=== PATIENT | female | born 1945 ===

== ENCOUNTER 2020-04-05 10:57 | Outpatient (REF) | payer MEDICARE, SELFPAY | END 2020-04-05 10:58 | disposition home or self-care (01) | LOC: HO.LAB 10:57 | PROVIDERS: Visit Provider Internal Medicine | DX: Z20.828 Contact with and (suspected) exposure to other viral communicable diseases (principal) | CPT/HCPCS: 87635 ==

== ENCOUNTER 2020-06-09 12:06 | Outpatient (REF) | payer MEDICARE, SELFPAY | END 2020-06-09 12:07 | disposition home or self-care (01) | LOC: HO.HAP 12:06 | PROVIDERS: Visit Provider Internal Medicine Geriatric Medicine | DX: Z13.89 Encounter for screening for other disorder (principal) ==

== ENCOUNTER 2020-08-16 12:57 | Outpatient (REF) | payer MEDICARE, SELFPAY ==
--- NOTE | ~2020-08-16 | MM_ITS ---
EXAMINATION: MM SCREENING DIGITAL BREAST TOMOSYNTHESIS, BILATERAL CLINICAL INFORMATION: Screening. Asymptomatic. The lifetime risk of breast cancer based on the Tyrer-Cuzick Model is 2.6%. COMPARISON: Mammography: December 30, 2018 and studies dating back to September 02, 2009 TECHNIQUE: Digital breast tomosynthesis is performed in both the craniocaudal and mediolateral oblique views along with computer-aided detection (CAD). Synthesized 2D images are generated from the tomosynthesis. Left exaggerated craniocaudal view also performed. FINDINGS: There are scattered areas of fibroglandular density (ACR BI-RADS breast composition Category b). There are no significant masses, abnormal calcifications, or other abnormalities. MM/MM tomosynthesis screening BI IMPRESSION: There are no significant changes from prior study. ASSESSMENT: BI-RADS 1: Negative RECOMMENDATION: Routine annual mammography screening. This patient's information was entered into a reminder system with a target due date for their next mammogram.
== END 2020-08-16 12:58 | disposition home or self-care (01) ==
LOC: HO.MAMMO 12:57
PROVIDERS: Visit Provider Internal Medicine Geriatric Medicine
DX: Z12.31 Encounter for screening mammogram for malignant neoplasm of breast (principal)
CPT/HCPCS: 77063; 77067

== ENCOUNTER 2020-08-26 10:50 | Inpatient (IN) | payer MEDICARE, SELFPAY ==
--- NOTE | ~2020-08-26 | CT_ITS ---
EXAMINATION: CT HEAD WITHOUT CONTRAST CLINICAL INFORMATION: Confusion visual hallucination. Evaluate for stroke or bleed. COMPARISON: Previous head CT most recent November 2019 TECHNIQUE: Contiguous axial imaging was performed from the skull base to vertex without intravenous administration of contrast. This CT examination was performed using dose optimization techniques as appropriate, variously including the following: *Automated exposure control *Adjustment of mA and/or kV according to patient size (this includes techniques or standardized protocols for targeted exams where dose is matched to indication/reason for exam; i.e. extremities or head) *Use of iterative reconstruction technique DLP: 616 mGy-cm FINDINGS: There is no evidence of an extra-axial collection. There is no evidence of intra-axial or extra-axial hemorrhage. The ventricles and extra-axial CSF spaces are slightly prominent suggestive of mild generalized atrophy. There is nonspecific periventricular white matter disease. No mass, mass effect or infarct is seen. There is an empty sella. 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 Paranasal sinuses and mastoid air cells and middle ears are clear. Review of bone windows is normal. CT/CT head/brain wo con IMPRESSION: No acute intracranial pathology.
--- NOTE | ~2020-08-26 | XR_ITS ---
EXAMINATION: XR CHEST CLINICAL INFORMATION: Confusion. Rule out pneumonia. COMPARISON: Previous chest x-ray January 2017 TECHNIQUE: 2 views of the chest were obtained. FINDINGS: The cardiac and mediastinal contours are stable. There are post-CABG changes. The lung volumes are low. The lungs are clear. There is no pleural effusion or pneumothorax. There are degenerative changes of the spine. XR/XR chest 2V IMPRESSION: No evidence for acute disease in the chest.
--- NOTE | ~2020-08-26 | CT_ITS ---
EXAMINATION: CT ABDOMEN AND PELVIS WITHOUT CONTRAST CLINICAL INFORMATION: Hematuria COMPARISON: CTA chest 05/14/2015, CT abdomen and pelvis without intravenous contrast 01/18/2011. Chest radiograph 08/26/2020. TECHNIQUE: Multidetector volumetric imaging was performed from the superior aspect of the liver through the pubic symphysis. Sagittal and coronal reformatted images were obtained on the technologist's workstation. This CT examination was performed using dose optimization techniques as appropriate, variously including the following: *Automated exposure control *Adjustment of mA and/or kV according to patient size (this includes techniques or standardized protocols for targeted exams where dose is matched to indication/reason for exam; i.e. extremities or head) *Use of iterative reconstruction technique DLP: 559 mGy-cm FINDINGS: LUNG BASES: The visualized lung bases are unremarkable. LIVER, GALLBLADDER, AND BILIARY TREE: The liver is normal in size, shape, and attenuation. No focal hepatic lesion or biliary ductal dilatation is present. There are some small dependent calculi in the gallbladder. No gallbladder dilatation or wall thickening or pericholecystic inflammatory changes. Common duct unremarkable. PANCREAS: Atrophic, otherwise unremarkable. SPLEEN: Unremarkable. ADRENAL GLANDS: Unremarkable. KIDNEYS AND URETERS: The kidneys are normal in size and symmetric and smooth in contour. There is no hydronephrosis, urinary tract calculi, or perinephric stranding. Extensive calcifications renal vasculature. BLADDER: Unremarkable. GASTROINTESTINAL TRACT: The small and large bowel are unremarkable. The appendix is unremarkable. ABDOMINAL WALL: No significant hernia is appreciated. LYMPH NODES: Normal. VASCULAR: There is extensive diffuse atherosclerotic calcifications of the vasculature including the renal and intrarenal arteries, aorta, and branches. There is been prior median sternotomy. Dense mitral annulus or mitral valve calcification present. No pericardial effusion. PELVIC VISCERA: No adnexal mass. Extensive calcifications uterine vasculature. OSSEOUS STRUCTURES: Unremarkable. CT/CT abdomen pelvis wo con IMPRESSION: 1. No hydronephrosis, hydroureter, or perinephric stranding. No urinary tract calculi. 2. Extensive atherosclerotic calcifications vasculature. 3. No bowel obstruction or focal inflammatory changes. No ascites or fluid collection. 4. Gallstones. No gallbladder wall thickening or ductal dilatation.
[2020-08-26 10:50] VITALS: BP 159/93; PULSE 90; RESP 18; TEMP 36.3; O2SAT 100; BMI 34.9
[2020-08-26 11:10] LABS: Glucose, Whole Blood 309 mg/dL (60-115)
--- NOTE | 2020-08-26 11:20 | ECG_ITS ---
Test Reason : ALTER MENTAL Blood Pressure : / mmHG Vent. Rate : 083 BPM Atrial Rate : 083 BPM P-R Int : 164 ms QRS Dur : 080 ms QT Int : 428 ms P-R-T Axes : 048 024 034 degrees QTc Int : 502 ms Normal sinus rhythm Prolonged QT Abnormal ECG When compared with ECG of 01-APR-2018 12:17, Vent. rate has increased BY 30 BPM Nonspecific T wave abnormality now evident in Anterior leads Referred By: James Pierce Electronically Signed By:JAYANT VIVAS MD
--- NOTE | 2020-08-26 11:48 | ED_ITS ---
HPI - General Adult General Chief complaint: Altered Mental Status Stated complaint: ALTER MENTAL STATUS Time Seen by Provider: 08/26/20 11:15 Source: patient and other ( patient's [place], Sangita [place] ) Mode of arrival: ambulatory Limitations: language barrier ( patient is confused, 1st language is Tajik, [place] speaks Tajik, hospital automotive parts interpreter used) History of Present Illness HPI narrative: the patient is confused and the information was obtained from her [place], Sangita [place]. the patient's [place] sees the patient daily from 12:30 p.m. to 4:30 p.m.. She states that the patient called her this morning at 6:00 a.m. and appeared to be confused and frightened. The patient told her [place] that birds came into her house and were eating her toes all night long. There was also a skunk in the house overnight. The patient was visited by a ghost that wanted to take her away. The goes also voice and all of her food. When the [place] got the patient's house, the patient was hiding in a closet. The [place] states that the patient has no history of confusion or hallucinations. The patient lives alone and is usually able to care for herself. Recently the [place] noted the patient was more tired than usual and did not want to leave the house. According to the [place], the patient has had no fever, cough, chest pain, shortness of breath. Patient has had an occasional headache. The patient has had a good appetite the lost 7 lb over the last 2-3 weeks. 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 Patient lives alone but her [place] sees her daily from 12:30 p.m. to 4:30 p.m., the [place] prepares the patient's meals. the patient does not smoke cigarettes, drink alcohol or use drugs. Medical History (Updated 08/26/20 @ 14:34 by James Pierce MD) Diabetes HTN (hypertension) Surgical History (Updated 08/26/20 @ 10:56 by Phyllis De Souza) History of open heart surgery Social History Social History Alcohol intake: never Smoking Status: Never smoker Use of substances other than those prescribed or required for medical reasons: No Advance Directives: No Advance Directives Information Provided: No Physical Exam Vital Signs: Vital Signs: Last Vital Signs Temp 97.4 F 08/26/20 10:50 Pulse 90 08/26/20 10:50 Resp 18 08/26/20 10:50 BP 159/93 H 08/26/20 10:50 Pulse Ox 100 08/26/20 10:50 Body Mass Index 34.9 Const: General: cooperative Orientation/consciousness: oriented to person Limitations: no limitations HENMT: Head: Yes normal to inspection, Yes normocephalic and Yes atraumatic Ears: external ears normal General nose exam: Normal external nose present Face and sinus: Yes normal facial exam Mouth: Normal oral and palatal mucosa present Throat: Yes posterior oropharynx normal Eyes: Periorbital: periorbital findings normal Eyelids: Yes eyelids normal Conjunctivae: conjunctivae normal Sclerae: sclerae normal Corneas: corneas normal Pupils: Equal, round and reactive pupils present Direct Ophthalmoscopy: normal light reflex Neck: Neck: Yes full ROM, Yes no lymphadenopathy, Yes no meningeal signs, Yes trachea midline and Yes supple Chest: Chest palpation & inspection: normal inspection of the chest and normal palpation of entire chest wall Resp: Effort & Inspection: normal respiratory effort and able to speak in complete sentences Auscultation: clear to auscultation bilaterally Cardio: Rate: regular rate Rhythm: regular rhythm Heart sounds: S1 normal heart sound present, S2 normal heart sound present and no murmurs GI: Inspection: Yes normal to inspection Palpation (GI): Soft to palpation, Tenderness to palpation present (GI) ( Mild diffuse tenderness with increased tenderness in the suprapubic area), no guarding, not rigid and No hepatospl enomegaly present : General: Yes no CVA tenderness Back/Spine/Pelvis: Back: no CVA tenderness Cervical Spine: normal cervical lordosis Thoracic/Lumbar Spine: thoracic and lumbar spine normal to inspection Skin: Lesions: no lesions Rashes: no rashes Wounds: no wounds Neuro: General: oriented to person and no meningeal signs Cranial nerves: Yes CN's II-XII intact bilaterally and Yes Equal, round and reactive pupils present Motor exam (neuro): 5/5 motor strength present throughout Extrem: General: Yes normal to inspection and Yes full ROM Psych: Appearance: well kempt Speech and movement: Normal speech and movement present Affect: normal affect Attitude: cooperative Thought content: Paranoid delusions present ( believes that his birds and worms in her abdomen) Course Course Course Narrative: 75-year-old female who was brought to the emergency department by her [place] for confusion and visual hallucinations which are new for this patient. Physical examination revealed an elevated BP of 159/93 otherwise normal vital signs, diffuse abdominal tenderness with increased suprapubic tende rness otherwise unremarkable except for paranoid ideation and hallucinations. I did order a medical workup on this patient to include a septic workup, TSH, CT scan of the brain. 1431: The patient's laboratory evaluation revealed an elevated glucose of 321, TSH was normal. Urinalysis /microscopic revealed WBCs which were too numerous to count and 4+ bacteria. Lactic acid was normal. CT scan of the head was negative and chest x-ray was negative. My impression is The patient's hallucinations are most likely secondary to delirium/ encephalopathy from the patient's urine infection. The patient was ordered to get ceftriaxone 1 g IV. I did discuss the patient's presentation with the covering hospitalist, Cheyenne Smith and the patient will be admitted for further management. Medical Decision Making Lab Data Result diagrams: 08/26/20 11:41 08/26/20 11:41 Labs: Lab Results 08/26/20 08/26/20 08/26/20 Range/Units 11:06 11:40 11:41 WBC 7.0 (4.8-10.8) X10*3/uL RBC 4.42 (4.20-5.50) X10*6/uL Hgb 12.1 (12.0-16.0) g/dl Hct 36.0 L (37-47) % MCV 81.4 (80-98) fL MCH 27.4 (27.0-33.0) pg MCHC 33.6 (31.0-35.0) g/dl RDW 14.4 (11.0-16.0) % Plt Count 227 (160-400) X10*3/uL MPV 9.8 (9.4-12.3) fL Immature Gran % (Auto) 0.4 (0.0-0.4) % Neut % (Auto) 65.7 (45-73) % Lymph % (Auto) 24.2 (20-40) % [place] % (Auto) 7.4 (2-11) % Eos % (Auto) 1.7 (0-4) % Baso % (Auto) 0.6 (0-2) % Lymph # (Auto) 1.7 (1.2-4.9) X10*3/uL [place] # (Auto) 0.5 (0.1-1.2) X10*3/uL Eos # (Auto) 0.1 (0.0-0.4) X10*3/uL Baso # (Auto) 0.0 (0.0-0.2) X10*3/uL Abs Immat Gran (auto) 0.03 (0.00-0.03) X10*3/uL Absolute Neuts (auto) 4.6 (2.0-8.3) X10*3/uL Absolute Nucleated RBC 0.000 (0.0-0.012) X10*3/uL Nucleated RBC % (auto) 0.0 (0.0-0.2) /100WBC PT (10.8-13.0) SEC INR (0.9-1.1) APTT (24.1-38.0) SEC Sodium (135-145) mmol/L Potassium (3.3-5.1) mmol/L Chloride (96-108) mmol/L Carbon Dioxide (22-29) mmol/L Anion Gap (12-20) BUN (9-16) mg/dL Creatinine (0.5-1.4) mg/dL Estim Creat Clear Calc Estimated GFR POC Glucose 309 H (60-115) mg/dL Random Glucose (60-115) mg/dL Lactic Acid 1.8 (0.5-2.0) mmol/L Calcium (8.4-10.2) mg/dL Total Bilirubin (0.0-1.0) mg/dL AST (5-31) U/L ALT (0-31) U/L Alkaline Phosphatase (39-117) U/L Troponin I High Sens (<3.5-17.0) ng/L Total Protein (6.5-8.0) g/dL Albumin (3.5-5.0) g/dL Lipase (8-78) U/L TSH (0.32-4.0) uIU/mL Urine Color Urine Appearance Urine pH (5.0-8.0) Ur Specific [place] (1.005-1.025) Urine Protein (NEG-TRACE) MG/DL Urine Glucose (UA) (NEG) MG/DL Urine Ketones (NEG) MG/DL Urine Blood (NEG) Urine Nitrite (NEG) Ur Leukocyte Esterase (NEG) Urine RBC (0) /HPF Urine WBC (0-4) /HPF Urine WBC Clumps Ur Squamous Epith Cells /LPF Urine Bacteria /LPF Salicylates (15-30) mg/dL Urine Opiates Screen (Not Detect) Acetaminophen (<30) mcg/mL Ur Barbiturates Screen (Not Detect) Ur Phencyclidine Scrn (Not Detect) Ur Amphetamines Screen (Not Detect) U Benzodiazepines Scrn (Not Detect) Urine Cocaine Screen (Not Detect) U Marijuana (THC) Screen (Not Detect) Ethyl Alcohol mg/dL COVID-19 ([facility]) COVID-19 Clin Com 08/26/20 08/26/20 08/26/20 Range/Units 11:41 11:41 11:41 WBC (4.8-10.8) X10*3/uL RBC (4.20-5.50) X10*6/uL Hgb (12.0-16.0) g/dl Hct (37-47) % MCV (80-98) fL MCH (27.0-33.0) pg MCHC (31.0-35.0) g/dl RDW (11.0-16.0) % Plt Count (160-400) X10*3/uL MPV (9.4-12.3) fL Immature Gran % (Auto) (0.0-0.4) % Neut % (Auto) (45-73) % Lymph % (Auto) (20-40) % [place] % (Auto) (2-11) % Eos % (Auto) (0-4) % Baso % (Auto) (0-2) % Lymph # (Auto) (1.2-4.9) X10*3/uL [place] # (Auto) (0.1-1.2) X10*3/uL Eos # (Auto) (0.0-0.4) X10*3/uL Baso # (Auto) (0.0-0.2) X10*3/uL Abs Immat Gran (auto) (0.00-0.03) X10*3/uL Absolute Neuts (auto) (2.0-8.3) X10*3/uL Absolute Nucleated RBC (0.0-0.012) X10*3/uL Nucleated RBC % (auto) (0.0-0.2) /100WBC PT 12.9 (10.8-13.0) SEC INR 1.1 (0.9-1.1) APTT 28.0 (24.1-38.0) SEC Sodium 132 L (135-145) mmol/L Potassium 3.6 (3.3-5.1) mmol/L Chloride 94 L (96-108) mmol/L Carbon Dioxide 27 (22-29) mmol/L Anion Gap 15 (12-20) BUN 15 (9-16) mg/dL Creatinine 1.27 (0.5-1.4) mg/dL Estim Creat Clear Calc 37.2 Estimated GFR 41 POC Glucose (60-115) mg/dL Random Glucose 321 H (60-115) mg/dL Lactic Acid (0.5-2.0) mmol/L Calcium 9.1 (8.4-10.2) mg/dL Total Bilirubin 0.8 (0.0-1.0) mg/dL AST 16 (5-31) U/L ALT 15 (0-31) U/L Alkaline Phosphatase 71 (39-117) U/L Troponin I High Sens (<3.5-17.0) ng/L Total Protein 7.3 (6.5-8.0) g/dL Albumin 3.9 (3.5-5.0) g/dL Lipase (8-78) U/L TSH (0.32-4.0) uIU/mL Urine Color Urine Appearance Urine pH (5.0-8.0) Ur Specific [place] (1.005-1.025) Urine Protein (NEG-TRACE) MG/DL Urine Glucose (UA) (NEG) MG/DL Urine Ketones (NEG) MG/DL Urine Blood (NEG) Urine Nitrite (NEG) Ur Leukocyte Esterase (NEG) Urine RBC (0) /HPF Urine WBC (0-4) /HPF Urine WBC Clumps Ur Squamous Epith Cells /LPF Urine Bacteria /LPF Salicylates (15-30) mg/dL Urine Opiates Screen (Not Detect) Acetaminophen < 1 (<30) mcg/mL Ur Barbiturates Screen (Not Detect) Ur Phencyclidine Scrn (Not Detect) Ur Amphetamines Screen (Not Detect) U Benzodiazepines Scrn (Not Detect) Urine Cocaine Screen (Not Detect) U Marijuana (THC) Screen (Not Detect) Ethyl Alcohol mg/dL COVID-19 ([facility]) TNP COVID-19 Clin Com TNP 08/26/20 08/26/20 08/26/20 Range/Units 11:41 11:41 11:41 WBC (4.8-10.8) X10*3/uL RBC (4.20-5.50) X10*6/uL Hgb (12.0-16.0) g/dl Hct (37-47) % MCV (80-98) fL MCH (27.0-33.0) pg MCHC (31.0-35.0) g/dl RDW (11.0-16.0) % Plt Count (160-400) X10*3/uL MPV (9.4-12.3) fL Immature Gran % (Auto) (0.0-0.4) % Neut % (Auto) (45-73) % Lymph % (Auto) (20-40) % [place] % (Auto) (2-11) % Eos % (Auto) (0-4) % Baso % (Auto) (0-2) % Lymph # (Auto) (1.2-4.9) X10*3/uL [place] # (Auto) (0.1-1.2) X10*3/uL Eos # (Auto) (0.0-0.4) X10*3/uL Baso # (Auto) (0.0-0.2) X10*3/uL Abs Immat Gran (auto) (0.00-0.03) X10*3/uL Absolute Neuts (auto) (2.0-8.3) X10*3/uL Absolute Nucleated RBC (0.0-0.012) X10*3/uL Nucleated RBC % (auto) (0.0-0.2) /100WBC PT (10.8-13.0) SEC INR (0.9-1.1) APTT (24.1-38.0) SEC Sodium (135-145) mmol/L Potassium (3.3-5.1) mmol/L Chloride (96-108) mmol/L Carbon Dioxide (22-29) mmol/L Anion Gap (12-20) BUN (9-16) mg/dL Creatinine (0.5-1.4) mg/dL Estim Creat Clear Calc Estimated GFR POC Glucose (60-115) mg/dL Random Glucose (60-115) mg/dL Lactic Acid (0.5-2.0) mmol/L Calcium (8.4-10.2) mg/dL Total Bilirubin (0.0-1.0) mg/dL AST (5-31) U/L ALT (0-31) U/L Alkaline Phosphatase (39-117) U/L Troponin I High Sens < 3.5 (<3.5-17.0) ng/L Total Protein (6.5-8.0) g/dL Albumin (3.5-5.0) g/dL Lipase 29 (8-78) U/L TSH 1.04 (0.32-4.0) uIU/mL Urine Color Urine Appearance Urine pH (5.0-8.0) Ur Specific [place] (1.005-1.025) Urine Protein (NEG-TRACE) MG/DL Urine Glucose (UA) (NEG) MG/DL Urine Ketones (NEG) MG/DL Urine Blood (NEG) Urine Nitrite (NEG) Ur Leukocyte Esterase (NEG) Urine RBC (0) /HPF Urine WBC (0-4) /HPF Urine WBC Clumps Ur Squamous Epith Cells /LPF Urine Bacteria /LPF Salicylates < 5.0 L (15-30) mg/dL Urine Opiates Screen (Not Detect) Acetaminophen (<30) mcg/mL Ur Barbiturates Screen (Not Detect) Ur Phencyclidine Scrn (Not Detect) Ur Amphetamines Screen (Not Detect) U Benzodiazepines Scrn (Not Detect) Urine Cocaine Screen (Not Detect) U Marijuana (THC) Screen (Not Detect) Ethyl Alcohol < 10 mg/dL COVID-19 ([facility]) COVID-19 Clin Com 08/26/20 08/26/20 Range/Units 11:41 11:41 WBC (4.8-10.8) X10*3/uL RBC (4.20-5.50) X10*6/uL Hgb (12.0-16.0) g/dl Hct (37-47) % MCV (80-98) fL MCH (27.0-33.0) pg MCHC (31.0-35.0) g/dl RDW (11.0-16.0) % Plt Count (160-400) X10*3/uL MPV (9.4-12.3) fL Immature Gran % (Auto) (0.0-0.4) % Neut % (Auto) (45-73) % Lymph % (Auto) (20-40) % [place] % (Auto) (2-11) % Eos % (Auto) (0-4) % Baso % (Auto) (0-2) % Lymph # (Auto) (1.2-4.9) X10*3/uL [place] # (Auto) (0.1-1.2) X10*3/uL Eos # (Auto) (0.0-0.4) X10*3/uL Baso # (Auto) (0.0-0.2) X10*3/uL Abs Immat Gran (auto) (0.00-0.03) X10*3/uL Absolute Neuts (auto) (2.0-8.3) X10*3/uL Absolute Nucleated RBC (0.0-0.012) X10*3/uL Nucleated RBC % (auto) (0.0-0.2) /100WBC PT (10.8-13.0) SEC INR (0.9-1.1) APTT (24.1-38.0) SEC Sodium (135-145) mmol/L Potassium (3.3-5.1) mmol/L Chloride (96-108) mmol/L Carbon Dioxide (22-29) mmol/L Anion Gap (12-20) BUN (9-16) mg/dL Creatinine (0.5-1.4) mg/dL Estim Creat Clear Calc Estimated GFR POC Glucose (60-115) mg/dL Random Glucose (60-115) mg/dL Lactic Acid (0.5-2.0) mmol/L Calcium (8.4-10.2) mg/dL Total Bilirubin (0.0-1.0) mg/dL AST (5-31) U/L ALT (0-31) U/L Alkaline Phosphatase (39-117) U/L Troponin I High Sens (<3.5-17.0) ng/L Total Protein (6.5-8.0) g/dL Albumin (3.5-5.0) g/dL Lipase (8-78) U/L TSH (0.32-4.0) uIU/mL Urine Color YELLOW Urine Appearance CLOUDY Urine pH 7.0 (5.0-8.0) Ur Specific [place] 1.015 (1.005-1.025) Urine Protein NEG (NEG-TRACE) MG/DL Urine Glucose (UA) 250 H (NEG) MG/DL Urine Ketones NEG (NEG) MG/DL Urine Blood TRACE (NEG) Urine Nitrite NEG (NEG) Ur Leukocyte Esterase 3+ H (NEG) Urine RBC 1-4 (0) /HPF Urine WBC TNTC H (0-4) /HPF Urine WBC Clumps NOTED Ur Squamous Epith Cells 1+ /LPF Urine Bacteria 4+ /LPF Salicylates (15-30) mg/dL Urine Opiates Screen Not Detected (Not Detect) Acetaminophen (<30) mcg/mL Ur Barbiturates Screen Not Detected (Not Detect) Ur Phencyclidine Scrn Not Detected (Not Detect) Ur Amphetamines Screen Not Detected (Not Detect) U Benzodiazepines Scrn Not Detected (Not Detect) Urine Cocaine Screen Not Detected (Not Detect) U Marijuana (THC) Screen Not Detected (Not Detect) Ethyl Alcohol mg/dL COVID-19 ([facility]) COVID-19 Clin Com ECG Data Attestation: I personally reviewed and interpreted this ECG as follows: Interpretation: 1133: Normal sinus rhythm with a rate of 83, normal UT and QRS interval, prolonged QTC interval of 502 milliseconds, Q-wave in lead 3, no ST segment elevation or depression, no old EKG for comparison. Discharge Plan Discharge Clinical Impression: Delirium due to general medical condition, Urinary tract infection Patient Disposition: Admitted As Inpatient
[2020-08-26 11:49] LABS: MANUAL DIFF FLAG NO
[2020-08-26 11:51] LABS: Basophils Percent Auto 0.6 % (0-2); Eosinophils Absolute Auto 0.1 X10*3/uL (0.0-0.4); Eosinophils Percent Auto 1.7 % (0-4); Hemoglobin 12.1 g/dl (12.0-16.0); Imm Gran Abs Auto 0.03 X10*3/uL (0.00-0.03); Imm Gran Pct Auto 0.4 % (0.0-0.4); Lymphocytes Absolute Auto 1.7 X10*3/uL (1.2-4.9); Lymphocytes Percent Auto 24.2 % (20-40); Mean Corpuscular HGB Conc 33.6 g/dl (31.0-35.0); Mean Corpuscular Hemoglobin 27.4 pg (27.0-33.0); Mean Corpuscular Volume 81.4 fL (80-98); Mean Platelet Volume 9.8 fL (9.4-12.3); Monocytes Absolute Auto 0.5 X10*3/uL (0.1-1.2); Monocytes Percent Auto 7.4 % (2-11); Neutrophils Absolute Auto 4.6 X10*3/uL (2.0-8.3); Neutrophils Percent Auto 65.7 % (45-73); Platelet Count 227 X10*3/uL (160-400); Red Blood Count 4.42 X10*6/uL (4.20-5.50); Red Cell Distribution Width 14.4 % (11.0-16.0)
--- NOTE | 2020-08-26 11:51 | PC.NURSE ---
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 THIS TOTALLY OUT OF PT BASELINE, PT LIVES BY HERSELF FULLY INDEPENTED, COMMERCIAL DOOR INSTALLER COMES FOR A COUPLE OF HOURS A DAY. ACCORDING TO COMMERCIAL DOOR INSTALLER PT'S DOES NOT WANT TO GO OUT AND DUE THINGS LIKE SHE USED TO, JUST WANTS TO SLEEP. COMMERCIAL DOOR INSTALLER STATES THAT PT HAS REPORTED A HEADACHE ON AND OFF, DENIES COUGH/CHEST PAIN/FEVERS.
[2020-08-26 11:58] LABS: INTERNATIONAL NORM RATIO 1.1 (0.9-1.1); Prothrombin Time 12.9 SEC (10.8-13.0)
[2020-08-26 12:01] LABS: Glucose Urine UA 250 MG/DL (NEG); Leukocyte Esterase Urine 3+ (NEG); Nitrite Urine NEG (NEG); Specific Gravity - Urine 1.015 (1.005-1.025); UACC Culture Trigger YES; Urine Blood TRACE (NEG); Urine Ketones NEG (NEG); Urine Protein NEG (NEG-TRACE)
[2020-08-26 12:03] LABS: Appearance Urine CLOUDY; Color Urine YELLOW
[2020-08-26 12:10] LABS: Ethanol < 10 mg/dL
[2020-08-26 12:10] LABS: Lactic Acid 1.8 mmol/L (0.5-2.0)
[2020-08-26 12:14] LABS: Acetaminophen LAB < 1 mcg/mL (<30); Alanine Aminotransferase 15 U/L (0-31); Albumin Level 3.9 g/dL (3.5-5.0); Alkaline Phosphatase 71 U/L (39-117); Anion Gap 15 (12-20); Aspartate Amino Transferase 16 U/L (5-31); Bacteria Urine 4+ /LPF; Bilirubin Total 0.8 mg/dL (0.0-1.0); Blood Urea Nitrogen 15 mg/dL (9-16); Calcium 9.1 mg/dL (8.4-10.2); Carbon Dioxide 27 mmol/L (22-29); Chloride 94 mmol/L (96-108); Creatinine Clr Calc Pharmacy 37.2; Estimated Glomerular Filt Rate 41; Glucose Random 321 mg/dL (60-115); Lipase 29 U/L (8-78); Potassium 3.6 mmol/L (3.3-5.1); Salicylate < 5.0 mg/dL (15-30); Sodium 132 mmol/L (135-145); Squamous Epithelial Cell Urine 1+ /LPF; Total Protein 7.3 g/dL (6.5-8.0); WBC Urine TNTC /HPF (0-4)
[2020-08-26 12:15] LABS: WBC Clumps Urine NOTED
[2020-08-26 12:18] LABS: Troponin-I High Sensitivity < 3.5 ng/L (<3.5-17.0)
[2020-08-26 12:24] LABS: Amphetamine Screen Urine Not Detected (Not Detect); Barbiturates, Urine Not Detected (Not Detect); Benzodiazepines Screen Urine Not Detected (Not Detect); Cannabinoid Screen Urine Not Detected (Not Detect); Cocaine Screen Urine Not Detected (Not Detect); Opiate Screen Urine Not Detected (Not Detect); Phencyclidine Screen Urine Not Detected (Not Detect)
[2020-08-26 12:34] LABS: TSH reflex Free T4 1.04 uIU/mL (0.32-4.0)
[2020-08-26] MEDS: cefTRIAXone sodium 1 GM in 0.9 % Sodium Chloride 50 ML IV (14:47)
[2020-08-26 14:52] LABS: COVID-19 Test Negative (Negative)
[2020-08-26 15:10] VITALS: BP 164/57; PULSE 77; RESP 18; TEMP 36.7; O2SAT 99
--- NOTE | 2020-08-26 17:09 | PM.IMHP ---
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 given patient is confused 75-year-old female was brought to ER after found to have more confused, as per REMOTE COMPUTER TERMINAL OPERATOR patient was getting more confused for last 2 days, patient called her REMOTE COMPUTER TERMINAL OPERATOR this morning but somebody knocking at the door , patient was found in the cubbord and was confused, patient was brought to ER, in the ER UA was found to be positive, CT head shows no acute abnormality, patient was given 1 dose of Rocephin patient was having frequent urination but was denying any abdominal pain, denies any fever chills, patient also noticed to have poor p.o. intake for last couple of days Review of Systems Constitutional: Constitutional: Denies fever(s) Cardiovascular: Cardiovascular: Denies leg edema Respiratory: Respiratory: Denies wheezing Gastrointestinal: Gastrointestinal: Denies vomiting Musculoskeletal: Musculoskeletal: Reports no additional musculoskeletal complaints Allergic/Immunologic: Allergic/Immunologic: Denies wheezing [facility] Medical History (Updated 08/26/20 @ 17:12 by Clay Sanchez MD) CAD (coronary artery disease) Diabetes HTN (hypertension) Functional capacity: uses cane/walker Family History (Updated 08/26/20 @ 17:12 by Clay Sanchez MD) Other Hypertension Surgical History History of open heart surgery Social History Alcohol intake: never Smoking Status: Never smoker Use of substances other than those prescribed or required for medical reasons: No Advance Directives: No Advance Directives Information Provided: No Meds Allergies Allergy/AdvReac Type Severity Reaction Status Date / Time SEAFOOD Allergy Mild RASH Uncoded 02/25/20 16:20 Active Medications: Current Medications Generic Name Dose Route Start Last Admin Trade Name Freq PRN Reason Stop Dose Admin Pharmacy Consult 1 each 08/26/20 15:14 Consult Rx Perform Med Rec MISCELLANE ONCE PRN Consult order Home Medications Medication Instructions Recorded Confirmed Last Taken Type acetaminophen 650 mg PO Q6H PRN 08/26/20 08/26/20 Unknown History aspirin 81 mg PO BEDTIME 08/26/20 08/26/20 08/25/20 History atorvastatin 80 mg PO BEDTIME 03/08/26/20 08/25/20 History bisoprolol fumarate 5 mg PO DAILY 08/26/20 08/26/20 08/25/20 History cholecalciferol (vitamin D3) 25 mcg PO DAILY 08/26/20 08/26/20 08/25/20 History cyanocobalamin (vitamin B-12) 1,000 mcg PO DAILY 08/26/20 08/26/20 08/25/20 History fluticasone propionate 1 - 2 spray INTRANASAL DAILY PRN 08/26/20 08/26/20 Unknown History gabapentin 300 mg PO TID 08/26/20 08/26/20 08/25/20 History hydrochlorothiazide 12.5 mg PO DAILY 08/26/20 08/26/20 08/25/20 History insulin glargine [Lantus Solostar 36 unit SUBCUT DAILY 08/26/20 08/26/20 08/25/20 History U-100 Insulin] isosorbide mononitrate 30 mg PO DAILY 08/26/20 08/26/20 08/25/20 History metformin 500 mg PO BID 08/26/20 08/26/20 08/25/20 History multivitamin 1 tab PO DAILY 08/26/20 08/26/20 08/25/20 History pantoprazole 40 mg PO DAILY 08/26/20 08/26/20 08/25/20 History paroxetine HCl 10 mg PO DAILY 08/26/20 08/26/20 08/25/20 History Physical Exam Vital Signs and Narrative: Vital Signs: Last Vital Signs Temp 98.0 F 08/26/20 15:10 Pulse 77 08/26/20 15:10 Resp 18 08/26/20 15:10 BP 164/57 H 08/26/20 15:10 Pulse Ox 99 08/26/20 15:10 Body Mass Index 34.9 Results Labs CBC and Chem 7: 08/26/20 11:41 08/26/20 11:41 Labs: Laboratory Results - last 24 hr 08/26/20 08/26/20 08/26/20 11:06 11:40 11:41 MCV 81.4 MCH 27.4 MCHC 33.6 RDW 14.4 Plt Count 227 MPV 9.8 Immature Gran % (Auto) 0.4 Neut % (Auto) 65.7 Lymph % (Auto) 24.2 Delta % (Auto) 7.4 Eos % (Auto) 1.7 Baso % (Auto) 0.6 Lymph # (Auto) 1.7 Delta # (Auto) 0.5 Eos # (Auto) 0.1 Baso # (Auto) 0.0 Abs Immat Gran (auto) 0.03 Absolute Neuts (auto) 4.6 Absolute Nucleated RBC 0.000 Nucleated RBC % (auto) 0.0 PT INR APTT Anion Gap Estim Creat Clear Calc Estimated GFR POC Glucose 309 H Random Glucose Lactic Acid 1.8 Calcium Total Bilirubin AST ALT Alkaline Phosphatase Troponin I High Sens Total Protein Albumin Lipase TSH Urine Color Urine Appearance Urine pH Ur Specific [place] Urine Protein Urine Glucose (UA) Urine Ketones Urine Blood Urine Nitrite Ur Leukocyte Esterase Urine RBC Urine WBC Urine WBC Clumps Ur Squamous Epith Cells Urine Bacteria Salicylates Urine Opiates Screen Acetaminophen Ur Barbiturates Screen Ur Phencyclidine Scrn Ur Amphetamines Screen U Benzodiazepines Scrn Urine Cocaine Screen U Marijuana (THC) Screen Ethyl Alcohol COVID-19 ([facility]) COVID-19 [employer] 08/26/20 08/26/20 08/26/20 11:41 11:41 11:41 MCV MCH MCHC RDW Plt Count MPV Immature Gran % (Auto) Neut % (Auto) Lymph % (Auto) Delta % (Auto) Eos % (Auto) Baso % (Auto) Lymph # (Auto) Delta # (Auto) Eos # (Auto) Baso # (Auto) Abs Immat Gran (auto) Absolute Neuts (auto) Absolute Nucleated RBC Nucleated RBC % (auto) PT 12.9 INR 1.1 APTT 28.0 Anion Gap 15 Estim Creat Clear Calc 37.2 Estimated GFR 41 POC Glucose Random Glucose 321 H Lactic Acid Calcium 9.1 Total Bilirubin 0.8 AST 16 ALT 15 Alkaline Phosphatase 71 Troponin I High Sens Total Protein 7.3 Albumin 3.9 Lipase TSH Urine Color Urine Appearance Urine pH Ur Specific [place] Urine Protein Urine Glucose (UA) Urine Ketones Urine Blood Urine Nitrite Ur Leukocyte Esterase Urine RBC Urine WBC Urine WBC Clumps Ur Squamous Epith Cells Urine Bacteria Salicylates Urine Opiates Screen Acetaminophen < 1 Ur Barbiturates Screen Ur Phencyclidine Scrn Ur Amphetamines Screen U Benzodiazepines Scrn Urine Cocaine Screen U Marijuana (THC) Screen Ethyl Alcohol COVID-19 ([facility]) TNP COVID-19 Clin Com TNP 08/26/20 08/26/20 08/26/20 11:41 11:41 11:41 MCV MCH MCHC RDW Plt Count MPV Immature Gran % (Auto) Neut % (Auto) Lymph % (Auto) Delta % (Auto) Eos % (Auto) Baso % (Auto) Lymph # (Auto) Delta # (Auto) Eos # (Auto) Baso # (Auto) Abs Immat Gran (auto) Absolute Neuts (auto) Absolute Nucleated RBC Nucleated RBC % (auto) PT INR APTT Anion Gap Estim Creat Clear Calc Estimated GFR POC Glucose Random Glucose Lactic Acid Calcium Total Bilirubin AST ALT Alkaline Phosphatase Troponin I High Sens < 3.5 Total Protein Albumin Lipase 29 TSH 1.04 Urine Color Urine Appearance Urine pH Ur Specific [place] Urine Protein Urine Glucose (UA) Urine Ketones Urine Blood Urine Nitrite Ur Leukocyte Esterase Urine RBC Urine WBC Urine WBC Clumps Ur Squamous Epith Cells Urine Bacteria Salicylates < 5.0 L Urine Opiates Screen Acetaminophen Ur Barbiturates Screen Ur Phencyclidine Scrn Ur Amphetamines Screen U Benzodiazepines Scrn Urine Cocaine Screen U Marijuana (THC) Screen Ethyl Alcohol < 10 COVID-19 ([facility]) COVID-19 Clin Com 08/26/20 08/26/20 08/26/20 11:41 11:41 14:15 MCV MCH MCHC RDW Plt Count MPV Immature Gran % (Auto) Neut % (Auto) Lymph % (Auto) Delta % (Auto) Eos % (Auto) Baso % (Auto) Lymph # (Auto) Delta # (Auto) Eos # (Auto) Baso # (Auto) Abs Immat Gran (auto) Absolute Neuts (auto) Absolute Nucleated RBC Nucleated RBC % (auto) PT INR APTT Anion Gap Estim Creat Clear Calc Estimated GFR POC Glucose Random Glucose Lactic Acid Calcium Total Bilirubin AST ALT Alkaline Phosphatase Troponin I High Sens Total Protein Albumin Lipase TSH Urine Color YELLOW Urine Appearance CLOUDY Urine pH 7.0 Ur Specific [place] 1.015 Urine Protein NEG Urine Glucose (UA) 250 H Urine Ketones NEG Urine Blood TRACE Urine Nitrite NEG Ur Leukocyte Esterase 3+ H Urine RBC 1-4 Urine WBC TNTC H Urine WBC Clumps NOTED Ur Squamous Epith Cells 1+ Urine Bacteria 4+ Salicylates Urine Opiates Screen Not Detected Acetaminophen Ur Barbiturates Screen Not Detected Ur Phencyclidine Scrn Not Detected Ur Amphetamines Screen Not Detected U Benzodiazepines Scrn Not Detected Urine Cocaine Screen Not Detected U Marijuana (THC) Screen Not Detected Ethyl Alcohol COVID-19 ([facility]) Negative COVID-19 Clin Com See Note Imaging Radiologist's Impressions: Impressions Chest X-Ray 08/26/20 11:21 IMPRESSION: No evidence for acute disease in the chest. Head CT 08/26/20 11:21 IMPRESSION: No acute intracranial pathology. Assessment and Plan (1) CAD (coronary artery disease): Status: Acute (2) Delirium due to general medical condition: Status: Acute (3) Urinary tract infection: Qualifiers: Hematuria presence: with hematuria Urinary tract infection type: site unspecified Qualified Code(s): N39.0 - Urinary tract infection, site not specified; R31.9 - Hematuria, unspecified Status: Acute 75-year-old female presented with worsening confusion delirium found to have UTI, CT head on admission shows no acute abnormality Toxic metabolic encephalopathy likely secondary to UTI still very confused treat underlying infection monitor mental status UTI continue Rocephin follow-up cultures history of CAD status post CABG continue aspirin bisoprolol Imdur and statin hypertension continue bisoprolol and Imdur diabetes mellitus continue Lantus and sliding scale insulin monitor blood glucose DVT prophylaxis with heparin subQ patient wishes to be full code
--- NOTE | 2020-08-26 17:52 | PC.NURSE ---
pt resting comfortably on the stretcher, in no apparent distress at this time
[2020-08-26 19:26] VITALS: BP 163/59; PULSE 77; RESP 13; O2SAT 100
[2020-08-26] MEDS: Heparin Sodium,Porcine 5,000 UNIT/ML VIAL 5000 UNIT SUBCUT (19:27)
[2020-08-26] MEDS: Bisoprolol Fumarate 5 MG TABLET PO (19:27)
--- NOTE | 2020-08-26 19:50 | PC.NURSE ---
Report given to floor and patient transported by ERT to floor via stretcher
[2020-08-26 20:01] VITALS: BP 147/80; PULSE 68; RESP 18; TEMP 35.9; O2SAT 98
[2020-08-26 20:22] LABS: Glucose, Whole Blood 225 mg/dL (60-115)
[2020-08-26] MEDS: Atorvastatin Calcium 80 MG TABLET PO (21:11)
[2020-08-26] MEDS: metFORMIN HCl 500 MG TABLET PO (21:11)
[2020-08-26] MEDS: Gabapentin 300 MG CAPSULE PO (21:11)
[2020-08-26] MEDS: Aspirin Enteric Coated 81 MG TABLET.DR PO (21:11)
[2020-08-26] MEDS: Insulin Lispro 100 UNIT/ML 3 ML VIAL SUBCUT (21:12)
[2020-08-26] MEDS: 0.9 % Sodium Chloride Flush 3 ML SYRINGE IVFLUSH (21:15)
[2020-08-27] VITALS (7 sets, daily range): BP systolic 111–140; BP diastolic 23–70; PULSE 64–99; RESP 16–20; TEMP 35.9–36.9; O2SAT 97–99
[2020-08-27] MEDS: Omeprazole 20 MG CAPSULE.DR PO (05:33)
[2020-08-27] MEDS: diphenhydrAMINE HCL 25 MG TABLET PO (05:34)
[2020-08-27] MEDS: Heparin Sodium,Porcine 5,000 UNIT/ML VIAL 5000 UNIT SUBCUT ×2 (05:41→18:13)
[2020-08-27 06:22] LABS: MANUAL DIFF FLAG NO
[2020-08-27 06:27] LABS: Basophils Percent Auto 0.6 % (0-2); Eosinophils Absolute Auto 0.3 X10*3/uL (0.0-0.4); Eosinophils Percent Auto 5.4 % (0-4); Hematocrit 35.5 % (37-47); Hemoglobin 11.8 g/dl (12.0-16.0); Imm Gran Abs Auto 0.01 X10*3/uL (0.00-0.03); Imm Gran Pct Auto 0.2 % (0.0-0.4); Lymphocytes Absolute Auto 1.7 X10*3/uL (1.2-4.9); Mean Corpuscular HGB Conc 33.2 g/dl (31.0-35.0); Mean Corpuscular Hemoglobin 26.8 pg (27.0-33.0); Mean Corpuscular Volume 80.5 fL (80-98); Monocytes Absolute Auto 0.5 X10*3/uL (0.1-1.2); Monocytes Percent Auto 9.7 % (2-11); Neutrophils Absolute Auto 2.8 X10*3/uL (2.0-8.3); Neutrophils Percent Auto 52.1 % (45-73); Platelet Count 228 X10*3/uL (160-400); Red Blood Count 4.41 X10*6/uL (4.20-5.50); Red Cell Distribution Width 14.6 % (11.0-16.0); White Blood Count 5.4 X10*3/uL (4.8-10.8)
[2020-08-27 07:03] LABS: Anion Gap 14 (12-20); Blood Urea Nitrogen 15 mg/dL (9-16); Calcium 9.1 mg/dL (8.4-10.2); Carbon Dioxide 27 mmol/L (22-29); Chloride 101 mmol/L (96-108); Creatinine Clr Calc Pharmacy 47.7; Estimated Glomerular Filt Rate 55; Glucose Random 137 mg/dL (60-115); Potassium 3.5 mmol/L (3.3-5.1); Sodium 138 mmol/L (135-145)
[2020-08-27 08:31] LABS: Glucose, Whole Blood 165 mg/dL (60-115)
[2020-08-27 11:45] LABS: Glucose, Whole Blood 200 mg/dL (60-115)
[2020-08-27] MEDS: Bisoprolol Fumarate 5 MG TABLET PO (11:56)
[2020-08-27] MEDS: Isosorbide Mononitrate 30 MG TAB.ER.24H PO (11:56)
[2020-08-27] MEDS: hydroCHLOROthiazide 12.5 MG TABLET PO (11:56)
[2020-08-27] MEDS: Cholecalciferol (Vitamin D3) 25 MCG TABLET PO (11:57)
[2020-08-27] MEDS: PARoxetine HCL 10 MG TABLET PO (11:57)
[2020-08-27] MEDS: Insulin Lispro 100 UNIT/ML 3 ML VIAL SUBCUT ×2 (11:57→16:53)
[2020-08-27] MEDS: Cyanocobalamin (Vitamin B-12) 1,000 MCG TABLET 1000 MCG PO (11:57)
[2020-08-27] MEDS: 0.9 % Sodium Chloride Flush 3 ML SYRINGE IVFLUSH ×3 (12:14→21:32)
[2020-08-27] MEDS: Insulin Glargine,Hum.rec.anlog 100 UNIT/ML 10 ML VIAL 36 UNIT SUBCUT (12:14)
--- NOTE | 2020-08-27 12:14 | MHC.CM.PN ---
PATIENT LIVES ALONE. SHE DOES GAVE HOME HEALTH AID SERVICES THROUGH [facility] FOR ADLS, MED ADMINISTRATION, ERRANDS, AND CHORES. HCP IS ON FILE AND VERIFIED. [employer] SALES IS SHANNEN LOPES ([phone]) WHO IS CURRENTLY IN THE ROOM VISITING. SHANNEN PROVIDES SERVICES ON MONDAYS AND SATURDAYS. SHE MAY BE PROVIDING THE TRANSPORT HOME. IMM 08/27 IN CHART. 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
--- NOTE | 2020-08-27 13:23 | HO.PM.IMPN ---
Subjective Subjective Date of Service: 08/27/20 Constitutional Constitutional: Denies fever(s) Cardiovascular Cardiovascular: Denies leg edema Respiratory Respiratory: Denies wheezing Gastrointestinal Gastrointestinal: Denies vomiting Musculoskeletal Musculoskeletal: Reports no additional musculoskeletal complaints Allergic/Immunologic Allergic/Immunologic: Denies wheezing Physical Exam Vital Signs: Vital Signs: Last Vital Signs Temp 96.7 F L 08/27/20 07:47 Pulse 99 08/27/20 11:56 Resp 16 08/27/20 00:00 BP 140/50 H 08/27/20 11:56 Pulse Ox 99 08/27/20 11:43 Body Mass Index 34.9 Const: General: cooperative Orientation/consciousness: oriented to person Limitations: no limitations HENMT: Head: Yes normal to inspection, Yes normocephalic and Yes atraumatic Ears: external ears normal General nose exam: Normal external nose present Face and sinus: Yes normal facial exam Mouth: Normal oral and palatal mucosa present Throat: Yes posterior oropharynx normal Eyes: Periorbital: periorbital findings normal Eyelids: Yes eyelids normal Conjunctivae: conjunctivae normal Sclerae: sclerae normal Corneas: corneas normal Pupils: Equal, round and reactive pupils present Direct Ophthalmoscopy: normal light reflex Neck: Neck: Yes full ROM, Yes no lymphadenopathy, Yes no meningeal signs, Yes trachea midline and Yes supple Chest: Chest palpation & inspection: normal inspection of the chest and normal palpation of entire chest wall Resp: Effort & Inspection: normal respiratory effort and able to speak in complete sentences Auscultation: clear to auscultation bilaterally Cardio: Rate: regular rate Rhythm: regular rhythm Heart sounds: S1 normal heart sound present, S2 normal heart sound present and no murmurs GI: Inspection: Yes normal to inspection Palpation (GI): Soft to palpation, Tenderness to palpation present (GI) ( Mild diffuse tenderness with increased tenderness in the suprapubic area), no guarding, not rigid and No hepatosplenomegaly present : General: Yes no CVA tenderness Back/Spine/Pelvis: Back: no CVA tenderness Cervical Spine: normal cervical lordosis Thoracic/Lumbar Spine: thoracic and lumbar spine normal to inspection Skin: Lesions: no lesions Rashes: no rashes Wounds: no wounds Neuro: General: oriented to person and no meningeal signs Cranial nerves: Yes CN's II-XII intact bilaterally and Yes Equal, round and reactive pupils present Motor exam (neuro): 5/5 motor strength present throughout Extrem: General: Yes normal to inspection and Yes full ROM Psych: Appearance: well kempt Speech and movement: Normal speech and movement present Affect: normal affect Attitude: cooperative Thought content: Paranoid delusions present ( believes that his birds and worms in her abdomen) Objective Data Current Medications Generic Name Dose Route Start Last Admin Trade Name Bonifacioq PRN Reason Stop Dose Admin Acetaminophen 650 mg 08/26/20 18:42 Acetaminophen 325 Mg Tablet PO Q6H PRN pain Aspirin 81 mg 08/26/20 21:00 08/26/20 21:11 Aspirin Enteric Coated 81 Mg Tablet.Dr PO 81 mg BEDTIME ALICIA Administration Atorvastatin Calcium 80 mg 08/26/20 21:00 08/26/20 21:11 Atorvastatin Calcium 80 Mg Tablet PO 80 mg BEDTIME ALICIA Administration Bisoprolol Fumarate 5 mg 08/26/20 18:42 08/27/20 11:56 Bisoprolol Fumarate 5 Mg Tablet PO 5 mg DAILY ALICIA Administration Cyanocobalamin 1,000 mcg 08/27/20 09:00 08/27/20 11:57 Cyanocobalamin (Vitamin B-12) 1,000 Mcg Tablet PO 1,000 mcg DAILY ALICIA Administration Fluticasone Propionate 1 spray 08/26/20 18:42 Fluticasone Propionate Nasal 16 Gm [place] NOSTRIL-B DAILY PRN Allergy Symptoms Gabapentin 300 mg 08/26/20 21:00 08/27/20 12:04 Gabapentin 300 Mg Capsule PO Not Given TID ALICIA Heparin Sodium (Porcine) 5,000 unit 08/26/20 18:42 08/27/20 05:41 Heparin Sodium,Porcine 5,000 Unit/Ml Vial SUBCUT 5,000 unit Q12H ALICIA Administration Hydrochlorothiazide 12.5 mg 08/27/20 09:00 08/27/20 11:56 Hydrochlorothiazide 12.5 Mg Tablet PO 12.5 mg DAILY ALICIA Administration Protocol Ceftriaxone Sodium 1 gm/ 50 mls @ 100 mls/hr 08/27/20 13:30 Sodium Chloride IV Q24H ALICIA Insulin Glargine 36 unit 08/27/20 09:00 08/27/20 12:14 Insulin Glargine,Hum.Rec.Anlog 100 Unit/Ml 10 Ml Vial SUBCUT 36 unit DAILY ALICIA Administration Insulin Human Lispro 0 unit 08/26/20 21:00 08/27/20 11:57 Insulin Lispro 100 Unit/Ml 3 Ml Vial SUBCUT 2 unit QIDACHS [facility] Administration Protocol Isosorbide Mononitrate 30 mg 08/27/20 09:00 08/27/20 11:56 Isosorbide Mononitrate 30 Mg Tab.Er.24h PO 30 mg DAILY ALICIA Administration Protocol Metformin HCl 500 mg 08/26/20 21:00 08/27/20 12:04 Metformin Hcl 500 Mg Tablet PO Not Given BID [facility] Omeprazole 20 mg 08/27/20 06:30 08/27/20 05:33 Omeprazole 20 Mg Capsule.Dr PO 20 mg DAILY@0630 [facility] Administration Paroxetine HCl 10 mg 08/27/20 09:00 08/27/20 11:57 Paroxetine Hcl 10 Mg Tablet PO 10 mg DAILY [facility] Administration Pharmacy Consult 1 each 08/26/20 15:14 Consult Rx Perform Med Rec MISCELLANE ONCE PRN Consult order Sodium Chloride 3 ml 08/27/20 00:00 08/27/20 12:14 0.9 % Sodium Chloride Flush 3 Ml Syringe IVFLUSH 3 ml QSHIFT [facility] Administration Vitamin D 25 mcg 08/27/20 09:00 08/27/20 11:57 Cholecalciferol (Vitamin D3) 25 Mcg Tablet PO 25 mcg DAILY [facility] Administration Labs CBC & Chem 7: 08/27/20 05:58 08/27/20 05:58 Microbiology Microbiology Results: Microbiology 08/26/20 Unknown Urine clean catch - Clean Catch Midstream Urine Culture - Preliminary Culture in progress. 08/26/20 12:14 Blood - Venous Blood Culture - Preliminary Assessment and Plan (1) CAD (coronary artery disease): Status: Acute (2) Delirium due to general medical condition: Status: Acute (3) Urinary tract infection: Status: Acute Assessment and Plan: 75-year-old female presented with worsening confusion delirium found to have UTI, CT head on admission shows no acute abnormality Toxic metabolic encephalopathy likely secondary to UTI s still confused treat underlying infection monitor mental status UTI continue Rocephin cultures pending history of CAD status post CABG continue aspirin bisoprolol Imdur and statin hypertension continue bisoprolol and Imdur diabetes mellitus continue Lantus and sliding scale insulin monitor blood glucose DVT prophylaxis with heparin subQ patient wishes to be full code
[2020-08-27] MEDS: cefTRIAXone sodium 1 GM in 0.9 % Sodium Chloride 50 ML IV (13:51)
[2020-08-27] MEDS: Gabapentin 300 MG CAPSULE PO ×2 (14:55→21:32)
[2020-08-27] MEDS: vancomycin HCL 1,500 MG in 0.9 % Sodium Chloride 500 ML 333.33 MG IV (14:55)
[2020-08-27 16:42] LABS: Glucose, Whole Blood 281 mg/dL (60-115)
[2020-08-27 20:39] LABS: Glucose, Whole Blood 138 mg/dL (60-115)
[2020-08-27] MEDS: metFORMIN HCl 500 MG TABLET PO (21:32)
[2020-08-27] MEDS: Aspirin Enteric Coated 81 MG TABLET.DR PO (21:32)
[2020-08-27] MEDS: Atorvastatin Calcium 80 MG TABLET PO (21:32)
[2020-08-28] MEDS: Heparin Sodium,Porcine 5,000 UNIT/ML VIAL 5000 UNIT SUBCUT ×2 (06:28→18:50)
[2020-08-28] MEDS: Omeprazole 20 MG CAPSULE.DR PO (06:28)
[2020-08-28 07:42] LABS: Glucose, Whole Blood 126 mg/dL (60-115)
[2020-08-28 08:00] VITALS: BP 142/74; PULSE 82; RESP 19; TEMP 36.3; O2SAT 96
[2020-08-28] MEDS: Isosorbide Mononitrate 30 MG TAB.ER.24H PO (10:04)
[2020-08-28] MEDS: hydroCHLOROthiazide 12.5 MG TABLET PO (10:05)
[2020-08-28] MEDS: Bisoprolol Fumarate 5 MG TABLET PO (10:05)
[2020-08-28] MEDS: metFORMIN HCl 500 MG TABLET PO (10:05)
[2020-08-28] MEDS: Cholecalciferol (Vitamin D3) 25 MCG TABLET PO (10:05)
[2020-08-28] MEDS: Gabapentin 300 MG CAPSULE PO ×3 (10:05→21:42)
[2020-08-28] MEDS: PARoxetine HCL 10 MG TABLET PO (10:05)
[2020-08-28] MEDS: Insulin Glargine,Hum.rec.anlog 100 UNIT/ML 10 ML VIAL 36 UNIT SUBCUT (10:06)
[2020-08-28] MEDS: Cyanocobalamin (Vitamin B-12) 1,000 MCG TABLET 1000 MCG PO (10:06)
[2020-08-28] MEDS: 0.9 % Sodium Chloride Flush 3 ML SYRINGE IVFLUSH ×3 (10:10→21:42)
[2020-08-28 12:03] LABS: Glucose, Whole Blood 162 mg/dL (60-115)
--- NOTE | 2020-08-28 13:08 | HO.PM.IMPN ---
Subjective Subjective Date of Service: 08/28/20 Interval History: seen in f/u for UTI and metabolic encephalopathy--seems less confused today ROS: no fever, + confusion with no agitation Physical Exam Vital Signs: Vital Signs: Last Vital Signs Temp 97.3 F 08/28/20 08:00 Pulse 82 08/28/20 08:00 Resp 19 08/28/20 08:00 BP 142/74 H 08/28/20 08:00 Pulse Ox 96 08/28/20 08:00 Body Mass Index 34.9 General: Oriented to self, no acute distress Resp: CTA bilateral CVS: S1,S2,RRR GI: +BS, NT, no distention Skin: No rash Neuro: motor grossly intact Psych: appropriate affect a Objective Data Current Medications Generic Name Dose Route Start Last Admin Trade Name Freq PRN Reason Stop Dose Admin Acetaminophen 650 mg 08/26/20 18:42 Acetaminophen 325 Mg Tablet PO Q6H PRN pain Aspirin 81 mg 08/26/20 21:00 08/27/20 21:32 Aspirin Enteric Coated 81 Mg Tablet.Dr PO 81 mg BEDTIME ALICIA Administration Atorvastatin Calcium 80 mg 08/26/20 21:00 08/27/20 21:32 Atorvastatin Calcium 80 Mg Tablet PO 80 mg BEDTIME ALICIA Administration Bisoprolol Fumarate 5 mg 08/26/20 18:42 08/28/20 10:05 Bisoprolol Fumarate 5 Mg Tablet PO 5 mg DAILY [facility]ICIA Administration Cyanocobalamin 1,000 mcg 08/27/20 09:00 08/28/20 10:06 Cyanocobalamin (Vitamin B-12) 1,000 Mcg Tablet PO 1,000 mcg DAILY [facility]ICIA Administration Fluticasone Propionate 1 spray 08/26/20 18:42 Fluticasone Propionate Nasal 16 Gm [place] NOSTRIL-B DAILY PRN Allergy Symptoms Gabapentin 300 mg 08/26/20 21:00 08/28/20 10:05 Gabapentin 300 Mg Capsule PO 300 mg TID ALICIA Administration Heparin Sodium (Porcine) 5,000 unit 08/26/20 18:42 08/28/20 06:28 Heparin Sodium,Porcine 5,000 Unit/Ml Vial SUBCUT 5,000 unit Q12H ALICIA Administration Hydrochlorothiazide 12.5 mg 08/27/20 09:00 08/28/20 10:05 Hydrochlorothiazide 12.5 Mg Tablet PO 12.5 mg DAILY [facility] Administration Protocol Ceftriaxone Sodium 1 gm/ 50 mls @ 100 mls/hr 08/27/20 14:00 08/27/20 15:02 Sodium Chloride IV Infused Q24H ALICIA Infusion Vancomycin HCl 1,500 mg/ 500 mls @ 333.333 mls/hr 08/27/20 15:00 08/27/20 16:54 Sodium Chloride IV Infused Q24H [facility]ICIA Infusion Insulin Glargine 36 unit 08/27/20 09:00 08/28/20 10:06 Insulin Glargine,Hum.Rec.Anlog 100 Unit/Ml 10 Ml Vial SUBCUT 36 unit DAILY [facility]IA Administration Insulin Human Lispro 0 unit 08/26/20 21:00 08/28/20 12:37 Insulin Lispro 100 Unit/Ml 3 Ml Vial SUBCUT Not Given QIDACHS [facility] Protocol Isosorbide Mononitrate 30 mg 08/27/20 09:00 08/28/20 10:04 Isosorbide Mononitrate 30 Mg Tab.Er.24h PO 30 mg DAILY [facility]ICIA Administration Protocol Metformin HCl 500 mg 08/26/20 21:00 08/28/20 10:05 Metformin Hcl 500 Mg Tablet PO 500 mg BID ALICIA Administration Omeprazole 20 mg 08/27/20 06:30 08/28/20 06:28 Omeprazole 20 Mg Capsule.Dr PO 20 mg DAILY@0630 [facility] Administration Paroxetine HCl 10 mg 08/27/20 09:00 08/28/20 10:05 Paroxetine Hcl 10 Mg Tablet PO 10 mg DAILY [facility]ICIA Administration Pharmacy Consult 1 each 08/26/20 15:14 Consult Rx Perform Med Rec MISCELLANE ONCE PRN Consult order Pharmacy Consult 1 each 08/27/20 13:39 Consult Rx Vancomycin Dosing MISCELLANE DAILY PRN Consult order Sodium Chloride 3 ml 08/27/20 00:00 08/28/20 10:10 0.9 % Sodium Chloride Flush 3 Ml Syringe IVFLUSH 3 ml QSHIFT [facility] Administration Vitamin D 25 mcg 08/27/20 09:00 08/28/20 10:05 Cholecalciferol (Vitamin D3) 25 Mcg Tablet PO 25 mcg DAILY ALICIA Administration Labs CBC & Chem 7: 08/27/20 05:58 08/27/20 05:58 Microbiology Microbiology Results: Microbiology 08/26/20 Unknown Urine clean catch - Clean Catch Midstream Urine Culture - Final Klebsiella pneumoniae Corynebacterium species 08/26/20 12:14 Blood - Venous Blood Culture - Preliminary Coag negative Staphylococcus 08/26/20 11:40 Blood - Venous Blood Culture - Preliminary Coag negative Staphylococcus Assessment and Plan (1) CAD (coronary artery disease): Status: Acute (2) Delirium due to general medical condition: Status: Acute (3) Urinary tract infection: Status: Acute Assessment and Plan: A 75-year-old female presented with worsening confusion delirium found to have UTI, negative head CT Toxic metabolic encephalopathy likely secondary to UTI seems better, likely has underlying dementia Treat UTI and observe UTI--Culture show Klebsiella and Corenybacteriu -Continue Ceftriaxone Coag Negative Staph bacteremia from 08/26 2 and yet I still think this is contamination Will get ID input and get additional cultures history of CAD status post CABG continue aspirin bisoprolol Imdur and statin hypertension continue bisoprolol and Imdur diabetes mellitus continue Lantus and sliding scale insulin monitor blood glucose DVT prophylaxis with heparin subQ patient wishes to be full code
[2020-08-28] MEDS: cefTRIAXone sodium 1 GM in 0.9 % Sodium Chloride 50 ML IV (14:39)
[2020-08-28] MEDS: vancomycin HCL 1,500 MG in 0.9 % Sodium Chloride 500 ML 333 MG IV (15:51)
[2020-08-28 15:53] VITALS: BP 115/62; PULSE 57; RESP 17; TEMP 35.9; O2SAT 99
[2020-08-28 16:33] LABS: Glucose, Whole Blood 99 mg/dL (60-115)
[2020-08-28 20:46] LABS: Glucose, Whole Blood 82 mg/dL (60-115)
[2020-08-28] MEDS: Atorvastatin Calcium 80 MG TABLET PO (21:42)
[2020-08-28] MEDS: Aspirin Enteric Coated 81 MG TABLET.DR PO (21:42)
[2020-08-28 23:39] VITALS: BP 147/69; PULSE 84; RESP 19; TEMP 36.4; O2SAT 96
[2020-08-29] MEDS: Omeprazole 20 MG CAPSULE.DR PO (06:12)
[2020-08-29] MEDS: Heparin Sodium,Porcine 5,000 UNIT/ML VIAL 5000 UNIT SUBCUT ×2 (06:13→18:00)
[2020-08-29 07:34] VITALS: BP 172/62; PULSE 63; RESP 16; TEMP 36.4; O2SAT 99
[2020-08-29 07:43] LABS: Glucose, Whole Blood 129 mg/dL (60-115)
[2020-08-29] MEDS: 0.9 % Sodium Chloride Flush 3 ML SYRINGE IVFLUSH ×3 (09:20→21:44)
[2020-08-29] MEDS: hydroCHLOROthiazide 12.5 MG TABLET PO (09:20)
[2020-08-29] MEDS: Bisoprolol Fumarate 5 MG TABLET PO (09:21)
[2020-08-29] MEDS: Cyanocobalamin (Vitamin B-12) 1,000 MCG TABLET 1000 MCG PO (09:21)
[2020-08-29] MEDS: Gabapentin 300 MG CAPSULE PO ×3 (09:21→21:43)
[2020-08-29] MEDS: Insulin Glargine,Hum.rec.anlog 100 UNIT/ML 10 ML VIAL 36 UNIT SUBCUT (09:21)
[2020-08-29] MEDS: Isosorbide Mononitrate 30 MG TAB.ER.24H PO (09:21)
[2020-08-29] MEDS: Cholecalciferol (Vitamin D3) 25 MCG TABLET PO (09:21)
[2020-08-29] MEDS: PARoxetine HCL 10 MG TABLET PO (09:21)
[2020-08-29] MEDS: metFORMIN HCl 500 MG TABLET PO ×2 (09:21→21:43)
--- NOTE | 2020-08-29 10:27 | HO.PM.IMPN ---
Subjective Subjective Date of Service: 08/29/20 Interval History: seen in f/u for UTI and metabolic encephalopathy--seems less confused today ROS: no fever, + confusion with no agitation Physical Exam Vital Signs: Vital Signs: Last Vital Signs Temp 97.6 F 08/29/20 07:34 Pulse 63 08/29/20 07:34 Resp 16 08/29/20 07:34 BP 172/62 H 08/29/20 07:34 Pulse Ox 99 08/29/20 07:34 Body Mass Index 34.9 Objective Data Current Medications Generic Name Dose Route Start Last Admin Trade Name Freq PRN Reason Stop Dose Admin Acetaminophen 650 mg 08/26/20 18:42 Acetaminophen 325 Mg Tablet PO Q6H PRN pain Aspirin 81 mg 08/26/20 21:00 08/28/20 21:42 Aspirin Enteric Coated 81 Mg Tablet.Dr PO 81 mg BEDTIME ALICIA Administration Atorvastatin Calcium 80 mg 08/26/20 21:00 08/28/20 21:42 Atorvastatin Calcium 80 Mg Tablet PO 80 mg BEDTIME ALICIA Administration Bisoprolol Fumarate 5 mg 08/26/20 18:42 08/29/20 09:21 Bisoprolol Fumarate 5 Mg Tablet PO 5 mg DAILY [facility]ICIA Administration Cyanocobalamin 1,000 mcg 08/27/20 09:00 08/29/20 09:21 Cyanocobalamin (Vitamin B-12) 1,000 Mcg Tablet PO 1,000 mcg DAILY [facility]ICIA Administration Fluticasone Propionate 1 spray 08/26/20 18:42 Fluticasone Propionate Nasal 16 Gm [place] NOSTRIL-B DAILY PRN Allergy Symptoms Gabapentin 300 mg 08/26/20 21:00 08/29/20 09:21 Gabapentin 300 Mg Capsule PO 300 mg TID ALICIA Administration Heparin Sodium (Porcine) 5,000 unit 08/26/20 18:42 08/29/20 06:13 Heparin Sodium,Porcine 5,000 Unit/Ml Vial SUBCUT 5,000 unit Q12H ALICIA Administration Hydrochlorothiazide 12.5 mg 08/27/20 09:00 08/29/20 09:20 Hydrochlorothiazide 12.5 Mg Tablet PO 12.5 mg DAILY [facility]ICIA Administration Protocol Ceftriaxone Sodium 1 gm/ 50 mls @ 100 mls/hr 08/27/20 14:00 08/28/20 15:40 Sodium Chloride IV Infused Q24H ALICIA Infusion Vancomycin HCl 1,500 mg/ 500 mls @ 333.333 mls/hr 08/27/20 15:00 08/28/20 17:34 Sodium Chloride IV Infused Q24H ALICIA Infusion Insulin Glargine 36 unit 08/27/20 09:00 08/29/20 09:21 Insulin Glargine,Hum.Rec.Anlog 100 Unit/Ml 10 Ml Vial SUBCUT 36 unit DAILY ALICIA Administration Insulin Human Lispro 0 unit 08/26/20 21:00 08/29/20 08:00 Insulin Lispro 100 Unit/Ml 3 Ml Vial SUBCUT Not Given QIDACHS [facility] Protocol Isosorbide Mononitrate 30 mg 08/27/20 09:00 08/29/20 09:21 Isosorbide Mononitrate 30 Mg Tab.Er.24h PO 30 mg DAILY ALICIA Administration Protocol Metformin HCl 500 mg 08/26/20 21:00 08/29/20 09:21 Metformin Hcl 500 Mg Tablet PO 500 mg BID ALICIA Administration Omeprazole 20 mg 08/27/20 06:30 08/29/20 06:12 Omeprazole 20 Mg Capsule.Dr PO 20 mg DAILY@0630 [facility] Administration Paroxetine HCl 10 mg 08/27/20 09:00 08/29/20 09:21 Paroxetine Hcl 10 Mg Tablet PO 10 mg DAILY ALICIA Administration Pharmacy Consult 1 each 08/26/20 15:14 Consult Rx Perform Med Rec MISCELLANE ONCE PRN Consult order Pharmacy Consult 1 each 08/27/20 13:39 Consult Rx Vancomycin Dosing MISCELLANE DAILY PRN Consult order Sodium Chloride 3 ml 08/27/20 00:00 08/29/20 09:20 0.9 % Sodium Chloride Flush 3 Ml Syringe IVFLUSH 3 ml QSHIFT [facility] Administration Vitamin D 25 mcg 08/27/20 09:00 08/29/20 09:21 Cholecalciferol (Vitamin D3) 25 Mcg Tablet PO 25 mcg DAILY [facility] Administration Labs CBC & Chem 7: 08/27/20 05:58 08/27/20 05:58 Microbiology Microbiology Results: Microbiology 08/26/20 12:14 Blood - Venous Blood Culture - Final Staphylococcus epidermidis 08/26/20 11:40 Blood - Venous Blood Culture - Final Staphylococcus epidermidis 08/26/20 Unknown Urine clean catch - Clean Catch Midstream Urine Culture - Final Klebsiella pneumoniae Corynebacterium species Assessment and Plan (1) CAD (coronary artery disease): Status: Acute (2) Delirium due to general medical condition: Status: Acute (3) Urinary tract infection: Status: Acute Assessment and Plan: 75-year-old female presented with worsening confusion delirium found to have UTI, negative head CT Toxic metabolic encephalopathy likely secondary to UTI seems better, likely has underlying dementia Treat UTI and observe UTI--Culture show Klebsiella and Corenybacterium -Continue Ceftriaxone Coag Negative Staph bacteremia from 08/26 07/12 and yet I still think this is contamination Will get ID input and get additional cultures history of CAD status post CABG continue aspirin bisoprolol Imdur and statin hypertension continue bisoprolol and Imdur diabetes mellitus continue Lantus and sliding scale insulin monitor blood glucose DVT prophylaxis with heparin subQ patient wishes to be full code
[2020-08-29 11:27] LABS: Glucose, Whole Blood 171 mg/dL (60-115)
[2020-08-29] MEDS: Insulin Lispro 100 UNIT/ML 3 ML VIAL SUBCUT (11:44)
[2020-08-29] MEDS: cefTRIAXone sodium 1 GM in 0.9 % Sodium Chloride 50 ML IV (13:51)
--- NOTE | 2020-08-29 14:21 | MHC.CM.PN ---
NURSE PRODUCT TEST SPECIALIST NOTE ELECTRONIC MEDICAL RECORD REVIEWED ALONG WITH CASE DISCUSSED ON MULTIPLE DISCIPLINARY ROUNDS PER DPOCUMENTATION PATIENT WAS ADMITTED WITH WORSENING CONFUSION DELERIUM AND FOUND TO HAVE A URINARY TRACT INFECTION , HEAD CT WAS NEGATIVE URINE CULTURE SHOWED KIEBSIELLA AND CORENYBACTERIUM SHE CONTINUES ON IV CEFTRIAXONE DISCHARGE PLAN LIVES ALONE HOME WITH RESUMNPTION OF [facility]
[2020-08-29 14:56] LABS: Vancomycin Random 23.5 mcg/mL (15-20)
[2020-08-29 15:11] VITALS: BMI 34.9
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
[2020-08-29] MEDS: vancomycin HCL 750 MG in 0.9 % Sodium Chloride 250 ML 265 MG IV (15:36)
[2020-08-29 15:45] VITALS: BP 119/57; PULSE 69; RESP 13; TEMP 36.6; O2SAT 99
[2020-08-29 16:03] LABS: Creatinine Clr Calc Pharmacy 32.4; Estimated Glomerular Filt Rate 35
[2020-08-29 16:14] LABS: Glucose, Whole Blood 127 mg/dL (60-115)
[2020-08-29] MEDS: Atorvastatin Calcium 80 MG TABLET PO (21:43)
[2020-08-29] MEDS: Aspirin Enteric Coated 81 MG TABLET.DR PO (21:43)
[2020-08-29] MEDS: traZODone HCL 25 MG HALFTAB PO (22:55)
[2020-08-29 23:01] VITALS: BP 146/69; PULSE 83; RESP 18; TEMP 36.3; O2SAT 97
[2020-08-30] VITALS: RESP 18
[2020-08-30] MEDS: Heparin Sodium,Porcine 5,000 UNIT/ML VIAL 5000 UNIT SUBCUT ×2 (06:11→17:55)
[2020-08-30] MEDS: Omeprazole 20 MG CAPSULE.DR PO (06:11)
[2020-08-30 07:12] VITALS: BP 176/77; PULSE 78; RESP 21; TEMP 36.1; O2SAT 97
[2020-08-30 07:29] LABS: Glucose, Whole Blood 145 mg/dL (60-115)
[2020-08-30] MEDS: Insulin Glargine,Hum.rec.anlog 100 UNIT/ML 10 ML VIAL 36 UNIT SUBCUT (08:07)
[2020-08-30] MEDS: PARoxetine HCL 10 MG TABLET PO (08:07)
[2020-08-30] MEDS: Bisoprolol Fumarate 5 MG TABLET PO (08:07)
[2020-08-30] MEDS: Cholecalciferol (Vitamin D3) 25 MCG TABLET PO (08:07)
[2020-08-30] MEDS: hydroCHLOROthiazide 12.5 MG TABLET PO (08:07)
[2020-08-30] MEDS: Cyanocobalamin (Vitamin B-12) 1,000 MCG TABLET 1000 MCG PO (08:07)
[2020-08-30] MEDS: Isosorbide Mononitrate 30 MG TAB.ER.24H PO (08:07)
[2020-08-30] MEDS: Gabapentin 300 MG CAPSULE PO ×2 (08:07→21:52)
[2020-08-30] MEDS: metFORMIN HCl 500 MG TABLET PO (08:07)
[2020-08-30] MEDS: 0.9 % Sodium Chloride Flush 3 ML SYRINGE IVFLUSH ×3 (08:11→22:00)
[2020-08-30] MEDS: amLODIPine Besylate 5 MG TABLET PO (09:02)
[2020-08-30 09:51] LABS: Anion Gap 14 (12-20); Blood Urea Nitrogen 29 mg/dL (9-16); Calcium 8.5 mg/dL (8.4-10.2); Carbon Dioxide 23 mmol/L (22-29); Chloride 104 mmol/L (96-108); Creatinine Clr Calc Pharmacy 38.1; Estimated Glomerular Filt Rate 42; Glucose Random 205 mg/dL (60-115); Potassium 3.7 mmol/L (3.3-5.1); Sodium 137 mmol/L (135-145)
[2020-08-30] MEDS: QUEtiapine Fumarate 25 MG TABLET PO (10:51)
[2020-08-30 11:24] LABS: Glucose, Whole Blood 205 mg/dL (60-115)
[2020-08-30 11:34] VITALS: BP 106/53; PULSE 69; RESP 17; TEMP 36.1; O2SAT 97
[2020-08-30] MEDS: Insulin Lispro 100 UNIT/ML 3 ML VIAL SUBCUT ×2 (11:47→22:02)
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
--- NOTE | 2020-08-30 12:14 | MHC.CM.PN ---
PER MULTIDISCIPLINARY ROUNDS HOSPITALIST CONCERNED DUE TO PT LIVING ALONE, CM CONTACTED [facility] WHO PROVIDE PT WITH HOME HEALTH AID MON-SAT FOR 4HR DAILY, CM CCONTACTED [facility] AND LEFT MESSAGE AT 11:50AM TO REQUEST SERVICES AND FIND OUT IF THEY HAVE ANY CONTACT INFO, CM CALLED HCP ON FILE FROM PREVIOUS ADMIT [facility] AT 11:55AM ([phone]) W/OUT SUCCESS AND UNABLE TO LEAVE VOICEMAIL DUE TO PHONE RINGING SEVERAL TIME W/NO VOICEMAIL PICKING UP.
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
[2020-08-30] MEDS: cefTRIAXone sodium 1 GM in 0.9 % Sodium Chloride 50 ML IV (13:16)
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
--- NOTE | 2020-08-30 14:07 | MHC.CM.PN ---
CM RECEIVED MESSAGE TO CALL [facility]ASON FROM [facility] WHO HAD RETURNED CALL, CM ATTEMPTED TO CALL [facility] BACK AT 1:46 ([phone]) W/OUT SUCCESS, MESSAGE WAS LEFT, CM WAS ABLE TO CONTACT [facility] AT 2:03PM AND PER LIASON SHE CAN APPROVE [facility] AFTER D/C AND ? OF INCREASE IN [facility] HOURS, CM WILL NEED TO FOLLOW-UP W/[facility] ON DAY OF DISCHARGE.
[2020-08-30 15:25] VITALS: BP 102/50; PULSE 63; RESP 16; TEMP 35.9; O2SAT 95
[2020-08-30 15:41] LABS: Vancomycin Random 15.3 mcg/mL (15-20)
[2020-08-30 16:21] LABS: Glucose, Whole Blood 136 mg/dL (60-115)
[2020-08-30] MEDS: vancomycin HCL 750 MG in 0.9 % Sodium Chloride 250 ML 265 MG IV (16:21)
[2020-08-30 20:18] LABS: Glucose, Whole Blood 170 mg/dL (60-115)
[2020-08-30] MEDS: Atorvastatin Calcium 80 MG TABLET PO (21:52)
[2020-08-30] MEDS: Aspirin Enteric Coated 81 MG TABLET.DR PO (21:52)
[2020-08-30 23:57] VITALS: BP 137/53; PULSE 66; RESP 18; TEMP 36; O2SAT 98
[2020-08-31] MEDS: Omeprazole 20 MG CAPSULE.DR PO (06:51)
[2020-08-31] MEDS: Heparin Sodium,Porcine 5,000 UNIT/ML VIAL 5000 UNIT SUBCUT ×2 (06:55→18:55)
[2020-08-31 07:27] VITALS: BP 152/80; PULSE 67; RESP 18; TEMP 36.1; O2SAT 99
[2020-08-31 08:12] LABS: Glucose, Whole Blood 77 mg/dL (60-115)
[2020-08-31] MEDS: Insulin Glargine,Hum.rec.anlog 100 UNIT/ML 10 ML VIAL 36 UNIT SUBCUT (09:29)
[2020-08-31] MEDS: Gabapentin 300 MG CAPSULE PO ×3 (09:31→21:20)
[2020-08-31] MEDS: Cholecalciferol (Vitamin D3) 25 MCG TABLET PO (09:31)
[2020-08-31] MEDS: Bisoprolol Fumarate 5 MG TABLET PO (09:31)
[2020-08-31] MEDS: Isosorbide Mononitrate 30 MG TAB.ER.24H PO (09:31)
[2020-08-31] MEDS: Cyanocobalamin (Vitamin B-12) 1,000 MCG TABLET 1000 MCG PO (09:31)
[2020-08-31] MEDS: hydroCHLOROthiazide 12.5 MG TABLET PO (09:31)
[2020-08-31] MEDS: PARoxetine HCL 10 MG TABLET PO (09:31)
[2020-08-31] MEDS: 0.9 % Sodium Chloride Flush 3 ML SYRINGE IVFLUSH ×3 (09:32→21:20)
[2020-08-31] MEDS: amLODIPine Besylate 5 MG TABLET PO (09:32)
--- NOTE | 2020-08-31 09:57 | P.CDIC_ITS ---
CDI Concurrent Query Service Date: 08/31/20 Documentation Clarification: Please clarify if you are treating a proba ble/suspected/likely or confirmed: BMI Obesity Please specify if known Provider Response: Obesity PLEASE DO NOT DELETE/MODIFY EXISTING CONTENT Additional information is needed in order to code to the highest accuracy and appropriate Severity of Illness (SOI). Please clarify the information noted below in your progress notes and discharge summary. Risk Factors/Clinical Indicators/Treatments Nutrition notes pt is obese with BMI 34.9 recommends 1300 calorie per day to promote slow wt loss Monitor meals Monitor weight CDS: Merlene Shea CCS, CDIS Contact Number: [phone]. [phone] Please Review the information above and exercise your independent professional judgment in responding to the query. If you concur, pleas document in the PROGRESS NOTES and DISCHARGE SUMMARY. If you do not agree with the query, please document in the query above. THIS QUERY IS PART OF THE PERMANENT MEDICAL RECORD
[2020-08-31 11:12] VITALS: BP 152/80; PULSE 67; O2SAT 99
[2020-08-31 11:51] LABS: Glucose, Whole Blood 147 mg/dL (60-115)
--- NOTE | 2020-08-31 13:40 | P.PNIM_ITS ---
Subjective Subjective Date of Service: 08/31/20 Interval History: the patient was seen and evaluated this morning Laying in bed, feels comfortable overall, hallucinating and encephalopathic with reporting ghosts spiders following and someone trying to kill Denies any fever, chills or shortness of breath No reported other overnight events. Systemic review: No fever, chills or weakness but encephalopathic overall describing warms, his spiders and ghost chasing her and bring her to the hospital No chest pain, palpitation No shortness of breath or coughing No abdominal pain, nausea or vomiting No urinary symptoms No any rash or wounds Physical Exam Vital Signs: Vital Signs: Last Vital Signs Temp 96.9 F 08/31/20 07:27 Pulse 67 08/31/20 11:12 Resp 18 08/31/20 07:27 BP 152/80 H 08/31/20 11:12 Pulse Ox 99 08/31/20 11:12 Body Mass Index 34.9 Const: Other: Constitutional : Alert, oriented to self only, not in distress Neck : Normal inspection, Supple Cardiovascular : RRR, S1 S2, no lower extremity edema Respiratory : Good bilateral air entry, no crackles, wheezes or rhonchi Gastrointestinal: soft, lax, Normal bowel sounds, Non tender Skin : Warm/Dry, No rash Neurological : Alert & a disoriented, has visual hallucinations, No focal deficit Objective Data Current Medications Generic Name Dose Route Start Last Admin Trade Name Freq PRN Reason Stop Dose Admin Acetaminophen 650 mg 08/26/20 18:42 Acetaminophen 325 Mg Tablet PO Q6H PRN pain Amlodipine Besylate 5 mg 08/30/20 09:00 08/31/20 09:32 Amlodipine Besylate 5 Mg Tablet PO 5 mg DAILY [facility] Administration Protocol Aspirin 81 mg 08/26/20 21:00 08/30/20 21:52 Aspirin Enteric Coated 81 Mg Tablet. PO 81 mg BEDTIME [facility] Administration Atorvastatin Calcium 80 mg 08/26/20 21:00 08/30/20 21:52 Atorvastatin Calcium 80 Mg Tablet PO 80 mg BEDTIME [facility] Administration Bisoprolol Fumarate 5 mg 08/26/20 18:42 08/31/20 09:31 Bisoprolol Fumarate 5 Mg Tablet PO 5 mg DAILY [facility] Administration Cyanocobalamin 1,000 mcg 08/27/20 09:00 08/31/20 09:31 Cyanocobalamin (Vitamin B-12) 1,000 Mcg Tablet PO 1,000 mcg DAILY [facility] Administration Fluticasone Propionate 1 spray 08/26/20 18:42 Fluticasone Propionate Nasal 16 Gm [place] NOSTRIL-B DAILY PRN Allergy Symptoms Gabapentin 300 mg 08/26/20 21:00 08/31/20 09:31 Gabapentin 300 Mg Capsule PO 300 mg TID [facility] Administration Heparin Sodium (Porcine) 5,000 unit 08/26/20 18:42 08/31/20 06:55 Heparin Sodium,Porcine 5,000 Unit/Ml Vial SUBCUT 5,000 unit Q12H [facility] Administration Hydrochlorothiazide 12.5 mg 08/27/20 09:00 08/31/20 09:31 Hydrochlorothiazide 12.5 Mg Tablet PO 12.5 mg DAILY [facility] Administration Protocol Ceftriaxone Sodium 1 gm/ 50 mls @ 100 mls/hr 08/27/20 14:00 08/30/20 13:57 Sodium Chloride IV Infused Q24H [facility] Infusion Vancomycin HCl 750 mg/ Sodium 265 mls @ 265 mls/hr 08/30/20 16:00 08/30/20 17:20 Chloride IV Infused Q24H [facility] Infusion Insulin Glargine 36 unit 08/27/20 09:00 08/31/20 09:29 Insulin Glargine,Hum.Rec.Anlog 100 Unit/Ml 10 Ml Vial SUBCUT 36 unit DAILY [facility] Administration Insulin Human Lispro 0 unit 08/26/20 21:00 08/31/20 11:29 Insulin Lispro 100 Unit/Ml 3 Ml Vial SUBCUT Not Given QIDACHS [facility] Protocol Isosorbide Mononitrate 30 mg 08/27/20 09:00 08/31/20 09:31 Isosorbide Mononitrate 30 Mg Tab.Er.24h PO 30 mg DAILY [facility] Administration Protocol Omeprazole 20 mg 08/27/20 06:30 08/31/20 06:51 Omeprazole 20 Mg Capsule.Dr PO 20 mg DAILY@0630 [facility] Administration Paroxetine HCl 10 mg 08/27/20 09:00 08/31/20 09:31 Paroxetine Hcl 10 Mg Tablet PO 10 mg DAILY [facility] Administration Pharmacy Consult 1 each 08/26/20 15:14 Consult Rx Perform Med Rec MISCELLANE ONCE PRN Consult order Pharmacy Consult 1 each 08/27/20 13:39 Consult Rx Vancomycin Dosing MISCELLANE DAILY PRN Consult order Quetiapine Fumarate 25 mg 08/30/20 15:51 Quetiapine Fumarate 25 Mg Tablet PO BEDTIME PRN anxiety/restlessness Sodium Chloride 3 ml 08/27/20 00:00 08/31/20 09:32 0.9 % Sodium Chloride Flush 3 Ml Syringe IVFLUSH 3 ml QSHIFT [facility] Administration Vitamin D 25 mcg 08/27/20 09:00 08/31/20 09:31 Cholecalciferol (Vitamin D3) 25 Mcg Tablet PO 25 mcg DAILY [facility] Administration Labs CBC & Chem 7: 08/27/20 05:58 08/30/20 09:08 Microbiology Microbiology Results: Microbiology 08/28/20 13:51 Blood - Venous Blood Culture - Preliminary No growth after 48 hours. 08/28/20 13:51 Blood - Venous Blood Culture - Preliminary No growth after 48 hours. 08/26/20 12:14 Blood - Venous Blood Culture - Final Staphylococcus epidermidis 08/26/20 11:40 Blood - Venous Blood Culture - Final Staphylococcus epidermidis 08/26/20 Unknown Urine clean catch - Clean Catch Midstream Urine Culture - Final Klebsiella pneumoniae Corynebacterium species Assessment and Plan (1) CAD (coronary artery disease): Status: Acute (2) Delirium due to general medical condition: Status: Acute (3) Urinary tract infection: Status: Acute Assessment and Plan: 75-year-old female presented with worsening confusion delirium found to have UTI, negative head CT Toxic metabolic encephalopathy likely secondary to UTI, inpatient induced delirium seems mildly better, likely has underlying dementia Continue treatment for the infection To use Seroquel as needed, QTC checked To get psych evaluation Recurrent reorientation UTI Culture show Klebsiella and Corenybacterium Continue Ceftriaxone Coag Negative Staph positive blood culture from 08/26 2 seems to be contamination Id consult appreciated history of CAD status post CABG continue aspirin bisoprolol Imdur and statin hypertension continue bisoprolol and Imdur diabetes mellitus continue Lantus and sliding scale insulin monitor blood glucose Obesity A chest calorie intake Advised to lose weight as it is contributing to her overall illness DVT prophylaxis heparin subQ Dispo: Patient is not safe to be discharged with ongoing hallucination and altered mentation as she lives home by herself.
[2020-08-31] MEDS: cefTRIAXone sodium 1 GM in 0.9 % Sodium Chloride 50 ML IV (14:14)
--- NOTE | 2020-08-31 14:46 | PM.PSYCN ---
History of Present Illness Date of Service: 08/31/2020 Chief Complaint: Toxic metabolic encephalopathy and UTI Reason for Consult: delirium Requesting physician: Ron Diaz Discussed with referring provider: Yes Sources of Information: patient interviewed and chart reviewed Additional Sources of Information: patient's LOG CHIPPER present at time of interview HPI Narrative: Patient is a 75 year old Qatari speaking female who is currently medically admitted with UTI and subsequent delirium. Consult requested as patient continues with delusions. patient seen in room 373. Awake, alert, bright affect, engaged in interview. Oriented to self and place. Patient states that she does not know why she is in the hospital, believes that somebody had given her some poison and put a spider in her arm. Patient very pleasant, does not appear to be in any distress when describing which she believes occurred prior to coming to the hospital. Patient also making statements about things that she believes happened while she was in the hospital which are untrue. LOG CHIPPER present in the room reports that at baseline patient is very pleasant and oriented in all spheres. She does not have delusions or confusion at baseline. LOG CHIPPER is also reporting that while patient continues to have some delusions she also sees an improvement from when she was 1st admitted. Past Psychiatric History: None reported Medical Evaluation Reviewed: Yes Personal & Social History: Lives alone Has LOG CHIPPER services in place Review of Systems Review of Systems Yes Unobtainable due to mental status [facility] Medical History CAD (coronary artery disease) Diabetes HTN (hypertension) Surgical History History of open heart surgery Diagnostics Vital Signs (24Hr): Vital Signs - 24 hr 08/30/20 15:25 08/30/20 23:57 08/31/20 07:27 Temperature 96.7 F L 96.8 F 96.9 F Pulse Rate 63 66 67 Respiratory Rate 16 18 18 Blood Pressure 102/50 L 137/53 L 152/80 H Pulse Oximetry 95 98 99 08/31/20 11:12 Temperature Pulse Rate 67 Respiratory Rate Blood Pressure 152/80 H Pulse Oximetry 99 Body Mass Index 34.9 Labs Results: 08/27/20 05:58 08/30/20 09:08 Labs: Laboratory Results - last 48 hr 03/08/29/20 08/29/20 14:09 15:32 16:05 Sodium Potassium Chloride Carbon Dioxide Anion Gap BUN Creatinine 1.46 H Estim Creat Clear Calc 32.4 Estimated GFR 35 POC Glucose 127 H Random Glucose Calcium Random Vancomycin 23.5 H 08/30/20 08/30/20 08/30/20 07:21 09:08 11:14 Sodium 137 Potassium 3.7 Chloride 104 Carbon Dioxide 23 Anion Gap 14 BUN 29 H D Creatinine 1.24 Estim Creat Clear Calc 38.1 Estimated GFR 42 POC Glucose 145 H 205 H Random Glucose 205 H D Calcium 8.5 D Random Vancomycin 08/30/20 08/30/20 08/30/20 14:57 16:16 20:15 Sodium Potassium Chloride Carbon Dioxide Anion Gap BUN Creatinine Estim Creat Clear Calc Estimated GFR POC Glucose 136 H 170 H Random Glucose Calcium Random Vancomycin 15.3 08/31/20 08/31/20 07:24 11:25 Sodium Potassium Chloride Carbon Dioxide Anion Gap BUN Creatinine Estim Creat Clear Calc Estimated GFR POC Glucose 77 147 H Random Glucose Calcium Random Vancomycin Imaging Radiology Impressions: ITS Impressions Chest X-Ray 08/26/20 11:21 IMPRESSION: No evidence for acute disease in the chest. Head CT 08/26/20 11:21 IMPRESSION: No acute intracranial pathology. Abdomen/Pelvis CT 08/29/20 16:23 IMPRESSION: 1. No hydronephrosis, hydroureter, or perinephric stranding. No urinary tract calculi. 2. Extensive atherosclerotic calcifications vasculature. 3. No bowel obstruction or focal inflammatory changes. No ascites or fluid collection. 4. Gallstones. No gallbladder wall thickening or ductal dilatation. Mental Status Exam Mental Status Exam Patient Appearance: Well Grooomed and Appropriate Patient Orientation: Person and Place Level of Consciousness: Awake, Appropriate and Alert Patient Behavior: Appropriate and Talkative Mood Description: Happy Affect Description: Happy Patient Cognition Impaired: Yes Ability to Follow Directions: Good Speech Pattern: Clear and Rambling Delusions: Present Thought Process: Disoriented Thought Content: positive for Disoriented and positive for Circumstantial Judgement: Fair Medications Medications Current Medications Generic Name Dose Route Start Last Admin Trade Name Freq PRN Reason Stop Dose Admin Acetaminophen 650 mg 08/26/20 18:42 Acetaminophen 325 Mg Tablet PO Q6H PRN pain Amlodipine Besylate 5 mg 08/30/20 09:00 08/31/20 09:32 Amlodipine Besylate 5 Mg Tablet PO 5 mg DAILY [facility] Administration Protocol Aspirin 81 mg 08/26/20 21:00 08/30/20 21:52 Aspirin Enteric Coated 81 Mg Tablet.Dr PO 81 mg BEDTIME [facility] Administration Atorvastatin Calcium 80 mg 08/26/20 21:00 08/30/20 21:52 Atorvastatin Calcium 80 Mg Tablet PO 80 mg BEDTIME [facility] Administration Bisoprolol Fumarate 5 mg 08/26/20 18:42 08/31/20 09:31 Bisoprolol Fumarate 5 Mg Tablet PO 5 mg DAILY [facility] Administration Cyanocobalamin 1,000 mcg 08/27/20 09:00 08/31/20 09:31 Cyanocobalamin (Vitamin B-12) 1,000 Mcg Tablet PO 1,000 mcg DAILY [facility] Administration Fluticasone Propionate 1 spray 08/26/20 18:42 Fluticasone Propionate Nasal 16 Gm [place] NOSTRIL-B DAILY PRN Allergy Symptoms Gabapentin 300 mg 08/26/20 21:00 08/31/20 14:15 Gabapentin 300 Mg Capsule PO 300 mg TID [facility] Administration Heparin Sodium (Porcine) 5,000 unit 08/26/20 18:42 08/31/20 06:55 Heparin Sodium,Porcine 5,000 Unit/Ml Vial SUBCUT 5,000 unit Q12H [facility] Administration Hydrochlorothiazide 12.5 mg 08/27/20 09:00 08/31/20 09:31 Hydrochlorothiazide 12.5 Mg Tablet PO 12.5 mg DAILY [facility] Administration Protocol Ceftriaxone Sodium 1 gm/ 50 mls @ 100 mls/hr 08/27/20 14:00 08/31/20 14:14 Sodium Chloride IV 100 mls/hr Q24H [facility] Administration Vancomycin HCl 750 mg/ Sodium 265 mls @ 265 mls/hr 08/30/20 16:00 08/30/20 17:20 Chloride IV Infused Q24H [facility] Infusion Insulin Glargine 36 unit 08/27/20 09:00 08/31/20 09:29 Insulin Glargine,Hum.Rec.Anlog 100 Unit/Ml 10 Ml Vial SUBCUT 36 unit DAILY [facility] Administration Insulin Human Lispro 0 unit 08/26/20 21:00 08/31/20 11:29 Insulin Lispro 100 Unit/Ml 3 Ml Vial SUBCUT Not Given QIDACHS [facility] Protocol Isosorbide Mononitrate 30 mg 08/27/20 09:00 08/31/20 09:31 Isosorbide Mononitrate 30 Mg Tab.Er.24h PO 30 mg DAILY [facility] Administration Protocol Omeprazole 20 mg 08/27/20 06:30 08/31/20 06:51 Omeprazole 20 Mg Capsule.Dr PO 20 mg DAILY@0630 [facility] Administration Paroxetine HCl 10 mg 08/27/20 09:00 08/31/20 09:31 Paroxetine Hcl 10 Mg Tablet PO 10 mg DAILY [facility] Administration Pharmacy Consult 1 each 08/26/20 15:14 Consult Rx Perform Med Rec MISCELLANE ONCE PRN Consult order Pharmacy Consult 1 each 08/27/20 13:39 Consult Rx Vancomycin Dosing MISCELLANE DAILY PRN Consult order Quetiapine Fumarate 25 mg 08/30/20 15:51 Quetiapine Fumarate 25 Mg Tablet PO BEDTIME PRN anxiety/restlessness Sodium Chloride 3 ml 08/27/20 00:00 08/31/20 09:32 0.9 % Sodium Chloride Flush 3 Ml Syringe IVFLUSH 3 ml QSHIFT [facility] Administration Vitamin D 25 mcg 08/27/20 09:00 08/31/20 09:31 Cholecalciferol (Vitamin D3) 25 Mcg Tablet PO 25 mcg DAILY [facility] Administration Allergies Allergies Allergy/AdvReac Type Severity Reaction Status Date / Time SEAFOOD Allergy Mild RASH Uncoded 02/25/20 16:20 Assessment & Plan Assessment & Plan (1) Delirium due to general medical condition: Status: Acute Code(s): F05 - Delirium due to known physiological condition Recommendations: gentle redirection and reassurance as necessary QTc 502, avoid antipsychotics if possible. If patient is experiencing anxiety r/t delusions low dose benzodiazepine should be used Greater than 50% of the session was spent on counseling and/or coordination of care
[2020-08-31 15:09] VITALS: BP 126/63; PULSE 82; RESP 18; TEMP 36.1; O2SAT 96
[2020-08-31] MEDS: vancomycin HCL 750 MG in 0.9 % Sodium Chloride 250 ML 265 MG IV (16:04)
[2020-08-31 16:08] LABS: Glucose, Whole Blood 201 mg/dL (60-115)
[2020-08-31] MEDS: Insulin Lispro 100 UNIT/ML 3 ML VIAL SUBCUT ×2 (16:44→21:20)
[2020-08-31 20:26] LABS: Glucose, Whole Blood 157 mg/dL (60-115)
[2020-08-31] MEDS: Aspirin Enteric Coated 81 MG TABLET.DR PO (21:20)
[2020-08-31] MEDS: Atorvastatin Calcium 80 MG TABLET PO (21:20)
[2020-08-31 23:06] VITALS: BP 157/74; PULSE 69; RESP 20; TEMP 36.7; O2SAT 99
--- NOTE | 2020-09-01 | ECG_ITS ---
Test Reason : CP Blood Pressure : / mmHG Vent. Rate : 066 BPM Atrial Rate : 066 BPM P-R Int : 172 ms QRS Dur : 084 ms QT Int : 476 ms P-R-T Axes : 044 038 080 degrees QTc Int : 499 ms Normal sinus rhythm Nonspecific T wave abnormality Prolonged QT Abnormal ECG When compared with ECG of 26-AUG-2020 11:33, Nonspecific T wave abnormality now evident in Lateral leads Referred By: Ron Diaz Electronically Signed By:KEYLA NANCE
[2020-09-01] MEDS: Omeprazole 20 MG CAPSULE.DR PO (06:34)
[2020-09-01] MEDS: Heparin Sodium,Porcine 5,000 UNIT/ML VIAL 5000 UNIT SUBCUT ×2 (06:34→17:18)
[2020-09-01 07:51] LABS: Anion Gap 18 (12-20); Blood Urea Nitrogen 23 mg/dL (9-16); Calcium 9.2 mg/dL (8.4-10.2); Carbon Dioxide 21 mmol/L (22-29); Chloride 105 mmol/L (96-108); Creatinine Clr Calc Pharmacy 43.8; Estimated Glomerular Filt Rate 50; Glucose Random 85 mg/dL (60-115); Sodium 140 mmol/L (135-145)
[2020-09-01 08:00] VITALS: BP 143/82; PULSE 70; RESP 18; TEMP 36.3; O2SAT 99
[2020-09-01 08:10] LABS: Glucose, Whole Blood 109 mg/dL (60-115)
[2020-09-01] MEDS: 0.9 % Sodium Chloride Flush 3 ML SYRINGE IVFLUSH ×3 (09:02→20:00)
[2020-09-01 09:03] VITALS: BP 143/82; PULSE 70
[2020-09-01] MEDS: Bisoprolol Fumarate 5 MG TABLET PO (09:03)
[2020-09-01] MEDS: PARoxetine HCL 10 MG TABLET PO (09:03)
[2020-09-01] MEDS: Gabapentin 300 MG CAPSULE PO ×3 (09:03→20:00)
[2020-09-01] MEDS: hydroCHLOROthiazide 12.5 MG TABLET PO (09:03)
[2020-09-01] MEDS: Isosorbide Mononitrate 30 MG TAB.ER.24H PO (09:03)
[2020-09-01] MEDS: Cyanocobalamin (Vitamin B-12) 1,000 MCG TABLET 1000 MCG PO (09:03)
[2020-09-01] MEDS: Cholecalciferol (Vitamin D3) 25 MCG TABLET PO (09:03)
[2020-09-01] MEDS: amLODIPine Besylate 5 MG TABLET PO (09:03)
[2020-09-01] MEDS: Insulin Glargine,Hum.rec.anlog 100 UNIT/ML 10 ML VIAL 36 UNIT SUBCUT (09:04)
[2020-09-01 11:16] LABS: Glucose, Whole Blood 111 mg/dL (60-115)
--- NOTE | 2020-09-01 11:23 | MHC.CM.PN ---
Addendum entered by Anita Horner RN 09/01/20 15:27: CM HAS NOT RECEIVED CALL FROM PT'S [facility] RN REFERRAL, CM ATTEMPTED TO CONTACT [facility]ON EVAN AT 3:14PM ([phone]) TO OBTAIN PT'S CARE PARTNERS CONTACT INFO, MESSAGE LEFT W/CONTACT INFO. Addendum entered by Anita Horner RN 09/01/20 11:47: CM CALLED [facility]ON BACK AT 11:45AM REGARDING CONCERNS REGARDING PT AND UNSAFE DISCHARGE AND INFORMED CM THAT A NURSING HOME RESPITE STAY MAY BE AN OPTION, PER [facility] LIASON SHE WILL HAVE PATIENTS CASE PARTNER CONTACT CM TO DISCUSS CASE FURTHER. Original Note: CM ATTEMPTED TO CALL PT'S PRINCIPAL ARCHAEOLOGIST YOLI VIA PUBLIC [employer]AF[employer]Y POLICE LINE AT 11:17AM, PER PUBLIC SAF[employer]Y POLICE THERE WAS NO ANSWER AND NO VOICEMAIL, CM WILL ATTEMPT TO CALL AGAIN.
--- NOTE | 2020-09-01 13:47 | P.PNIM_ITS ---
Subjective Subjective Date of Service: 09/01/20 Interval History: the patient was seen and evaluated this morning Laying in bed, feels comfortable overall with no reported complaints, she wants to go home hallucinating and encephalopathic with reporting ghosts spiders following and someone trying to kill her by shooting her Denies any fever, chills or shortness of breath No reported other overnight events. Systemic review: No fever, chills or weakness but encephalopathic and hallucinating No chest pain, palpitation No shortness of breath or coughing No abdominal pain, nausea or vomiting No urinary symptoms No any rash or wounds Physical Exam Vital Signs: Vital Signs: Last Vital Signs Temp 97.3 F 09/01/20 08:00 Pulse 70 09/01/20 09:03 Resp 18 09/01/20 08:00 BP 143/82 H 09/01/20 09:03 Pulse Ox 99 09/01/20 08:00 Body Mass Index 34.9 Const: Other: Constitutional : Alert, oriented to self only, not in distress Neck : Normal inspection, Supple Cardiovascular : RRR, S1 S2, no lower extremity edema Respiratory : Good bilateral air entry, no crackles, wheezes or rhonchi Gastrointestinal: soft, lax, Normal bowel sounds, Non tender Skin : Warm/Dry, No rash Neurological : Alert & a disoriented, has visual hallucinations, No focal deficit Objective Data Current Medications Generic Name Dose Route Start Last Admin Trade Name Freq PRN Reason Stop Dose Admin Acetaminophen 650 mg 08/26/20 18:42 Acetaminophen 325 Mg Tablet PO Q6H PRN pain Amlodipine Besylate 5 mg 08/30/20 09:00 09/01/20 09:03 Amlodipine Besylate 5 Mg Tablet PO 5 mg DAILY [facility] Administration Protocol Aspirin 81 mg 08/26/20 21:00 08/31/20 21:20 Aspirin Enteric Coated 81 Mg Tablet. PO 81 mg BEDTIME [facility] Administration Atorvastatin Calcium 80 mg 08/26/20 21:00 08/31/20 21:20 Atorvastatin Calcium 80 Mg Tablet PO 80 mg BEDTIME [facility] Administration Bisoprolol Fumarate 5 mg 08/26/20 18:42 09/01/20 09:03 Bisoprolol Fumarate 5 Mg Tablet PO 5 mg DAILY [facility] Administration Cyanocobalamin 1,000 mcg 08/27/20 09:00 09/01/20 09:03 Cyanocobalamin (Vitamin B-12) 1,000 Mcg Tablet PO 1,000 mcg DAILY [facility] Administration Fluticasone Propionate 1 spray 08/26/20 18:42 Fluticasone Propionate Nasal 16 Gm [place] NOSTRIL-B DAILY PRN Allergy Symptoms Gabapentin 300 mg 08/26/20 21:00 09/01/20 09:03 Gabapentin 300 Mg Capsule PO 300 mg TID [facility] Administration Heparin Sodium (Porcine) 5,000 unit 08/26/20 18:42 09/01/20 06:34 Heparin Sodium,Porcine 5,000 Unit/Ml Vial SUBCUT 5,000 unit Q12H [facility] Administration Hydrochlorothiazide 12.5 mg 08/27/20 09:00 09/01/20 09:03 Hydrochlorothiazide 12.5 Mg Tablet PO 12.5 mg DAILY [facility] Administration Protocol Ceftriaxone Sodium 1 gm/ 50 mls @ 100 mls/hr 08/27/20 14:00 08/31/20 15:30 Sodium Chloride IV Infused Q24H [facility] Infusion Insulin Glargine 36 unit 08/27/20 09:00 09/01/20 09:04 Insulin Glargine,Hum.Rec.Anlog 100 Unit/Ml 10 Ml Vial SUBCUT 36 unit DAILY [facility] Administration Insulin Human Lispro 0 unit 08/26/20 21:00 09/01/20 11:17 Insulin Lispro 100 Unit/Ml 3 Ml Vial SUBCUT Not Given QIDACHS [facility] Protocol Isosorbide Mononitrate 30 mg 08/27/20 09:00 09/01/20 09:03 Isosorbide Mononitrate 30 Mg Tab.Er.24h PO 30 mg DAILY [facility] Administration Protocol Omeprazole 20 mg 08/27/20 06:30 09/01/20 06:34 Omeprazole 20 Mg Capsule. PO 20 mg DAILY@0630 [facility] Administration Pharmacy Consult 1 each 08/26/20 15:14 Consult Rx Perform Med Rec MISCELLANE ONCE PRN Consult order Quetiapine Fumarate 25 mg 08/30/20 15:51 Quetiapine Fumarate 25 Mg Tablet PO BEDTIME PRN anxiety/restlessness Risperidone 0.25 mg 09/01/20 13:25 Risperidone 0.25 Mg Tablet PO BID [facility] Sodium Chloride 3 ml 08/27/20 00:00 09/01/20 09:02 0.9 % Sodium Chloride Flush 3 Ml Syringe IVFLUSH 3 ml QSHIFT [facility] Administration Vitamin D 25 mcg 08/27/20 09:00 09/01/20 09:03 Cholecalciferol (Vitamin D3) 25 Mcg Tablet PO 25 mcg DAILY [facility] Administration Labs CBC & Chem 7: 08/27/20 05:58 09/01/20 06:34 Microbiology Microbiology Results: Microbiology 08/28/20 13:51 Blood - Venous Blood Culture - Preliminary No growth after 48 hours. 08/28/20 13:51 Blood - Venous Blood Culture - Preliminary No growth after 48 hours. 08/26/20 12:14 Blood - Venous Blood Culture - Final Staphylococcus epidermidis 08/26/20 11:40 Blood - Venous Blood Culture - Final Staphylococcus epidermidis 08/26/20 Unknown Urine clean catch - Clean Catch Midstream Urine Culture - Final Klebsiella pneumoniae Corynebacterium species Assessment and Plan (1) CAD (coronary artery disease): Status: Acute (2) Delirium due to general medical condition: Status: Acute (3) Urinary tract infection: Status: Acute (4) Hallucination: Status: Acute Assessment and Plan: 75-year-old female presented with worsening confusion delirium found to have UTI, negative head CT Toxic metabolic encephalopathy Visual hallucinations likely secondary to UTI, inpatient induced delirium, possible psychosis Continues to have visual hallucinations Continue treatment for the infection To use Seroquel as needed To start risperidone 0.25 mg b.i.d. DC Paxil Psych evaluation appreciated, to start anti psychotic Recurrent reorientation UTI Culture show Klebsiella and Corenybacterium Continue Ceftriaxone Coag Negative Staph positive blood culture from 08/26 07/12 seems to be contamination Id consult appreciated history of CAD status post CABG continue aspirin bisoprolol Imdur and statin hypertension continue bisoprolol and Imdur diabetes mellitus continue Lantus and sliding scale insulin monitor blood glucose Obesity A chest calorie intake Advised to lose weight as it is contributing to her overall illness DVT prophylaxis heparin subQ Dispo: Patient is not safe to be discharged with ongoing hallucination and altered mentation as she lives home by herself.
[2020-09-01] MEDS: risperiDONE 0.25 MG TABLET PO ×2 (14:11→20:00)
[2020-09-01] MEDS: cefTRIAXone sodium 1 GM in 0.9 % Sodium Chloride 50 ML IV (14:11)
--- NOTE | 2020-09-01 15:19 | MHC.CM.PN ---
PER HOSPITALIST NO DISCHARGE TODAY DUE TO PT BEING UNSAFE TO BE ALONE AT HOME W/ALTERED MENTAL STATUS. DISCHARGE PLAN: UNCERTAIN AT THIS TIME, POSSIBLE NURSING HOME RESPITE BED, BLS FOR TRANSPORT
[2020-09-01 15:22] LABS: Vancomycin Random 14.8 mcg/mL (15-20)
[2020-09-01 15:36] VITALS: BP 100/56; PULSE 59; RESP 19; TEMP 35.8; O2SAT 99
[2020-09-01 16:48] LABS: Glucose, Whole Blood 89 mg/dL (60-115)
[2020-09-01] MEDS: Aspirin Enteric Coated 81 MG TABLET.DR PO (20:00)
[2020-09-01] MEDS: QUEtiapine Fumarate 25 MG TABLET PO (20:00)
[2020-09-01] MEDS: Atorvastatin Calcium 80 MG TABLET PO (20:00)
[2020-09-01 20:47] LABS: Glucose, Whole Blood 71 mg/dL (60-115)
[2020-09-01 23:09] VITALS: BP 143/70; PULSE 89; RESP 19; TEMP 36.7; O2SAT 97
[2020-09-02] MEDS: Heparin Sodium,Porcine 5,000 UNIT/ML VIAL 5000 UNIT SUBCUT (05:47)
[2020-09-02] MEDS: Omeprazole 20 MG CAPSULE.DR PO (05:47)
[2020-09-02 07:24] LABS: Glucose, Whole Blood 63 mg/dL (60-115)
[2020-09-02 07:50] VITALS: BP 115/53; PULSE 53; RESP 18; TEMP 35.9; O2SAT 99
[2020-09-02] MEDS: hydroCHLOROthiazide 12.5 MG TABLET PO (09:54)
[2020-09-02] MEDS: Bisoprolol Fumarate 5 MG TABLET PO (09:55)
[2020-09-02] MEDS: amLODIPine Besylate 5 MG TABLET PO (09:55)
[2020-09-02] MEDS: Cholecalciferol (Vitamin D3) 25 MCG TABLET PO (09:55)
[2020-09-02] MEDS: risperiDONE 0.25 MG TABLET PO (09:55)
[2020-09-02] MEDS: Gabapentin 300 MG CAPSULE PO ×2 (09:55→15:01)
[2020-09-02] MEDS: Isosorbide Mononitrate 30 MG TAB.ER.24H PO (09:55)
[2020-09-02] MEDS: Cyanocobalamin (Vitamin B-12) 1,000 MCG TABLET 1000 MCG PO (09:55)
[2020-09-02] MEDS: Insulin Glargine,Hum.rec.anlog 100 UNIT/ML 10 ML VIAL 36 UNIT SUBCUT (09:56)
--- NOTE | 2020-09-02 10:32 | MHC.CM.PN ---
CM MET WITH HOSPITALIST TO DISCUSS CASE AND REQUEST BY [facility] FOR YANG PSYCH CONSULT, PER HOSPITALIST IT IS TOO SOON TO HAVE PT DEEMED INCOMPETENT AND GO THROUGH [facility], HOSPITALIST AND PSYCH BELIEVE PT HAS A GOOD CHANCE OF CLEARING AND RETURNING TO BASELINE, HOSPITALIST WOULD LIKE CM TO FOLLOW THROUGH WITH RESPITE STAY TO GIVE PT MORE TIME TO CLEAR, HOSPITALIST ALSO REQUESTED CM TO CONTACT [employer].
--- NOTE | 2020-09-02 10:54 | MHC.CM.PN ---
CM CONTACTED PT'S CCA LIASON EVAN AT 8:28AM ([phone]) TO DISCUSS PT'S CASE, PER LIASON CCA WILL APPROVE A RESPITE STAY FOR PT, PER LIASON PT'S PARTNER REYMUNDO GOMES DOES NOT HAVE ANY INFORMATION REGARDING PT. CM MADE REFERRALS TO MULTIPLE SNF'S FOR RESPITE BED. CM DID RECEIVE A CALL FROM REYMUNDO MIREYA PT'S SHRIMP TRAWLER, SHRIMP TRAWLER SHE DOES NOT HAVE ANY CONTACT INFORMATION FOR PT'S FAMILY AND HAS NEVER SPOKEN TO PT DUE TO HER NOT ANSWERING PHONE OR RESPONDING TO A LETTER THAT WAS SENT TO PT. SHRIMP TRAWLER REQUESTED A YANG PSYCH EVAL AND SUGGESTED A LOCKED ASSISTED FACILITY. PER CM TYPE CASTER THERE ARE NO LOCKED ASSISTED LIVING FACILITIES ONLY LOCKED [facility]/DEMENTIA UNITS, PER HOSPITALIST HE DOES NOT WANT TO HAVE PT DEEMED INCOMPETENT AT THIS TIME, HOSPITALIST BELIEVES PT WILL CLEAR AND WOULD LIKE TO GIVE HER MORE TIME TO DO SO HOWEVER THIS WILL BE DONE AT SNF DUE TO PT'S LACK OF FAMILY OR FRIENDS WHO COULD PROVIDE CARE AT HOME, PER CCA LIASON THE HOME MORTGAGE DISCLOSURE ACT SPECIALIST HOURS CAN BE INCREASED HOWEVER ONLY TO 40 DAY HRS AND 14 EVENING HOURS. DISCHARGE PLAN: CORRECTION RESPITE STAY, BLS TRANSPORT
[2020-09-02 11:28] LABS: Glucose, Whole Blood 126 mg/dL (60-115)
--- NOTE | 2020-09-02 11:48 | HO.PM.IMPN ---
Subjective Subjective Date of Service: 09/02/20 Interval History: the patient was seen and evaluated this morning hallucinating and encephalopathic with reporting ghosts and spiders in the room, the gives is hiding under the bed at home Laying in bed, feels comfortable overall with no reported complaints, she wants to go home Denies any fever, chills or shortness of breath No reported other overnight events. Systemic review: No fever, chills or weakness but encephalopathic and hallucinating No chest pain, palpitation No shortness of breath or coughing No abdominal pain, nausea or vomiting No urinary symptoms No any rash or wounds Physical Exam Vital Signs: Vital Signs: Last Vital Signs Temp 96.7 F L 09/02/20 07:50 Pulse 53 09/02/20 07:50 Resp 18 09/02/20 07:50 BP 115/53 L 09/02/20 07:50 Pulse Ox 99 09/02/20 07:50 Body Mass Index 34.9 Const: Other: Constitutional : Alert, oriented to self and place but not time, not in distress Neck : Normal inspection, Supple Cardiovascular : RRR, S1 S2, no lower extremity edema Respiratory : Good bilateral air entry, no crackles, wheezes or rhonchi Gastrointestinal: soft, lax, Normal bowel sounds, Non tender Skin : Warm/Dry, No rash Neurological : Alert & a disoriented, has visual hallucinations, No focal deficit Objective Data Current Medications Generic Name Dose Route Start Last Admin Trade Name Freq PRN Reason Stop Dose Admin Acetaminophen 650 mg 08/26/20 18:42 Acetaminophen 325 Mg Tablet PO Q6H PRN pain Amlodipine Besylate 5 mg 08/30/20 09:00 09/02/20 09:55 Amlodipine Besylate 5 Mg Tablet PO 5 mg DAILY ALICIA Administration Protocol Aspirin 81 mg 08/26/20 21:00 09/01/20 20:00 Aspirin Enteric Coated 81 Mg Tablet. PO 81 mg BEDTIME ALICIA Administration Atorvastatin Calcium 80 mg 08/26/20 21:00 09/01/20 20:00 Atorvastatin Calcium 80 Mg Tablet PO 80 mg BEDTIME ALICIA Administration Bisoprolol Fumarate 5 mg 08/26/20 18:42 09/02/20 09:55 Bisoprolol Fumarate 5 Mg Tablet PO 5 mg DAILY ALICIA Administration Cyanocobalamin 1,000 mcg 08/27/20 09:00 09/02/20 09:55 Cyanocobalamin (Vitamin B-12) 1,000 Mcg Tablet PO 1,000 mcg DAILY ALICIA Administration Fluticasone Propionate 1 spray 08/26/20 18:42 Fluticasone Propionate Nasal 16 Gm [place] NOSTRIL-B DAILY PRN Allergy Symptoms Gabapentin 300 mg 08/26/20 21:00 09/02/20 09:55 Gabapentin 300 Mg Capsule PO 300 mg TID [facility] Administration Heparin Sodium (Porcine) 5,000 unit 08/26/20 18:42 09/02/20 05:47 Heparin Sodium,Porcine 5,000 Unit/Ml Vial SUBCUT 5,000 unit Q12H [facility] Administration Hydrochlorothiazide 12.5 mg 08/27/20 09:00 09/02/20 09:54 Hydrochlorothiazide 12.5 Mg Tablet PO 12.5 mg DAILY [facility] Administration Protocol Ceftriaxone Sodium 1 gm/ 50 mls @ 100 mls/hr 08/27/20 14:00 09/01/20 14:47 Sodium Chloride IV Infused Q24H [facility] Infusion Insulin Glargine 36 unit 08/27/20 09:00 09/02/20 09:56 Insulin Glargine,Hum.Rec.Anlog 100 Unit/Ml 10 Ml Vial SUBCUT 36 unit DAILY [facility] Administration Insulin Human Lispro 0 unit 08/26/20 21:00 09/02/20 11:37 Insulin Lispro 100 Unit/Ml 3 Ml Vial SUBCUT Not Given QIDACHS [facility] Protocol Isosorbide Mononitrate 30 mg 08/27/20 09:00 09/02/20 09:55 Isosorbide Mononitrate 30 Mg Tab.Er.24h PO 30 mg DAILY [facility] Administration Protocol Omeprazole 20 mg 08/27/20 06:30 09/02/20 05:47 Omeprazole 20 Mg Capsule. PO 20 mg DAILY@0630 [facility] Administration Pharmacy Consult 1 each 08/26/20 15:14 Consult Rx Perform Med Rec MISCELLANE ONCE PRN Consult order Quetiapine Fumarate 25 mg 08/30/20 15:51 09/01/20 20:00 Quetiapine Fumarate 25 Mg Tablet PO 25 mg BEDTIME PRN Administration anxiety/restlessness Risperidone 0.25 mg 09/01/20 13:25 09/02/20 09:55 Risperidone 0.25 Mg Tablet PO 0.25 mg BID [facility] Administration Sodium Chloride 3 ml 08/27/20 00:00 09/01/20 20:00 0.9 % Sodium Chloride Flush 3 Ml Syringe IVFLUSH 3 ml QSHIFT [facility]ICIA Administration Vitamin D 25 mcg 08/27/20 09:00 09/02/20 09:55 Cholecalciferol (Vitamin D3) 25 Mcg Tablet PO 25 mcg DAILY ALICIA Administration Labs CBC & Chem 7: 08/27/20 05:58 09/01/20 06:34 Microbiology Microbiology Results: Microbiology 08/28/20 13:51 Blood - Venous Blood Culture - Preliminary No growth after 48 hours. 08/28/20 13:51 Blood - Venous Blood Culture - Preliminary No growth after 48 hours. 08/26/20 12:14 Blood - Venous Blood Culture - Final Staphylococcus epidermidis 08/26/20 11:40 Blood - Venous Blood Culture - Final Staphylococcus epidermidis 08/26/20 Unknown Urine clean catch - Clean Catch Midstream Urine Culture - Final Klebsiella pneumoniae Corynebacterium species Assessment and Plan (1) CAD (coronary artery disease): Status: Acute (2) Delirium due to general medical condition: Status: Acute (3) Urinary tract infection: Status: Acute (4) Hallucination: Status: Acute Assessment and Plan: 75-year-old female presented with worsening confusion delirium found to have UTI, negative head CT Toxic metabolic encephalopathy Visual hallucinations likely secondary to UTI, inpatient induced delirium, possible psychosis Continues to have visual hallucinations Continue treatment for the infection To use Seroquel as needed Continue risperidone 0.25 mg b.i.d. DC Paxil Psych evaluation appreciated, to start anti psychotic Recurrent reorientation UTI Culture show Klebsiella and Corenybacterium Continue Ceftriaxone day 7 of 7 Coag Negative Staph positive blood culture from 08/26 07/12 seems to be contamination Id consult appreciated history of CAD status post CABG continue aspirin bisoprolol Imdur and statin hypertension continue bisoprolol and Imdur diabetes mellitus continue Lantus and sliding scale insulin monitor blood glucose Obesity A chest calorie intake Advised to lose weight as it is contributing to her overall illness DVT prophylaxis heparin subQ Dispo: Patient is not safe to be discharged with ongoing hallucination and altered mentation as she lives home by herself.
[2020-09-02] MEDS: 0.9 % Sodium Chloride Flush 3 ML SYRINGE IVFLUSH ×2 (13:55→15:01)
[2020-09-02] MEDS: cefTRIAXone sodium 1 GM in 0.9 % Sodium Chloride 50 ML IV (14:08)
--- NOTE | 2020-09-02 15:18 | MHC.CM.PN ---
CM FILED [facility]LD[facility] AT RISK REPORT AT 2:45PM AT , CM WILL FAX PAPER REPORT TO [phone].
[2020-09-02 15:26] VITALS: BP 105/60; PULSE 64; RESP 14; TEMP 36.1; O2SAT 96
--- NOTE | 2020-09-02 15:34 | PM.IDPN ---
Subjective Subjective Date of Service: 09/02/20 Interval History: patient is eating and taking po Objective Data Labs CBC & Chem 7: 08/27/20 05:58 09/01/20 06:34 Labs: Laboratory Results - last 24 hr 09/01/20 09/01/20 09/02/20 16:29 20:41 07:20 POC Glucose 89 71 63 09/02/20 11:19 POC Glucose 126 H Microbiology Microbiology Results: Microbiology 08/28/20 13:51 Blood - Venous Blood Culture - Preliminary No growth after 48 hours. 08/28/20 13:51 Blood - Venous Blood Culture - Preliminary No growth after 48 hours. 08/26/20 12:14 Blood - Venous Blood Culture - Final Staphylococcus epidermidis 08/26/20 11:40 Blood - Venous Blood Culture - Final Staphylococcus epidermidis 08/26/20 Unknown Urine clean catch - Clean Catch Midstream Urine Culture - Final Klebsiella pneumoniae Corynebacterium species Physical Exam Vital Signs: Vital Signs: Last Vital Signs Temp 96.9 F 09/02/20 15:26 Pulse 64 09/02/20 15:26 Resp 14 09/02/20 15:26 BP 105/60 09/02/20 15:26 Pulse Ox 96 09/02/20 15:26 Body Mass Index 34.9 Const: General: cooperative HENMT: Head: Yes normal to inspection Mouth: Normal oral and palatal mucosa present Resp: Effort & Inspection: normal respiratory effort Cardio: Rate: regular rate Rhythm: regular rhythm GI: Palpation (GI): Soft to palpation and nontender Skin: General skin exam: no rashes or lesions noted Assessment and Plan Assessment and plan (1) Bacteremia due to Klebsiella pneumoniae: Problem details: This is likely cause of sepsis There is Klebsiella sensitive to Ceftriaxone She is now better and taking po This is day 8 IV antibiotics Status: Acute Assessment and Plan: Po antibiotics for 4 days,Ceftin 500 mg bid Time Spent With Patient Time: Total time spent is greater than 50% in coordination of care (as documented) at patient's floor/unit and/or counseling patient: Time with patient: 15 - 24 minutes
--- NOTE | 2020-09-02 15:36 | P.DS_ITS ---
DS: Providers Provider Date of Service: 09/02/20 Date of admission: 08/26/20 17:16 Primary care physician: Adama Anderson MD Consults: 08/28/20 13:24 Consult to Infectious Diseases Routine Consulting Provider: Samina Smith Reason for consultation: UTI, bacteremia 08/31/20 10:01 Consult to Psychiatry Routine Consulting Provider: Kyung Gavin Reason for consultation: encephalopathy, Hallucinations (seems more hospital delerium) DS: Diagnosis Discharge Diagnosis (1) Hallucination: Status: Acute (2) Urinary tract infection: Status: Acute (3) Delirium due to general medical condition: Status: Acute (4) CAD (coronary artery disease): Status: Acute (5) Uncontrolled hypertension: Status: Acute DS: Medications Discharge Medications Home Medications: Home Medications Medication Instructions Recorded Confirmed Lantus Solostar U-100 Insulin 36 unit SUBCUT DAILY 08/26/20 08/26/20 acetaminophen 650 mg PO Q6H PRN 08/26/20 08/26/20 aspirin 81 mg PO BEDTIME 08/26/20 08/26/20 atorvastatin 80 mg PO BEDTIME 08/26/20 08/26/20 bisoprolol fumarate 5 mg PO DAILY 08/26/20 08/26/20 cholecalciferol (vitamin D3) 25 mcg PO DAILY 08/26/20 08/26/20 cyanocobalamin (vitamin B-12) 1,000 mcg PO DAILY 08/26/20 08/26/20 fluticasone propionate 1 - 2 spray INTRANASAL DAILY PRN 08/26/20 08/26/20 gabapentin 300 mg PO TID 08/26/20 08/26/20 hydrochlorothiazide 12.5 mg PO DAILY 08/26/20 08/26/20 isosorbide mononitrate 30 mg PO DAILY 08/26/20 08/26/20 metformin 500 mg PO BID 08/26/20 08/26/20 multivitamin 1 tab PO DAILY 08/26/20 08/26/20 pantoprazole 40 mg PO DAILY 08/26/20 08/26/20 Previous Rx's Medication Instructions Recorded amlodipine 5 mg PO DAILY #30 tab 09/02/20 cefuroxime axetil 500 mg PO BID #6 tab 09/02/20 risperidone 0.25 mg PO BID #60 tab 09/02/20 DS: Summary Hospital Course Hospital Course: Admission note HPI 75-year-old female was brought to ER after found to have more confused, as per [employer] patient was getting more confused for last 2 days, patient called her [employer] this morning but somebody knocking at the door , patient was found in the [place] and was confused, patient was brought to ER, in the ER UA was found to be positive, CT head shows no acute abnormality, patient was given 1 dose of Rocephin patient was having frequent urination but was denying any abdominal pain, denies any fever chills, patient also noticed to have poor p.o. intake for last couple of days Hospital course The patient was evaluated for metabolic encephalopathy as she presented with Visual hallucinations which was thought to be secondary to UTI, She was treated for UTI with Ceftriaxone as urine culture grew Klebsiella. blood cultures were contaminent as ID evaluated the patient for Staph epi +ve blood culture and recommended no treatment. Noticed to have elevated BP readings. started on Amlodipine 5 mg daily with fair response. To monitor BP after discharge. He encephalopathy did not improving and thoug to be 2/2 inpatient induced delirium, possible psychosis. Evaluated by psychiatry team who recommended to start risperidone 0.25 mg b.i.d and DC Paxil for hallucination. This is thought to be temporary and should improved with reorientation and returning back home. She lives alone and has [employer] for 4 hours a day. it was felt unsafe to discharge her with current hallucinations of ghost trying to kill her and spiders crawling in her room. Plan to discharge to nursing facility for short term before returning home with more services. Time Spent with Patient Time attestation: Total time spent providing and/or coordinating discharge services: Discharge coordination time: Greater than 30 minutes Physical Exam Vital Signs: Vital Signs: Last Vital Signs Temp 96.9 F 09/02/20 15:26 Pulse 64 09/02/20 15:26 Resp 14 09/02/20 15: BP 105/60 09/02/20 15:26 Pulse Ox 96 09/02/20 15:26 Body Mass Index 34.9 Const: Other: Constitutional : Alert, oriented to self and place but not time, reports seeing ghosts and spiders. not in distress, calm and comfortable. Neck : Normal inspection, Supple Cardiovascular : RRR, S1 S2, no lower extremity edema Respiratory : Good bilateral air entry, no crackles, wheezes or rhonchi Gastrointestinal: soft, lax, Normal bowel sounds, Non tender Skin : Warm/Dry, No rash Neurological : Alert & a disoriented, has visual hallucinations, No focal deficit DS: Data Data Completed and Pending Labs on day of discharge: Laboratory Results - last 24 hr 09/01/20 09/01/20 09/02/20 16:29 20:41 07:20 POC Glucose 89 71 63 09/02/20 11:19 POC Glucose 126 H Preliminary micro results at discharge 08/28/20 13:51 Blood Culture - Preliminary Blood - Venous No growth after 48 hours. 08/28/20 13:51 Blood Culture - Preliminary Blood - Venous No growth after 48 hours. Discharge Plan Discharge Patient Disposition: [facility] Referrals: Name,MD Adama [Primary Care Provider] - Discharge Medications: New risperidone 0.25 mg Tablet 0.25 mg PO BID Qty: 60 RF: 0 amlodipine 5 mg Tablet 5 mg PO DAILY Qty: 30 RF: 0 cefuroxime axetil 500 mg tablet 500 mg PO BID Qty: 6 RF: 0 Continued multivitamin Tablet 1 tab PO DAILY RF: 0 metformin 500 mg tablet 500 mg PO BID RF: 0 atorvastatin 80 mg tablet 80 mg PO BEDTIME RF: 0 acetaminophen 325 mg tablet 650 mg PO Q6H PRN (Reason: pain) RF: 0 isosorbide mononitrate 30 mg tablet extended release 24 hr 30 mg PO DAILY RF: 0 cyanocobalamin (vitamin B-12) 1,000 mcg tablet 1,000 mcg PO DAILY RF: 0 aspirin 81 mg tablet,delayed release (DR/EC) 81 mg PO BEDTIME RF: 0 bisoprolol fumarate 5 mg tablet 5 mg PO DAILY RF: 0 pantoprazole 40 mg tablet,delayed release (DR/EC) 40 mg PO DAILY RF: 0 gabapentin 100 mg capsule 300 mg PO TID RF: 0 fluticasone propionate 50 mcg/actuation spray,suspension 1 - 2 spray intranasal DAILY PRN (Reason: Allergy Symptoms) RF: 0 cholecalciferol (vitamin D3) 25 mcg (1,000 unit) tablet 25 mcg PO DAILY RF: 0 hydrochlorothiazide 12.5 mg tablet 12.5 mg PO DAILY RF: 0 Lantus Solostar U-100 Insulin 100 unit/mL (3 mL) insulin pen 36 unit subcut DAILY RF: 0 Discontinued paroxetine HCl 10 mg tablet 10 mg PO DAILY RF: 0 Discharge Orders: Discharge Order (Routine); Ordered 09/02/20 Ordered By: Ron Diaz Diet: advance to usual diet Activity on Discharge: As tolerated Stand Alone Forms: Patient Portal Discharge page Care Plan Goals: Read below Health Concerns: Read below Plan of Treatment: You were admitted to the hospital for evaluation of altered mentation. studies showed urine infection which was treated with IV antibiotics. To continue Ceftin for 3 more days. You were noticed to be confused and hallucinating. evaluated by psychiatry team who started you on new medication called Respiridone. We have concerns about your safety at home and will discharge you to a nursing facility for short term stay.
--- NOTE | 2020-09-02 16:37 | MHC.CM.PN ---
IMM 09/02/20, CM MET W/PT VIA RISK CONTROL SPECIALIST TO DISCUSS SNF TRANSFER, PT IN AGREEMENT TO GO TO [facility], PT RAMBLING FOR SEVERAL MINUTES ABOUT THE GHOSTS MAKING HER CRAZY AND POISONING HER, PT ASKING US TO CHECK BED AND PT CONT'S TO SEE SPIDERS. PER PT CM AND RISK CONTROL SPECIALIST SPOKE WITH PT'SPCA AND GAVE HER NAME, ADDRESS AND CONTACT INFO FOR [facility]. PER LINING CEMENTER SHE WILL CONT TO FEED PT'S BIRDS WHILE SHE IS INPT. PT DISCHARGING AT 6PM TO [facility], [facility] FOR BLS TRANSPORT.
[2020-09-02 16:44] LABS: Glucose, Whole Blood 75 mg/dL (60-115)
--- NOTE | 2020-09-02 17:24 | PM.EVENT ---
Event Note Date of Service: 09/02/20 Event Note: Psychiatry follow up: Patient very sleepy this morning. Still reporting being poisoned and talking at length about phantasms. She is asking to go home. Plan: -continue low dose risperdal and monitor for oversedation or need to increase medication depending on patient's sx -? underlying dementia -While she is experiencing these hallucinations and delusions, she has remained in behavioral control. Still not at her baseline and likely being discharged to SNF. Psychiatric medication and continued need for medication to be assessed outpatient.
== END 2020-09-02 18:25 | disposition skilled nursing facility (03) | DRG 689 ==
LOC: HO.ED 14:34 → HO.EDOVER 17:25 → HO.S3 18:27
PROVIDERS: Internal Medicine; Admitting Provider Internal Medicine; Emergency Provider Emergency Medicine Emergency Medical Services; PCP Internal Medicine Geriatric Medicine; Visit Provider Student in an Organized Health Care Education/Training Program
DX: N39.0 Urinary tract infection, site not specified (principal); G92 Toxic encephalopathy; F05 Delirium due to known physiological condition; N17.9 Acute kidney failure, unspecified; I25.10 Atherosclerotic heart disease of native coronary artery without angina pectoris; R31.9 Hematuria, unspecified; I10 Essential (primary) hypertension; E66.9 Obesity, unspecified; Z68.35 Body mass index [BMI] 35.0-35.9, adult; B96.1 Klebsiella pneumoniae [K. pneumoniae] as the cause of diseases classified elsewhere; E11.9 Type 2 diabetes mellitus without complications; Z20.822 Contact with and (suspected) exposure to COVID-19; Z95.1 Presence of aortocoronary bypass graft; Z79.4 Long term (current) use of insulin; Z79.52 Long term (current) use of systemic steroids; Z79.82 Long term (current) use of aspirin; Z79.899 Other long term (current) drug therapy
CPT/HCPCS: 36415; 70450; 71046; 74176; 80048; 80053; 80143; 80179; 80202; 80307; 80320; 81001; 81003; 82565; 82947; 83605; 83690; 84443; 84484; 85025; 85610; 85730; 87040; 87077; 87086; 87088; 87186; 87205; 87635; 93005; 96365; 97162; 99285; J0696; J3370; Q0163

== ENCOUNTER 2020-12-13 09:16 | Outpatient (REF) | payer MEDICARE, SELFPAY ==
[2020-12-13 10:34] LABS: Anion Gap 13 (12-20); Blood Urea Nitrogen 17 mg/dL (9-16); Calcium 9.3 mg/dL (8.4-10.2); Carbon Dioxide 23 mmol/L (22-29); Chloride 105 mmol/L (96-108); Estimated Glomerular Filt Rate 43; Glucose Random 124 mg/dL (60-115); Potassium 4.3 mmol/L (3.3-5.1); Sodium 137 mmol/L (135-145)
[2020-12-13 10:59] LABS: Thyroid Stimulating Hormone 0.95 uIU/mL (0.32-4.0)
[2020-12-13 11:06] LABS: Folate 9.3 ng/mL (> or = 4.0); Vitamin B12 922 pg/mL (200-900)
[2020-12-14 08:35] LABS: Syphilis Screen Nonreactive (Nonreactive)
== END 2020-12-13 09:17 | disposition home or self-care (01) ==
LOC: HO.LAB 09:16
PROVIDERS: PCP Internal Medicine Geriatric Medicine; Visit Provider Psychiatry & Neurology Neurology
DX: G30.9 Alzheimer's disease, unspecified (principal)
CPT/HCPCS: 36415; 80048; 82607; 82746; 84443; 86780

== ENCOUNTER → 2021-07-13 12:25 | Outpatient (REF) | payer MEDICARE, SELFPAY | LOC: HO.SL 12:25 | PROVIDERS: PCP Internal Medicine Geriatric Medicine; Visit Provider Internal Medicine Geriatric Medicine | DX: Z13.89 Encounter for screening for other disorder (principal) ==

== ENCOUNTER 2021-08-24 14:24 | Outpatient (REF) | payer MEDICARE, SELFPAY ==
--- NOTE | ~2021-08-24 | MM_ITS ---
EXAMINATION: MM SCREENING DIGITAL BREAST TOMOSYNTHESIS, BILATERAL CLINICAL INFORMATION: Screening. Asymptomatic. The lifetime risk of breast cancer based on the Tyrer-Cuzick Model is 2%. COMPARISON: Mammography: 08/16/2020, 12/30/2018, 12/20/2017, 07/09/2016 TECHNIQUE: Digital breast tomosynthesis is performed in both the craniocaudal and mediolateral oblique views along with computer-aided detection (CAD). Synthesized 2D images are generated from the tomosynthesis. FINDINGS: There are scattered areas of fibroglandular density (ACR BI-RADS breast composition Category b). There are no significant masses, abnormal calcifications, or other abnormalities. Parenchymal pattern is similar to prior studies. There is no developing density or architectural abnormality. The axilla and skin contours are unremarkable. No significant changes. MM/MM tomosynthesis screening BI IMPRESSION: No mammographic evidence of malignancy. ASSESSMENT: BI-RADS 1: Negative RECOMMENDATION: Routine annual mammography screening. This patient's information was entered into a reminder system with a target due date for their next mammogram.
== END 2021-08-24 14:25 | disposition home or self-care (01) ==
LOC: HO.MAMMO 14:24
PROVIDERS: PCP Internal Medicine Geriatric Medicine; Visit Provider Internal Medicine Geriatric Medicine
DX: Z12.31 Encounter for screening mammogram for malignant neoplasm of breast (principal)
CPT/HCPCS: 77063; 77067

== ENCOUNTER 2021-08-31 07:54 | Outpatient (REF) | payer MEDICARE, SELFPAY ==
[2021-08-31 08:38] LABS: Hematocrit 33.3 % (37.0-47.0); Hemoglobin 10.8 g/dl (12.0-16.0); Mean Corpuscular HGB Conc 32.4 g/dl (31.0-35.0); Mean Corpuscular Hemoglobin 27.8 pg (27.0-33.0); Mean Corpuscular Volume 85.6 fL (80.0-98.0); Platelet Count 224 X10*3/uL (160-400); Red Blood Count 3.89 X10*6/uL (4.20-5.50); Red Cell Distribution Width 16.3 % (11.0-16.0); White Blood Count 5.7 X10*3/uL (4.8-10.8)
[2021-08-31 09:05] LABS: Alanine Aminotransferase 10 U/L (0-31); Albumin Level 3.6 g/dL (3.5-5.0); Alkaline Phosphatase 45 U/L (39-117); Anion Gap 12 (12-20); Aspartate Amino Transferase 15 U/L (5-31); Bilirubin Direct 0.3 mg/dL (0.0-0.5); Bilirubin Total 0.9 mg/dL (0.0-1.0); Blood Urea Nitrogen 21 mg/dL (9-16); Calcium 9.3 mg/dL (8.4-10.2); Carbon Dioxide 25 mmol/L (22-29); Chloride 105 mmol/L (96-108); Cholesterol 139 mg/dL; Estimated Glomerular Filt Rate 47; Glucose Random 87 mg/dL (60-115); HDL Cholesterol 50 mg/dL; LDL Cholesterol Calculated 75 mg/dl; Potassium 4.4 mmol/L (3.3-5.1); Sodium 138 mmol/L (135-145); Total Protein 6.6 g/dL (6.5-8.0); Triglycerides 71 mg/dL
== END 2021-08-31 07:55 | disposition home or self-care (01) ==
LOC: HO.LAB 07:54
PROVIDERS: PCP Internal Medicine Geriatric Medicine; Visit Provider Internal Medicine Geriatric Medicine
DX: E11.65 Type 2 diabetes mellitus with hyperglycemia (principal); I10 Essential (primary) hypertension; Z79.899 Other long term (current) drug therapy
CPT/HCPCS: 36415; 80048; 80061; 80076; 85027

== ENCOUNTER 2021-09-01 11:38 | Outpatient (REF) | payer OTHER, SELFPAY ==
[2021-09-01 12:47] LABS: Creatinine Urine 102.09 mg/dL; Microalbum/Creatinine Ratio Ur 42.1 ug/mg cr
== END 2021-09-01 11:39 | disposition home or self-care (01) ==
LOC: HO.LNP 11:38
PROVIDERS: Visit Provider Internal Medicine Geriatric Medicine
DX: E11.65 Type 2 diabetes mellitus with hyperglycemia (principal); I10 Essential (primary) hypertension; Z79.899 Other long term (current) drug therapy
CPT/HCPCS: 82043

== ENCOUNTER 2021-12-28 12:01 | Emergency (ER) | payer OTHER, SELFPAY ==
--- NOTE | ~2021-12-28 | XR_ITS ---
EXAMINATION: LEFT SHOULDER, LEFT HUMERUS, LEFT CLAVICLE CLINICAL INFORMATION: Pain after fall COMPARISON: Chest radiograph 08/26/2020 TECHNIQUE: 3 view shoulder, 2 views humerus, one view clavicle FINDINGS: There is a fracture of the greater tuberosity which is avulsed. There is no evidence of shoulder dislocation. Mild degenerative changes are present in the shoulder. Marked degenerative changes are again seen at the AC joint. No clavicular fracture is seen. XR/XR clavicle LT IMPRESSION: Avulsion of the greater tuberosity left shoulder.
--- NOTE | ~2021-12-28 | XR_ITS ---
EXAMINATION: LEFT SHOULDER, LEFT HUMERUS, LEFT CLAVICLE CLINICAL INFORMATION: Pain after fall COMPARISON: Chest radiograph 08/26/2020 TECHNIQUE: 3 view shoulder, 2 views humerus, one view clavicle FINDINGS: There is a fracture of the greater tuberosity which is avulsed. There is no evidence of shoulder dislocation. Mild degenerative changes are present in the shoulder. Marked degenerative changes are again seen at the AC joint. No clavicular fracture is seen. XR/XR humerus LT IMPRESSION: Avulsion of the greater tuberosity left shoulder.
--- NOTE | ~2021-12-28 | XR_ITS ---
EXAMINATION: LEFT SHOULDER, LEFT HUMERUS, LEFT CLAVICLE CLINICAL INFORMATION: Pain after fall COMPARISON: Chest radiograph 08/26/2020 TECHNIQUE: 3 view shoulder, 2 views humerus, one view clavicle FINDINGS: There is a fracture of the greater tuberosity which is avulsed. There is no evidence of shoulder dislocation. Mild degenerative changes are present in the shoulder. Marked degenerative changes are again seen at the AC joint. No clavicular fracture is seen. XR/XR shoulder LT min 2V IMPRESSION: Avulsion of the greater tuberosity left shoulder.
[2021-12-28 12:43] VITALS: BP 164/83; PULSE 62; RESP 18; TEMP 36.3; O2SAT 98; BMI 29.7
[2021-12-28 12:46] VITALS: BP 140/82; PULSE 65; O2SAT 97
--- NOTE | 2021-12-28 13:08 | ED.EXTPRO ---
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 Denies head trauma or LOC. patient takes baby ASA. Denies being able to ambulate since incident. Denies symptoms prior to fall including chest pain/shortness of breath, headache. Denies numbness, tingling, weakness MD Complaint: extremity pain Onset (ago): hour(s) Pain Consistency: constant Related Data Home Medications Medication Instructions Recorded Confirmed acetaminophen 325 mg tablet 650 mg PO Q6H PRN pain 08/26/20 08/26/20 aspirin 81 mg tablet,delayed 81 mg PO BEDTIME 08/26/20 08/26/20 release atorvastatin 80 mg tablet 80 mg PO BEDTIME 08/26/20 08/26/20 bisoprolol fumarate 5 mg tablet 5 mg PO DAILY 08/26/20 08/26/20 cholecalciferol (vitamin D3) 25 25 mcg PO DAILY 08/26/20 08/26/20 mcg (1,000 unit) tablet cyanocobalamin (vitamin B-12) 1,000 mcg PO DAILY 08/26/20 08/26/20 1,000 mcg tablet fluticasone propionate 50 1 - 2 spray intranasal DAILY PRN 08/26/20 08/26/20 mcg/actuation nasal Allergy Symptoms spray,suspension gabapentin 100 mg capsule 300 mg PO TID 08/26/20 08/26/20 hydrochlorothiazide 12.5 mg tablet 12.5 mg PO DAILY 08/26/20 08/26/20 insulin glargine 100 unit/mL (3 36 unit subcut DAILY 08/26/20 08/26/20 mL) subcutaneous pen (Lantus Solostar U-100 Insulin) isosorbide mononitrate 30 mg 30 mg PO DAILY 08/26/20 08/26/20 tablet,extended release 24 hr metformin 500 mg tablet 500 mg PO BID 08/26/20 08/26/20 multivitamin 1 tab PO DAILY 08/26/20 08/26/20 pantoprazole 40 mg tablet,delayed 40 mg PO DAILY 08/26/20 08/26/20 release Previous Rx's Medication Instructions Recorded amlodipine 5 mg tablet 5 mg PO DAILY #30 tabs 09/02/20 cefuroxime axetil 500 mg tablet 500 mg PO BID #6 tabs 09/02/20 risperidone 0.25 mg tablet 0.25 mg PO BID #60 tabs 09/02/20 hydrocodone 5 mg-acetaminophen 325 1 tab PO Q8H PRN pain, severe 3 12/28/21 mg tablet days #9 tabs Allergies Allergy/AdvReac Type Severity Reaction Status Date / Time SEAFOOD Allergy Mild RASH Uncoded 02/25/20 16:20 Review of Systems Review of Systems: Constitutional:No Fever, No Chills ENT/Mouth: No Ear Pain, No Nasal Congestion, No sore throat, No Rhinorrhea, No Swallowing Difficulty Cardiovascular: No Chest Pain, No SOB Respiratory: No Cough, No Sputum, No Wheezing Gastrointestinal: No Nausea, No Vomiting, No Diarrhea, No Constipation, No Abdominal pain Genitourinary: No Dysuria, No Urinary Frequency, No Hematuria, No Urinary Incontinence/retention, No Urgency, No Flank Pain Musculoskeletal: + joint pain, No Myalgias, No Joint Swelling Skin: + Skin Lesions, No rash Neuro: No Weakness, No Numbness, No Paresthesias, no headache, no head trauma, no LOC Yes all other systems are reviewed and are negative Constitutional: Constitutional: Reports as per [facility] Past Medical History Attestation statement: The following information was validated with the patient. Medical History (Updated 12/28/21 @ 15:04 by NADEEM Horton) CAD (coronary artery disease) Diabetes HTN (hypertension) Surgical History History of open heart surgery Family History Family History Other Hypertension Social History Social History Household Members: Unknown / Unable to assess Housing: Unknown / Unable to assess Unable to assess alcohol history related to: Unknown Alcohol intake: never Advance Directives: Yes Advance Directives on File: Yes Advance Directives Date on File: 09/05/20 service: No Current occupational status: disabled Physical Exam Vital Signs: Vital Signs: Last Vital Signs Temp 97.3 F 12/28/21 12:43 Pulse 62 12/28/21 12:43 Resp 18 12/28/21 12:43 BP 164/83 H 12/28/21 12:43 Pulse Ox 98 12/28/21 12:43 O2 Del Method 12/28/21 12:43 BMI result Body Mass Index 29.7 Const: General: cooperative, healthy appearing and no acute distress Orientation/consciousness: patient oriented x3 Limitations: no limitations HEENT: Head: Yes normal to inspection, Yes atraumatic, No De La Rosa's sign and No raccoon eyes Ears: hearing grossly normal bilaterally General nose exam: Normal external nose present Face and sinus: Yes normal facial exam Eyes: General: appearance normal, both eyes and all related structures EOM: EOMs intact bilaterally Neck: Other: No midline cervical spinous tenderness. + left trapezius muscle tenderness Neck: Yes normal visual inspection and Yes no meningeal signs Chest: Other: + left distal clavicular tenderness. No skin tenting Chest palpation & inspection: normal inspection of the chest and no crepitus Resp: Effort & Inspection: normal respiratory effort and no respiratory distress Auscultation: clear to auscultation bilaterally Cardio: Rate: regular rate Heart sounds: S1 normal heart sound present and S2 normal heart sound present GI: Inspection: Yes normal to inspection Palpation (GI): Soft to palpation and nontender : General: Yes no CVA tenderness Back/Spine/Pelvis: Other: No midline thoracic/lumbar spinous tenderness/step-off or deformity Back: no CVA tenderness Skin: Other: + abrasion with mild swelling to lateral proximal tib-fib with small ecchymosis Rashes: no rashes Neuro: General: patient oriented x3, tone normal and no meningeal signs Gait exam (Neuro): Normal gait present Extrem: Other: Left shoulder with mild tenderness. Diffusely tender to palpation. Tenderness to proximal humerus. Limited ROM secondary to pain. Elbow/wrist/hand nontender. Neurovascularly intact distally. Left knee/ankle/foot nontender with full range of motion intact Course Course Course Narrative: XR clavicle LT/XR humerus LT/XR shoulder LT min 2V IMPRESSION: Avulsion of the? greater tuberosity left shoulder. >> sling applied. Results discussed with conference interpreter. At baseline patient uses walker. Discussed at length with conference interpreter, patient, and family member/CHIEF MARKETING OFFICER difficulties of getting around now that she will be in a sling. Patient's CHIEF MARKETING OFFICER will move into patient's house to care for her. 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 On exam vital signs stable, NAD/nontoxic-appearing, physical exam as above. Concern for clavicular/shoulder or humeral fracture vs strain. Lower concern for lower extremity fracture, ICH, cervical spine fracture Plan: X-rays Medical Records Attestation: I reviewed the patient's medical records. Lab Data Attestation: I reviewed the patient's lab results. Discharge Plan Discharge Clinical Impression: Closed fracture of greater tuberosity of humerus Patient Disposition: Home, Self-Care Instructions: Arm Fracture in Adults (ED) Additional Instructions: You have a fracture of your left humerus. You need to wear sling at all times until you follow-up with the tower air traffic control specialist. You may take to shower Badger is an opiate pain medication, take only when pain is severe for the next 3 days. Be aware Badger has Tylenol mixed in do not exceed 4 g in 1 Tylenol and Motrin will help with pain. Tiene татьяна fractura en el h?dru ariadne. Debe usar un cabestrillo en todo momento hasta que graciela un seguimiento con el especialista en ortopedia. Puedes alondra татьяна ducha Badger es un analg?sico opi?radio recorder, t?dick solo cuando el dolor sea intenso david los pr?ximos 3 d?as. Tenga en cuenta que Badger tiene Tylenol mezclado, no exceda los 4 g en 1 Tylenol y Motrin ayudar?n con el dolor. Prescriptions: New hydrocodone-acetaminophen 5-325 mg tablet 1 tab PO Q8H PRN (Reason: pain, severe) 3 Days Qty: 9 0RF Rx Instructions: Partial Fill upon patient request. No Action multivitamin Tablet 1 tab PO DAILY metformin 500 mg tablet 500 mg PO BID atorvastatin 80 mg tablet 80 mg PO BEDTIME acetaminophen 325 mg tablet 650 mg PO Q6H PRN (Reason: pain) isosorbide mononitrate 30 mg tablet extended release 24 hr 30 mg PO DAILY cyanocobalamin (vitamin B-12) 1,000 mcg tablet 1,000 mcg PO DAILY aspirin 81 mg tablet,delayed release (DR/EC) 81 mg PO BEDTIME bisoprolol fumarate 5 mg tablet 5 mg PO DAILY pantoprazole 40 mg tablet,delayed release (DR/EC) 40 mg PO DAILY gabapentin 100 mg capsule 300 mg PO TID fluticasone propionate 50 mcg/actuation spray,suspension 1 - 2 spray intranasal DAILY PRN (Reason: Allergy Symptoms) cholecalciferol (vitamin D3) 25 mcg (1,000 unit) tablet 25 mcg PO DAILY hydrochlorothiazide 12.5 mg tablet 12.5 mg PO DAILY Lantus Solostar U-100 Insulin 100 unit/mL (3 mL) insulin pen 36 unit subcut DAILY risperidone 0.25 mg Tablet 0.25 mg PO BID Qty: 60 0RF amlodipine 5 mg Tablet 5 mg PO DAILY Qty: 30 0RF Protocol: Hold for SBP< HOLD for SBP < : 90 cefuroxime axetil 500 mg tablet 500 mg PO BID Qty: 6 0RF Referrals: Bogdan Herrera MD [Physician] - 1 week Print Language: Montserratian
== END 2021-12-28 15:31 | disposition home or self-care (01) ==
PROVIDERS: Emergency Provider Emergency Medicine Emergency Medical Services; PCP Internal Medicine Geriatric Medicine
DX: S42.252A Displaced fracture of greater tuberosity of left humerus, initial encounter for closed fracture (principal); S80.812A Abrasion, left lower leg, initial encounter; W17.89XA Other fall from one level to another, initial encounter; E11.9 Type 2 diabetes mellitus without complications; I10 Essential (primary) hypertension; Y93.89 Activity, other specified; Y92.9 Unspecified place or not applicable; Y99.9 Unspecified external cause status; Z79.82 Long term (current) use of aspirin; Z79.02 Long term (current) use of antithrombotics/antiplatelets; Z79.4 Long term (current) use of insulin; Z79.899 Other long term (current) drug therapy
CPT/HCPCS: 73000; 73030; 73060; 99283

== ENCOUNTER 2022-01-12 07:26 | Outpatient (REF) | payer OTHER, SELFPAY ==
--- NOTE | ~2022-01-12 | XR_ITS ---
EXAMINATION: XR SHOULDER, LEFT CLINICAL INFORMATION: Follow-up left humeral fracture. COMPARISON: Radiographs dated 12/28/2021. TECHNIQUE: AP neutral and scapula Y views of the left shoulder are submitted. FINDINGS: There is bony demineralization. A mildly displaced fracture fragment is redemonstrated of the greater tuberosity of the proximal left humerus. The fracture line is less visible than was noted previously. There is mild to moderate osteoarthritic change of the left glenohumeral joint. The left acromioclavicular joint shows marked degenerative change, with periarticular calcifications. There is a downsloping acromion. No abnormal soft tissue calcifications are seen. There is no foreign body. There has been a prior CABG procedure. No left pneumothorax is seen. There is an old, healed left fifth rib fracture. XR/XR shoulder LT min 2V IMPRESSION: 1. There is a healing fracture seen of the greater tuberosity of the proximal left humerus, with fracture line less visible than was noted previously. 2. There is mild to moderate osteoarthritic change of the left humeral joint, and moderately severe osteoarthritic change is seen of the left acromioclavicular joint.
== END 2022-01-12 07:27 | disposition home or self-care (01) ==
LOC: HO.HOSX 07:26
PROVIDERS: Visit Provider Physician Assistant
DX: S42.252A Displaced fracture of greater tuberosity of left humerus, initial encounter for closed fracture (principal)
CPT/HCPCS: 73030; 99202

== ENCOUNTER 2022-01-18 13:49 | Outpatient (REF) | payer OTHER, SELFPAY ==
--- NOTE | ~2022-01-18 | MM_ITS ---
EXAMINATION: BONE DENSITOMETRY CLINICAL INDICATION: Menopause. COMPARISON: Previous BD dated 12/16/2013 and baseline BD dated 01/15/2008. TECHNIQUE: Using a [employer] DXA System (software version: 13.1) manufactured by [employer], dual-energy x-ray absorptiometry was performed of the lumbar spine and left hip. The images are of good technical quality. Summary results are attached. FINDINGS: AP SPINE L1-L4: Current: BMD 0.830 g/cm2, Z-score -1.3, T-score -2.9, osteoporosis, 10.0% decrease from previous, 5.6% decrease from baseline (<5% change is not significant). Prior: BMD 0.922 g/cm2. Baseline: BMD 0.879 g/cm2. LEFT FEMUR, NECK: Current: BMD 0.647 g/cm2, Z-score -1.0, T-score -2.8, osteoporosis. Prior: BMD 0.827 g/cm2. Baseline: BMD 0.888 g/cm2. LEFT FEMUR, TOTAL: Current: BMD 0.731 g/cm2, Z-score -0.6, T-score -2.2, osteopenia, 20.2% decrease from previous, 27.6% decrease from baseline (<5% change is not significant). Prior: BMD 0.916 g/cm2. Baseline: BMD 1.009 g/cm2. IDENTIFIED RISK FACTORS: Dementia, osteoporosis, recurrent falls, rheumatoid arthritis, secondary osteoporosis, menopause. HISTORY OF FRACTURE: None listed. MEDICATIONS: Vitamin D. MM/XR DEXA axial skeleton IMPRESSION: 1. DIAGNOSIS: Osteoporosis based on the lowest T-score value of -2.9 in the lumbar spine applying World Health Organization criteria. 2. 10-YEAR FRACTURE RISK PREDICTION, FRAX: According to the guidelines, FRAX calculation should only be performed on patients in the osteopenia bone density category. Therefore, FRAX was not performed on this patient. 3. Treatment Recommendations: NOF guidelines recommend consideration for treatment in postmenopausal women and men age 50 and older presenting with the following: -A hip or vertebral (clinical or morphometric) fracture. -T-score less than or equal to -2.5 at the femoral neck or spine after appropriate evaluation to exclude secondary causes. -Low bone mass at the hip or spine and a 10-year fracture probability by FRAX of greater than or equal to 3% for hip fracture or greater than or equal to 20% for major osteoporotic fracture based on the [place] adapted WHO algorithm. 4. Other Recommendations: All treatment decisions require clinical judgment and consideration of individual patient factors, including patient preferences, comorbidities, previous drug use, risk factors not captured in the FRAX model (e.g. frailty, falls, vitamin D deficiency, increased bone turnover, interval significant decline in bone density) and possible under or overestimation of fracture risk by FRAX. Additional medical evaluation for secondary cause of low bone mineral density may be appropriate. FUTURE SCAN RECOMMENDATION: People with diagnosed cases of osteoporosis or at high risk for fracture should have regular bone mineral density tests. For patients eligible for Medicare, routine testing is allowed once every 2 years. The testing frequency can be increased to one year for patients who have rapidly progressing disease, those who are receiving or discontinuing medical therapy to restore bone mass, or have additional risk factors.
== END 2022-01-18 13:50 | disposition home or self-care (01) ==
LOC: HO.MAMMO 13:49
PROVIDERS: PCP Internal Medicine Geriatric Medicine; Visit Provider Registered Nurse Community Health
DX: Z13.820 Encounter for screening for osteoporosis (principal); M85.88 Other specified disorders of bone density and structure, other site; Z78.0 Asymptomatic menopausal state
CPT/HCPCS: 77080

== ENCOUNTER 2022-02-26 08:03 | Outpatient (REF) | payer OTHER, SELFPAY ==
--- NOTE | ~2022-02-26 | XR_ITS ---
EXAMINATION: XR SHOULDER, LEFT CLINICAL INFORMATION: Pain. Proximal left humeral fracture, follow-up. COMPARISON: Radiographs left shoulder 01/12/2022, 12/28/2021 TECHNIQUE: Left shoulder is imaged in 2 views. FINDINGS: There is healing comminuted fracture with transverse component along the humeral neck and vertical component along the greater tuberosity. No change in alignment. Again, there is mineralization in the superior acromioclavicular soft tissues and along the superior glenoid rim. The acromioclavicular alignment is normal. There are degenerative changes lower cervical spine. Postsurgical changes are again noted in the chest with sternotomy wires and surgical clips. Discontinuous upper sternotomy wires similar to prior exams. XR/XR shoulder LT min 2V IMPRESSION: Healing comminuted fracture proximal left humerus.
== END 2022-02-26 08:04 | disposition home or self-care (01) ==
LOC: HO.HOSX 08:03
PROVIDERS: Visit Provider Physician Assistant
DX: S42.252A Displaced fracture of greater tuberosity of left humerus, initial encounter for closed fracture (principal)
CPT/HCPCS: 73030; 99212

== ENCOUNTER 2022-03-30 11:00 | Outpatient (RCR) | payer OTHER, SELFPAY ==
--- NOTE | 2022-02-02 15:56 | MHC.PT.EP ---
[facility] [place] Office [place] Office [place] Office [address] Arlet Jimenez [address] [phone] F: [phone] F: [phone] F: [phone] F: [phone] Physical Therapy Plan of Care Date of Evaluation: Date of Surgery: NA Diagnosis: L HUMERUS FX (DISPLACED FX OF GREATER TUBEROSITY) Assessment: Pt IS 68 YO F REFERRED TO PT FROM ORTHO WITH AVULSION FX L GREATER TUBEROSITY ON L AFTER A FALL OFF SEAT OF ROLLATOR (TRYING TO STAND UP). Pt LIVES ALONE WITH CHLORINE CELLS OPERATOR DAILY (8-3..WORKING ON GETTING MORE NIGHT HOURS). CHLORINE CELLS OPERATOR DOES ALL HER ADLS, HELPS HER DRESS AND BATHE. HER CHLORINE CELLS OPERATOR (YOLI) REPORTS Pt WITH EARLY ONSET DIMENTIA AND WAS NOT DOING MUCH EVEN BEFORE THE FALL. REPORTS A DECLINE HAD STARTED AFTER DC FROM A 3 MONTH HALFWAY STAY. Pt PRESENTS WITH LIMITED ROM AND STRENGTH L UE. Pt NOTED TO USE L UE TO ASSIST WITH TRANSFER/USE OF ROLLATOR. Pt WITH DIFFICULTY ALLOWING L ARM TO RELAX FOR PROM. WILL SEE FOR 2-3 VISITS TO SEE IF PROM/AAROM WILL HELP. OF NOTE, THIS PT CALLED TO ORTHO TO SPEAK WITH NURSE NAVIGATOR (GILBERT VERA) BUT NOT IN TODAY IN ATTEMPT TO HELP WITH INCREASING CHLORINE CELLS OPERATOR HOURS FOR NIGHT Frequency and Duration: The patient will be seen 2X/WK X 8 WKS Short Term Goals: 1. HEP TO BE DONE WITH CHLORINE CELLS OPERATOR 2 CHLORINE CELLS OPERATOR TO REPORT Pt USING L UE MORE FOR ADLS Stove Polisher Goals: 1. Pt TO REPORT LESS PAIN/CHLORINE CELLS OPERATOR TO REPORT LESS PAIN NOTED WITH Pt USING L UE 2. INCREASED ROM L SHLDER 10 DEGREES T/O Treatment Plan: Modalities to reduce pain, spasms and effusion. Manual therapy to restore motion and function. Therapeutic exercise to improve strength and flexibility. Neuromuscular re-education for posture and balance. Therapeutic activities to return to functional activities of daily living. Electronically signed by: ZORAN CONLEY PT Please sign and return to therapist. Thank you for your referral.
--- NOTE | 2022-04-20 13:25 | MHC.PT.DC ---
[facility] [place] Office [place] Office [place] Office [address] Arlet Jimenez [address] [phone] F: [phone] F: [phone] F: [phone] F: [phone] Physical Therapy Discharge Report Diagnosis: L HUMERUS FX (DISPLACED FX OF GREATER TUBEROSITY) Date of Surgery: NA Date of Evaluation: 02/02/22 Date of Discharge: 04/20/22 Treatments to Date: 5 Cancellations to Date: No Shows to Date: Discharge Status: Improved Function Discharge Summary: SOME FAVORING OF L ARM NOTED (LESS PUSH FROM CHAIR FOR SIT<>STAND)HAS MET MOST PT GOALS. ADVANCED DEMENTIA HAS 24 HR CARE. TO SEE ORTHO APR 09. WILL CANCEL NEXT PT AND SCHED ONE FOR AFTER ORTHO (ED TO CALL TO CX IF NOT NEEDED). NO SHOW LAST SCHEDULED SESSION. WILL DC AT THIS TIME Electronically signed by: ZORAN CONLEY PT Please sign and return to therapist. Thank you for your referral.
== END 2022-04-20 13:31 | disposition home or self-care (01) ==
LOC: HO.PT 11:00
PROVIDERS: PCP Internal Medicine Geriatric Medicine; Visit Provider Physician Assistant
DX: S42.252A Displaced fracture of greater tuberosity of left humerus, initial encounter for closed fracture (principal)
CPT/HCPCS: 97110; 97140; 97162; 97530

== ENCOUNTER 2022-04-09 | Outpatient (REF) | payer OTHER, SELFPAY ==
--- NOTE | ~2022-04-09 | XR_ITS ---
EXAMINATION: XR SHOULDER, LEFT CLINICAL INFORMATION: Fracture COMPARISON: Previous x-ray most recent February 2022 TECHNIQUE: Two views of the left shoulder. FINDINGS: The left proximal humeral fracture involving the surgical neck and greater tuberosity appears unchanged. The bones are osteopenic. There is arthritis at the acromioclavicular joint. There is an old left anterior rib fracture, probably the left fifth rib. XR/XR shoulder LT min 2V IMPRESSION: No change in healing left proximal humerus fracture.
== END 2022-04-09 00:01 | disposition home or self-care (01) ==
LOC: HO.HOSX
PROVIDERS: Visit Provider Physician Assistant
DX: S42.252D Displaced fracture of greater tuberosity of left humerus, subsequent encounter for fracture with routine healing (principal); X58.XXXD Exposure to other specified factors, subsequent encounter
CPT/HCPCS: 73030; 99212

== ENCOUNTER 2022-05-15 11:30 | Emergency (ER) | payer OTHER, SELFPAY ==
--- NOTE | ~2022-05-15 | XR_ITS ---
EXAMINATION: XR CHEST CLINICAL INFORMATION: Cough. COMPARISON: 08/26/2020 chest radiographs. TECHNIQUE: 2 views of the chest were obtained. FINDINGS: The lungs are clear. There are no pleural effusions. The heart and mediastinal structures are unremarkable. Multilevel sternotomy wires are again seen. The superiormost wires fractured without interval change or associated abnormality XR/XR chest 2V IMPRESSION: No acute cardiopulmonary process.
[2022-05-15 11:40] VITALS: BP 118/62; BP 141/50; PULSE 51; PULSE 65; RESP 15; TEMP 37.1; O2SAT 97; O2SAT 99; BMI 27.7
[2022-05-15 11:53] VITALS: BP 140/51; PULSE 50; RESP 18; TEMP 37.1; O2SAT 98
--- NOTE | 2022-05-15 11:53 | ED_ITS ---
HPI - General Adult General Chief complaint: General Medical Stated complaint: FLU LIKE SX X'S DAYS PER EMS Time Seen by Provider: 05/15/22 11:53 Source: patient and oral surgery physician Mode of arrival: ambulatory Limitations: language barrier History of Present Illness HPI narrative: Patient is a 76 year old assigned [male/female] at with a history of HTN presenting to the emergency department today with a headache and a cough. Patient states that she has been feeling generally unwell for the last 6 days. Patient denies any dizziness, lightheadedness, abdominal pain, nausea, vomiting, fever, chills, blurry vision, double vision, loss of vision, chest pain, difficulty breathing, shortness of breath, back pain, night sweats, pain with urination, increased urinary frequency, increased urinary urgency, blood in her urine or stool, syncope or a near syncopal episode, recent trauma or falls, bowel incontinence, bladder incontinence, bowel retention, bladder retention, or any other complaints at this time. Onset (ago): day(s) (6) Severity: mild Severity scale (1-10): 3 Relieving factors: none Exacerbating factors: none Associated symptoms: denies other symptoms Treatments prior to arrival: none Related Data Home Medications Medication Instructions Recorded Confirmed acetaminophen 325 mg tablet 650 mg PO Q6H PRN pain 08/26/20 08/26/20 aspirin 81 mg tablet,delayed 81 mg PO BEDTIME 08/26/20 08/26/20 release atorvastatin 80 mg tablet 80 mg PO BEDTIME 08/26/20 08/26/20 bisoprolol fumarate 5 mg tablet 5 mg PO DAILY 08/26/20 08/26/20 cholecalciferol (vitamin D3) 25 25 mcg PO DAILY 08/26/20 08/26/20 mcg (1,000 unit) tablet cyanocobalamin (vitamin B-12) 1,000 mcg PO DAILY 08/26/20 08/26/20 1,000 mcg tablet fluticasone propionate 50 1 - 2 spray intranasal DAILY PRN 08/26/20 08/26/20 mcg/actuation nasal Allergy Symptoms spray,suspension gabapentin 100 mg capsule 300 mg PO TID 08/26/20 08/26/20 hydrochlorothiazide 12.5 mg tablet 12.5 mg PO DAILY 08/26/20 08/26/20 insulin glargine 100 unit/mL (3 36 unit subcut DAILY 08/26/20 08/26/20 mL) subcutaneous pen (Lantus Solostar U-100 Insulin) isosorbide mononitrate 30 mg 30 mg PO DAILY 08/26/20 08/26/20 tablet,extended release 24 hr metformin 500 mg tablet 500 mg PO BID 08/26/20 08/26/20 multivitamin 1 tab PO DAILY 08/26/20 08/26/20 pantoprazole 40 mg tablet,delayed 40 mg PO DAILY 08/26/20 08/26/20 release Previous Rx's Medication Instructions Recorded amlodipine 5 mg tablet 5 mg PO DAILY #30 tabs 09/02/20 cefuroxime axetil 500 mg tablet 500 mg PO BID #6 tabs 09/02/20 risperidone 0.25 mg tablet 0.25 mg PO BID #60 tabs 09/02/20 hydrocodone 5 mg-acetaminophen 325 1 tab PO Q8H PRN pain, severe 3 12/28/21 mg tablet days #9 tabs cephalexin 500 mg capsule 500 mg PO Q6H 7 days #28 caps 05/15/22 Allergies Allergy/AdvReac Type Severity Reaction Status Date / Time SEAFOOD Allergy Mild RASH Uncoded 02/26/22 10:22 Review of Systems Constitutional: Constitutional: Reports no additional constitutional complaints, Denies chills, Denies fever(s), Reports headache(s) and Denies night sweats Eyes: Eyes: Reports no additional eye complaints, Denies blurry vision, Denies change in vision, Denies diplopia, Denies eye discharge, Denies loss of vision and Denies eye pain ENT: Denies dizziness and Reports headache(s) Cardiovascular: Cardiovascular: Reports no additional cardiovascular complaints, Denies chest pain, Denies lightheadedness, Denies Loss of Consciousness and Denies dyspnea Respiratory: Respiratory: Reports no additional respiratory complaints, Reports cough and Denies dyspnea Gastrointestinal: Gastrointestinal: Reports no additional gastrointestinal complaints, Denies abdominal pain, Denies melena, Denies hematochezia, Denies change in bowel habits and Denies change in stool character Genitourinary: Genitourinary: Denies hematuria, Denies urinary frequency, Denies dysuria, Denies urinary incontinence, Denies urinary hesitancy and Denies urinary urgency Musculoskeletal: Musculoskeletal: Reports no additional musculoskeletal complaints, Denies numbness and Denies tingling Neurologic: Denies dizziness, Reports headache(s), Denies loss of vision, Denies numbness and Denies tingling Psychiatric: Psychiatric: Reports no additional psychiatric complaints Endocrine: Endocrine: Reports no additional endocrine complaints Hematologic/Lymphatic: Hematologic/Lymphatic: Reports no additional hematolog ic/lymphatic complaints Allergic/Immunologic: Allergic/Immunologic: Reports no additional allergic/immunologic complaints PMFSH Past Medical History Attestation statement: The following information was validated with the patient. Source: old records reviewed Medical History CAD (coronary artery disease) Diabetes HTN (hypertension) Surgical History History of open heart surgery Family History Family History Other Hypertension Social History Social History Household Members: Unknown / Unable to assess Housing: Unknown / Unable to assess Unable to assess alcohol history related to: Unknown Alcohol intake: never Advance Directives: Yes Advance Directives on File: Yes Advance Directives Date on File: 09/05/20 service: No Current occupational status: disabled Physical Exam ED Vital Signs: Vital Signs - 24 hr 05/15/22 11:40 05/15/22 11:53 05/15/22 12:09 Temperature 98.8 F 98.8 F 98.4 F Pulse Rate 51 50 50 Respiratory Rate 15 18 15 Blood Pressure 141/50 H 140/51 H 134/53 L Pulse Oximetry 97 98 98 Oxygen Delivery Method Room Air Room Air Room Air 05/15/22 12:11 Temperature Pulse Rate 48 L Respiratory Rate 13 Blood Pressure 140/54 H Pulse Oximetry 98 Oxygen Delivery Method Room Air BMI result Body Mass Index 27.7 Const General: cooperative, no acute distress, alert and awake Nutritional Appearance: well nourished Orientation/consciousness: patient oriented x3 Limitations: no limitations HENMT Head: Yes normal to inspection and Yes atraumatic Ears: hearing grossly normal bilaterally and external ears normal General nose exam: Normal external nose present, no nasal discharge noted and no epistaxis Face and sinus: Yes normal facial exam, No abrasion and No laceration Mouth: Normal oral and palatal mucosa present, no drooling and no muffled voice Eyes General: appearance normal, both eyes and all related structures Periorbital: periorbital findings normal Eyelids: Yes eyelids normal Conjunctivae: conjunctivae normal Pupils: Equal, round and reactive pupils present EOM: EOMs intact bilaterally Neck Neck: Yes normal visual inspection, Yes full ROM and Yes no lymphadenopathy Chest Chest palpation & inspection: normal inspection of the chest Resp Effort & Inspection: normal respiratory effort and able to speak in complete sentences Auscultation: clear to auscultation bilaterally Cardio Rate: bradycardic Rhythm: regular rhythm GI Inspection: Yes normal to inspection Palpation (GI): Soft to palpation, not firm, nontender, no guarding and not rigid Neuro General: patient oriented x3 and moves all extremities Cranial nerves: Yes Equal, round and reactive pupils present Cognition (Neuro): normal cognition Motor exam (neuro): 5/5 motor strength present throughout Sensory Exam: Normal double simultaneous stimulation for sensation Coordination: [id number] test normal Extrem General: Yes normal to inspection, Yes full ROM and Yes capillary refill normal Psych Appearance: grossly normal Mental Status: mental status grossly normal Affect: normal affect Attitude: cooperative Thought process: Normal thought process present Thought content: Normal thought content present Insight: Good insight present (Psych) Medical Decision Making Medical Decision Making MDM Narrative: Patient is a 76 year old assigned female at with a history of HTN presenting to the emergency department today with a headache and a cough. Patient's physical exam showed bradycardia but was otherwise unremarkable. Patient's blood work was unremarkable. Patient's urine showed an acute urinary tract infection. Patient's EKG was unremarkable. Patient's chest x-ray showed no acute process. I explained my physical exam findings as well as all test results to the patient. I answered all questions asked by the patient. I stressed the importance of the patient taking her medication as prescribed. I stressed the importance of the patient following up with her primary care provider. I stressed the importance of the patient returning to the emergency department immediately if her symptoms were to worsen or if she were to develop any dizziness, shortness of breath, difficulty breathing, chest pain, blurry vision, loss of vision, nausea, vomiting, abdominal pain, fever, chills, back pain, or any other complaints. Patient verbalized agreement and understanding with this treatment plan and discharge. Differential Diagnoses: Differential diagnosis (UTI, URI) Differential Diagnosis: The differential diagnosis associated with the patient?s presentation includes: Independent interpretation of EKG, rhythm strip, radiology study: Independent interp EKG,rhythm strip, radiology study I performed an independent interpret ation of the: EKG Vent. Rate: 049 BPM ? ? Atrial Rate: 049 BPM P-R Int: 168 ms? QRS Dur: 076 ms QT Int: 516 ms ? ? ? P-R-T Axes: 048 038 020 degrees QTc Int: 466 ms ? Sinus bradycardia Otherwise normal ECG When compared with ECG of 01-SEP-2020 13:56, Nonspecific T wave abnormality no longer evident in Anterolateral leads DD/ 1206 Discussion of test interpretation with radiology: Discussion of test interpretation with radiology (This result was not discussed with the radiologist however this is the radiologist's impression of the examination. ) EXAMINATION: XR CHEST CLINICAL INFORMATION: Cough. COMPARISON: 08/26/2020 chest radiographs. TECHNIQUE: 2 views of the chest were obtained. FINDINGS: The lungs are clear. There are no pleural effusions. The heart and mediastinal structures are unremarkable. Multilevel sternotomy wires are again seen. The superiormost wires fractured without interval change or associated abnormality XR/XR chest 2V IMPRESSION: No acute cardiopulmonary process. Dictated By: Sukhdev Hyaes MD Signed By: Electronically signed by Sukhdev Hayes MD 05/15/22 1319 Discharge Plan Discharge Clinical Impression: Urinary tract infection, Upper respiratory infection Patient Disposition: Home, Self-Care Instructions: Urinary Tract Infection in Women (ED), Upper Respiratory Infection (ED) Additional Instructions: Follow up with your primary care provider. Return to the emergency department immediately if your symptoms worsen or if you develop any dizziness, shortness of breath, difficulty breathing, chest pain, blurry vision, loss of vision, nausea, vomiting, abdominal pain, fever, chills, back pain, or any other complaints. Soheila un seguimiento con caicedo proveedor de atenci?n primaria. Regrese al departamento de emergencias de inmediato si trent s?ntomas empeoran o si presenta mareos, falta de aire, dificultad para respirar, dolor de pecho, visi?n borrosa, p?rdida de la visi?n, n?useas, v?mitos, dolor abdominal, fiebre, escalofr?os, dolor de espalda o cualquier otras quejas. Prescriptions: New cephalexin 500 mg capsule 500 mg PO Q6H 7 Days Qty: 28 0RF No Action multivitamin Tablet 1 tab PO DAILY metformin 500 mg tablet 500 mg PO BID atorvastatin 80 mg tablet 80 mg PO BEDTIME acetaminophen 325 mg tablet 650 mg PO Q6H PRN (Reason: pain) isosorbide mononitrate 30 mg tablet extended release 24 hr 30 mg PO DAILY cyanocobalamin (vitamin B-12) 1,000 mcg tablet 1,000 mcg PO DAILY aspirin 81 mg tablet,delayed release (DR/EC) 81 mg PO BEDTIME bisoprolol fumarate 5 mg tablet 5 mg PO DAILY pantoprazole 40 mg tablet,delayed release (DR/EC) 40 mg PO DAILY gabapentin 100 mg capsule 300 mg PO TID fluticasone propionate 50 mcg/actuation spray,suspension 1 - 2 spray intranasal DAILY PRN (Reason: Allergy Symptoms) cholecalciferol (vitamin D3) 25 mcg (1,000 unit) tablet 25 mcg PO DAILY hydrochlorothiazide 12.5 mg tablet 12.5 mg PO DAILY Lantus Solostar U-100 Insulin 100 unit/mL (3 mL) insulin pen 36 unit subcut DAILY risperidone 0.25 mg Tablet 0.25 mg PO BID Qty: 60 0RF amlodipine 5 mg Tablet 5 mg PO DAILY Qty: 30 0RF Protocol: Hold for SBP< HOLD for SBP < : 90 cefuroxime axetil 500 mg tablet 500 mg PO BID Qty: 6 0RF hydrocodone-acetaminophen 5-325 mg tablet 1 tab PO Q8H PRN (Reason: pain, severe) 3 Days Qty: 9 0RF Rx Instructions: Partial Fill upon patient request. Referrals: Name,MD Adama [Primary Care Provider] - Print Language: [place]
--- NOTE | 2022-05-15 11:54 | ECG_ITS ---
Test Reason : DIZZINESS Blood Pressure : / mmHG Vent. Rate : 049 BPM Atrial Rate : 049 BPM P-R Int : 168 ms QRS Dur : 076 ms QT Int : 516 ms P-R-T Axes : 048 038 020 degrees QTc Int : 466 ms Sinus bradycardia Otherwise normal ECG When compared with ECG of 01-SEP-2020 13:56, Nonspecific T wave abnormality no longer evident in Anterolateral leads Referred By: Xiao Garduno Electronically Signed By:JAYANT VIVAS MD
[2022-05-15 12:09] VITALS: BP 134/53; PULSE 50; RESP 15; TEMP 36.9; O2SAT 98
--- NOTE | 2022-05-15 12:09 | PC.NURSE ---
Pt comes in from home. Telugu speaking only. Alert and oriented x4. Speaking in clear, full, slow sentences. Reports flu like symptoms for 6 days, her home health aid recommended she come in.
[2022-05-15 12:11] VITALS: BP 140/54; PULSE 48; RESP 13; O2SAT 98
[2022-05-15 12:26] LABS: MANUAL DIFF FLAG NO
[2022-05-15 12:27] LABS: Basophils Percent Auto 0.3 % (0-2); Eosinophils Absolute Auto 0.3 X10*3/uL (0.0-0.4); Eosinophils Percent Auto 4.6 % (0-4); Hematocrit 27.4 % (37.0-47.0); Hemoglobin 8.8 g/dl (12.0-16.0); Imm Gran Abs Auto 0.03 X10*3/uL (0.00-0.03); Imm Gran Pct Auto 0.5 % (0.0-0.4); Lymphocytes Absolute Auto 1.3 X10*3/uL (1.2-4.9); Lymphocytes Percent Auto 20.6 % (20-40); Mean Corpuscular HGB Conc 32.1 g/dl (31.0-35.0); Mean Corpuscular Hemoglobin 26.6 pg (27.0-33.0); Mean Corpuscular Volume 82.8 fL (80.0-98.0); Mean Platelet Volume 10.4 fL (9.4-12.3); Monocytes Absolute Auto 0.7 X10*3/uL (0.1-1.2); Monocytes Percent Auto 10.6 % (2-11); Neutrophils Percent Auto 63.4 % (45-73); Platelet Count 228 X10*3/uL (160-400); Red Blood Count 3.31 X10*6/uL (4.20-5.50); White Blood Count 6.3 X10*3/uL (4.8-10.8)
[2022-05-15 12:42] LABS: Alanine Aminotransferase 9 U/L (0-31); Albumin Level 3.3 g/dL (3.5-5.0); Alkaline Phosphatase 51 U/L (39-117); Anion Gap 9 (12-20); Aspartate Amino Transferase 16 U/L (5-31); Bilirubin Total 0.5 mg/dL (0.0-1.0); Blood Urea Nitrogen 18 mg/dL (9-16); Calcium 8.6 mg/dL (8.4-10.2); Carbon Dioxide 28 mmol/L (22-29); Chloride 106 mmol/L (96-108); Creatinine Clr Calc Pharmacy 36.4; Estimated Glomerular Filt Rate 39; Glucose Random 114 mg/dL (60-115); Potassium 5.1 mmol/L (3.3-5.1); Sodium 138 mmol/L (135-145); Total Protein 5.9 g/dL (6.5-8.0)
[2022-05-15 12:47] LABS: Troponin-I High Sensitivity < 3.5 ng/L (<3.5-17.0)
[2022-05-15 12:54] LABS: Influenza A PCR NEGATIVE (Negative); Influenza B PCR NEGATIVE (Negative); Resp Syncy Virus RNA Qual PCR NEGATIVE (Negative); SARS COV2 PCR INHOUSE NEGATIVE (Negative)
--- NOTE | 2022-05-15 13:02 | PC.NURSE ---
pt's partner alliance manager (tania, ) called and was updated on pt.
[2022-05-15 13:19] LABS: Appearance Urine Clear; Color Urine Yellow; Glucose Urine UA Negative (Negative); Leukocyte Esterase Urine Moderate (2+) (Negative); Nitrite Urine Positive (Negative); UMIC TRIGGER UACC YES; Urine Blood Trace (Negative); Urine Ketones Negative (Negative); Urine Protein Trace mg/dL (Neg-Trace)
[2022-05-15 13:24] LABS: Bacteria Urine 4+ (None Seen); Hyaline Casts Urine 0-2 /LPF (0-2); UACC Culture Trigger YES
--- NOTE | 2022-05-15 13:25 | PC.NURSE ---
pt is a/o x3 no sob/rizwana noted speaks in full sentences (language interpreter at bedside). lungs - cta. heart sounds regular. abd soft and non-tender. bs + x 4 quads. pt c/o 1010 headache and dizziness. pt aware of plan of care.
[2022-05-15 14:19] VITALS: BP 176/65; PULSE 62; RESP 16; TEMP 36.7; O2SAT 99
[2022-05-15 14:44] VITALS: BP 131/78; PULSE 115; RESP 18; TEMP 37.2; O2SAT 97
== END 2022-05-15 14:29 | disposition home or self-care (01) ==
PROVIDERS: Physician Assistant Medical; Emergency Provider Emergency Medicine; PCP Internal Medicine Geriatric Medicine
DX: J06.9 Acute upper respiratory infection, unspecified (principal); R51.9 Headache, unspecified; N39.0 Urinary tract infection, site not specified; Z20.822 Contact with and (suspected) exposure to COVID-19; Z79.899 Other long term (current) drug therapy
CPT/HCPCS: 0241U; 36415; 71046; 80053; 81001; 84484; 85025; 87086; 87088; 87186; 93005; 99283; 99284

== ENCOUNTER 2022-05-16 06:59 | Emergency (ER) | payer OTHER, SELFPAY ==
--- NOTE | ~2022-05-16 | XR_ITS ---
EXAMINATION: XR CHEST CLINICAL INFORMATION: Weakness. COMPARISON: 05/15/2022 chest radiographs. TECHNIQUE: Frontal view of the chest was obtained. FINDINGS: Support devices: Multilevel sternotomy wires are again seen. The superiormost wire is fractured without significant change or associated abnormality. No significant abnormality is noted involving the heart, lungs, mediastinum, bony thorax or soft tissues. XR/XR chest 1V IMPRESSION: No acute cardiopulmonary process.
[2022-05-16 07:18] VITALS: BP 134/53; BP 136/82; PULSE 64; PULSE 78; RESP 18; TEMP 37.4; O2SAT 99; BMI 26.6
[2022-05-16 07:31] VITALS: TEMP 38.3
--- NOTE | 2022-05-16 07:32 | PC.NURSE ---
Patient primary language Mongolian assessed with use of manager internal . Patient a/o to self . History of dementia . patient incontinent of large amount of urine and changed immediately when brought in by EMS , strong odor to Urine . right eye has floaters visible . left eye reactive . breathing even and unlabored . lungs clear throughout . heart rate regular at 63 beats per minute . skin pink warm and moist . abdomen soft not tender . positive bowel sounds throughout . patient reports no pain from urination . patient febrile at 100.9 rectally , provider aware . no pain at all at this time . bed at lowest position and red socks applied . patient aware of plan of care .
[2022-05-16] MEDS: Acetaminophen Supp 650 MG SUPP.RECT PR (08:12)
--- NOTE | 2022-05-16 08:14 | PC.NURSE ---
patient medicated with 650mg tylenol NE for fever of 100.9 . patient aware of plan of care .
--- NOTE | 2022-05-16 08:29 | ED.GENADULT ---
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 Patient's resident care spec / guardian states that she is going through some health issues of her own and is incapable of caring for the patient at home so she would like the patient to be placed into short term rehab. Patient's resident care spec / guardian states that the patient was diagnosed with a UTI yesterday and she has gotten 1 dose of medication but the patient is still too weak. Onset (ago): day(s) Severity: mild Severity scale (1-10): 3 Relieving factors: none Exacerbating factors: none Associated symptoms: weakness Treatments prior to arrival: none Related Data Home Medications Medication Instructions Recorded Confirmed acetaminophen 325 mg tablet 650 mg PO Q6H PRN pain 08/26/20 05/16/22 aspirin 81 mg tablet,delayed 81 mg PO BEDTIME 08/26/20 05/16/22 release atorvastatin 80 mg tablet 80 mg PO BEDTIME 08/26/20 05/16/22 bisoprolol fumarate 5 mg tablet 5 mg PO DAILY 08/26/20 05/16/22 fluticasone propionate 50 1 - 2 spray intranasal DAILY PRN 08/26/20 05/16/22 mcg/actuation nasal Allergy Symptoms spray,suspension gabapentin 100 mg capsule 100 mg PO TID 08/26/20 05/16/22 insulin glargine 100 unit/mL (3 36 unit subcut DAILY 08/26/20 05/16/22 mL) subcutaneous pen (Lantus Solostar U-100 Insulin) isosorbide mononitrate 30 mg 30 mg PO DAILY 08/26/20 05/16/22 tablet,extended release 24 hr metformin 500 mg tablet 500 mg PO BID 08/26/20 05/16/22 multivitamin 1 tab PO DAILY 08/26/20 05/16/22 pantoprazole 40 mg tablet,delayed 40 mg PO DAILY 08/26/20 05/16/22 release cholecalciferol (vitamin D3) 25 1 cap PO QAM 05/16/22 05/16/22 mcg (1,000 unit) capsule (Vitamin D3) citalopram 10 mg tablet 1 tab PO DAILY 05/16/22 05/16/22 cyanocobalamin (vitamin B-12) 1 tab PO DAILY 05/16/22 05/16/22 1,000 mcg tablet donepezil 10 mg tablet 1 tab PO DAILY 05/16/22 05/16/22 risperidone 1 mg tablet 0.5 tab PO BID 05/16/22 05/16/22 Previous Rx's Medication Instructions Recorded hydrocodone 5 mg-acetaminophen 325 1 tab PO Q8H PRN pain, severe 3 12/28/21 mg tablet days #9 tabs cephalexin 500 mg capsule 500 mg PO Q6H 7 days #28 caps 05/15/22 Allergies Allergy/AdvReac Type Severity Reaction Status Date / Time SEAFOOD Allergy Mild RASH Uncoded 02/26/22 10:22 Review of Systems Review of Systems: Yes Other (patient is confused at baseline but is able to answer most ROS questions) Constitutional: Constitutional: Reports no additional constitutional complaints, Denies chills, Denies fever(s), Denies night sweats and Reports weakness Eyes: Eyes: Reports no additional eye complaints, Denies blurry vision, Denies change in vision, Denies diplopia, Denies eye discharge, Denies loss of vision and Denies eye pain ENT: Denies dizziness Cardiovascular: Cardiovascular: Reports no additional cardiovascular complaints, Denies chest pain, Denies lightheadedness, Denies Loss of Consciousness and Denies dyspnea Respiratory: Respiratory: Reports no additional respiratory complaints and Denies dyspnea Gastrointestinal: Gastrointestinal: Reports no additional gastrointestinal complaints, Denies abdominal pain, Denies melena, Denies hematochezia, Denies change in bowel habits and Denies change in stool character Genitourinary: Genitourinary: Denies hematuria, Denies urinary frequency, Denies dysuria, Denies urinary incontinence, Denies urinary hesitancy and Denies urinary urgency Musculoskeletal: Musculoskeletal: Reports no additional musculoskeletal complaints, Denies numbness and Denies tingling Neurologic: Denies dizziness, Denies loss of vision, Denies numbness, Denies tingling and Reports weakness Psychiatric: Psychiatric: Reports no additional psychiatric complaints Endocrine: Endocrine: Reports no additional endocrine complaints Hematologic/Lymphatic: Hematologic/Lymphatic: Reports no additional hematologic/lymphatic complaints Allergic/Immunologic: Allergic/Immunologic: Reports no additional allergic/immunologic complaints [facility] Past Medical History Attestation statement: The following information was validated with the patient. Source: old records reviewed and nursing notes reviewed Medical History CAD (coronary artery disease) Diabetes HTN (hypertension) Surgical History History of open heart surgery Family History Family History Other Hypertension Social History Social History Household Members: Unknown / Unable to assess Housing: Unknown / Unable to assess Unable to assess alcohol history related to: Unknown Alcohol intake: unknown Smoked in Last 30 Days: No Advance Directives: Yes Advance Directives on File: Yes Advance Directives Date on File: 05/16/22 service: No Current occupational status: disabled Physical Exam ED Vital Signs: Vital Signs - 24 hr 05/16/22 07:18 05/16/22 07:31 05/16/22 10:40 Temperature 99.3 F 100.9 F H 99.3 F Pulse Rate 64 Respiratory Rate 18 Blood Pressure 134/53 L Pulse Oximetry 99 Oxygen Delivery Method Room Air 05/16/22 14:42 05/16/22 15:33 Temperature 98.4 F 99.7 F Pulse Rate 65 60 Respiratory Rate 21 H 18 Blood Pressure 170/57 H 188/63 H Pulse Oximetry 98 97 Oxygen Delivery Method Room Air Room Air BMI result Body Mass Index 26.6 Const General: cooperative, no acute distress, alert and awake Nutritional Appearance: well nourished Orientation/consciousness: patient oriented x3 Limitations: no limitations [facility] Head: Yes normal to inspection and Yes atraumatic Ears: hearing grossly normal bilaterally and external ears normal General nose exam: Normal external nose present, no nasal discharge noted and no epistaxis Face and sinus: Yes normal facial exam, No abrasion and No laceration Mouth: Normal oral and palatal mucosa present, no drooling and no muffled voice Eyes General: appearance normal, both eyes and all related structures Periorbital: periorbital findings normal Eyelids: Yes eyelids normal Conjunctivae: conjunctivae normal Pupils: Equal, round and reactive pupils present EOM: EOMs intact bilaterally Neck Neck: Yes normal visual inspection, Yes full ROM and Yes no lymphadenopathy Chest Chest palpation & inspection: normal inspection of the chest Resp Effort & Inspection: normal respiratory effort and able to speak in complete sentences Auscultation: clear to auscultation bilaterally Cardio Rate: regular rate Rhythm: regular rhythm GI Inspection: Yes normal to inspection Palpation (GI): Soft to palpation, not firm, nontender, no guarding and not rigid Neuro General: patient oriented x3 and moves all extremities Cranial nerves: Yes Equal, round and reactive pupils present Cognition (Neuro): normal cognition Motor exam (neuro): 5/5 motor strength present throughout Sensory Exam: Normal double simultaneous stimulation for sensation Coordination: [id number] test normal Extrem General: Yes normal to inspection, Yes full ROM and Yes capillary refill normal Psych Appearance: grossly normal Mental Status: mental status grossly normal Affect: normal affect Attitude: cooperative Thought process: Normal thought process present Thought content: Normal thought content present Insight: Good insight present (Psych) Medications Administered Discontinued Medications Generic Name Dose Route Start Last Admin Trade Name Freq PRN Reason Stop Dose Admin Acetaminophen 650 mg 05/16/22 07:53 05/16/22 08:12 Acetaminophen Supp 650 Mg Supp.Rect MD 05/16/22 07:54 650 mg ONCE ONE Administration Medical Decision Making Medical Decision Making [facility] Narrative: Patient is a 76 year old assigned female at with a history of dementia presenting to the emergency department today with weakness. Patient's physical exam was unremarkable. Patient's blood work was unremarkable. Patient's urine showed continued UTI. Patient's EKG was unremarkable. Patient's chest x-ray showed no acute process. I explained my physical exam findings as well as all test results to the patient and the patient's guardian. I answered all questions asked by the patient and the patient's guardian. Patient was evaluated by physical therapy who recommended short term rehab. Case management got the patient placed at [facility]. I stressed the importance of the patient taking her medication as prescribed. I stressed the importance of the patient following up with her primary care provider. I stressed the importance of the patient returning to the emergency department immediately if her symptoms were to worsen or if she were to develop any dizziness, shortness of breath, difficulty breathing, chest pain, blurry vision, loss of vision, nausea, vomiting, abdominal pain, fever, chills, back pain, or any other complaints. Patient and the patient's vickiidan verbalized agreement and understanding with this treatment plan and discharge[facility]. Differential Diagnoses: Differential diagnosis Differential Diagnosis: The differential diagnosis associated with the patient?s presentation includes: UTI, weakness Lab Attestation: I reviewed the patient's lab results. Independent interpretation of EKG, rhythm strip, radiology study: Independent interp EKG,rhythm strip, radiology study I performed an independent interpretation of the: EKG ?P-R Int: 178 ms? QRS Dur: 076 ms ?QT Int: 480 ms ? ? ? P-R-T Axes: 052 032 047 degrees ?QTc Int: 471 ms ? Sinus bradycardia Otherwise normal ECG When compared with ECG of 15-MAY-2022 12:06, No significant change was found Electronically Signed By:RAYO TABOR MD Dictated By: Rayo Tabor MD Signed By: Electronically signed by Rayo Tabor MD 05/16/22 0859 Discussion of test interpretation with radiology: Discussion of test interpretation with radiology (This result was not discussed with the radiologist however, this is the radiologist's impression per their written report. ) EXAMINATION: XR CHEST CLINICAL INFORMATION: Weakness. COMPARISON: 05/15/2022 chest radiographs. TECHNIQUE: Frontal view of the chest was obtained. FINDINGS: Support devices: Multilevel sternotomy wires are again seen. The superiormost wire is fractured without significant change or associated abnormality. No significant abnormality is noted involving the heart, lungs, mediastinum, bony thorax or soft tissues. XR/XR chest 1V IMPRESSION: No acute cardiopulmonary process. Dictated By: Sukhdev Hayes MD Signed By: Electronically signed by Sukhdev Hayes MD 05/16/22 0902 Independent historian (e.g., spouse, EMS, friend): Independent historian (e.g., spouse, EMS, friend) Clinical information obtained from an independent historian. History obtained from or confirmed by: EMS and Other (guardian) Discharge Plan Discharge Clinical Impression: Urinary tract infection, Weakness Patient Disposition: Xfer SNF Transfer Details: [facility] Instructions: Weakness (ED), Urinary Tract Infection in Older Adults (ED) Additional Instructions: Continue to take the cephalexin as perscribed. Follow up with your primary care provider. Return to the emergency department immediately if your symptoms worsen or if you develop any dizziness, shortness of breath, difficulty breathing, chest pain, blurry vision, loss of vision, nausea, vomiting, abdominal pain, fever, chills, back pain, or any other complaints. Prescriptions: No Action multivitamin Tablet 1 tab PO DAILY metformin 500 mg tablet 500 mg PO BID atorvastatin 80 mg tablet 80 mg PO BEDTIME acetaminophen 325 mg tablet 650 mg PO Q6H PRN (Reason: pain) isosorbide mononitrate 30 mg tablet extended release 24 hr 30 mg PO DAILY aspirin 81 mg tablet,delayed release (DR/EC) 81 mg PO BEDTIME bisoprolol fumarate 5 mg tablet 5 mg PO DAILY pantoprazole 40 mg tablet,delayed release (DR/EC) 40 mg PO DAILY gabapentin 100 mg capsule 100 mg PO TID fluticasone propionate 50 mcg/actuation spray,suspension 1 - 2 spray intranasal DAILY PRN (Reason: Allergy Symptoms) insulin glargine [Lantus Solostar U-100 Insulin] 100 unit/mL (3 mL) insulin pen 36 unit subcut DAILY citalopram 10 mg tablet 1 tab PO DAILY donepezil 10 mg tablet 1 tab PO DAILY cyanocobalamin (vitamin B-12) 1,000 mcg tablet 1 tab PO DAILY risperidone 1 mg tablet 0.5 tab PO BID cholecalciferol (vitamin D3) [Vitamin D3] 25 mcg (1,000 unit) capsule 1 cap PO QAM hydrocodone-acetaminophen 5-325 mg tablet 1 tab PO Q8H PRN (Reason: pain, severe) 3 Days Qty: 9 0RF Rx Instructions: Partial Fill upon patient request. cephalexin 500 mg capsule 500 mg PO Q6H 7 Days Qty: 28 0RF Referrals: [facility] [Outside] Name,MD Adama [Primary Care Provider] - Interventions: ED Discharge Assessment Last Done: 05/16/22 16:49 Print Language: Vietnamese
--- NOTE | 2022-05-16 08:35 | ECG_ITS ---
Test Reason : weakness Blood Pressure : / mmHG Vent. Rate : 058 BPM Atrial Rate : 058 BPM P-R Int : 178 ms QRS Dur : 076 ms QT Int : 480 ms P-R-T Axes : 052 032 047 degrees QTc Int : 471 ms Sinus bradycardia Otherwise normal ECG When compared with ECG of 15-MAY-2022 12:06, No significant change was found Referred By: Xiao Garduno Electronically Signed By:JAYANT VIVAS MD
[2022-05-16 09:18] LABS: Appearance Urine Clear; Color Urine Yellow; Glucose Urine UA Negative (Negative); Leukocyte Esterase Urine Trace (Negative); Nitrite Urine Negative (Negative); PH 7.5 (5.0-9.0); Specific Gravity - Urine 1.015 (1.005-1.025); UMIC TRIGGER UACC YES; Urine Blood Moderate (2+) (Negative); Urine Ketones Negative (Negative); Urine Protein 300 (3+) mg/dL (Neg-Trace)
[2022-05-16 09:22] LABS: Bacteria Urine None Seen (None Seen); Hyaline Casts Urine 0-2 /LPF (0-2); Squamous Epithelial Cell Urine 0-2 /HPF (0-2); WBC Urine 0-5 /HPF (0-5)
[2022-05-16 09:35] LABS: Basophils Percent Auto 0.5 % (0-2); Eosinophils Absolute Auto 0.2 X10*3/uL (0.0-0.4); Eosinophils Percent Auto 2.5 % (0-4); Hematocrit 27.5 % (37.0-47.0); Hemoglobin 9.1 g/dl (12.0-16.0); Imm Gran Abs Auto 0.02 X10*3/uL (0.00-0.03); Imm Gran Pct Auto 0.3 % (0.0-0.4); Lymphocytes Absolute Auto 0.8 X10*3/uL (1.2-4.9); Lymphocytes Percent Auto 13.7 % (20-40); MANUAL DIFF FLAG NO; Mean Corpuscular HGB Conc 33.1 g/dl (31.0-35.0); Mean Corpuscular Hemoglobin 26.9 pg (27.0-33.0); Mean Corpuscular Volume 81.4 fL (80.0-98.0); Mean Platelet Volume 10.5 fL (9.4-12.3); Monocytes Absolute Auto 0.8 X10*3/uL (0.1-1.2); Monocytes Percent Auto 12.5 % (2-11); Neutrophils Absolute Auto 4.3 x10*3/uL (2.0-8.3); Neutrophils Percent Auto 70.5 % (45-73); Platelet Count 213 X10*3/uL (160-400); Red Blood Count 3.38 X10*6/uL (4.20-5.50); Red Cell Distribution Width 15.1 % (11.0-16.0); White Blood Count 6.1 X10*3/uL (4.8-10.8)
[2022-05-16 09:48] LABS: Lactic Acid 1.4 mmol/L (0.5-2.0)
[2022-05-16 09:52] LABS: Alanine Aminotransferase 11 U/L (0-31); Albumin Level 3.5 g/dL (3.5-5.0); Alkaline Phosphatase 56 U/L (39-117); Anion Gap 10 (12-20); Aspartate Amino Transferase 20 U/L (5-31); Bilirubin Total 0.6 mg/dL (0.0-1.0); Blood Urea Nitrogen 16 mg/dL (9-16); Calcium 8.8 mg/dL (8.4-10.2); Carbon Dioxide 27 mmol/L (22-29); Chloride 102 mmol/L (96-108); Creatinine Clr Calc Pharmacy 38.8; Estimated Glomerular Filt Rate 45; Glucose Random 124 mg/dL (60-115); Magnesium 1.7 mg/dL (1.6-2.6); Potassium 4.3 mmol/L (3.3-5.1); Sodium 135 mmol/L (135-145); Total Protein 6.2 g/dL (6.5-8.0)
[2022-05-16 09:53] LABS: Influenza A PCR NEGATIVE (Negative); Influenza B PCR NEGATIVE (Negative); Resp Syncy Virus RNA Qual PCR NEGATIVE (Negative); SARS COV2 PCR INHOUSE NEGATIVE (Negative)
--- NOTE | 2022-05-16 10:38 | PC.NURSE ---
Tylenol had positive effect on patients fever reduced to 99.3 rectally . IV placed in right A.C . Patient aware of plan of care .
[2022-05-16 10:40] VITALS: TEMP 37.4
--- NOTE | 2022-05-16 10:57 | PC.NURSE ---
P.T at bedside for evaluation . with medical laboratory technicians . patient aware of plan of care .
--- NOTE | 2022-05-16 11:18 | PHA.MEDREC ---
Pharmacy Consult ? Medication Reconciliation Pharmacy has completed the medication reconciliation. List from [facility]
--- NOTE | 2022-05-16 13:20 | MHC.CM.ED ---
Addendum entered by Doris Curran 05/16/22 15:44: Jose Cummings has obtained insurance auth. Patient can leave at 430pm. Tori GAO booked. [facility] with chart. Patient, Ericka RN and Xiao SILVER aware. Patient's friend/BOAT PATCHER [employer]/HCP, Alma made aware via telephone with help of the correctional food service supervisor. Original Note: Received case management consult from Xiao SILVER. Patient came to the ER due to weakness. Patient was recently diagnosed with an UTI and was given oral antibiotics. Patient has been experiencing increased weakness. Work up essentially negative. Physical therapy eval completed. Short term rehab is recommended. Patient has a history of dementia. T/W spoke with patient's friend/HCP, Alma via telephone at [phone] with the help with the correctional food service supervisor. Samina burden lives alone. Alma is patient's BOAT PATCHER PLASTIC and provides care throughout the day and tends to assist patient to bed and then has a camera in her room so Alma can make sure she is still safe. Patient was brought to the ER due to weakness. Alma feels patient will need STR because of this weakness. Alma also has some of her own health issues going on and isn't able to provide overnight care for patient. Patient has been to [facility] in the past. Alma would prefer to find a facility in [place], preferrably on [address]. [facility] [place] and [facility] are not contracted with patient's insurance. Jose Cummings is able to offer a bed. Alma has accepted the bed. Jose Cummings has been asked to obtain insurance auth. Continue to monitor for d/c needs.
[2022-05-16 14:42] VITALS: BP 170/57; PULSE 65; RESP 21; TEMP 36.9; O2SAT 98
[2022-05-16 15:33] VITALS: BP 188/63; PULSE 60; RESP 18; TEMP 37.6; O2SAT 97
--- NOTE | 2022-05-16 16:48 | PC.NURSE ---
Nurse to Nurse given to Charlee at [facility] . Ems given report . patient aware of transfer .
== END 2022-05-16 16:50 | disposition skilled nursing facility (03) ==
PROVIDERS: Physician Assistant Medical; Emergency Provider Emergency Medicine Emergency Medical Services; PCP Internal Medicine Geriatric Medicine
DX: M62.81 Muscle weakness (generalized) (principal); N39.0 Urinary tract infection, site not specified; R26.81 Unsteadiness on feet; R07.89 Other chest pain; Z79.899 Other long term (current) drug therapy; Z20.822 Contact with and (suspected) exposure to COVID-19
CPT/HCPCS: 0241U; 71045; 80053; 81001; 83605; 83735; 85025; 87040; 93005; 97162; 99285

== ENCOUNTER 2022-05-17 05:49 | Outpatient (REF) | payer OTHER, SELFPAY ==
[2022-05-17 05:55] LABS: MANUAL DIFF FLAG NO
[2022-05-17 06:15] LABS: Basophils Percent Auto 0.5 % (0-2); Eosinophils Absolute Auto 0.2 X10*3/uL (0.0-0.4); Eosinophils Percent Auto 2.6 % (0-4); Hematocrit 27.7 % (37.0-47.0); Hemoglobin 9.3 g/dl (12.0-16.0); Imm Gran Abs Auto 0.02 X10*3/uL (0.00-0.03); Imm Gran Pct Auto 0.3 % (0.0-0.4); Lymphocytes Absolute Auto 2.5 X10*3/uL (1.2-4.9); Lymphocytes Percent Auto 43.8 % (20-40); Mean Corpuscular HGB Conc 33.6 g/dl (31.0-35.0); Mean Corpuscular Hemoglobin 26.9 pg (27.0-33.0); Mean Corpuscular Volume 80.1 fL (80.0-98.0); Mean Platelet Volume 10.3 fL (9.4-12.3); Monocytes Absolute Auto 0.8 X10*3/uL (0.1-1.2); Monocytes Percent Auto 13.2 % (2-11); Neutrophils Absolute Auto 2.3 x10*3/uL (2.0-8.3); Neutrophils Percent Auto 39.6 % (45-73); Platelet Count 212 X10*3/uL (160-400); Red Blood Count 3.46 X10*6/uL (4.20-5.50); Red Cell Distribution Width 15.2 % (11.0-16.0); White Blood Count 5.8 X10*3/uL (4.8-10.8)
[2022-05-17 06:30] LABS: Alanine Aminotransferase 13 U/L (0-31); Albumin Level 3.2 g/dL (3.5-5.0); Alkaline Phosphatase 50 U/L (39-117); Anion Gap 11 (12-20); Aspartate Amino Transferase 35 U/L (5-31); Bilirubin Total 0.6 mg/dL (0.0-1.0); Blood Urea Nitrogen 15 mg/dL (9-16); Calcium 8.6 mg/dL (8.4-10.2); Carbon Dioxide 25 mmol/L (22-29); Chloride 106 mmol/L (96-108); Estimated Glomerular Filt Rate 47; Glucose Random 119 mg/dL (60-115); Potassium 4.2 mmol/L (3.3-5.1); Sodium 138 mmol/L (135-145); Total Protein 5.9 g/dL (6.5-8.0)
== END 2022-05-17 05:50 | disposition home or self-care (01) ==
LOC: HO.MMNH2L 05:49
PROVIDERS: Visit Provider Family Medicine
DX: Z02.2 Encounter for examination for admission to residential institution (principal); N39.0 Urinary tract infection, site not specified
CPT/HCPCS: 36415; 80053; 85025

== ENCOUNTER 2022-05-21 07:51 | Outpatient (REF) | payer OTHER, SELFPAY ==
[2022-05-21 07:02] LABS: MANUAL DIFF FLAG NO
[2022-05-21 07:52] LABS: Basophils Percent Auto 0.2 % (0-2); Eosinophils Absolute Auto 0.3 X10*3/uL (0.0-0.4); Eosinophils Percent Auto 4.1 % (0-4); Hematocrit 26.2 % (37.0-47.0); Hemoglobin 8.7 g/dl (12.0-16.0); Imm Gran Abs Auto 0.02 X10*3/uL (0.00-0.03); Imm Gran Pct Auto 0.3 % (0.0-0.4); Lymphocytes Absolute Auto 2.4 X10*3/uL (1.2-4.9); Lymphocytes Percent Auto 38.2 % (20-40); Mean Corpuscular HGB Conc 33.2 g/dl (31.0-35.0); Mean Corpuscular Hemoglobin 26.9 pg (27.0-33.0); Mean Corpuscular Volume 80.9 fL (80.0-98.0); Mean Platelet Volume 11.2 fL (9.4-12.3); Monocytes Absolute Auto 0.5 X10*3/uL (0.1-1.2); Monocytes Percent Auto 7.4 % (2-11); Neutrophils Absolute Auto 3.2 x10*3/uL (2.0-8.3); Neutrophils Percent Auto 49.8 % (45-73); Platelet Count 204 X10*3/uL (160-400); Red Blood Count 3.24 X10*6/uL (4.20-5.50); Red Cell Distribution Width 14.6 % (11.0-16.0); White Blood Count 6.4 X10*3/uL (4.8-10.8)
[2022-05-21 08:20] LABS: Anion Gap 10 (12-20); Blood Urea Nitrogen 32 mg/dL (9-16); Calcium 8.5 mg/dL (8.4-10.2); Carbon Dioxide 25 mmol/L (22-29); Chloride 102 mmol/L (96-108); Estimated Glomerular Filt Rate 39; Glucose Random 124 mg/dL (60-115); Sodium 133 mmol/L (135-145)
== END 2022-05-21 07:52 | disposition home or self-care (01) ==
LOC: HO.MMNH2L 07:51
PROVIDERS: Visit Provider Family Medicine
DX: Z02.2 Encounter for examination for admission to residential institution (principal); N39.0 Urinary tract infection, site not specified
CPT/HCPCS: 36415; 80048; 85025

== ENCOUNTER 2022-05-28 06:44 | Outpatient (REF) | payer OTHER, SELFPAY ==
[2022-05-28 06:42] LABS: MANUAL DIFF FLAG NO
[2022-05-28 07:07] LABS: Basophils Percent Auto 0.5 % (0-2); Eosinophils Absolute Auto 0.3 X10*3/uL (0.0-0.4); Eosinophils Percent Auto 5.9 % (0-4); Hematocrit 25.7 % (37.0-47.0); Hemoglobin 8.6 g/dl (12.0-16.0); Imm Gran Abs Auto 0.04 X10*3/uL (0.00-0.03); Imm Gran Pct Auto 0.7 % (0.0-0.4); Lymphocytes Absolute Auto 2.5 X10*3/uL (1.2-4.9); Lymphocytes Percent Auto 43.2 % (20-40); Mean Corpuscular HGB Conc 33.5 g/dl (31.0-35.0); Mean Corpuscular Hemoglobin 26.5 pg (27.0-33.0); Mean Corpuscular Volume 79.3 fL (80.0-98.0); Mean Platelet Volume 10.3 fL (9.4-12.3); Monocytes Absolute Auto 0.6 X10*3/uL (0.1-1.2); Monocytes Percent Auto 10.4 % (2-11); Neutrophils Absolute Auto 2.3 x10*3/uL (2.0-8.3); Neutrophils Percent Auto 39.3 % (45-73); Platelet Count 253 X10*3/uL (160-400); Red Blood Count 3.24 X10*6/uL (4.20-5.50); Red Cell Distribution Width 14.4 % (11.0-16.0); White Blood Count 5.8 X10*3/uL (4.8-10.8)
[2022-05-28 07:34] LABS: Anion Gap 12 (12-20); Blood Urea Nitrogen 27 mg/dL (9-16); Calcium 8.6 mg/dL (8.4-10.2); Carbon Dioxide 26 mmol/L (22-29); Chloride 100 mmol/L (96-108); Estimated Glomerular Filt Rate 40; Glucose Random 64 mg/dL (60-115); Potassium 4.1 mmol/L (3.3-5.1); Sodium 134 mmol/L (135-145)
== END 2022-05-28 06:45 | disposition home or self-care (01) ==
LOC: HO.MMNH2L 06:44
PROVIDERS: Visit Provider Family Medicine
DX: Z02.2 Encounter for examination for admission to residential institution (principal); N39.0 Urinary tract infection, site not specified
CPT/HCPCS: 36415; 80048; 85025

== ENCOUNTER → 2022-06-22 13:29 | Outpatient (REF) | payer OTHER, SELFPAY ==
--- NOTE | 2022-06-22 13:32 | HM_ITS ---
* Total monitoring time about 1 day. * Underlying rhythm is sinus. Average ventricular rate 67/Min. Range 51 to 117/Min. * Occasional supraventricular ectopy. Minimal burden. Very brief runs. * Very rare ventricular ectopy. Minimal burden. * No significant pauses or AV blocks. * No patient marker or diary. MTDD
== END ==
LOC: HO.CARD 13:29
PROVIDERS: PCP Internal Medicine Geriatric Medicine; Visit Provider Family Medicine
DX: R00.1 Bradycardia, unspecified (principal)
CPT/HCPCS: 93225

== ENCOUNTER 2022-07-11 16:39 | Emergency (ER) | payer OTHER, SELFPAY ==
--- NOTE | ~2022-07-11 | XR_ITS ---
EXAMINATION: XR CHEST CLINICAL INFORMATION: Fall, chest trauma. COMPARISON: Chest radiograph 05/16/2022. TECHNIQUE: Frontal view of the chest was obtained. FINDINGS: Unchanged prominence of the cardiomediastinal silhouette with mediastinal surgical clips and redemonstration of fractured of the upper most sternal wire. No focal airspace opacity, pleural effusion or pneumothorax. No displaced rib fractures. Degenerative osteophytes of the shoulders. The visualized upper abdomen is within normal limits. XR/XR chest 1V IMPRESSION: 1. No acute cardiopulmonary findings. 2. No displaced rib fractures. However, if a rib fracture is highly clinically suspected, consider correlation with targeted radiographic images of the rib cage including oblique views.
--- NOTE | ~2022-07-11 | CT_ITS ---
EXAMINATION: CT BRAIN AND CT CERVICAL SPINE WITHOUT CONTRAST CLINICAL INFORMATION: AMS, fall. COMPARISON: None. TECHNIQUE: 5 mm thin axial and reformatted, 2 mm thin sagittal and coronal images of brain were obtained without contrast. Subsequently axial 3 mm thin and reformatted, 2 mm thin sagittal and coronal images of cervical spine were obtained without contrast. DLP: 1495 mGy-cm FINDINGS: There is patient motion on the images limiting evaluation. BRAIN: There is no acute intra-axial, extra-axial bleed, masses or midline shift. No acute infarction evolution. The lateral ventricles are symmetrical in size and configuration with mild enlargement. Bone windows reveal no calvarial abnormality. No scalp soft tissue abnormality seen. Bilateral paranasal sinuses are well aerated. Bilateral mastoid air sinuses are well aerated. CERVICAL SPINE: There is mild straightening of cervical lordosis. The vertebral heights, alignment and disc heights are normal. The craniovertebral junction and the C1-C2 alignment is normal. There is no visible acute fracture, dislocation or subluxation. There is moderate left C3-C4, C6-C7 and moderate right C4-C5 facet joint arthropathy. There is mild disc osteophyte complex C2-C3, C3-C4, C4-C5 and C5-C6 disc levels. The prevertebral and paravertebral soft tissues are normal. The lung apices are clear. The airway is widely patent. CT/CT head/brain wo IV con IMPRESSION: No acute intracranial process seen. Mild straightening of cervical lordosis without acute fracture or dislocation. There is disc bulge/osteophyte complex and facet joint arthropathy as described above.
--- NOTE | ~2022-07-11 | CT_ITS ---
EXAMINATION: CT BRAIN AND CT CERVICAL SPINE WITHOUT CONTRAST CLINICAL INFORMATION: AMS, fall. COMPARISON: None. TECHNIQUE: 5 mm thin axial and reformatted, 2 mm thin sagittal and coronal images of brain were obtained without contrast. Subsequently axial 3 mm thin and reformatted, 2 mm thin sagittal and coronal images of cervical spine were obtained without contrast. DLP: 1495 mGy-cm FINDINGS: There is patient motion on the images limiting evaluation. BRAIN: There is no acute intra-axial, extra-axial bleed, masses or midline shift. No acute infarction evolution. The lateral ventricles are symmetrical in size and configuration with mild enlargement. Bone windows reveal no calvarial abnormality. No scalp soft tissue abnormality seen. Bilateral paranasal sinuses are well aerated. Bilateral mastoid air sinuses are well aerated. CERVICAL SPINE: There is mild straightening of cervical lordosis. The vertebral heights, alignment and disc heights are normal. The craniovertebral junction and the C1-C2 alignment is normal. There is no visible acute fracture, dislocation or subluxation. There is moderate left C3-C4, C6-C7 and moderate right C4-C5 facet joint arthropathy. There is mild disc osteophyte complex C2-C3, C3-C4, C4-C5 and C5-C6 disc levels. The prevertebral and paravertebral soft tissues are normal. The lung apices are clear. The airway is widely patent. CT/CT cervical spine wo IV con IMPRESSION: No acute intracranial process seen. Mild straightening of cervical lordosis without acute fracture or dislocation. There is disc bulge/osteophyte complex and facet joint arthropathy as described above.
--- NOTE | 2022-07-11 16:43 | ECG_ITS ---
Test Reason : weakness Blood Pressure : / mmHG Vent. Rate : 053 BPM Atrial Rate : 000 BPM P-R Int : 000 ms QRS Dur : 072 ms QT Int : 496 ms P-R-T Axes : 000 046 028 degrees QTc Int : 465 ms sinus bradycardia Otherwise normal ECG When compared with ECG of 16-MAY-2022 08:41, No significant changes seen Referred By: Ed Umanzor Electronically Signed By:Solo De Guzman
--- NOTE | 2022-07-11 16:48 | ED_ITS ---
HPI - General Adult General Chief complaint: Failure to Thrive Stated complaint: ? WEAK,UNK D/T DEMENTIA PER EMS Time Seen by Provider: 07/11/22 16:43 Source: patient Mode of arrival: ambulatory Limitations: other (poor historian ) History of Present Illness HPI narrative: 76 year old female history of diabetes, dementia, hypertension, CAD presents to the emergency department with faliure to thrive coming from home. 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 She tells me her whole body hurts, she feels weak, she reports she is not eating or drinking well. She tells me that she has been feeling this way for weeks and is not getting better. Patient denies any recent trauma or falls. Patient denies chest pain, shortness of breath, nausea, vomiting, abdominal pain, headache, vision changes, dizziness Related Data Home Medications Medication Instructions Recorded Confirmed aspirin 81 mg tablet,delayed 81 mg PO BEDTIME 08/26/20 07/11/22 release atorvastatin 80 mg tablet 80 mg PO BEDTIME 08/26/20 07/11/22 bisoprolol fumarate 5 mg tablet 5 mg PO DAILY 08/26/20 07/11/22 fluticasone propionate 50 1 spray intranasal DAILY PRN 08/26/20 07/11/22 mcg/actuation nasal Allergy Symptoms spray,suspension gabapentin 100 mg capsule 100 mg PO TID 08/26/20 07/11/22 insulin glargine 100 unit/mL (3 20 unit subcut DAILY 08/26/20 07/11/22 mL) subcutaneous pen (Lantus Solostar U-100 Insulin) isosorbide mononitrate 30 mg 30 mg PO DAILY 08/26/20 07/11/22 tablet,extended release 24 hr metformin 500 mg tablet 500 mg PO BIDWM 08/26/20 07/11/22 multivitamin 1 tab PO DAILY 08/26/20 07/11/22 pantoprazole 40 mg tablet,delayed 40 mg PO DAILY 08/26/20 07/11/22 release cholecalciferol (vitamin D3) 25 1 cap PO DAILY 05/16/22 07/11/22 mcg (1,000 unit) capsule (Vitamin D3) citalopram 10 mg tablet 1 tab PO DAILY 05/16/22 07/11/22 cyanocobalamin (vitamin B-12) 1 tab PO DAILY 05/16/22 07/11/22 1,000 mcg tablet donepezil 10 mg tablet 1 tab PO BEDTIME 05/16/22 07/11/22 risperidone 1 mg tablet 0.5 tab PO BID 05/16/22 07/11/22 diclofenac sodium 1 % topical gel 2 g topical BID 07/11/22 07/11/22 hydralazine 10 mg tablet 1 tab PO TID 07/11/22 07/11/22 hydrochlorothiazide 12.5 mg capsule 1 cap PO DAILY 07/11/22 07/11/22 Allergies Allergy/AdvReac Type Severity Reaction Status Date / Time SEAFOOD Allergy Mild RASH Uncoded 02/26/22 10:22 Review of Systems Review of Systems: Constitutional : No Weight loss, No Fever, No Chills, No Fatigue, No Malaise ENT/Mouth : No sore throat, No Rhinorrhea Eyes: No Eye Pain, No Swelling, No Redness Cardiovascular : No Chest Pain, No SOB, No Dyspnea on Exertion, No Orthopnea, No Edema, No Palpitations Respiratory : No Cough, No Sputum, No Wheezing Gastrointestinal : No Nausea, No Vomiting, No Diarrhea, No Constipation, No abdominal Pain, No Hematochezia, No Melena Genitourinary : No Dysuria, No Urinary Frequency, No Hematuria, Musculoskeletal : No joint pain, No Myalgias, No Joint Swelling Skin : No Skin Lesions, No rash Neuro : No Weakness, No Numbness, No Dizziness, No Headache Psych : No Anxiety/Panic, No Depression All other systems reviewed and are negative Yes all other systems are reviewed and are negative [facility] Past Medical History Attestation statement: The following information was validated with the patient. Source: old records reviewed and nursing notes reviewed Medical History CAD (coronary artery disease) Diabetes HTN (hypertension) Surgical History History of open heart surgery Family History Family History Other Hypertension Social History Social History Household Members: Unknown / Unable to assess Housing: Unknown / Unable to assess Unable to assess alcohol history related to: Unknown Alcohol intake: unknown Advance Directives: Yes Advance Directives on File: Yes Advance Directives Date on File: 05/16/22 service: No Current occupational status: disabled Physical Exam ED Vital Signs: Vital Signs - 24 hr 07/11/22 17:18 07/11/22 18:20 07/11/22 18:20 Temperature 98.3 F Pulse Rate 68 57 Respiratory Rate 14 12 Blood Pressure 125/53 L Pulse Oximetry 99 Oxygen Delivery Method Room Air Room Air Room Air 07/11/22 20:18 07/11/22 20:46 07/11/22 23:07 Temperature Pulse Rate 55 71 66 Respiratory Rate 15 12 13 Blood Pressure 180/76 H 190/76 H 155/64 H Pulse Oximetry 100 100 100 Oxygen Delivery Method Room Air Room Air Room Air 07/12/22 01:24 Temperature 98.0 F Pulse Rate 66 Respiratory Rate 14 Blood Pressure 161/62 H Pulse Oximetry 100 Oxygen Delivery Method Room Air BMI result Body Mass Index 38.6 vss Appearance: Alert.? Oriented X3.? No acute distress.? Head: Normocephalic, atraumatic, no step-offs or deformities Eyes: Pupils equal, round and reactive to light.? Neck: Normal inspection.? Neck supple.? CVS: Normal heart rate and rhythm.? Pulses normal.? Respiratory: No respiratory distress.? Breath sounds normal.? Abdomen: Soft and nontender.? Skin: Skin warm and dry.? Normal skin color.? Normal skin turgor.? Extremities: No lower extremity edema.? No calf ttp. Global weakness Neuro: Oriented X 3.? No motor deficit.? No sensory deficit. CN 2-12 intact Course Reevaluation(s) Reevaluation #1: Patient's CBC demonstrating a normocytic anemia that appears to be patient's baseline. Chemistry with acute kidney injury likely secondary to poor p.o. intake/dehydration. Patient with lactic acidosis of 2.2, troponin negative, BNP unremarkable. UA with trace leukocyte esterases and trace bacteria will treat for UTI as patient is complaining of global weakness. Salicylates, acetaminophen ethanol negative. Urine toxicology negative. COVID negative. Chest x-ray unremarkable. Head CT and cervical spine CT pending. Time: 18:43 Reevaluation #2: CT of the head with no acute intracranial process seen. Cervical spine with mild straightening of the cervical lordosis without acute fracture dislocation. No traumatic subluxations. At this time patient will be placed into physician observation to allow more time to be evaluated by physical therapy and case management. At time observation was started patient common cooperative no acute distress. Blood pressure responded well to home medications. Patient requesting increased services at home due to increasing weakness. I do not suspect acute pathology. Likely weakness secondary to UTI however I do not feel as though this requires hospital admission. No signs of sepsis. Time: 02:05 Medications Administered Generic Name Dose Route Start Last Admin Trade Name Freberenice PRN Reason Stop Dose Admin Aspirin 81 mg 07/11/22 21:00 07/11/22 21:12 Aspirin Enteric Coated 81 Mg Tablet. PO 81 mg BEDTIME ALICIA Administration Atorvastatin Calcium 80 mg 07/11/22 21:00 07/11/22 21:12 Atorvastatin Calcium 80 Mg Tablet PO 80 mg BEDTIME ALICIA Administration Donepezil HCl 10 mg 07/11/22 21:00 07/11/22 21:48 Donepezil Hcl 10 Mg Tablet PO 10 mg BEDTIME ALICIA Administration Gabapentin 100 mg 07/11/22 21:00 07/11/22 21:26 Gabapentin 100 Mg Capsule PO 100 mg TID ALICIA Administration Hydralazine HCl 10 mg 07/11/22 21:00 07/11/22 21:26 Hydralazine Hcl 10 Mg Tablet PO 10 mg TID ALICIA Administration Protocol Risperidone 0.5 mg 07/11/22 21:00 07/11/22 21:26 Risperidone 0.5 Mg Tablet PO 0.5 mg BID ALICIA Administration Discontinued Medications Generic Name Dose Route Start Last Admin Trade Name Freq PRN Reason Stop Dose Admin Cefuroxime Axetil 250 mg 07/11/22 18:50 07/11/22 19:18 Cefuroxime Axetil 250 Mg Tablet PO 07/11/22 18:51 250 mg ONCE ONE Administration Sodium Chloride 1,000 mls @ 999 mls/hr 07/11/22 18:45 07/11/22 22:02 Ns IV 07/11/22 19:45 Infused .Q1H1M ALICIA Infusion Sodium Chloride 1,000 mls @ 999 mls/hr 07/11/22 18:45 07/11/22 20:51 Ns IV 07/11/22 19:45 Infused .Q1H1M ALICIA Infusion Medical Decision Making Medical Decision Making [facility] Narrative: [id number] 76 year old female presents w/ failure to thrive X few weeks, coming from home. Requesting increased services at home. Physical examination with global weakness. No focal neuro deficits. Will rule out electrolyte abnormalities, UTI. No recent falls however will obtain CT of head and cervical spine to rule out intracranial pathology that could be leading to physical deconditioning/weakness. I do not suspect stroke, posterior stroke, traumatic injuries as patient did not sustain fall. Plan at this time labs, imaging, head CT, CT of chest. Will obtain viral panels as well. Differential Diagnosis Differential Diagnoses: The differential diagnosis associated with the presentation includes Will rule out electrolyte abnormalities, UTI. No recent falls however will obtain CT of head and cervical spine to rule out intracranial pathology that could be leading to physical deconditioning/weakness. Admission/Observation Consideration of admission/observation: Escalation of care including ad mission/observation considered Lab Data [facility] Lab Attestation statement: I reviewed the patient's lab results. 07/11/22 17:49 07/11/22 17:49 Labs: Lab Results 07/11/22 07/11/22 07/11/22 Range/Units 17:48 17:48 17:48 WBC (4.8-10.8) X10*3/uL RBC (4.20-5.50) X10*6/uL Hgb (12.0-16.0) g/dl Hct (37.0-47.0) % MCV (80.0-98.0) fL MCH (27.0-33.0) pg MCHC (31.0-35.0) g/dl RDW (11.0-16.0) % Plt Count (160-400) X10*3/uL MPV (9.4-12.3) fL Immature Gran % (Auto) (0.0-0.4) % Neut % (Auto) (45-73) % Lymph % (Auto) (20-40) % Payne % (Auto) (2-11) % Eos % (Auto) (0-4) % Baso % (Auto) (0-2) % Lymph # (Auto) (1.2-4.9) X10*3/uL Payne # (Auto) (0.1-1.2) X10*3/uL Eos # (Auto) (0.0-0.4) X10*3/uL Baso # (Auto) (0.0-0.2) X10*3/uL Abs Immat Gran (auto) (0.00-0.03) X10*3/uL Absolute Neuts (auto) (2.0-8.3) x10*3/uL Absolute Nucleated RBC (0.0-0.012) X10*3/uL Nucleated RBC % (auto) (0.0-0.2) /100WBC Sodium (135-145) mmol/L Potassium (3.3-5.1) mmol/L Chloride (96-108) mmol/L Carbon Dioxide (22-29) mmol/L Anion Gap (12-20) BUN (9-16) mg/dL Creatinine (0.5-1.4) mg/dL Estim Creat Clear Calc Estimated GFR Random Glucose (60-115) mg/dL Lactic Acid 2.2 H* (0.5-2.0) mmol/L Lactic Acid F/U @ 2Hr (0.5-2.0) mmol/L Calcium (8.4-10.2) mg/dL Magnesium (1.6-2.6) mg/dL Total Bilirubin (0.0-1.0) mg/dL AST (5-31) U/L ALT (0-31) U/L Alkaline Phosphatase (39-117) U/L Total Creatine Kinase (26-140) U/L Troponin I High Sens (<3.5-17.0) ng/L B-Natriuretic Peptide 100 (<100) pg/mL Total Protein (6.5-8.0) g/dL Albumin (3.5-5.0) g/dL Lipase (8-78) U/L Urine Color Urine Appearance Urine pH (5.0-9.0) Ur Specific [place] (1.005-1.025) Urine Protein (Neg-Trace) mg/dL Urine Glucose (UA) (Negative) mg/dL Urine Ketones (Negative) mg/dL Urine Blood (Negative) Urine Nitrite (Negative) Ur Leukocyte Esterase (Negative) Urine RBC (0-2) /HPF Urine WBC (0-5) /HPF Ur Squamous Epith Cells (0-2) /HPF Urine Bacteria (None Seen) Hyaline Casts (0-2) /LPF Salicylates (15-30) mg/dL Urine Opiates Screen (Not Detect) Urine Fentanyl Screen (Not Detect) Acetaminophen (<30) mcg/mL Ur Barbiturates Screen (Not Detect) Ur Phencyclidine Scrn (Not Detect) Ur Amphetamines Screen (Not Detect) U Benzodiazepines Scrn (Not Detect) Urine Cocaine Screen (Not Detect) U Marijuana (THC) Screen (Not Detect) Ethyl Alcohol mg/dL COVID-19 (FRANCISCO) Negative (Negative) COVID-19 Clin Com See Note 07/11/22 07/11/22 07/11/22 Range/Units 17:49 17:49 17:49 WBC 7.0 (4.8-10.8) X10*3/uL RBC 3.85 L (4.20-5.50) X10*6/uL Hgb 10.3 L (12.0-16.0) g/dl Hct 31.3 L D (37.0-47.0) % MCV 81.3 (80.0-98.0) fL MCH 26.8 L (27.0-33.0) pg MCHC 32.9 (31.0-35.0) g/dl RDW 16.3 H (11.0-16.0) % Plt Count 287 (160-400) X10*3/uL MPV 10.4 (9.4-12.3) fL Immature Gran % (Auto) 0.4 (0.0-0.4) % Neut % (Auto) 43.0 L (45-73) % Lymph % (Auto) 43.5 H (20-40) % Payne % (Auto) 8.5 (2-11) % Eos % (Auto) 4.0 (0-4) % Baso % (Auto) 0.6 (0-2) % Lymph # (Auto) 3.1 (1.2-4.9) X10*3/uL Payne # (Auto) 0.6 (0.1-1.2) X10*3/uL Eos # (Auto) 0.3 (0.0-0.4) X10*3/uL Baso # (Auto) 0.0 (0.0-0.2) X10*3/uL Abs Immat Gran (auto) 0.03 (0.00-0.03) X10*3/uL Absolute Neuts (auto) 3.0 (2.0-8.3) x10*3/uL Absolute Nucleated RBC 0.000 (0.0-0.012) X10*3/uL Nucleated RBC % (auto) 0.0 (0.0-0.2) /100WBC Sodium 135 (135-145) mmol/L Potassium 4.0 (3.3-5.1) mmol/L Chloride 103 (96-108) mmol/L Carbon Dioxide 23 (22-29) mmol/L Anion Gap 13 (12-20) BUN 21 H (9-16) mg/dL Creatinine 1.59 H (0.5-1.4) mg/dL Estim Creat Clear Calc 36.0 Estimated GFR 32 Random Glucose 89 (60-115) mg/dL Lactic Acid (0.5-2.0) mmol/L Lactic Acid F/U @ 2Hr (0.5-2.0) mmol/L Calcium 9.3 D (8.4-10.2) mg/dL Magnesium 1.7 (1.6-2.6) mg/dL Total Bilirubin 0.7 (0.0-1.0) mg/dL AST 15 (5-31) U/L ALT 10 (0-31) U/L Alkaline Phosphatase 58 (39-117) U/L Total Creatine Kinase 65 (26-140) U/L Troponin I High Sens < 3.5 (<3.5-17.0) ng/L B-Natriuretic Peptide (<100) pg/mL Total Protein 6.8 (6.5-8.0) g/dL Albumin 3.8 (3.5-5.0) g/dL Lipase 43 (8-78) U/L Urine Color Urine Appearance Urine pH (5.0-9.0) Ur Specific [place] (1.005-1.025) Urine Protein (Neg-Trace) mg/dL Urine Glucose (UA) (Negative) mg/dL Urine Ketones (Negative) mg/dL Urine Blood (Negative) Urine Nitrite (Negative) Ur Leukocyte Esterase (Negative) Urine RBC (0-2) /HPF Urine WBC (0-5) /HPF Ur Squamous Epith Cells (0-2) /HPF Urine Bacteria (None Seen) Hyaline Casts (0-2) /LPF Salicylates < 5.0 L (15-30) mg/dL Urine Opiates Screen (Not Detect) Urine Fentanyl Screen (Not Detect) Acetaminophen < 17 (<30) mcg/mL Ur Barbiturates Screen (Not Detect) Ur Phencyclidine Scrn (Not Detect) Ur Amphetamines Screen (Not Detect) U Benzodiazepines Scrn (Not Detect) Urine Cocaine Screen (Not Detect) U Marijuana (THC) Screen (Not Detect) Ethyl Alcohol < 10 mg/dL COVID-19 (FRANCISCO) (Negative) COVID-19 Clin Com 07/11/22 07/11/22 07/11/22 Range/Units 17:50 17:50 20:30 WBC (4.8-10.8) X10*3/uL RBC (4.20-5.50) X10*6/uL Hgb (12.0-16.0) g/dl Hct (37.0-47.0) % MCV (80.0-98.0) fL MCH (27.0-33.0) pg MCHC (31.0-35.0) g/dl RDW (11.0-16.0) % Plt Count (160-400) X10*3/uL MPV (9.4-12.3) fL Immature Gran % (Auto) (0.0-0.4) % Neut % (Auto) (45-73) % Lymph % (Auto) (20-40) % Payne % (Auto) (2-11) % Eos % (Auto) (0-4) % Baso % (Auto) (0-2) % Lymph # (Auto) (1.2-4.9) X10*3/uL Payne # (Auto) (0.1-1.2) X10*3/uL Eos # (Auto) (0.0-0.4) X10*3/uL Baso # (Auto) (0.0-0.2) X10*3/uL Abs Immat Gran (auto) (0.00-0.03) X10*3/uL Absolute Neuts (auto) (2.0-8.3) x10*3/uL Absolute Nucleated RBC (0.0-0.012) X10*3/uL Nucleated RBC % (auto) (0.0-0.2) /100WBC Sodium (135-145) mmol/L Potassium (3.3-5.1) mmol/L Chloride (96-108) mmol/L Carbon Dioxide (22-29) mmol/L Anion Gap (12-20) BUN (9-16) mg/dL Creatinine (0.5-1.4) mg/dL Estim Creat Clear Calc Estimated GFR Random Glucose (60-115) mg/dL Lactic Acid (0.5-2.0) mmol/L Lactic Acid F/U @ 2Hr 1.7 (0.5-2.0) mmol/L Calcium (8.4-10.2) mg/dL Magnesium (1.6-2.6) mg/dL Total Bilirubin (0.0-1.0) mg/dL AST (5-31) U/L ALT (0-31) U/L Alkaline Phosphatase (39-117) U/L Total Creatine Kinase (26-140) U/L Troponin I High Sens (<3.5-17.0) ng/L B-Natriuretic Peptide (<100) pg/mL Total Protein (6.5-8.0) g/dL Albumin (3.5-5.0) g/dL Lipase (8-78) U/L Urine Color Yellow Urine Appearance Cloudy Urine pH 7.5 (5.0-9.0) Ur Specific [place] <= 1.005 (1.005-1.025) Urine Protein Negative (Neg-Trace) mg/dL Urine Glucose (UA) Negative (Negative) mg/dL Urine Ketones Negative (Negative) mg/dL Urine Blood Trace H (Negative) Urine Nitrite Negative (Negative) Ur Leukocyte Esterase Trace H (Negative) Urine RBC 0-2 (0-2) /HPF Urine WBC 0-5 (0-5) /HPF Ur Squamous Epith Cells 11-20 (0-2) /HPF Urine Bacteria Trace (None Seen) Hyaline Casts 0-2 (0-2) /LPF Salicylates (15-30) mg/dL Urine Opiates Screen Not Detected (Not Detect) Urine Fentanyl Screen Not Detected (Not Detect) Acetaminophen (<30) mcg/mL Ur Barbiturates Screen Not Detected (Not Detect) Ur Phencyclidine Scrn Not Detected (Not Detect) Ur Amphetamines Screen Not Detected (Not Detect) U Benzodiazepines Scrn Not Detected (Not Detect) Urine Cocaine Screen Not Detected (Not Detect) U Marijuana (THC) Screen Not Detected (Not Detect) Ethyl Alcohol mg/dL COVID-19 (FRANCISCO) (Negative) COVID-19 Clin Com 07/11/22 Range/Units 22:29 WBC (4.8-10.8) X10*3/uL RBC (4.20-5.50) X10*6/uL Hgb (12.0-16.0) g/dl Hct (37.0-47.0) % MCV (80.0-98.0) fL MCH (27.0-33.0) pg MCHC (31.0-35.0) g/dl RDW (11.0-16.0) % Plt Count (160-400) X10*3/uL MPV (9.4-12.3) fL Immature Gran % (Auto) (0.0-0.4) % Neut % (Auto) (45-73) % Lymph % (Auto) (20-40) % Payne % (Auto) (2-11) % Eos % (Auto) (0-4) % Baso % (Auto) (0-2) % Lymph # (Auto) (1.2-4.9) X10*3/uL Payne # (Auto) (0.1-1.2) X10*3/uL Eos # (Auto) (0.0-0.4) X10*3/uL Baso # (Auto) (0.0-0.2) X10*3/uL Abs Immat Gran (auto) (0.00-0.03) X10*3/uL Absolute Neuts (auto) (2.0-8.3) x10*3/uL Absolute Nucleated RBC (0.0-0.012) X10*3/uL Nucleated RBC % (auto) (0.0-0.2) /100WBC Sodium 138 (135-145) mmol/L Potassium 4.0 (3.3-5.1) mmol/L Chloride 110 H (96-108) mmol/L Carbon Dioxide 18 L (22-29) mmol/L Anion Gap 14 (12-20) BUN 19 H (9-16) mg/dL Creatinine 1.36 (0.5-1.4) mg/dL Estim Creat Clear Calc 42.2 Estimated GFR 38 Random Glucose 66 (60-115) mg/dL Lactic Acid (0.5-2.0) mmol/L Lactic Acid F/U @ 2Hr (0.5-2.0) mmol/L Calcium 8.7 D (8.4-10.2) mg/dL Magnesium (1.6-2.6) mg/dL Total Bilirubin (0.0-1.0) mg/dL AST (5-31) U/L ALT (0-31) U/L Alkaline Phosphatase (39-117) U/L Total Creatine Kinase (26-140) U/L Troponin I High Sens (<3.5-17.0) ng/L B-Natriuretic Peptide (<100) pg/mL Total Protein (6.5-8.0) g/dL Albumin (3.5-5.0) g/dL Lipase (8-78) U/L Urine Color Urine Appearance Urine pH (5.0-9.0) Ur Specific [place] (1.005-1.025) Urine Protein (Neg-Trace) mg/dL Urine Glucose (UA) (Negative) mg/dL Urine Ketones (Negative) mg/dL Urine Blood (Negative) Urine Nitrite (Negative) Ur Leukocyte Esterase (Negative) Urine RBC (0-2) /HPF Urine WBC (0-5) /HPF Ur Squamous Epith Cells (0-2) /HPF Urine Bacteria (None Seen) Hyaline Casts (0-2) /LPF Salicylates (15-30) mg/dL Urine Opiates Screen (Not Detect) Urine Fentanyl Screen (Not Detect) Acetaminophen (<30) mcg/mL Ur Barbiturates Screen (Not Detect) Ur Phencyclidine Scrn (Not Detect) Ur Amphetamines Screen (Not Detect) U Benzodiazepines Scrn (Not Detect) Urine Cocaine Screen (Not Detect) U Marijuana (THC) Screen (Not Detect) Ethyl Alcohol mg/dL COVID-19 ([facility]ISCO) (Negative) COVID-19 Clin Com Independent Interpretation I performed an independent interpretation of an: EKG (Unremarkable), Plain X-Ray (EKG with junctional rhythm. No ST elevations or inversions concerning for ischemia.) and CT Scan (No acute finding) Radiology Impression Discussion of test interpretation with radiology: I have reviewed the ra diologist's reading. Critical Care Time Critical Care Time Critical Care Time: No Discharge Plan Discharge Clinical Impression: Physical deconditioning, Acute UTI, ALLIE (acute kidney injury), Acidosis, lactic Prescriptions: No Action multivitamin Tablet 1 tab PO DAILY metformin 500 mg tablet 500 mg PO BIDWM atorvastatin 80 mg tablet 80 mg PO BEDTIME isosorbide mononitrate 30 mg tablet extended release 24 hr 30 mg PO DAILY aspirin 81 mg tablet,delayed release (DR/EC) 81 mg PO BEDTIME bisoprolol fumarate 5 mg tablet 5 mg PO DAILY pantoprazole 40 mg tablet,delayed release (DR/EC) 40 mg PO DAILY gabapentin 100 mg capsule 100 mg PO TID fluticasone propionate 50 mcg/actuation spray,suspension 1 spray intranasal DAILY PRN (Reason: Allergy Symptoms) insulin glargine [Lantus Solostar U-100 Insulin] 100 unit/mL (3 mL) insulin pen 20 unit subcut DAILY citalopram 10 mg tablet 1 tab PO DAILY donepezil 10 mg tablet 1 tab PO BEDTIME cyanocobalamin (vitamin B-12) 1,000 mcg tablet 1 tab PO DAILY risperidone 1 mg tablet 0.5 tab PO BID cholecalciferol (vitamin D3) [Vitamin D3] 25 mcg (1,000 unit) capsule 1 cap PO DAILY hydralazine 10 mg tablet 1 tab PO TID hydrochlorothiazide 12.5 mg capsule 1 cap PO DAILY diclofenac sodium 1 % gel 2 g topical BID
--- NOTE | 2022-07-11 17:08 | PHA.MEDREC ---
Pharmacy Consult ? Medication Reconciliation Pharmacy has completed the medication reconciliation.
[2022-07-11 17:18] VITALS: BP 125/53; PULSE 68; RESP 14; TEMP 36.8; O2SAT 99; BMI 38.6
[2022-07-11 18:00] LABS: MANUAL DIFF FLAG NO
[2022-07-11 18:03] LABS: Appearance Urine Cloudy; Color Urine Yellow; Glucose Urine UA Negative (Negative); Leukocyte Esterase Urine Trace (Negative); Nitrite Urine Negative (Negative); PH 7.5 (5.0-9.0); Specific Gravity - Urine <= 1.005 (1.005-1.025); UMIC TRIGGER UACC YES; Urine Blood Trace (Negative); Urine Ketones Negative (Negative); Urine Protein Negative (Neg-Trace)
[2022-07-11 18:12] LABS: Amphetamine Screen Urine Not Detected (Not Detect); Barbiturates, Urine Not Detected (Not Detect); Benzodiazepines Screen Urine Not Detected (Not Detect); Cannabinoid Screen Urine Not Detected (Not Detect); Cocaine Screen Urine Not Detected (Not Detect); Fentanyl, urine Not Detected (Not Detect); Opiate Screen Urine Not Detected (Not Detect); Phencyclidine Screen Urine Not Detected (Not Detect)
[2022-07-11 18:13] LABS: Basophils Percent Auto 0.6 % (0-2); Eosinophils Absolute Auto 0.3 X10*3/uL (0.0-0.4); Hematocrit 31.3 % (37.0-47.0); Hemoglobin 10.3 g/dl (12.0-16.0); Imm Gran Abs Auto 0.03 X10*3/uL (0.00-0.03); Imm Gran Pct Auto 0.4 % (0.0-0.4); Lymphocytes Absolute Auto 3.1 X10*3/uL (1.2-4.9); Lymphocytes Percent Auto 43.5 % (20-40); Mean Corpuscular HGB Conc 32.9 g/dl (31.0-35.0); Mean Corpuscular Hemoglobin 26.8 pg (27.0-33.0); Mean Corpuscular Volume 81.3 fL (80.0-98.0); Mean Platelet Volume 10.4 fL (9.4-12.3); Monocytes Absolute Auto 0.6 X10*3/uL (0.1-1.2); Monocytes Percent Auto 8.5 % (2-11); Platelet Count 287 X10*3/uL (160-400); Red Blood Count 3.85 X10*6/uL (4.20-5.50); Red Cell Distribution Width 16.3 % (11.0-16.0)
[2022-07-11 18:16] LABS: COVID-19 Test Negative (Negative); IDNOW Serial# 16C4AD1C
[2022-07-11 18:20] VITALS: PULSE 57; RESP 12
[2022-07-11 18:22] LABS: Lactic Acid 2.2 mmol/L (0.5-2.0)
[2022-07-11 18:23] LABS: B Type Natriuretic Peptide 100 pg/mL (<100)
[2022-07-11 18:23] LABS: Acetaminophen LAB < 17 mcg/mL (<30); Alanine Aminotransferase 10 U/L (0-31); Albumin Level 3.8 g/dL (3.5-5.0); Alkaline Phosphatase 58 U/L (39-117); Anion Gap 13 (12-20); Aspartate Amino Transferase 15 U/L (5-31); Bilirubin Total 0.7 mg/dL (0.0-1.0); Blood Urea Nitrogen 21 mg/dL (9-16); Calcium 9.3 mg/dL (8.4-10.2); Carbon Dioxide 23 mmol/L (22-29); Chloride 103 mmol/L (96-108); Estimated Glomerular Filt Rate 32; Ethanol < 10 mg/dL; Glucose Random 89 mg/dL (60-115); Lipase 43 U/L (8-78); Magnesium 1.7 mg/dL (1.6-2.6); Salicylate < 5.0 mg/dL (15-30); Sodium 135 mmol/L (135-145); Total Protein 6.8 g/dL (6.5-8.0)
[2022-07-11 18:34] LABS: Bacteria Urine Trace (None Seen); Hyaline Casts Urine 0-2 /LPF (0-2); RBC Urine 0-2 /HPF (0-2); WBC Urine 0-5 /HPF (0-5)
[2022-07-11 18:37] LABS: Troponin-I High Sensitivity < 3.5 ng/L (<3.5-17.0)
[2022-07-11] MEDS: 0.9 % Sodium Chloride 1,000 ML 999 ML IV ×2 (19:19→20:50)
[2022-07-11 19:55] LABS: Reflex Lactate? Lactic Acid Added
[2022-07-11 20:18] VITALS: BP 180/76; PULSE 55; RESP 15; O2SAT 100
[2022-07-11 20:46] VITALS: BP 190/76; PULSE 71; RESP 12; O2SAT 100
[2022-07-11 20:52] LABS: ~Lactic Acid-LAB USE ONLY 1.7 mmol/L (0.5-2.0)
[2022-07-11] MEDS: Aspirin Enteric Coated 81 MG TABLET.DR PO (21:12)
[2022-07-11] MEDS: Atorvastatin Calcium 80 MG TABLET PO (21:12)
[2022-07-11] MEDS: risperiDONE 0.5 MG TABLET PO (21:26)
[2022-07-11] MEDS: hydrALAZINE HCl 10 MG TABLET PO (21:26)
[2022-07-11] MEDS: Gabapentin 100 MG CAPSULE PO (21:26)
[2022-07-11] MEDS: Donepezil HCl 10 MG TABLET PO (21:48)
[2022-07-11 23:06] LABS: Anion Gap 14 (12-20); Blood Urea Nitrogen 19 mg/dL (9-16); Calcium 8.7 mg/dL (8.4-10.2); Carbon Dioxide 18 mmol/L (22-29); Chloride 110 mmol/L (96-108); Creatinine Clr Calc Pharmacy 42.2; Estimated Glomerular Filt Rate 38; Glucose Random 66 mg/dL (60-115); Sodium 138 mmol/L (135-145)
[2022-07-11 23:07] VITALS: BP 155/64; PULSE 66; RESP 13; O2SAT 100
[2022-07-12] VITALS (7 sets, daily range): BP systolic 139–192; BP diastolic 52–76; PULSE 60–81; RESP 14–17; TEMP 36.5–36.7; O2SAT 98–100
--- NOTE | 2022-07-12 04:11 | MHC.EDTECH ---
pt cleaned,linens changed. pt resting comfortably at this time.
[2022-07-12] MEDS: Omeprazole 20 MG CAPSULE.DR PO (06:28)
[2022-07-12 09:10] LABS: Glucose, Whole Blood 120 mg/dL (60-115)
[2022-07-12] MEDS: hydroCHLOROthiazide 12.5 MG TABLET PO (09:27)
[2022-07-12] MEDS: Insulin Glargine,Hum.rec.anlog 100 UNIT/ML 10 ML VIAL 20 UNIT SUBCUT (09:27)
[2022-07-12] MEDS: hydrALAZINE HCl 10 MG TABLET PO (09:27)
[2022-07-12] MEDS: Cholecalciferol (Vitamin D3) 25 MCG TABLET PO (09:28)
[2022-07-12] MEDS: Isosorbide Mononitrate 30 MG TAB.ER.24H PO (09:28)
[2022-07-12] MEDS: Cyanocobalamin (Vitamin B-12) 1,000 MCG TABLET 1000 MCG PO (09:28)
[2022-07-12] MEDS: Escitalopram Oxalate 5 MG TABLET PO (09:28)
[2022-07-12] MEDS: Gabapentin 100 MG CAPSULE PO (09:28)
[2022-07-12] MEDS: Multivitamin TABLET 1 TAB PO (09:28)
[2022-07-12] MEDS: metFORMIN HCl 500 MG TABLET PO (09:28)
[2022-07-12] MEDS: risperiDONE 0.5 MG TABLET PO (09:28)
[2022-07-12] MEDS: Bisoprolol Fumarate 5 MG TABLET PO (10:09)
== END 2022-07-12 11:17 | disposition home or self-care (01) ==
PROVIDERS: Physician Assistant; Emergency Provider Emergency Medicine
DX: N39.0 Urinary tract infection, site not specified (principal); F03.90 Unspecified dementia, unspecified severity, without behavioral disturbance, psychotic disturbance, mood disturbance, and anxiety; R51.9 Headache, unspecified; M54.2 Cervicalgia; Z20.822 Contact with and (suspected) exposure to COVID-19; Z20.828 Contact with and (suspected) exposure to other viral communicable diseases; Z79.899 Other long term (current) drug therapy
CPT/HCPCS: 36415; 70450; 71045; 72125; 80048; 80053; 80143; 80179; 80307; 81001; 82077; 82550; 82947; 83605; 83690; 83735; 83880; 84484; 85025; 87040; 87635; 93005; 96360; 96361; 97161; 99285

== ENCOUNTER 2022-12-10 10:31 | Outpatient (REF) | payer OTHER, SELFPAY ==
--- NOTE | ~2022-12-10 | MM_ITS ---
EXAMINATION: MM SCREENING DIGITAL BREAST TOMOSYNTHESIS, BILATERAL CLINICAL INFORMATION: Screening. Asymptomatic. The lifetime risk of breast cancer based on the Tyrer-Cuzick Model is 4%. COMPARISON: Mammography: This study is compared with the prior exams dating back to 2018. TECHNIQUE: Digital breast tomosynthesis is performed in both the craniocaudal and mediolateral oblique views along with computer-aided detection (CAD). Synthesized 2D images are generated from the tomosynthesis. FINDINGS: There are scattered areas of fibroglandular density (ACR BI-RADS breast composition Category b). There are no significant masses, abnormal calcifications, or other abnormalities. MM/MM tomosynthesis screening BI IMPRESSION: No mammographic evidence of malignancy. ASSESSMENT: BI-RADS BI-RADS 1 - Negative RECOMMENDATION: Routine annual mammography screening. 1 year F/U This patient's information was entered into a reminder system with a target due date for their next mammogram.
== END 2022-12-10 10:32 | disposition home or self-care (01) ==
LOC: HO.MAMMO 10:31
PROVIDERS: PCP Internal Medicine Geriatric Medicine; Visit Provider Internal Medicine Geriatric Medicine
DX: Z12.31 Encounter for screening mammogram for malignant neoplasm of breast (principal)
CPT/HCPCS: 77063; 77067

== ENCOUNTER → 2022-12-10 11:30 | Outpatient (BNV) | payer OTHER, SELFPAY | PROVIDERS: PCP Internal Medicine Geriatric Medicine; Visit Provider Radiology Diagnostic Radiology | DX: Z12.31 Encounter for screening mammogram for malignant neoplasm of breast (principal) | CPT/HCPCS: 77063; 77067 ==

== ENCOUNTER 2023-01-03 15:40 | Outpatient (REF) | payer OTHER, SELFPAY ==
[2023-01-03 19:13] LABS: Alanine Aminotransferase 11 U/L (0-31); Albumin Level 3.7 g/dL (3.5-5.0); Alkaline Phosphatase 60 U/L (39-117); Anion Gap 19 (12-20); Aspartate Amino Transferase 15 U/L (5-31); Bilirubin Total 0.4 mg/dL (0.0-1.0); Blood Urea Nitrogen 18 mg/dL (9-16); Calcium 9.5 mg/dL (8.4-10.2); Carbon Dioxide 19 mmol/L (22-29); Chloride 101 mmol/L (96-108); Estimated Glomerular Filt Rate 33; Glucose Random 212 mg/dL (60-115); Potassium 4.5 mmol/L (3.3-5.1); Sodium 134 mmol/L (135-145); Total Protein 7.4 g/dL (6.5-8.0)
[2023-01-03 19:28] LABS: Vitamin D 25-OH Total 51.6 ng/mL (>30)
[2023-01-07 13:22] LABS: Calcium (PTHI) 9.1 mg/dL (8.6-10.4); PTHI 88 pg/mL (16-77)
== END 2023-01-03 15:41 | disposition home or self-care (01) ==
LOC: HO.LAB 15:40
PROVIDERS: PCP Internal Medicine Geriatric Medicine; Visit Provider Internal Medicine Hypertension Specialist
DX: N18.31 Chronic kidney disease, stage 3a (principal); N39.0 Urinary tract infection, site not specified
CPT/HCPCS: 36415; 80053; 82306; 83970

== ENCOUNTER 2023-01-04 13:13 | Outpatient (REF) | payer OTHER, SELFPAY ==
[2023-01-04 14:00] LABS: Appearance Urine Clear; Color Urine Yellow; Glucose Urine UA Negative (Negative); Leukocyte Esterase Urine Large (3+) (Negative); Nitrite Urine Negative (Negative); PH 7.5 (5.0-9.0); UMIC TRIGGER UA YES; Urine Blood Negative (Negative); Urine Ketones Negative (Negative); Urine Protein Negative (Neg-Trace)
[2023-01-04 14:07] LABS: Bacteria Urine None Seen (None Seen); Hyaline Casts Urine 0-2 /LPF (0-2); RBC Urine 0-2 /HPF (0-2)
[2023-01-04 14:42] LABS: Creatinine Urine 47.21 mg/dL; Protein/Creatinine Ratio, Ur 0.21 (<0.2); Total Protein Urine Random 10 mg/dL (<12)
== END 2023-01-04 13:14 | disposition home or self-care (01) ==
LOC: HO.LNP 13:13
PROVIDERS: Visit Provider Internal Medicine Hypertension Specialist
DX: N18.31 Chronic kidney disease, stage 3a (principal); N39.0 Urinary tract infection, site not specified
CPT/HCPCS: 81001; 84156

== ENCOUNTER 2023-01-11 12:29 | Outpatient (REF) | payer OTHER, SELFPAY ==
--- NOTE | ~2023-01-11 | US_ITS ---
EXAMINATION: US RETROPERITONEAL LIMITED (RENAL ONLY) CLINICAL INFORMATION: Chronic kidney disease. COMPARISON: CT abdomen and pelvis 08/28/2020. TECHNIQUE: Real-time imaging of the kidneys. FINDINGS: RIGHT KIDNEY: 9.9 x 4.0 x 5.4 cm (SAG x AP x TRV). The kidney is normal in size, contour, and echogenicity. Renal cortical thickness is normal. No calculi or focal parenchymal lesions. No hydronephrosis. Multiple foci linear echogenicity possibly representing atherosclerotic calcifications as seen on prior cross-sectional imaging. LEFT KIDNEY: 8.6 x 4.2 x 4.7 cm (SAG x AP x TRV). The kidney is normal in size, contour, and echogenicity. Renal cortical thickness is normal. No calculi or focal parenchymal lesions. No hydronephrosis. Multiple foci linear echogenicity possibly representing atherosclerotic calcifications as seen on prior cross-sectional imaging. US/US renal BI IMPRESSION: 1. No nephrolithiasis or hydronephrosis. 2. Multiple foci linear echogenicity possibly representing atherosclerotic calcifications as seen on prior cross-sectional imaging.
== END 2023-01-11 12:30 | disposition home or self-care (01) ==
LOC: HO.US 12:29
PROVIDERS: Visit Provider Internal Medicine Hypertension Specialist
DX: N18.31 Chronic kidney disease, stage 3a (principal)
CPT/HCPCS: 76775

== ENCOUNTER → 2023-05-06 10:37 | Outpatient (REF) | payer OTHER, SELFPAY ==
--- NOTE | 2023-05-06 10:41 | CA_ITS ---
Transthoracic Echocardiogram Patient (Last, First, Middle): Samina Barber, Gender: Female Date of : 1945 Age: 77 Procedure Date: 05/06/2023 Procedure Type: Transthoracic Echocardiogram Location: OP Height: 124.46 cm Weight: 70.76 kg BSA: 1.45 m2 Heart Rate: 84 bpm BP: 95 / 60 mmHg Rrt: MAXIME Cantu MD: Anuj Means MD Appeals Manager: Rayo Tabor MD Symptoms: Z95.1 HC CABG Study Quality: Technically Difficult/w Contrast ECG Rhythm: Sinus Conclusions: - 1. Technically limited study due to body habitus despite use of contrast agent 2. LV systolic function is measured to be mildly depressed with LVEF of 45-50% next 3. Limited visualization cardiac valves with severe mitral annular calcification Findings Procedure Information Contrast agent, definity, is being given per protocol without apparent complications. Left Ventricle Normal left ventricular cavity size. The left ventricular systolic function is mildly decreased. The visually estimated ejection fraction is between 45 50%. Regional wall motion abnormalities can not be excluded due to suboptimal endocardial definition. Diastolic function is indeterminate on the basis of available data. Right Ventricle The right ventricle was not well visualized. Atria The left atrium was not well visualized. Interatrial shunt cannot be excluded. The right atrium was not well visualized. Aortic Valve The aortic valve was not well visualized. There is no aortic valve stenosis. There is no aortic valve regurgitation. Mitral Valve The mitral valve was not well visualized. There is severe mitral annular calcification. There is no mitral valve regurgitation. There is no mitral valve stenosis. Pulmonic Valve The pulmonic valve was not well visualized. Tricuspid Valve The tricuspid valve was not well visualized. Tricuspid regurgitation envelope is inadequate for calculation of right ventricular systolic pressure. Great Vessels The aorta was not well visualized. The pulmonary artery was not well visualized. Venous The inferior vena cava was not well visualized. Pericardium/Pleural The pericardium was not well visualized. Prior Study Comparison Changes noted compared to prior study dated: 09/04/2018. LV systolic functions measured to be low run this study although study is limited Measurements 2D Linear Measurements IVSd: 1.32 0.6-0.9/0.6-1.0 cm LVIDd: 2.35 3.9-5.3/4.2-5.9 cm LVIDd Index: 1.62 2.4-3.2/2.2-3.1 cm/m2 LVIDs: 1.64 2.0-3.6 cm LVPWd: 0.98 0.7-1.1 cm LA Diam: 3.80 2.7-3.8/3.0-4.0 cm LAIDs Index: 2.62 1.5-2.3 cm/m2 LV Mass: 90.87 67-162/88-224 g LV Mass Index: 62.67 43-95/49-115 g/m2 LVOT Diam: 1.80 3.0+(-)1.3 cm 2D Systolic Function EF 4C: 43.00 >55% EF 2C: 52.00 >55% EF BiP: 47.20 >55% Mitral Valve MV Pk E: 0.78 MV PK A: 1.04 MV Decel Time: 292.00 E/A: 0.80 E'Lateral: 7.29 E'Medial: 4.03 E/E' Med: 19.40 E/E' Lat: 10.70 PHT: 86.00 MVA PHT: 2.56 Decel [place]: 2.67 Aortic Valve AoV Pk Mao: 1.05 AoV Mn Mao: 0.76 AoV VTI: 0.20 AoV Pk Grad: 4.00 Aov Mn Grad: 3.00 MICHELLE Cont.VTI: 2.07 LVOT LVOT Pk Mao: 0.90 LVOT Mn Mao: 0.64 LVOT VTI: 0.16 LVOT Pk Grad: 3.00 LVOT Mn Grad: 2.00 LVOT Diam: 1.80 LVOT Area: 2.54 Diastolic Function MV Pk E: 0.78 MV Pk A: 1.04 E/A: 0.80 E'Medial: 4.03 E/E' Med: 19.40 E' Laterial: 7.29 E/E' Lat: 10.70 Right Ventricle TAPSE (mm): 17.10 TVS' Mao: 9.25 Great Vessels Aorta Sinus of Valsalva: 3.00 2.0-3.5 cm Ao Asc: 3.40 2.1-3.4 cm Pulmonary Valve PV Pk Mao: 0.79 Peak PV Grad: 2.00 Updated in Other Vendor System with Status of Final Rayo Tabor MD electronically signed on 05/06/2023 4:59:39 PM with status of Final
== END ==
LOC: HO.CARD 10:37
PROVIDERS: PCP Internal Medicine Geriatric Medicine; Visit Provider Internal Medicine Cardiovascular Disease
DX: Z95.1 Presence of aortocoronary bypass graft (principal)
CPT/HCPCS: 93306; Q9957

== ENCOUNTER → 2023-05-06 10:41 | Outpatient (BNV) | payer OTHER, SELFPAY | PROVIDERS: PCP Internal Medicine Geriatric Medicine; Visit Provider Internal Medicine Cardiovascular Disease | DX: I34.81 Nonrheumatic mitral (valve) annulus calcification (principal) | CPT/HCPCS: 93306 ==

== ENCOUNTER 2023-05-27 11:55 | Outpatient (REF) | payer OTHER, SELFPAY ==
[2023-05-27 14:05] LABS: Anion Gap 14 (12-20); Blood Urea Nitrogen 16 mg/dL (9-16); Calcium 9.2 mg/dL (8.4-10.2); Carbon Dioxide 23 mmol/L (22-29); Chloride 102 mmol/L (96-108); Estimated Glomerular Filt Rate 38; Glucose Random 221 mg/dL (60-115); Potassium 4.2 mmol/L (3.3-5.1); Sodium 135 mmol/L (135-145)
== END 2023-05-27 11:56 | disposition home or self-care (01) ==
LOC: HO.HHCL 11:55
PROVIDERS: Visit Provider Internal Medicine Geriatric Medicine
DX: I12.9 Hypertensive chronic kidney disease with stage 1 through stage 4 chronic kidney disease, or unspecified chronic kidney disease (principal); N18.30 Chronic kidney disease, stage 3 unspecified
CPT/HCPCS: 36415; 80048

== ENCOUNTER 2023-09-30 09:31 | Outpatient (REF) | payer OTHER, SELFPAY ==
[2023-09-30 11:47] LABS: MANUAL DIFF FLAG NO
[2023-09-30 11:52] LABS: Basophils Absolute Auto 0.1 X10*3/uL (0.0-0.2); Basophils Percent Auto 0.7 % (0-2); Eosinophils Absolute Auto 0.3 X10*3/uL (0.0-0.4); Hematocrit 35.7 % (37.0-47.0); Hemoglobin 11.8 g/dl (12.0-16.0); Imm Gran Abs Auto 0.02 X10*3/uL (0.00-0.03); Imm Gran Pct Auto 0.3 % (0.0-0.4); Lymphocytes Absolute Auto 2.8 X10*3/uL (1.2-4.9); Lymphocytes Percent Auto 38.4 % (20-40); Mean Corpuscular HGB Conc 33.1 g/dl (31.0-35.0); Mean Corpuscular Volume 84.6 fL (80.0-98.0); Mean Platelet Volume 10.7 fL (9.4-12.3); Monocytes Absolute Auto 0.5 X10*3/uL (0.1-1.2); Monocytes Percent Auto 7.4 % (2-11); Neutrophils Absolute Auto 3.6 x10*3/uL (2.0-8.3); Neutrophils Percent Auto 49.2 % (45-73); Platelet Count 250 X10*3/uL (160-400); Red Blood Count 4.22 X10*6/uL (4.20-5.50); Red Cell Distribution Width 15.3 % (11.0-16.0); White Blood Count 7.3 X10*3/uL (4.8-10.8)
[2023-09-30 12:26] LABS: Alanine Aminotransferase 10 U/L (0-31); Albumin Level 3.8 g/dL (3.5-5.0); Alkaline Phosphatase 70 U/L (39-117); Anion Gap 13 (12-20); Aspartate Amino Transferase 14 U/L (5-31); Bilirubin Total 0.6 mg/dL (0.0-1.0); Blood Urea Nitrogen 20 mg/dL (9-16); Calcium 9.3 mg/dL (8.4-10.2); Carbon Dioxide 23 mmol/L (22-29); Chloride 105 mmol/L (96-108); Cholesterol 155 mg/dL (<200); Estimated Glomerular Filt Rate 42; Glucose Random 187 mg/dL (60-115); HDL Cholesterol 49 mg/dL (>40); LDL Cholesterol Calculated 87 mg/dL (<100); Potassium 4.2 mmol/L (3.3-5.1); Sodium 137 mmol/L (135-145); Total Protein 7.6 g/dL (6.5-8.0); Triglycerides 99 mg/dL (<150)
== END 2023-09-30 09:32 | disposition home or self-care (01) ==
LOC: HO.HHCL 09:31
PROVIDERS: Visit Provider Internal Medicine Geriatric Medicine
DX: E11.49 Type 2 diabetes mellitus with other diabetic neurological complication (principal); E11.22 Type 2 diabetes mellitus with diabetic chronic kidney disease; N18.32 Chronic kidney disease, stage 3b; I25.10 Atherosclerotic heart disease of native coronary artery without angina pectoris; I25.2 Old myocardial infarction; Z79.4 Long term (current) use of insulin
CPT/HCPCS: 36415; 80053; 80061; 85025

== ENCOUNTER 2023-10-01 | Outpatient (REF) | payer OTHER, SELFPAY ==
[2023-10-01 17:23] LABS: Creatinine Urine 69.85 mg/dL
== END 2023-10-01 00:01 | disposition home or self-care (01) ==
LOC: HO.HHCL
PROVIDERS: Visit Provider Internal Medicine Geriatric Medicine
DX: Z13.89 Encounter for screening for other disorder (principal)
CPT/HCPCS: 82043; 82570

== ENCOUNTER 2023-12-16 14:42 | Outpatient (REF) | payer OTHER, SELFPAY | END 2023-12-16 14:43 | disposition home or self-care (01) | LOC: HO.MAMMO 14:42 | PROVIDERS: PCP Internal Medicine Geriatric Medicine; Visit Provider Internal Medicine Geriatric Medicine | DX: Z12.31 Encounter for screening mammogram for malignant neoplasm of breast (principal) | CPT/HCPCS: 77063; 77067 ==

== ENCOUNTER → 2023-12-16 15:15 | Outpatient (BNV) | payer OTHER, SELFPAY | PROVIDERS: PCP Internal Medicine Geriatric Medicine; Visit Provider Radiology Diagnostic Radiology | DX: Z12.31 Encounter for screening mammogram for malignant neoplasm of breast (principal) | CPT/HCPCS: 77063; 77067 ==

== ENCOUNTER 2023-12-23 15:16 | Outpatient (REF) | payer OTHER, SELFPAY ==
--- NOTE | ~2023-12-23 | US_ITS ---
EXAMINATION: US VENOUS WITH DOPPLER UPPER EXTREMITY, RIGHT CLINICAL INFORMATION: Pain lump COMPARISON: None available. TECHNIQUE: Ultrasound of the upper extremity is performed using compression sonography and color and pulse Doppler flow with assessment of augmentation of flow. There is also imaging and Doppler assessment of the jugular and subclavian veins. Spectral analysis with color-flow imaging is performed. FINDINGS: Respiratory variation, normal compression, and augmented flow are noted throughout the upper extremity including the axillary, brachial, cubital, and radial and ulnar veins. There is normal flow in the internal jugular and subclavian veins. There is no visible deep or superficial thrombophlebitis. If the patient's symptoms progress, a followup ultrasound in 5 -7 days might be of value to exclude proximal propagation from a nonvisualized distal arm vein. Specific attention was then given to the region the patient's pain in the antecubital fossa. There is a heterogeneous fusiform shaped structure measuring 2.3 x 1.1 cm in size. There is Doppler flow seen within this with both arterial and venous flow demonstrated. Etiology of this uncertain. Vascular malformation would be possible. The amount of Doppler flow is more suggestive of a vascular abnormality rather than a soft tissue mass but clinical correlation would be needed for this nonspecific appearance US/US venous duplex UE RT IMPRESSION: No DVT demonstrated in the right upper extremity. The double mass in the acute renal fossa conforms to a fusiform heterogeneous echotexture structure demonstrating both arterial and venous waveform Doppler flow patterns. Etiology of this is uncertain. Vascular malformation would be possible. Would clinically correlate for any trauma or intervention in this region. Unfortunately the sonographic appearance is nonspecific. Vascular malformation would be favored. Very vascular soft tissue mass is very less likely. If there is persistent clinical concern, dedicated cross-sectional imaging with contrast-enhanced CTA or MRA would be recommended
== END 2023-12-23 15:17 | disposition home or self-care (01) ==
LOC: HO.US 15:16
PROVIDERS: PCP Internal Medicine Geriatric Medicine; Visit Provider Nurse Practitioner Primary Care
DX: M79.601 Pain in right arm (principal); R60.0 Localized edema
CPT/HCPCS: 93971

== ENCOUNTER 2023-12-27 12:38 | Outpatient (REF) | payer OTHER, SELFPAY ==
[2023-12-28 00:47] LABS: Anion Gap 15 (12-20); Blood Urea Nitrogen 21 mg/dL (9-16); Calcium 9.5 mg/dL (8.4-10.2); Carbon Dioxide 25 mmol/L (22-29); Chloride 100 mmol/L (96-108); Estimated Glomerular Filt Rate 31; Glucose Random 276 mg/dL (60-115); Sodium 136 mmol/L (135-145)
== END 2023-12-27 12:39 | disposition home or self-care (01) ==
LOC: HO.HHCL 12:38
PROVIDERS: Visit Provider Internal Medicine Geriatric Medicine
DX: E11.49 Type 2 diabetes mellitus with other diabetic neurological complication (principal); I10 Essential (primary) hypertension; R22.31 Localized swelling, mass and lump, right upper limb; Z87.74 Personal history of (corrected) congenital malformations of heart and circulatory system; Z79.4 Long term (current) use of insulin
CPT/HCPCS: 36415; 80048

== ENCOUNTER 2024-02-27 16:20 | Outpatient (REF) | payer OTHER, SELFPAY ==
--- NOTE | ~2024-02-27 | MR_ITS ---
EXAMINATION: MR ANGIOGRAPHY UPPER EXTREMITY WITHOUT AND WITH DYE CLINICAL INFORMATION: Right approximately mass, possible vascular malformation seen on ultrasound COMPARISON: Ultrasound from 12/23/2023 TECHNIQUE: Routine MRA protocol without and with contrast was performed of the right upper extremity. 7.5 mL's of Gadavist was administered. The images were reviewed and postprocessed on a dedicated 3-D workstation. FINDINGS: VASCULAR: Multiphase MRA images in the right upper extremity demonstrates a heterogeneous nodule within the subcutaneous fat at the antecubital fossa which demonstrate some peripheral areas of early arterial phase enhancement. This is noted at the level of the distal brachial artery just above the bifurcation of the radial artery. There is some early venous drainage into the lateral subcutaneous cephalic vein. The cephalic vein does not appear overly dilated. There is also T2 dark linear connection to the right basilic vein with delayed venous filling in the mid upper arm and proximal forearm. There is likely thrombosis between this nodule and the more distal basilic vein. Findings likely represent small partially thrombosed AV malformation/AV fistula. Question if patient has ever had a history of prior port or venous access in this region which may have created an iatrogenic AV fistula. The aortic arch, right brachiocephalic artery, subclavian artery, axillary, brachial artery, radial artery and ulnar arteries are widely patent and normal in caliber. Remaining visualized arterial and venous structures within the chest are widely patent and unremarkable. No significant subcutaneous soft tissue edema. 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 Question if patient has ever had a history of prior port or venous access in this region which may have created an iatrogenic AV fistula. Electronically signed by: Gopal Stephen MD 03/06/2024 03:11 PM EDT
[2024-02-27] MEDS: gadobutroL 7.5 ML VIAL IVPUSH (05:30)
== END 2024-02-27 16:21 | disposition home or self-care (01) ==
LOC: HO.MRI 16:20
PROVIDERS: PCP Internal Medicine Geriatric Medicine; Visit Provider Internal Medicine Geriatric Medicine
DX: R22.1 Localized swelling, mass and lump, neck (principal); Z87.74 Personal history of (corrected) congenital malformations of heart and circulatory system
CPT/HCPCS: 73225; A9585

== ENCOUNTER 2024-03-31 08:58 | Outpatient (AMB) | payer OTHER, SELFPAY ==
--- NOTE | 2024-03-31 09:02 | A.OFFVIS_ITS ---
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 Patient has an issue with her right arm. States she has a bump that has raised within the last month. No pain. 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 Yasmin is our banquet steward today. The STRATEGIC INTELLIGENCE OFFICER states she noticed about 1-2 months ago a small bump below her right elbow anteriorly on the forearm. She denies any pain or discomfort at the site. She denies any injuries. She does not have dialysis or dialysis site. She does not have a history of a DVT or PE. There is no history of phlebitis. She denies any swelling at the site. She denies any bleeding at the site. [facility] Medical History CAD (coronary artery disease) HTN (hypertension) Diabetes Surgical History History of open heart surgery Family History Other Hypertension Social History Household Members: Unknown / Unable to assess Housing: Unknown / Unable to assess Unable to assess alcohol history related to: Unknown Alcohol intake: unknown Comment: sleeping Advance Directives Date on File: 05/16/22 service: No Current occupational status: disabled Review of Systems Const Reports as per HPI and Denies weakness ENT Reports Normal hearing present and Denies dizziness Card Reports as per HPI, Denies chest pain, Denies chest pain at rest, Denies chest pain with activity, Denies dyspnea and Denies dyspnea on exertion Resp Reports as per HPI, Denies cough, Denies dyspnea and Denies dyspnea on exertion GI Reports as per HPI, Denies abdominal pain, Denies nausea and Denies vomiting Musc Denies numbness Skin/Breast Reports as per HPI, Denies erythema and Denies wounds Neuro Reports Normal hearing present, Denies dizziness, Denies numbness, Denies Sensory deficit (Neuro) and Denies weakness Psych Reports no additional complaints Endo Reports no additional complaints Physical Exam Const General: healthy appearing and no acute distress Orientation/consciousness: patient oriented x3 HEENT Other: Decreased hearing, no hearing aids today. Head: Yes normal to inspection Mouth: Normal oral and palatal mucosa present Resp Effort & Inspection: normal respiratory effort and able to speak in complete sentences Auscultation: clear to auscultation bilaterally Cardio Jugular venous distension: no JVD Rate: regular rate Rhythm: regular rhythm Heart sounds: S1 normal heart sound present and S2 normal heart sound present Bruits: no abdominal aortic bruits, no carotid bruits, no femoral bruits and no renal bruits Peripheral pulses: Peripheral pulses 2+ throughout GI Inspection: Yes normal to inspection Palpation (GI): No Abdominal aortic bruit present Skin Other: Small circular raised area anteriorly just below the AC area on the right arm. Not painful to palpation. No thrill felt. No bruit heard. No surrounding erythema, wounds seen. General skin exam: no rashes or lesions noted Wounds: no wounds Hair: normal Neuro General: patient oriented x3 Cranial nerves: Yes Normal hearing present Cognition (Neuro): normal cognition Gait exam (Neuro): Normal gait present Motor exam (neuro): 5/5 motor strength present throughout Sensory Exam: No Sensory deficit (Neuro) Extrem General: Yes normal to inspection, Yes full ROM, Yes capillary refill normal and Yes normal gait Results Reviewed Results Reviewed: I have reviewed the MRA results as well as the duplex ultrasound of the upper extremities. On MRI there is a small partially thrombosed AV malformation/AV fistula in the subcutaneous fat at the antecubital fossa. Assessment & Plan Assessment & Plan (1) AVM (arteriovenous malformation): Code(s): Q27.30 - Arteriovenous malformation, site unspecified Category: Medical Plan: Samina is presenting today with her STRATEGIC INTELLIGENCE OFFICER for concerns of an approximate 2 month history of a bump in her right lower arm below the AC area. There is no pain or injury noted to the site. Duplex ultrasound as well as MRA reveals a small partially thrombosed AV malformation/fistula in the subcutaneous fat. The patient is asymptomatic and at this point there is no need for any vascular intervention. If the patient experiences any pain, the site gets bigger, or any other concerns please feel free to reach out to us. Thank you for the consult. If there are any questions or concerns please call us back. Coding Level of Care Code New Pt New Pt Level 4 (50047) Patient Type New Diagnoses AVM (arteriovenous malformation) Q27.30 Time Spent (min) 30 Comment reviewed MRA, US duplex
== END 2024-03-31 09:23 | disposition home or self-care (01) ==
PROVIDERS: PCP Internal Medicine Geriatric Medicine; Visit Provider Physician Assistant Surgical
DX: Q27.30 Arteriovenous malformation, site unspecified (principal)
CPT/HCPCS: 99204

== ENCOUNTER → 2024-03-31 08:58 | Outpatient (BNVA) | payer OTHER, SELFPAY | PROVIDERS: PCP Internal Medicine Geriatric Medicine; Visit Provider Physician Assistant Surgical | DX: Q27.31 Arteriovenous malformation of vessel of upper limb (principal) | CPT/HCPCS: 99202 ==

== ENCOUNTER 2024-07-13 14:20 | Outpatient (REF) | payer OTHER, SELFPAY ==
--- OUTSIDE RECORDS SUMMARY | 2024-07-13 16:00 | XMS_ITS | Encounter Summary ---
Author Organization [employer] Address [address] [facility] [address] [place] [address] Care Team Providers Care Brand Marketing Intern Name Role Phone Name, Adama DAVEY Primary Care Provider [phone] Reason for Visit * Reason Comments Med Refill Encounter Details Date Type Department Care Team ([facility] st Contact Info) Description 06/28/2024 Refill [facility] [address] [place], [place] [id number] Name, MD Adama [address] [place] [address] Dementia with behavioral disturbance (CMS/HCC); Depression, unspecified depression type Social History Tobacco Use Types Packs/Day Years Used Date Smoking Tobacco: Never Passive Smoke Exposure: Never Smokeless Tobacco: Never Alcohol Use Standard Drinks/Week Comments Never 0 (1 standard drink = 0.6 oz pur e alcohol) Depression Answer Date Recorded Patient Health Questionnaire-9 Score 2 09/27/2023 Patient Health Questionnaire-9 Score 2 09/27/2023 Last PHQ-9: Questionnaire Data Not on file 0 09/27/2023 Housing Stability Answer Date Recorded What is your housing situation today? I have sydni michel 09/27/[address] you li ve. Do you have problems with any of the following? None of the above 09/27/2023 Food Insecurity Answer Date Recorded Within the past 12 months, y ou worried that your food would run out before you got money to buy more: Never True 09/27/2023 Within the past 12 months,th e food you bought just didn't last and you didn't have enough money to get more: Never True Transportation Answer Date Recorded In the past 12 months, has l ack of transportation kept you from medical appts, meetings, work or from getting things needed for daily living? No 09/27/2023 Utilities Answer Date Recorded In the past 12 months, has t he electric, gas, oil or water company threatened to shut off services in your home? No 09/27/2023 Depression Answer Date Recorded Patient Health Questionnaire-2 Score 2 09/27/2023 Comments Unknown Sex and Gender Information Value Date Recorded Sex Assigned at Female 04/09/2022 10:14 AM EDT Legal Sex Female 10:14 AM EDT Gender Identity Choose not to disclose 10:14 AM EDT Sexual Orientation Choose not to disclose 2021 10:14 AM EDT documented as of this encounter Plan of Treatment Not on file documented as of this encounter Visit Diagnoses Diagnosis Dementia with behavioral disturbance (CMS/HCC) Depression, unspecified depression type documented in this encounter Additional Health Concerns Assessment Noted Time PHQ-9 Depression Total Score: 2 09/27/19 24 11:14 AM EDT documented as of this encounter Care Teams Brand Marketing Intern Relationship Specialty Start Date End Date Name, MD Adama [address] [place] [address] PCP - General Family Medicine 12/31/19 documented as of this encounter
--- OUTSIDE RECORDS SUMMARY | 2024-07-13 16:00 | XMS_ITS | Encounter Summary ---
Author Organization [employer] [facility] Address [address] [place], [place] [address] [place] [address] Care Team Providers Care Hospital Security Officer Name Role Phone Name, Adama DAVEY Primary Care Provider [phone] Reason for Visit * Reason Comments Med Refill Encounter Details Date Type Department Care Team ([facility] st Contact Info) Description 01/09/2023 Refill [facility] [address] [place] [address] Fany Mohan FNP [address] [place] [address] Dept [place] [address] Type 2 diabetes mellitus without complication, with long-term current use of insulin (CMS/HCC) Social History Tobacco Use Types Packs/Day Years Used Date Smoking Tobacco: Never Passive Smoke Exposure: Never Smokeless Tobacco: Never Alcohol Use Standard Drinks/Week Comments Never 0 (1 standard drink = 0.6 oz pur e alcohol) Depression Answer Date Recorded Patient Health Questionnaire-9 Score 1 06/07/2022 Depression Answer Date Recorded Patient Health Questionnaire-2 Score 0 06/07/2022 Comments Unknown Sex and Gender Information Value Date Recorded Sex Assigned at Female 04/09/2022 10:14 AM EDT Legal Sex Female 10:14 AM EDT Gender Identity Choose not to disclose 10:14 AM EDT Sexual Orientation Choose not to disclose 2021 10:14 AM EDT documented as of this encounter Plan of Treatment Not on file documented as of this encounter Visit Diagnoses Diagnosis Type 2 diabetes mellitus without complication, with long-term current use of insulin (CMS/HCC) documented in this encounter Additional Health Concerns Assessment Noted Time PHQ-9 Depression Total Score: 1 06/07/20 22 9:32 AM EST documented as of this encounter Care Teams Hospital Security Officer Relationship Specialty Start Date End Date Name, MD Adama [address] [place] [address] PCP - General Family Medicine 12/31/19 documented as of this encounter
--- OUTSIDE RECORDS SUMMARY | 2024-07-13 16:00 | XMS_ITS | Encounter Summary ---
Author Organization [employer] [facility] Address [address] [facility] [address] [place] [address] Care Team Providers Care Superintendent Plant Protection Name Role Phone Name, Adama DAVEY Primary Care Provider [phone] Reason for Visit * Reason Comments Med Refill Encounter Details Date Type Department Care Team ([facility] st Contact Info) Description 07/23/2022 Refill [facility] MEDIC[facility] [address] [place], [place] [phone] Clarisse Hernandez MD [address] [place] [address] Primary hypertension Social History Tobacco Use Types Packs/Day Years [...] not to disclose 2021 10:14 AM EDT COVID-19 Exposure Response Date Recorded In the last 10 days, have yo u been in contact with someone who was confirmed or suspected to have Coronavirus/COVID-19? No / Unsure 07/24/2022 3:10 PM EST documented as of this encounter Miscellaneous Notes * Telephone Encounter - Adama Anderson MD - 07/24/2022 4:39 PM EST Her BP is low, I will discontinue this med documented in this encounter Plan of Treatment Not on file documented as of this encounter Visit Diagnoses Diagnosis Primary hypertension Unspecified essential hypertension documented in this encounter Additional Health Concerns Assessment Noted Time PHQ-9 Depression Total Score: 1 06/07/20 22 9:32 AM EST documented as of this encounter Care Teams Superintendent Plant Protection Relationship Specialty Start Date End Date Name, MD Adama [address] [place] [address] PCP - General Family Medicine 12/31/19 documented as of this encounter
--- OUTSIDE RECORDS SUMMARY | 2024-07-13 16:00 | XMS_ITS | Encounter Summary ---
Author Organization [employer] Address [address] [facility] 7t [place] [address] Care Team Providers Care Steno Pool Supervisor Name Role Phone Name, Adama ADVEY Primary Care Provider [phone] Reason for Visit * Reason Comments Follow-up Encounter Details Date Type Department Care Team ([facility] st Contact Info) Description 07/13/2024 1:45 PM EST Office Visit [facility] MEDICINE [address] [place], [place] [phone] Name, MD Adama [address] [place] [address] Type 2 diabetes mellitus with other neurologic complication, with long-term current use of insulin (CMS/HCC) (Primary Dx); Stage 3 chronic kidney disease, unspecified whether stage 3a or 3b CKD (CMS/HCC); Essential (primary) hypertension Social History Tobacco Use Types Packs/Day [...] AM EDT documented as of this encounter Last Filed Vital Signs Vital Sign Reading Time Taken Comments Blood Pressure 157/79 07/13/2024 1:43 PM EST Pulse 88 07/13/2024 1:43 PM EST Temperature 35.9 ??C (96.6 ??F) 07/13/2024 1:43 PM ES T Respiratory Rate 18 07/13/2024 1:43 PM EST Oxygen Saturation 98% 07/13/2024 1:43 PM EST Inhaled Oxygen Concentration - - Weight 79.7 kg (175 lb 12.8 oz) 07/13/2024 1:43 PM EST Height 157.5 cm (5' 2 ) 07/13/2024 1:43 PM EST Body Mass Index 32.15 07/13/2024 1:43 PM EST documented in this encounter Progress Notes * Adama Anderson MD - 07/13/2024 1:45 PM EST Subjective Patient ID: Samina Barber is a 78 y.o. adult who presents for Follow-up. Patient comes for a follow-up visit. She is accompanied by her [employer]. Patient feels well. Her blood sugars have been running high since she came off the metformin. Medication was put on hold because she has CKD and we do not have a recent renal function. She is using her insulin as prescribed. Her [employer] makes sure she does not have too many sweets. The patient has dementia and depends on meals prepared by the [employer]. Review of Systems Constitutional: Negative for chills and fever. HENT: Negative for sore throat. Respiratory: Negative for cough, shortness of breath and wheezing. Cardiovascular: Negative for chest pain, palpitations and leg swelling. Gastrointestinal: Negative for abdominal pain. Visit Vitals BP (!) 157/79 (BP Location: Left arm, Patient Position: Sitting, BP Cuff Size: Large adult) Pulse 88 Temp 96.6 ??F (35.9 ??C) (Temporal) Resp 18 Ht 5' 2 (1.575 m) Wt 175 lb 12.8 oz (79.7 kg) SpO2 98% BMI 32.15 kg/m?? Smoking Status Never BSA 1.87 m?? Objective Physical Exam Constitutional: Appearance: Normal appearance. Cardiovascular: Rate and Rhythm: Normal rate and regular rhythm. Heart sounds: No murmur heard. Pulmonary: Effort: Pulmonary effort is normal. No respiratory distress. Breath sounds: No wheezing, rhonchi or rales. Abdominal: Palpations: Abdomen is soft. Tenderness: There is no abdominal tenderness. Musculoskeletal: Right lower leg: No edema. Left lower leg: No edema. Neurological: Mental Status: Samina is alert. Lab Results Component Value Date HGBA1C 9.5 (A) 07/13/2024 HGBA1C 8.0 (A) 12/27/2023 HGBA1C 7.9 (A) 09/27/2023 HGBA1C 7.8 (A) 05/27/2023 HGBA1C 7.0 (A) 02/08/2023 HGBA1C 7.6 (A) 09/27/2022 Assessment/Plan Diagnoses and all orders for this visit: Type 2 diabetes mellitus with other neurologic complication, with long-term current use of insulin ([facility]) Comments: I will increase her dose of Lantus. She is recommended to avoid sweets and soda. Avoid NSAIDs. Check blood work listed below and further recommendation based on results. I would like to start low-dose ARB if possible and put her on Jardiance once her blood sugars improve a little. Orders: - POCT Glucose - POCT HGB A1C - Comprehensive Metabolic Panel; Future - Albumin, Random Urine W/Creatinine; Future - insulin glargine (Lantus SoloStar) 100 UNIT/ML pen; INJECT 30 UNITS SUBCUTANEOUSLY ONCE DAILY Stage 3 chronic kidney disease, unspecified whether stage 3a or 3b CKD ([facility]) - Comprehensive Metabolic Panel; Future - Albumin, Random Urine W/Creatinine; Future Essential (primary) hypertension documented in this encounter Plan of Treatment Scheduled Orders Name Type Priority Associated Diagnoses Orde r Schedule Comprehensive Metabolic Panel Lab Routine Type 2 diabetes mellitus with other neurologic complication, with long-term current use of insulin ([facility]) Stage 3 chronic kidney disease, unspecified whether stage 3a or 3b CKD ([facility]) Expected: 07/13/2024 (Approximate), Expires: 07/13/2025 Albumin, Random Urine W/Creatinine Lab Routine Type 2 diabetes mellitus with other neurologic complication, with long-term current use of insulin ([facility]) Stage 3 chronic kidney disease, unspecified whether stage 3a or 3b CKD ([facility]) Expected: 07/13/2024 (Approximate), Expires: 07/13/2025 documented as of this encounter Procedures Procedure Name Priority Date/Time Associated Diagnosis Comments POCT GLYCATED HEMOGLOBIN, TOTAL Routine 07/13/2024 1:52 PM EST Type 2 diabetes mellitus with other neurologic complication, with long-term current use of insulin ([facility]) POCT GLUCOSE Routine 07/13/2024 1:51 PM EST Type 2 diabetes mellitus with other neurologic complication, with long-term current use of insulin ([facility]) documented in this encounter Results * (ABNORMAL) POCT HGB A1C (07/13/2024 1:52 PM EST) [facility] Hemoglobin A1C 9.5(A) 4.0 - 6.0 % QC Media Lot # [id number] Lot# Expiration Date Blood 07/13/2024 1:52 PM EST Adama Anderson MD POINT OF CARE TEST ENTER/EDIT OR DERABLES Final Result * (ABNORMAL) POCT Glucose (07/13/2024 1:51 PM EST) Pathologist [facility] Glucose Blood, POC 411(A) 60 - 200 mg/dL QC Media Lot # [id number] Lot# Expiration Date Blood Capillary blood specimen / Unknown 07/13/2024 1:51 PM EST Adama Anderson MD POINT OF CARE TEST ENTER/EDIT OR DERABLES Final Result documented in this encounter Visit Diagnoses Diagnosis Type 2 diabetes mellitus with other neurologic complication, with long-term current use of insulin ([facility])- Primary Stage 3 chronic kidney disease, unspecified whether stage 3a or 3b CKD ([facility]) Essential (primary) hypertension Unspecified essential hypertension documented in this encounter Additional Health Concerns Assessment Noted Time PHQ-9 Depression Total Score: 2 09/27/19 24 11:14 AM EDT documented as of this encounter Care Teams Steno Pool Supervisor Relationship Specialty Start Date End Date Name, MD Adama [address] [place] [id number] PCP - General Family Medicine 12/31/19 documented as of this encounter
--- OUTSIDE RECORDS SUMMARY | 2024-07-13 16:00 | XMS_ITS | Encounter Summary ---
Author Organization [employer] [facility] Address [address] [place] [address] [place] [address] Care Team Providers Care Asset Availability Leader Name Role Phone Name, Adama DAVEY Primary Care Provider [phone] Reason for Visit * Reason Comments Med Refill Encounter Details Date Type Department Care Team ([facility] st Contact Info) Description 12/31/2022 Refill [facility] [address] [place], [place] [phone] Fany Mohan FNP [address] [place] [address] [place] [address] Pain in both lower extremities Social History Tobacco Use Types Packs/Day Years [...] as of this encounter Visit Diagnoses Diagnosis Pain in both lower extremities documented in this encounter Additional Health Concerns Assessment Noted Time PHQ-9 Depression Total Score: 1 06/07/20 22 9:32 AM EST documented as of this encounter Care Teams Asset Availability Leader Relationship Specialty Start Date End Date Name, MD Adama [address] [place] [address] PCP - General Family Medicine 12/31/19 documented as of this encounter
--- OUTSIDE RECORDS SUMMARY | 2024-07-13 16:00 | XMS_ITS | Encounter Summary ---
Author Organization [employer] Address [address] [facility] 7t [place] [address] Care Team Providers Care Electrical Journeyman Name Role Phone Name, Adama DAVEY Primary Care Provider [phone] Encounter Details Date Type Department Care Team (Latest Contact Info) Description 07/13/2024 Travel Social History Tobacco Use Types Packs/Day Years [...] is your housing situation today? I have sydin michel 09/27/[address] you [...] documented as of this encounter Visit Diagnoses Not on filedocumented in this encounter Additional Health Concerns Assessment Noted Time PHQ-9 Depression Total Score: 2 09/27/19 24 11:14 AM EDT documented as of this encounter Care Teams Electrical Journeyman Relationship Specialty Start Date End Date Name, MD Adama [address] [place] [address] PCP - General Family Medicine 12/31/19 documented as of this encounter
--- OUTSIDE RECORDS SUMMARY | 2024-07-13 16:00 | XMS_ITS | Encounter Summary ---
Author Organization [employer] [facility] Address [address] [facility] [address] [place] [address] Care Team Providers Care Java Sybase Developer Name Role Phone Name, Adama DAVEY Primary Care Provider [phone] Reason for Visit * Reason Comments Med Refill Encounter Details Date Type Department Care Team ([facility] st Contact Info) Description 04/03/2023 Refill [facility]INE [address] [place], [place] [phone] Name, MD Adama [address] [place] [address] Pain in both lower extremities Social History Tobacco Use Types Packs/Day Years Used Date Smoking Tobacco: Never Passive Smoke Exposure: Never Smokeless Tobacco: Never Alcohol Use Standard Drinks/Week Comments Never 0 (1 standard drink = 0.6 oz pur e alcohol) Depression Answer Date Recorded Patient Health Questionnaire-9 Score 1 06/07/2022 Housing Stability Answer Date Recorded What is your housing situation today? I have sydni michel 03/26/[address] you li ve. Do you have problems with any of the following? None of the above 03/26/2023 Food Insecurity Answer Date Recorded Within the past 12 months, y ou worried that your food would run out before you got money to buy more: Never True 03/26/2023 Within the past 12 months,th e food you bought just didn't last and you didn't have enough money to get more: Never True Transportation Answer Date Recorded In the past 12 months, has l ack of transportation kept you from medical appts, meetings, work or from getting things needed for daily living? No 03/26/2023 Utilities Answer Date Recorded In the past 12 months, has t he electric, gas, oil or water company threatened to shut off services in your home? No 03/26/2023 Depression Answer Date Recorded Patient Health Questionnaire-2 [...] documented as of this encounter Care Teams Java Sybase Developer Relationship Specialty Start Date End Date Name, MD Adama [address] [place] [address] PCP - General Family Medicine 12/31/19 documented as of this encounter
--- OUTSIDE RECORDS SUMMARY | 2024-07-13 16:00 | XMS_ITS | Encounter Summary ---
Author Organization [employer] [facility] Address [address] [facility] [address] [place] [address] Care Team Providers Care Bundle Cutter Name Role Phone Name, Adama DAVEY Primary Care Provider [phone] Reason for Visit * Reason Onset Date Comments triage 07/06/2022 Encounter Details Date Type Department Care Team ([facility] st Contact Info) Description 07/06/2022 Telephone [facility] MEDICINE [address] [place], [place] [phone] Name, MD Adama [address] [place] [address] triage Social History Tobacco Use Types Packs/Day Years [...] suspected to have Coronavirus/COVID-19? No / Unsure 06/19/2022 2:53 PM EST documented as of this encounter Miscellaneous Notes * Telephone Encounter - Meagan Boudreaux RN - 07/06/2022 3:33 PM EST Called pt. Via [employer] interpreter G[place] [phone]. [facility] steam conditioning operator states that pt. Is complaining that she feels shaky all the time. Pt. Does have Hx. Of diabetes but caregiver states blood sugars areWNL. Pt. Is always trembling. Caregiver states I only called because pt. Is complaining today but she seems stable like she always is. Caregiver states that pt. Is always fidgety now that she has Dementia. Caregiver wants to know if PCP can give her an anti anxiety pill because she seems to have Anxiety as she is always complaining according to steam conditioning operator. I made office visit for pt. To see PCP on 07/24/22 but I will send request for anti anxiety medication per steam conditioning operator request and told her there is no guarantee on PCP sending med until he assesses pt. In person on 07/24/22. Chocolate Temperer understands. Office visit set up with PCP for 07/24/22 at 345pm. * Telephone Encounter - Suly Barnes - 07/06/2022 2:27 PM EST Symptoms: Medication Reaction, Shaking Outcome: Schedule an urgent appointment (within 1 hour) or talk to a nurse or provider soon Reason: Tc from [facility] requesting an appt for pt to be seen by provider. [facility] claims that this symptoms started to happen after pt was taking off of two medication. The caller accepted this outcome Please contact [facility] at [phone] documented in this encounter Plan of Treatment Not on file documented as of this encounter Visit Diagnoses Not on filedocumented in this encounter Additional Health Concerns Assessment Noted Time PHQ-9 Depression Total Score: 1 06/07/20 22 9:32 AM EST documented as of this encounter Care Teams Bundle Cutter Relationship Specialty Start Date End Date Name, MD Adama [address] [place] [phone] PCP - General Family Medicine 12/31/19 documented as of this encounter
--- OUTSIDE RECORDS SUMMARY | 2024-07-13 16:00 | XMS_ITS | Clinical Summary ---
Author Organization [employer] Address [address] [facility] [address] [place] [address] Care Team Providers Care Cattle Feeder Name Role Phone Name, Adama DAVEY Primary Care Provider [phone] Allergies Active Allergy Reactions Criticality Noted Date Comments Shellfish Allergy 05/16/2022 Medications hydrocortisone 0.5 % cream Apply topically 1 (one) time each day. Apply once a day to the affected skin 021 Active pen needle 32G x 5 mm misc Inject under the skin 1 (one) time each day. Use daily with Lantus Solostar Active Blood Glucose Monitoring Suppl (FreeStyle glucose monitoring) kit Inject 1 each into the skin in the morning, at noon, and at bedtime. Test 1 time by intradermal route 3 times every day Active Misc. Devices (Rollator Ultra-Light) misc With seat Active Diclofenac Sodium (Voltaren) 1 % gelIndications:P ain in both lower extremities Apply 2 g topically if needed in the morning and at bedtime (Leg pain). 100 g 3 022 Active acetaminophen (Tylenol) 325 MG tabletIndication s:Knee pain, unspecified chronicity, unspecified laterality TAKE 2 TABLETS BY MOUTH EVERY 6 HOURS NEEDED FOR PAIN 100 tablet 5 023 Active Alcohol Swabs (Alcohol Prep) 70 % padsIndications: Type 2 diabetes mellitus with other specified complication, unspecified whether intermediate insulin use ([facility]) USE FOUR TIMES DAILY DIRECTED 100 each 11 023 Active clotrimazole (Lotrimin) 1 % cream Apply topically 2 times daily. 30 g 2 024 Active FeroSul 325 (65 Fe) MG tablet TAKE 1 TABLET BY MOUTH EVERY OTHER DAY IN THE MORNING 45 tablet 3 Active fluticasone (Flonase) 50 MCG/ACT nasal spray USE 1-2 SPRAYS IN EACH NOSTRIL ONCE DAILY NEEDED 48 g 1 Active metFORMIN (Glucophage) 500 MG tabletIndication s:Type 2 diabetes mellitus with diabetic polyneuropathy, without long-term current use of insulin (CMS/HCC) TAKE 1 TABLET BY MOUTH TWICE DAILY IN THE MORNING AND IN THE EVENING WITH FOOD 180 tablet 1 Active Aspirin Low Dose 81 MG EC tablet TAKE 1 TABLET BY MOUTH AT BEDTIME 90 tablet 3 Active Multiple Vitamin (Multivitamin) tablet TAKE 1 TABLET BY MOUTH EVERY MORNING 90 tablet 3 Active D3-1000 25 MCG (1000 UT) capsule TAKE 1 CAPSULE BY MOUTH EVERY MORNING 90 capsule 3 Active hydroCHLOROthiaz leslee (Microzide) 12.5 MG capsuleIndicatio ns:Primary hypertension TAKE 1 CAPSULE BY MOUTH EVERY OTHER DAY IN THE MORNING 15 capsule 5 Active Pentips 32G X 4 MM miscIndications: Type 2 diabetes mellitus with hyperglycemia (CMS/[facility]) USE DAILY WITH lantus 100 each 11 Active FREESTYLE LITE test strip TEST BLOOD SUGAR THREE TIMES DAILY 100 strip 11 Active TRUEplus Lancets 33G misc TEST BLOOD SUGAR THREE TIMES DAILY 100 each 11 Active melatonin 5 MG tablet TAKE 1 TABLET AT BEDTIME 30 tablet 3 Active pantoprazole (ProtoNix) 40 MG EC tabletIndication s:Atrophic gastritis without hemorrhage TAKE 1 TABLET BY MOUTH EVERY MORNING 90 tablet Active gabapentin (Neurontin) 100 MG capsuleIndicatio ns:Pain in both lower extremities TAKE 1 CAPSULE BY MOUTH THREE TIMES DAILY IN THE MORNING, EVENING, AND BEDTIME 90 capsule Active cyanocobalamin (Vitamin B-12) 1000 MCG tablet TAKE 1 TABLET BY MOUTH EVERY MORNING 90 tablet 1 024 Active atorvastatin (Lipitor) 80 MG tabletIndication s: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, unspecified vessel or lesion type (CMS/HCC) TAKE 1 TABLET BY MOUTH AT BEDTIME 90 tablet 1 024 Active isosorbide mononitrate ER (Imdur) 30 MG 24 hr tabletIndication s: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, unspecified vessel or lesion type ([facility]) TAKE 1 TABLET BY MOUTH EVERY MORNING 90 tablet 1 024 Active risperiDONE (RisperDAL) 1 MG tabletIndication s:Dementia with behavioral disturbance ([facility]) TAKE 1/2 TABLET BY MOUTH TWICE DAILY IN THE MORNING AND EVENING 30 tablet 2 025 Active citalopram (CeleXA) 10 MG tabletIndication s:Depression, unspecified depression type TAKE 1 TABLET BY MOUTH EVERY MORNING 30 tablet 2 025 Active gabapentin (Neurontin) 100 MG capsuleIndicatio ns:Pain in both lower extremities TAKE 1 CAPSULE BY MOUTH THREE TIMES DAILY IN THE MORNING, EVENING, AND BEDTIME 90 capsule 025 Active insulin glargine (Lantus SoloStar) 100 UNIT/ML penIndications:T ype 2 diabetes mellitus with other neurologic complication, with long-term current use of insulin ([facility]) INJECT 30 UNITS SUBCUTANEOUSLY ONCE DAILY 15 mL 2 025 Active Lantus SoloStar 100 UNIT/ML penIndications:T ype 2 diabetes mellitus without complication, with long-term current use of insulin ([facility]) INJECT 20 UNITS SUBCUTANEOUSLY ONCE DAILY 15 mL 2 024 2024 Discontinued citalopram (CeleXA) 10 MG tabletIndication s:Depression, unspecified depression type TAKE 1 TABLET BY MOUTH EVERY MORNING 30 tablet 2 024 2024 Discontinued risperiDONE (RisperDAL) 1 MG tabletIndication s:Dementia with behavioral disturbance ([facility]) TAKE 1/2 TABLET BY MOUTH TWICE DAILY IN THE MORNING AND EVENING 30 tablet 2 024 2024 Discontinued gabapentin (Neurontin) 100 MG capsuleIndicatio ns:Pain in both lower extremities TAKE 1 CAPSULE THREE TIMES DAILY IN THE MORNING, EVENING, AND BEDTIME 90 capsule 025 2024 Discontinued Active Problems Problem Noted Date Diagnosed Date Decreased vision in both eyes 06/19/2023 Age-related macular degeneration 06/19/2023 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 Hold bisoprolol if HR is < 60. -will contact neurologist if there is an alternative to donepezil -will contact elementary supervisor for further evaluation -schedule Holter monitor -check lab -reviewed signs and symptoms to go to emergency department Other lack of coordination 05/16/2022 Urinary tract infection 05/16/2022 Atherosclerotic heart diseas e of [place] coronary artery without angina pectoris 05/01/2022 Other specified abnormal findings of blood chemi stry 05/01/2022 Urinary hesitancy 05/01/2022 Dementia with behavioral disturbance 05/01/2022 Edema of lower extremity 05/01/2022 Female stress incontinence 05/01/2022 Illiteracy 05/01/2022 Knee pain 05/01/2022 Type 2 diabetes mellitus wit h diabetic chronic kidney disease 05/01/2022 Sensorineural hearing loss ( SNHL) of right ear with unrestricted hearing of left ear 05/01/2022 Vascular insufficiency 05/01/2022 Patient does not have healthcare proxy Pain in unspecified knee 05/01/2022 Stage 3b chronic kidney disease 08/31/2021 Chronic diastolic heart failure 10/22/2018 Coronary arteriosclerosis in patient with history of previous myocardial infarction 07/24/2018 S/P CABG x 4 07/24/2018 Mood disorder 08/07/2017 Presbyopia 07/02/2016 Proliferative diabetic retinopathy 07/02/2016 Pseudophakia 07/02/2016 Artificial lens present 07/02/2016 Cobalamin deficiency 02/22/2015 Arthritis of knee 10/12/2013 Osteoporosis 01/02/2012 Depressive disorder 12/18/2011 Essential (primary) hypertension 12/18/2011 Diabetes mellitus type 2, uncontrolled 2 Atrophic gastritis 06/10/1959 Hyperlipidemia 06/10/1959 Encounters Date Type Department Care Team Description 07/13/2024 1:45 PM EST Office Visit [facility] [address] [place] [address] Adama Anderson MD Type 2 diabetes mellitus with other neurologic complication, with long-term current use of insulin ([facility]) (Primary Dx); Stage 3 chronic kidney disease, unspecified whether stage 3a or 3b CKD (CMS/HCC); Essential (primary) hypertension 07/13/2024 Travel 07/07/[address] [facility] [address] [place] [address] Adama Anderson MD Pain in both lower extremities 06/28/[address] [facility] [address] [place] [address] Adama Anderson MD Dementia with behavioral disturbance ([facility]); Depression, unspecified depression type 06/26/[address] [facility] [address] [place] [address] Adama Anderson MD Type 2 diabetes mellitus with diabetic polyneuropathy, without long-term current use of insulin (CMS/HCC) 06/22/[address] [facility] [address] [place] [phone] Adama Anderson MD Med Refill 06/15/2024 Orders Only [facility] [address] [place] [address] Jaclyn Austin NP Stage 3 chronic kidney disease, unspecified whether stage 3a or 3b CKD (CMS/HCC) (Primary Dx) 06/15/[address] [facility] [address] [place] [address] Adama Anderson MD Type 2 diabetes mellitus with diabetic polyneuropathy, without long-term current use of insulin (CMS/HCC) 06/12/[address] [facility] [address] [place] [address] Adama Anderson MD Pain in both lower extremities 06/12/[address] [facility] [address] [place] [address] Adama Anderson MD Durable Medical Equipment (Gloves, underpads, pull ups and wipes) 06/05/[address] [facility] [address] [place] [address] Adama Anderson MD Type 2 diabetes mellitus with diabetic polyneuropathy, without long-term current use of insulin ([facility]); Pain in both lower extremities 06/04/[address] [facility] [address] [place] [address] Adama Anderson MD Type 2 diabetes mellitus with diabetic polyneuropathy, without long-term current use of insulin ([facility]) 06/02/[address] [facility] [address] [place] [address] Adama Anderson MD Atherosclerosis of coronary artery of [place] heart with angina pectoris, unspecified vessel or lesion type ([facility]) 05/12/[address] [facility] [address] [place] [address] Adama Anderson MD Pain in both lower extremities 05/12/[address] [facility] [address] [place] [address] Kyung Shi MD 05/04/[address] [facility] [address] [place] [address] Cheyenne Pereyra MD Atrophic gastritis without hemorrhage 04/13/[address] [facility] [address] [place] [address] Adama Anderson MD Pain in both lower extremities 04/13/[address] [facility] [address] [place] [address] Adama Anderson MD Pain in both lower extremities from Last 3 Months Immunizations Name Administration Dates Next Due Influenza High-dose Quadriva lent Preservative Free 04/04/2023,02/25/2021,03/13/2020 Influenza injectable quadriv alent IIV4 with preservative 03/20/2019 Influenza injectable quadriv alent preservative free 07/06/2016 Influenza, High Dose Seasona l, Preservative Free 03/09/2024,03/12/2018,03/04/2017,04/16 Influenza, IIV3, injectable 06/07/2014, 0 Influenza, Injectable, MDCK, preservative free 05/14/2015 Influenza, Split (incl. talon fied surface antigen) 02/27/2013,03/24/2012 Influenza, Unspecified 02/25/2021,2019,06/07/2014,03/03 Influenza, seasonal, injecta ble, preservative free 04/16/2016 Moderna Covid-19 Vaccine 12+ 11/13/2021, 04/10/2021,10/26/2020,08/04 Pfizer Covid-19 Vaccine 12+ 03/09/2024 Pneumococcal Conjugate PCV 13 04/12/2021 Pneumococcal Polysaccharide PPSV23 03/12/2018,,01/12/2002 TD (adult), 2 Lf tetanus tox oid, preservative free, adsorbed 01/12/2002 Tdap 11/13/2021,11/18/2019,07/02/2014 Tetanus toxoid, adsorbed 01/12/2022 Varicella 11/07/2018,08/28/2018 Zoster, Recombinant 11/07/2018,08/28/2018 Zoster, live 11/07/2018,08/28/2018,01/12/2016 Social History Tobacco Use Types Packs/Day Years Used Date Smoking Tobacco: Never Passive Smoke Exposure: Never Smokeless Tobacco: Never Tobacco Cessation:Counseling Given: Not Answered Alcohol Use Standard Drinks/Week Comments Never 0 [...] the past 12 months, has t he Elementum, gas, oil or water [employer] threatened to shut off services in your home? No 09/27/2023 Depression Answer Date Recorded Patient Health Questionnaire-2 Score 2 09/27/2023 Comments Unknown Sex and Gender Information Value Date Recorded Sex Assigned at Female 04/09/2022 10:14 AM EDT Legal Sex Female 10:14 AM EDT Gender Identity Choose not to disclose 10:14 AM EDT Sexual Orientation Choose not to disclose 2021 10:14 AM EDT Last Filed Vital Signs Vital Sign Reading [...] Mass Index 32.15 07/13/2024 1:43 PM EST Plan of Treatment Health Maintenance Due Date Last Done Comments Eye Exam 08/23/1957 Hepatitis C Screening 08/23/1965 RSV Patients and Patients Aged 60 years or older (1 - 1-dose 75+ series) 08/23/2022 Diabetes: Foot Exam 05/27/2024 05/27/2023, 05/27/2023, 05/27/2023, Additional history exists Depression Screening 09/26/2024 09/27/2023, 09/27/19 24 SDOH Screening 09/26/2024 09/27/2023 Lipid Panel 09/29/2024 09/30/2023, 09/0 07/2021, 06/21/2020 Diabetes: Hemoglobin A1C 10/10/2024 025, 12/27/2023, 09/27/2023, Additional history exists Alcohol/Substance Use Screening 12/26/2024 12/27/2023 Tobacco Screening 07/13/2025 07/13/2024 Mammogram 12/15/2025 12/16/2023, 070 08/2022, 12/10/2022, Additional history exists DTaP/Tdap/Td Vaccines (5 - Td or Tdap) 01/13/2032 01/12/2022, 11/13/2021, 11/18/2019, Additional history exists Zoster Vaccines Completed 11/07/2018, 10/10, 08/28/2018, Additional history exists Pneumococcal Vaccine: 50+ Years Completed 04/12/2021, 03/12/2018, 05/14/2015, Additional history exists Colorectal Cancer Screening Discontinued FIT Discontinued 10/04/2022 FOBT Discontinued 10/04/2022 COVID-19 Vaccine Completed 03/09/2024, 11/2021, 04/10/2021, Additional history exists Influenza Vaccine Completed 03/09/2024, , 02/25/2021, Additional history exists CT Colonography Discontinued Colonoscopy Discontinued FIT DNA/Cologuard Discontinued HIB Vaccines Aged Out No longer eligi ble based on patient's age to complete this topic HPV Vaccines Aged Out No longer eligi ble based on patient's age to complete this topic Hepatitis A Vaccines Aged Out No long er eligible based on patient's age to complete this topic Hepatitis B Vaccines Aged Out No long er eligible based on patient's age to complete this topic IPV Vaccines Aged Out No longer eligi ble based on patient's age to complete this topic Meningococcal Vaccine Aged Out No darwin shailesh eligible based on patient's age to complete this topic RSV under 20 months Aged Out No longe r eligible based on patient's age to complete this topic Rotavirus Vaccines Aged Out No longer eligible based on patient's age to complete this topic Sigmoidoscopy Discontinued Procedures Procedure Name Priority Date/Time Associated Diagnosis Comments POCT GLYCATED HEMOGLOBIN, TOTAL Routine 07/13/2024 1:52 PM EST Type 2 diabetes mellitus with other neurologic complication, with long-term current use of insulin ([facility]) POCT GLUCOSE Routine 07/13/2024 1:51 PM EST Type 2 diabetes mellitus with other neurologic complication, with long-term current use of insulin ([facility]) BI MAMMOGRAM SCREENING TOMOSYNTHESIS BILATERAL Routine 12/16/2023 3:05 PM EDT LIPID PANEL, STANDARD Routine 09/30/2023 9:32 AM EDT Type 2 diabetes mellitus with other neurologic complication, with long-term current use of insulin ([facility]) Stage 3b chronic kidney disease ([facility]) FECAL GLOBIN BY IMMUNOCHEMISTRY Routine 10/04/2022 8:14 AM EDT from Last 3 Months or Most Recently Relevant to Health Maintenance Results * (ABNORMAL) POCT HGB A1C (07/13/2024 1:52 PM EST) Hemoglobin A1C 9.5(A) 4.0 - 6.0 % QC Media Lot # [id number] Lot# Expiration Date Blood 07/13/2024 1:52 PM EST Result Araceli Anderson MD POINT OF CARE TEST ENTER/EDIT OR DERABLES Final Result * (ABNORMAL) POCT Glucose (07/13/2024 1:51 PM EST) Glucose Blood, POC 411(A) 60 - 200 mg/dL QC Media Lot # [id number] Lot# Expiration Date Blood Capillary blood specimen / Unknown 07/13/2024 1:51 PM EST Result Araceli Anderson MD POINT OF CARE TEST ENTER/EDIT OR DERABLES Final Result * BI Mammogram Screening Tomosynthesis Bilateral (12/16/2023 3:05 PM EDT) Anatomical Region Laterality Modality Breast Bilateral Mammography 12/16/2023 3:05 PM EDT Narrative 01/13/2024 4:26 PM EDT ? [facility] ? [address] ?[place], [place] [address] ? Mammography Report ? Signed ? Patient: Barber,Samina ?MR#: [id number] ? : 1945 ?Acct:[id number] ? Age/Sex: 78 / F ?ADM Date: 12/16/23 ? Loc: HO.MAMMO ? Attending Dr: Adama Name MD ? Ordering Physician: Name,Adama MD ?Results: 1Negative ? Date of Service: 12/16/23 ?Follow Up: 1 Year From Orig ?? inal Mammogram ? Procedure(s): MM tomosynthesis screening BI ?? Accession Number(s): [id number] ? cc: Name,Adama DAVEY ? EXAMINATION: ?? MM SCREENING DIGITAL BREAST TOMOSYNTHESIS, BILATERAL ? CLINICAL INFORMATION: ? Screening. Asymptomatic. ? COMPARISON: ?? Mammography: This study is compared with prior exams dating back to ?? 2019. ? TECHNIQUE: ?? Digital breast tomosynthesis is performed in both the craniocaudal and ?? mediolateral oblique views along with computer-aided detection (CAD). ?? Synthesized 2D images are generated from the tomosynthesis. ? FINDINGS: ?? There are scattered areas of fibroglandular density (ACR BI-RADS breast ?? composition Category b). ? There are no significant masses, abnormal calcifications, or other ?? abnormalities. ? MM/MM tomosynthesis screening BI ?? IMPRESSION: ?? No mammographic evidence of malignancy. ? ASSESSMENT: ? BI-RADS BI-RADS 1 - Negative ? RECOMMENDATION: ?? Routine annual mammography screening. ? 1 year F/U ? This examination should not preclude the clinical evaluation of a ?? suspicious palpable abnormality. ? This patient's information was entered into a reminder system with a ?? target due date for their next mammogram. ? Dictated By: ?Michelle Smith MD ? Signed By: ?<Electronically signed by Michelle Smith MD in OV> ? 01/13/24 1622 ? DD/ 1505 ? TD/TT: ? Liquefaction Supervisor: ? Procedure Note Arnav, Image - 01/13/2024 [facility] [address] [place] [address] Mammography Report Signed Patient: Marky Barber#: [id number] : 8Acct:[id number] Age/Sex: 78 / FADM Date: 12/16/23 Loc: [facility] Attending Dr: Adama Anderson MD Ordering Physician: Adama Andersonesults: 1Negative Date of Service: 12/16/23Follow Up: 1 Year From Orig inal Mammogram Procedure(s): MM tomosynthesis screening BI Accession Number(s): [id number] cc: Adama Anderson MD EXAMINATION: MM SCREENING DIGITAL BREAST TOMOSYNTHESIS, BILATERAL CLINICAL INFORMATION: Screening. Asymptomatic. COMPARISON: Mammography: This study is compared with prior exams dating back to 2019. TECHNIQUE: Digital breast tomosynthesis is performed in both the craniocaudal and mediolateral oblique views along with computer-aided detection (CAD). Synthesized 2D images are generated from the tomosynthesis. FINDINGS: There are scattered areas of fibroglandular density (ACR BI-RADS breast composition Category b). There are no significant masses, abnormal calcifications, or other abnormalities. MM/MM tomosynthesis screening BI IMPRESSION: No mammographic evidence of malignancy. ASSESSMENT: BI-RADS BI-RADS 1 - Negative RECOMMENDATION: Routine annual mammography screening. 1 year F/U This examination should not preclude the clinical evaluation of a suspicious palpable abnormality. This patient's information was entered into a reminder system with a target due date for their next mammogram. Dictated By: Michelle Smith MD Signed By: <Electronically signed by Michelle Smith MD in OV> 01/13/24 1622 DD/ 1505 TD/TT: Liquefaction Supervisor: us Adama Name IMG BI PROCEDURES Final Result * Lipid Panel, Standard (09/30/2023 9:32 AM EDT) Triglycerides 99 <150 mg/dL [facility] Comment:Desirable Triglyceri de: less than 150 mg/dLBorderline High Triglyceride 150-199 mg/dLHigh Triglyceride: 200-499 mg/dLVery High Triglyceride: greater than or equal to 5OO mg/dL Cholesterol 155 <200 mg/dL [facility] Comment:Desirable Cholestero l: less than 200 mg/dLBorderline High Cholesterol: 200-239 mg/dLHigh Cholesterol: greater than 239 mg/dL LDL Cholesterol Calculated 87 <100 mg/dL [facility] Comment:Desirable LDL: less than 100 mg/dLNear Optimal/Above Optimal LDL: 110- 129 mg/dLBorderline High LDL: 130-159 mg/dLHigh LDL: 160-189 mg/dLVery High LDL: greater than or equal to 190 mg/dL HDL Cholesterol 49 >40 mg/dL [facility] Comment:Desirable HDL: great er than 40 mg/dL Note: This HDL assay may give artificially low results in patients with liver disease. Blood Venous blood specimen / Unknown 09/30/2023 9:32 AM EDT 09/30/2023 11:43 AM EDT Adama Name LAB BLOOD ORDERABLES Final Resul t Performing Organization Address City/[facility]/ZIP Co de Phone Number [facility] [address] [place], [place] [phone] * Fecal Globin by Immunochemistry (10/04/2022 8:14 AM EDT) Fecal Globin By Immunochemistry SEE NOTE [employer] [facility] Comment: ??FECAL GLOBIN BY IMMUNOCHEMISTRY ?Micro Number: ?[id number] ??Test Status: ? Final ??Specimen Source: ?? Insure (tm) fobt test card ??Specimen Quality: ??Adequate ??Fecal Globin: ?Not Detected ??Comment: ? Test results may be invalid as no date of ? collection was provided. Specimens are stable ? for 14 days. 10/04/2022 8:14 AM EDT 10/12/2022 4:51 PM EDT Narrative [facility] - 10/12/2022 5:09 PM EDT FASTING: UNKNOWN Adama Name LAB BODY FLUIDS AND STOOLS ORDER SARIKA Final Result Performing Organization Address City/[facility] Co de Phone Number [facility] [address], [place] [address] [employer] [place] [facility] [address] [place] [address] from Last 3 Months or Most Recently Relevant to Health Maintenance Insurance [facility] Care Teams Cattle Feeder Relationship Specialty Start Date End Date Name, MD Adama [address] [place] [address] PCP - General Family Medicine 12/31/19
--- OUTSIDE RECORDS SUMMARY | 2024-07-13 16:00 | XMS_ITS | Encounter Summary ---
Author Organization [employer] Address [address] [facility] 7t [place] [address] Care Team Providers Care Dramatic Director Name Role Phone Name, Adama DAVEY Primary Care Provider [phone] Reason for Visit * Reason Comments Med Refill Encounter Details Date Type Department Care Team ([facility] st Contact Info) Description 06/04/2024 Refill [facility] [address] [place], [place] [phone] Name, MD Adama [address] [place] [address] Type 2 diabetes mellitus with diabetic polyneuropathy, without long-term current use of insulin ([facility]) Social History Tobacco Use Types Packs/Day Years [...] AM EDT documented as of this encounter Miscellaneous Notes * Telephone Encounter - Adama Anderson MD - 06/04/2024 9:10 AM EST Needs repeat BMP documented in this encounter Plan of Treatment Not on file documented as of this encounter Visit Diagnoses Diagnosis Type 2 diabetes mellitus with diabetic polyneuropathy, without long-term current use of insulin ([facility]) documented in this encounter Additional Health Concerns Assessment Noted Time PHQ-9 Depression Total Score: 2 09/27/19 24 11:14 AM EDT documented as of this encounter Care Teams Dramatic Director Relationship Specialty Start Date End Date Name, MD Adama [address] [place] [address] PCP - General Family Medicine 12/31/19 documented as of this encounter
--- OUTSIDE RECORDS SUMMARY | 2024-07-13 16:00 | XMS_ITS | Encounter Summary ---
Author Organization [employer] Address [address] [facility] 7t [place] [address] Care Team Providers Care Supervisor Shuttle Veneering Name Role Phone Name, Adama DAVEY Primary Care Provider [phone] Reason for Visit * Reason Onset Date Comments Med Refill 06/15/2024 Encounter Details Date Type Department Care Team (Late st Contact Info) Description 06/15/2024 Refill [facility] MEDICINE [address] [place], [place] [phone] Name, MD Adama [address] [place] [address] Type 2 diabetes mellitus with diabetic polyneuropathy, without long-term current use of insulin ([facility]) Social History Tobacco Use Types Packs/Day Years [...] is your housing situation today? I have sydnileisa michel 09/27/[address] you [...] encounter Miscellaneous Notes * Telephone Encounter - Hussein Hager MA - 06/15/2024 2:54 PM EST Called pt for Med RX and pt was unavailable. LVM with ext to call back for more info. * Telephone Encounter - Leroy Mathur - 06/15/2024 2:19 PM EST TC from pt requesting medication refill. Medications needing refill : metFORMIN (Glucophage) 500 MG tablet To be sent to: [facility] [place] - [address] [facility] Pt needs for medboxes documented in this encounter Plan of Treatment Not on file documented as of this encounter Visit Diagnoses Diagnosis Type 2 diabetes mellitus with diabetic polyneuropathy, without long-term current use of insulin ([facility]) documented in this encounter Additional Health Concerns Assessment Noted Time PHQ-9 Depression Total Score: 2 09/27/19 24 11:14 AM EDT documented as of this encounter Care Teams Supervisor Shuttle Veneering Relationship Specialty Start Date End Date Name, MD Adama [address] [facility] [place] [address] PCP - General Family Medicine 12/31/19 documented as of this encounter
--- OUTSIDE RECORDS SUMMARY | 2024-07-13 16:00 | XMS_ITS | Encounter Summary ---
Author Organization [employer] Address [address] [facility] [address] 7t [place] [address] Care Team Providers Care Instruction Dean Name Role Phone Name, Adama DAVEY Primary Care Provider [phone] Encounter Details Date Type Department Care Team (Late st Contact Info) Description 06/15/2024 Orders Only [facility] MEDICINE [address] [place], [place] [phone] Jaclyn Austin NP 230 [place], [place] [phone] Stage 3 chronic kidney disease, unspecified whether stage 3a or 3b CKD (CMS/HCC) (Primary Dx) Social History Tobacco Use Types Packs/Day Years [...] as of this encounter Plan of Treatment Scheduled Orders Name Type Priority Associated Diagnoses Orde r Schedule Comprehensive Metabolic Panel Lab Routine Stage 3 chronic kidney disease, unspecified whether stage 3a or 3b CKD (CMS/HCC) Expected: 06/15/2024 (Approximate), Expires: 06/15/2025 documented as of this encounter Visit Diagnoses Diagnosis Stage 3 chronic kidney disease, unspecified whether stage 3a or 3b CKD (CMS/HCC)- Primary documented in this encounter Additional Health Concerns Assessment Noted Time PHQ-9 Depression Total Score: 2 09/27/19 24 11:14 AM EDT documented as of this encounter Care Teams Instruction Dean Relationship Specialty Start Date End Date Name, MD Adama 230 [place] [address] PCP - General Family Medicine 12/31/19 documented as of this encounter
--- OUTSIDE RECORDS SUMMARY | 2024-07-13 16:00 | XMS_ITS ---
Author Organization [facility] Address Unknown Allergies, Adverse Reactions, Alerts Substance Reaction Status Noted Date Resolved Date Seafood active 05/16/2022 Problems Problem Status Start Date End Date OTHER LACK OF COORDINATION (Primary) (R27.8 - ICD-10-C M) ACTIVE 05/16/2022 UNSPECIFIED DEMENTIA, UNSPEC IFIED SEVERITY, WITHOUT BEHAVIORAL DISTURBANCE, PSYCHOTIC DISTURBANCE, MOOD DISTURBANCE, AND ANXIETY (F03.90 - ICD-10-CM) ACTIVE 05/16/2022 ATHEROSCLEROTIC HEART DISEAS E OF [place] CORONARY ARTERY WITHOUT ANGINA PECTORIS (I25.10 - ICD-10-CM) ACTIVE 05/16/2022 TYPE 2 DIABETES MELLITUS WIT HOUT COMPLICATIONS (E11.9 - ICD-10-CM) ACTIVE 05/16/2022 URINARY TRACT INFECTION, SIT E NOT SPECIFIED (N39.0 - ICD-10-CM) ACTIVE 05/16/2022 ESSENTIAL (PRIMARY) HYPERTENSION (I10 - ICD-10-CM) ACT HAKAN 05/16/2022 Encounters Encounter Performer Performer Role Encounter Diagnoses Location Date Discharge - Discharged to home or self care - Home - Private home/apt. with no home health services [facility] 2 05:26 pm EST - 2 04:12 pm EST Immunizations Vaccine Date Tetanus 01/12/2022 12:00 am EDT PCV13 (Pneumococcal Conjugate)Vaccine 12:00 am EDT PPSV23 (Previous Pneumococcal Polysaccha ride)Vaccine 03/12/2018 12:00 am EDT Tdap (Tetanus, Diphtheria, Pertussis) 12:00 am EDT Shingrix 2nd Step 11/07/2018 12:00 am EDT Shingrix 1st Step 08/28/2018 12:00 am EDT SARS-COV-2 (COVID-19) 10/26/2020 12:00 a m EDT SARS-COV-2 (COVID-19) 08/04/2020 12:00 a m EST Moderna Covid-19 Booster (SARS-COV-2) va ccine 11/13/2021 12:00 am EDT Moderna Covid-19 Booster (SARS-COV-2) va ccine 04/10/2021 12:00 am EDT Social History
--- OUTSIDE RECORDS SUMMARY | 2024-07-13 16:00 | XMS_ITS | Encounter Summary ---
Author Organization [employer] Address [address] [facility] 7t [place] [address] Care Team Providers Care Goal Umpire Name Role Phone Name, Adama DAVEY Primary Care Provider [phone] Reason for Visit * Reason Onset Date Comments Med Refill 06/22/2024 Encounter Details Date Type Department Care Team ([facility] st Contact Info) Description 06/22/2024 Telephone [facility] MEDICINE 230 [place], [place] [phone] Name, MD Adama 230 [place] [address] Med Refill Social History Tobacco Use Types Packs/Day Years [...] encounter Miscellaneous Notes * Telephone Encounter - Marycarmen Valverde RN - 07/03/2024 9:54 AM EST T/C to pt/ MALTER OPERATOR via BLS Tack Maker #[id number] to advise of PCP recommendation. No answer x 2 attempts. V/M left to return call to [place] team nurses. * Telephone Encounter - Adama Anderson MD - 07/03/2024 6:46 AM EST I recommended to continue only on the insulin for now and have come to the lab to recheck her CMP, order is in. If the creatinine is better I will refill the Metformin if not I will recommend a different med * Telephone Encounter - Mika Handley - 07/02/2024 2:20 PM EST Checking status on metformin . Caller was advised of covering provider comment . Dr Anderson currently in office at this time . * Telephone Encounter - Fina Izaguirre LPN - 06/22/2024 4:24 PM EST Per TC from 06/15/25 from Jaclyn Austin Pls let pt know pcp is on vacation, and I am hesitant to refill metformin with reduced kidney function at this time. Please monitor sugars closely, and if elevated we can rx alternatives pls schedule with pcp or eg * Telephone Encounter - Mika Handley - 06/22/2024 4:22 PM EST TC from pt requesting medication refill. Medications needing refill : metFORMIN (Glucophage) 500 MG tablet To be sent to: [facility] documented in this encounter Plan of Treatment Not on file documented as of this encounter Visit Diagnoses Not on filedocumented in this encounter Additional Health Concerns Assessment Noted Time PHQ-9 Depression Total Score: 2 09/27/19 24 11:14 AM EDT documented as of this encounter Care Teams Goal Umpire Relationship Specialty Start Date End Date Name, MD Adama [address] [place] [address] PCP - General Family Medicine 12/31/19 documented as of this encounter
--- OUTSIDE RECORDS SUMMARY | 2024-07-13 16:00 | XMS_ITS | Encounter Summary ---
Author Organization [employer] Address [address] [facility] 7t [place] [address] Care Team Providers Care Guard Chief Name Role Phone Name, Adama DAVEY Primary Care Provider [phone] Encounter Details Date Type Department Care Team (Late st Contact Info) Description 06/20/2022 Orders Only [facility] MEDICINE [address] [place], [place] [phone] Clarisse Hernandez MD 230 [place], [place] [phone] Primary hypertension (Primary Dx) Social History Tobacco Use Types [...] PM EST documented as of this encounter Plan of Treatment Not on file documented as of this encounter Visit Diagnoses Diagnosis Primary hypertension- Primary Unspecified essential hypertension documented in this encounter Additional Health Concerns Assessment Noted Time PHQ-9 Depression Total Score: 1 06/07/20 22 9:32 AM EST documented as of this encounter Care Teams Guard Chief Relationship Specialty Start Date End Date Name, MD Adama [address] [place] [address] PCP - General Family Medicine 12/31/19 documented as of this encounter
--- OUTSIDE RECORDS SUMMARY | 2024-07-13 16:00 | XMS_ITS | Encounter Summary ---
Author Organization [employer] [facility] Address [address] [facility] 7t [place] [address] Care Team Providers Care Plodding Machine Operator Name Role Phone Name, Adama DAVEY Primary Care Provider [phone] Reason for Visit * Reason Comments Med Refill Encounter Details Date Type Department Care Team ([facility] st Contact Info) Description 06/05/2022 Refill [facility] 230 [place], [place] [phone] Name, MD Adama 230 [place] [address] Type 2 diabetes mellitus with other specified complication, unspecified whether lobsterman insulin use (CMS/HCC) (Primary Dx) Social History Tobacco Use Types Packs/Day Years Used Date Smoking Tobacco: Never Assessed Depression Answer Date Recorded Patient Health Questionnaire-9 [...] suspected to have Coronavirus/COVID-19? No / Unsure 06/07/2022 9:11 AM EST documented as of this encounter Plan of Treatment Not on file documented as of this encounter Visit Diagnoses Diagnosis Type 2 diabetes mellitus with other specified complication, unspecified whether lobsterman insulin use (CMS/HCC)- Primary documented in this encounter Care Teams Plodding Machine Operator Relationship Specialty Start Date End Date Name, MD Adama [address] [place] [address] PCP - General Family Medicine 12/31/19 documented as of this encounter
--- OUTSIDE RECORDS SUMMARY | 2024-07-13 16:00 | XMS_ITS | Encounter Summary ---
Author Organization [employer] Address [address] [facility] 7t [place] [address] Care Team Providers Care Mixer Tender Name Role Phone Name, Adama DAVEY Primary Care Provider [phone] Reason for Visit * Reason Comments Med Refill Encounter Details Date Type Department Care Team ([facility] st Contact Info) Description 06/26/2024 Refill [facility] [address] [place], [place] [phone] Name, MD Adama 230 [place] [address] Type 2 diabetes mellitus with diabetic polyneuropathy, without long-term current use of insulin ([facility]) Social History Tobacco Use Types Packs/Day [...] polyneuropathy, without long-term current use of insulin ([facility]) documented in this encounter Additional Health Concerns Assessment Noted Time PHQ-9 Depression Total Score: 2 09/27/19 24 11:14 AM EDT documented as of this encounter Care Teams Mixer Tender Relationship Specialty Start Date End Date Name, MD Adama [address] [place] [address] PCP - General Family Medicine 12/31/19 documented as of this encounter
--- OUTSIDE RECORDS SUMMARY | 2024-07-13 16:00 | XMS_ITS | Clinical Summary ---
Author Organization [facility] Address [address] [address] Care Team Providers Care Plasterer Stucco Name Role Phone Name, Adama DAVEY Primary Care Provider [phone] Allergies Active Allergy Reactions Criticality Noted Date Comments Shellfish Allergy 05/16/2022 Medications acetaminophen (TYLENOL) 325 MG tablet TAKE 2 TABLETS BY MOUTH EVERY 6 HOURS NEEDED FOR PAIN 08/24/19 23 Active Alcohol Swabs (Alcohol Prep) 70 % pads USE FOUR TIMES DAILY DIRECTED 09/15/19 23 Active Aspirin Low Dose 81 MG EC tablet Take 81 mg by mouth at bed time 07/10/19 23 Active Vitamin D High Potency 25 MCG (1000 UT) capsule Take 1,000 Units by mouth 07/10/19 23 Active citalopram (CeleXA) 10 MG tablet Take 10 mg by mouth 09/15/19 23 Active cyanocobalamin (VITAMIN B-12) 1000 MCG tablet Take 1,000 mcg by mouth 09/15/19 23 Active gabapentin (NEURONTIN) 100 MG capsule TAKE 1 CAPSULE BY MOUTH THREE TIMES DAILY IN THE MORNING, EVENING, AND BEDTIME 07/10/19 23 Active hydroCHLOROthia zide (MICROZIDE) 12.5 MG capsule Take 12.5 mg by mouth every other day TAKE 1 CAPSULE BY MOUTH EVERY OTHER DAY IN THE MORNING 09/15/19 23 Active Lantus SoloStar 100 UNIT/ML injection INJECT 20 UNITS SUBCUTANEOUSLY ONCE DAILY 08/18/19 23 Active isosorbide mononitrate (IMDUR) 30 MG 24 hr tablet Take 30 mg by mouth 07/10/19 23 Active metFORMIN (GLUCOPHAGE) 500 MG tablet TAKE 1 TABLET BY MOUTH TWICE DAILY IN THE MORNING AND IN THE EVENING WITH FOOD 09/15/19 23 Active Multiple Vitamin (Multivitamin) tablet Take 1 tablet by mouth 07/10/19 23 Active pantoprazole (PROTONIX) 40 MG EC tablet Take 40 mg by mouth 09/15/19 Active FeroSul 325 (65 Fe) MG tablet TAKE 1 TABLET BY MOUTH EVERY OTHER DAY IN THE MORNING 10/16/19 Active Active Problems Problem Noted Date Diagnosed Date Renal osteodystrophy 05/11/2024 Stage 3b chronic kidney disease 09/10/2023 Type 2 diabetes mellitus wit h diabetic chronic kidney disease 09/10/2023 Age related macular degeneration 06/19/2023 Cardiomyopathy 05/27/2023 Overview (09/10/2023): 05/02 EF of 45% on ECHO done at [facility] Severe mitral calcification (no MR or MS) Anemia 09/27/2022 02/04/2023 Bradycardia 06/19/2022 02/04/2023 Overview (02/04/2023): Last Assessment & Plan: -possible drug interaction, especially bisprolol and denepezil -check BP and HR before taking bisoprolol. Hold bisoprolol if HR is < 60. -will contact neurologist if there is an alternative to donepezil -will contact [employer]ian policy specialist for further evaluation -schedule Holter monitor -check lab -reviewed signs and symptoms to go to emergency department Essential (primary) hypertension 05/16/2022 Atherosclerotic heart diseas e of [place] coronary artery without angina pectoris 05/16/2022 01/03/2023 Other lack of coordination 05/16/202201/03 Type 2 diabetes mellitus without complication 01/03/2023 Unspecified dementia, unspec ified severity, without behavioral disturbance, psychotic disturbance, mood disturbance, and anxiety 05/16/2022 01/03/2023 Urinary tract infection 05/16/2022 01/04/20 23 Delay when starting to pass urine 05/01/2022 02/04/2023 Creatinine level - finding 05/01/202202/04 Illiteracy 05/01/2022 02/04/2023 Pain of knee region 05/01/2022 02/04/2023 Chronic diastolic heart failure 10/22/2018 02/04/2023 Coronary arteriosclerosis in patient with history of previous myocardial infarction 07/24/2018 02/04/2023 Artificial lens present 07/02/2016 02/05/20 Cobalamin deficiency 02/22/2015 02/04/2023 Arthritis of knee 10/12/2013 02/04/2023 Osteoporosis 01/02/2012 02/04/2023 Depressive disorder 12/18/2011 02/04/2023 Atrophic gastritis 06/10/1959 02/04/2023 Hyperlipidemia 06/10/1959 02/04/2023 Encounters Date Type Department Care Team Description 05/11/2024 1:45 PM EST Office Visit [facility] [address] [place] [address] Jarrod Castro MD Stage 3b chronic kidney disease (HCC) (Primary Dx); Type 2 diabetes mellitus with diabetic chronic kidney disease (HCC); Renal osteodystrophy from Last 3 Months Immunizations Name Administration Dates Next Due Influenza Split 02/27/2013,03/24/2012 Influenza Split High Dose Pr eservative Free IM 03/12/2018,03/04/2017,04/16/2016 Influenza, Injectable, Madin Vendor Canine Kidney, Preservative Free 05/14/2015 Influenza, Quadrivalent, Pre servative Free 07/06/2016 Influenza, Quadrivalent, Wit h Preservative 03/20/2019 Influenza, Unspecified 02/25/2021,2019,06/07/2014,03/03 Moderna SARS-COV-2 11/13/2021,,10/26/2020,08/04 Pneumococcal Conjugate 13-Valent 04/12/2021 Pneumococcal Polysaccharide 03/12/2018, 5,01/12/2002 Shingrix 11/07/2018,08/28/2018 Td 01/12/2002 Tdap 11/13/2021,11/18/2019,07/02/2014 Tetanus 01/12/2022 Varicella 11/07/2018,08/28/2018 Zoster 11/07/2018,08/28/2018,01/12/2016 Social History Tobacco Use Types Packs/Day Years Used Date Smoking Tobacco: Never Assessed Tobacco Cessation:Counseling Given: Not Answered Comments Unknown Sex and Gender Information Value Date Recorded Sex Assigned at Not on file Legal Sex Female 10:33 AM EDT Gender Identity Not on file Sexual Orientation Not on file Last Filed Vital Signs Vital Sign Reading Time Taken Comments Blood Pressure 120/66 05/11/2024 1:40 PM EST Pulse 105 05/11/2024 1:40 PM EST Temperature - - Respiratory Rate - - Oxygen Saturation 93% 05/11/2024 1:40 PM EST Inhaled Oxygen Concentration - - Weight 79.6 kg (175 lb 6.4 oz) 05/11/2024 1:40 P M EST Height 149.9 cm (4' 11 ) 01/03/2023 3:09 PM EDT Body Mass Index 35.43 01/03/2023 3:09 PM EDT Plan of Treatment Upcoming Encounters Date Type Department Care Team (Late st Contact Info) Description 11/16/2024 3:30 PM EDT Office Visit [facility] [address] [place] [address] [place] [phone] Jarrod Castro MD [address] [facility] [address] [place] [phone] Health Maintenance Due Date Last Done Comments Diabetes: Ophthalmology Exam 06/12/2022 Diabetes: Pedal Pulse Checked 06/12/2022 Diabetes: Sensory Foot Exam 06/12/2022 Diabetes: Visual Foot Exam 06/12/2022 Diabetes: Hemoglobin A1C 03/28/2024 12/27/2023 Pneumococcal Vaccine: 65+ Years Completed 04/12/2021, 03/12/2018, 05/14/2015, Additional history exists Influenza Vaccine Completed 03/09/2024, , 03/13/2020, Additional history exists Hepatitis B Vaccine Aged Out No longe r eligible based on patient's age to complete this topic Insurance [employer] C[employer] DUAL SNP ([id number]) [facility] CARE DUAL SNP ([id number]) Care Teams Plasterer Stucco Relationship Specialty Start Date End Date Name, MD Adama [address] [place] [phone] PCP - General Internal Medicine 02/19/22
--- OUTSIDE RECORDS SUMMARY | 2024-07-13 16:00 | XMS_ITS | Encounter Summary ---
Author Organization [employer] Address [address] [facility] 7t [place] [address] Care Team Providers Care Glass Loading Equipment Tender Name Role Phone Name, Adama DAVEY Primary Care Provider [phone] Reason for Visit * Reason Comments Med Refill Encounter Details Date Type Department Care Team ([facility] st Contact Info) Description 06/05/2024 Refill [facility] [address] [place], [place] [phone] Name, MD Adama 230 [place] [address] Type 2 diabetes mellitus with diabetic polyneuropathy, without long-term current use of insulin ([facility]); Pain in both lower extremities Social History [...] polyneuropathy, without long-term current use of insulin ([facility]) Pain in both lower extremities documented in this encounter Additional Health Concerns Assessment Noted Time PHQ-9 Depression Total Score: 2 09/27/19 24 11:14 AM EDT documented as of this encounter Care Teams Glass Loading Equipment Tender Relationship Specialty Start Date End Date Name, MD Adama [address] [place] [address] PCP - General Family Medicine 12/31/19 documented as of this encounter
--- OUTSIDE RECORDS SUMMARY | 2024-07-13 16:00 | XMS_ITS | Encounter Summary ---
Author Organization [employer] [facility] Address [address] [facility] 7t [place] [address] Care Team Providers Care Community Support Specialist Name Role Phone Name, Adama DAVEY Primary Care Provider [phone] Reason for Visit * Reason Comments Med Refill Encounter Details Date Type Department Care Team ([facility] st Contact Info) Description 07/07/2024 Refill [facility] MEDICINE 230 [place], [place] [phone] Name, MD Adama 230 [place], [place] [phone] Pain in both lower extremities Social History [...] documented as of this encounter Care Teams Community Support Specialist Relationship Specialty Start Date End Date Name, MD Adama [address] [place] [address] PCP - General Family Medicine 12/31/19 documented as of this encounter
[2024-07-13 18:42] LABS: Alanine Aminotransferase 14 U/L (0-31); Albumin Level 3.7 g/dL (3.5-5.0); Alkaline Phosphatase 64 U/L (39-117); Anion Gap 13 (12-20); Aspartate Amino Transferase 25 U/L (5-31); Bilirubin Total 0.6 mg/dL (0.0-1.0); Blood Urea Nitrogen 22 mg/dL (9-16); Calcium 8.7 mg/dL (8.4-10.2); Carbon Dioxide 21 mmol/L (22-29); Chloride 103 mmol/L (96-108); Estimated Glomerular Filt Rate 32; Glucose Random 352 mg/dL (60-115); Potassium 3.7 mmol/L (3.3-5.1); Sodium 133 mmol/L (135-145); Total Protein 7.6 g/dL (6.5-8.0)
== END 2024-07-13 14:21 | disposition home or self-care (01) ==
LOC: HO.HHCL 14:20
PROVIDERS: Visit Provider Internal Medicine Geriatric Medicine
DX: E11.49 Type 2 diabetes mellitus with other diabetic neurological complication (principal); N18.30 Chronic kidney disease, stage 3 unspecified; Z79.4 Long term (current) use of insulin
CPT/HCPCS: 36415; 80053

== ENCOUNTER 2024-07-14 08:54 | Outpatient (REF) | payer OTHER, SELFPAY ==
--- OUTSIDE RECORDS SUMMARY | 2024-07-14 09:09 | XMS_ITS | Encounter Summary ---
Author Organization [employer] [facility] Address [address] [facility] 7t [place] [address] Care Team Providers Care Director Of Managed Services Name Role Phone Name, Adama DAVEY Primary Care Provider [phone] Reason for Visit * Reason Onset Date Comments triage 07/06/2022 Encounter Details Date Type Department Care Team ([facility] st Contact Info) Description 07/06/2022 Telephone [facility] MEDICINE 230 [place], [place] [phone] Name, MD Adama 230 [place] [address] triage Social History Tobacco Use Types Packs/Day [...] 07/06/2022 3:33 PM EST Called pt. Via [place] [facility] [employer] [place] [phone]. [place] subway conductor states that pt. Is complaining that she [...] as she is always complaining according to subway conductor. I made office visit for pt. To see PCP on 07/24/22 but I will send request for anti anxiety medication per subway conductor request and told her there is no guarantee on PCP sending med until he assesses pt. In person on 07/24/22. Assigner understands. Office visit set up with PCP [...] accepted this outcome Please contact [place] at [phone] documented in this encounter Plan of Treatment Not on file documented as of this encounter Visit Diagnoses Not on filedocumented in this encounter Additional Health Concerns Assessment Noted Time PHQ-9 Depression Total Score: 1 06/07/20 22 9:32 AM EST documented as of this encounter Care Teams Director Of Managed Services Relationship Specialty Start Date End Date Name, MD Adama [address] [place] [address] PCP - General Family Medicine 12/31/19 documented as of this encounter
--- OUTSIDE RECORDS SUMMARY | 2024-07-14 09:09 | XMS_ITS | Encounter Summary ---
Author Organization [employer] Address [address] [facility] 7t [place] [address] Care Team Providers Care Police Communications Operator Name Role Phone Name, Adama DAVEY Primary Care Provider [phone] Encounter Details Date Type Department Care Team (Late st Contact Info) Description 06/20/2022 Orders Only [facility] MEDICINE [address] [place], [place] [phone] Clarisse Hernandez MD 230 [place], [place] [phone] Primary hypertension (Primary Dx) Social History Tobacco [...] documented as of this encounter Care Teams Police Communications Operator Relationship Specialty Start Date End Date Name, MD Adama 230 [place] [address] PCP - General Family Medicine 12/31/19 documented as of this encounter
--- OUTSIDE RECORDS SUMMARY | 2024-07-14 09:09 | XMS_ITS | Encounter Summary ---
Author Organization [employer] [facility] Address [address] [facility] 7t [place] [address] Care Team Providers Care Ornamental Iron Erector Name Role Phone Name, Adama DAVEY Primary Care Provider [phone] Reason for Visit * Reason Comments Med Refill Encounter Details Date Type Department Care Team ([facility] st Contact Info) Description 07/23/[address] [facility] MEDICINE 230 [place], [place] [phone] Clarisse Hernandez MD 230 [place] [address] Primary hypertension Social History Tobacco Use Types [...] documented as of this encounter Care Teams Ornamental Iron Erector Relationship Specialty Start Date End Date Name, MD Adama 230 [place] [address] PCP - General Family Medicine 12/31/19 documented as of this encounter
--- OUTSIDE RECORDS SUMMARY | 2024-07-14 09:10 | XMS_ITS | Encounter Summary ---
Author Organization [employer] Address [address] [facility] 7t [place] [address] Care Team Providers Care Flumer Name Role Phone Name, Adama DAVEY Primary Care Provider Reason for Visit * Reason Comments Med Refill Encounter Details Date Type Department Care Team ([facility] st Contact Info) Description 06/05/2024 Refill [facility] 230 [place], [place] [phone] Name, MD Adama 230 [place] [address] Type 2 diabetes mellitus with diabetic polyneuropathy, without long-term current use of insulin ([facility]); Pain in both lower extremities Social History [...] without long-term current use of insulin ([facility]) Pain in both lower extremities documented in this encounter Additional Health Concerns Assessment Noted Time PHQ-9 Depression Total Score: 2 09/27/19 24 11:14 AM EDT documented as of this encounter Care Teams Flumer Relationship Specialty Start Date End Date Name, MD Adama [address] [place] [id number] PCP - General Family Medicine 12/31/19 documented as of this encounter
--- OUTSIDE RECORDS SUMMARY | 2024-07-14 09:10 | XMS_ITS | Encounter Summary ---
Author Organization [employer] Address [address] [facility] 7t [place] [address] Care Team Providers Care Felt Hanger Name Role Phone Name, Adama DAVEY Primary Care Provider [phone] Reason for Visit * Reason Comments Med Refill Encounter Details Date Type Department Care Team ([facility] st Contact Info) Description 06/04/2024 Refill [facility] 230 [place], [place] [phone] Name, MD Adama 230 [place] [address] Type 2 diabetes mellitus with diabetic polyneuropathy, without long-term current use of insulin ([facility]) Social History Tobacco Use Types Packs/Day Years [...] polyneuropathy, without long-term current use of insulin ([facility]) documented in this encounter Additional Health Concerns Assessment Noted Time PHQ-9 Depression Total Score: 2 09/27/19 24 11:14 AM EDT documented as of this encounter Care Teams Felt Hanger Relationship Specialty Start Date End Date Name, MD Adama [address] [place] [address] PCP - General Family Medicine 12/31/19 documented as of this encounter
--- OUTSIDE RECORDS SUMMARY | 2024-07-14 09:10 | XMS_ITS | Encounter Summary ---
Author Organization [employer] Address [address] [facility] 7t [place] [address] Care Team Providers Care Paper Bag Making Machinist Name Role Phone Name, Adama DAVEY Primary Care Provider [phone] Reason for Visit * Reason Comments Med Refill Encounter Details Date Type Department Care Team ([facility] st Contact Info) Description 06/26/2024 Refill [facility] 230 [place], [place] [phone] Name, MD Adama 230 [place] [address] Type 2 diabetes mellitus with diabetic polyneuropathy, without long-term current use of insulin ([facility]) Social History Tobacco Use Types Packs/Day Years [...] polyneuropathy, without long-term current use of insulin ([facility]) documented in this encounter Additional Health Concerns Assessment Noted Time PHQ-9 Depression Total Score: 2 09/27/19 24 11:14 AM EDT documented as of this encounter Care Teams Paper Bag Making Machinist Relationship Specialty Start Date End Date Name, MD Adama 230 [place] [address] PCP - General Family Medicine 12/31/19 documented as of this encounter
--- OUTSIDE RECORDS SUMMARY | 2024-07-14 09:10 | XMS_ITS | Encounter Summary ---
Author Organization [employer] Address [address] [facility] 7t [place] [address] Care Team Providers Care Director Critical Care Name Role Phone Name, Adama DAVEY Primary Care Provider [phone] Reason for Visit * Reason Comments Follow-up Encounter Details Date Type Department Care Team ([facility] st Contact Info) Description 07/13/2024 1:45 PM EST Office Visit [facility] MEDICINE 230 [place], [place] [phone] Name, MD Adama [address] [place] [address] Type 2 diabetes mellitus with other neurologic [...] follow-up visit. She is accompanied by her BAIL AGENT. Patient feels well. Her blood sugars have been running high since she came off the metformin. Medication was put on hold because she has CKD and we do not have a recent renal function. She is using her insulin as prescribed. Her BAIL AGENT makes sure she does not have too many sweets. The patient has dementia and depends on meals prepared by the BAIL AGENT. Review of Systems Constitutional: Negative for chills [...] complication, with long-term current use of insulin ([facility]) Comments: I will increase her dose of [...] unspecified whether stage 3a or 3b CKD ([facility]/HCC) - Comprehensive Metabolic Panel; Future - Albumin, Random Urine W/Creatinine; Future Essential (primary) hypertension documented in this encounter Plan of Treatment Scheduled Orders Name Type Priority Associated Diagnoses Orde r Schedule Albumin, Random Urine W/Creatinine Lab Routine Type 2 diabetes mellitus with other neurologic complication, with long-term current use of insulin (CMS/HCC) Stage 3 chronic kidney disease, unspecified whether stage 3a or 3b CKD (CMS/HCC) Expected: 07/13/2024 (Approximate), Expires: 07/13/2025 documented as of this encounter Procedures Procedure Name Priority Date/Time Associated Diagnosis Comments COMPREHENSIVE METABOLIC PANEL Routine 07/13/2024 2:22 PM EST Type 2 diabetes mellitus with other neurologic complication, with long-term current use of insulin ([facility]) Stage 3 chronic kidney disease, unspecified whether stage 3a or 3b CKD ([facility]/HCC) POCT GLYCATED HEMOGLOBIN, TOTAL Routine 07/13/2024 1:52 PM EST Type 2 diabetes mellitus with other neurologic complication, with long-term current use of insulin ([facility]) POCT GLUCOSE Routine 07/13/2024 1:51 PM EST Type 2 diabetes mellitus with other neurologic complication, with long-term current use of insulin ([facility]) documented in this encounter Results * (ABNORMAL) Comprehensive Metabolic Panel (07/13/2024 2:22 PM EST) Sodium 133(L) 135 - 145 mmol/L [facility] Potassium 3.7 3.3 - 5.1 mmol/L [facility] Chloride 103 96 - 108 mmol/L [facility] Carbon Dioxide 21(L) 22 - 29 mmol/L [facility] Anion Gap 13 12 - 20 [facility] Urea Nitrogen (BUN) 22(H) 9 - 16 mg/dL [facility] Creatinine, Serum 1.57(H) 0.5 - 1.4 mg/dL [facility] Estimated Glomerular Filt Rate 32 [facility] Comment:Chronic Kidney Disea se: Estimated GFR < 60 mL/min/1.12f7Stizqf Kidney Disease: Estimated GFR < 15 mL/min/1.73m2 Glucose 352(HH) 60 - 115 mg/dL [facility] Comment:Critical value for t est(s):GLUR Results called to and readback by: JIM BOYCE Person calling: FLEASAFCDate:07-13-24 Time:1708/1738/1824 Calcium 8.7 8.4 - 10.2 mg/dL [facility] Bilirubin, Total 0.6 0.0 - 1.0 mg/dL [facility] Aspartate Amino Transferase 25 5 - 31 U/L [facility] Alanine Aminotransferase 14 0 - 31 U/L [facility] Total Protein 7.6 6.5 - 8.0 g/dL [facility] Albumin Level 3.7 3.5 - 5.0 g/dL [facility] Alkaline Phosphatase 64 39 - 117 U/L [facility] Blood Venous blood specimen / Unknown 07/13/2024 2:22 PM EST 07/13/2024 4:00 PM EST us Adama Anderson MD LAB BLOOD ORDERABLES Final Resul t [facility] [address] [place] [phone] * (ABNORMAL) POCT HGB A1C (07/13/2024 1:52 PM EST) Hemoglobin A1C 9.5(A) 4.0 - 6.0 % QC Media Lot # [id number] Lot# Expiration Date Blood 07/13/2024 1:52 PM EST us Adama Anderson MD POINT OF CARE TEST [...] complication, with long-term current use of insulin ([facility])- Primary Stage 3 chronic kidney disease, unspecified whether stage 3a or 3b CKD ([facility]) Essential (primary) hypertension Unspecified essential hypertension documented in this encounter Additional Health Concerns Assessment Noted Time PHQ-9 Depression Total Score: 2 09/27/19 24 11:14 AM EDT documented as of this encounter Care Teams Director Critical Care Relationship Specialty Start Date End Date Name, MD Adama [address] [place] [id number] PCP - General Family Medicine 12/31/19 documented as of this encounter
--- OUTSIDE RECORDS SUMMARY | 2024-07-14 09:10 | XMS_ITS | Encounter Summary ---
Author Organization [employer] [facility] Address [address] [place] [address] [place] [address] Care Team Providers Care Health Administrator Name Role Phone Name, Adama DAVEY Primary Care Provider [phone] Reason for Visit * Reason Comments Med Refill Encounter Details Date Type Department Care Team ([facility] st Contact Info) Description 12/31/2022 Refill [facility] MEDICINE 230 [place], [place] [phone] Fany Mohan FNP [address] [place] [address] [place] [address] Pain in both lower extremities Social History [...] documented as of this encounter Care Teams Health Administrator Relationship Specialty Start Date End Date Name, MD Adama 230 [place] [address] PCP - General Family Medicine 12/31/19 documented as of this encounter
--- OUTSIDE RECORDS SUMMARY | 2024-07-14 09:10 | XMS_ITS | Encounter Summary ---
Author Organization [employer] Address [address] [facility] 7t [place] [address] Care Team Providers Care National Expansion Recruiter Name Role Phone Name, Adama DAVEY Primary Care Provider [phone] Reason for Visit * Reason Onset Date Comments Med Refill 06/15/2024 Encounter Details Date Type Department Care Team (Late st Contact Info) Description 06/15/2024 Refill [facility] MEDICINE 230 [place], [place] [phone] Name, MD Adama 230 [place] [address] Type 2 diabetes mellitus with diabetic polyneuropathy, without long-term current use of insulin ([facility]) Social History Tobacco Use Types Packs/Day Years [...] 500 MG tablet To be sent to: [facility] [place] - [address] [facility] Pt needs for medboxes documented in this encounter Plan of Treatment Not on file documented as of this encounter Visit Diagnoses Diagnosis Type 2 diabetes mellitus with diabetic polyneuropathy, without long-term current use of insulin ([facility]) documented in this encounter Additional Health Concerns Assessment Noted Time PHQ-9 Depression Total Score: 2 09/27/19 24 11:14 AM EDT documented as of this encounter Care Teams National Expansion Recruiter Relationship Specialty Start Date End Date Name, MD Adama [address] [facility] [place] [address] PCP - General Family Medicine 12/31/19 documented as of this encounter
--- OUTSIDE RECORDS SUMMARY | 2024-07-14 09:10 | XMS_ITS | Clinical Summary ---
Author Organization [facility] Address [address] [address] Care Team Providers Care Switch Repairer Name Role Phone Name, Adama DAVEY Primary Care Provider [phone] Allergies Active Allergy Reactions Criticality Noted Date [...] EF of 45% on ECHO done at [facility] Severe mitral calcification (no MR or MS) Anemia 09/27/2022 02/04/2023 Bradycardia 06/19/2022 02/04/2023 Overview (02/04/2023): Last Assessment & Plan: -possible drug interaction, especially bisprolol and denepezil -check BP and HR before taking bisoprolol. Hold bisoprolol if HR is < 60. 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 Immunizations Name Administration Dates Next Due Influenza Split 02/27/2013,03/24/2012 Influenza Split High Dose Pr eservative Free IM 03/12/2018,03/04/2017,04/16/2016 Influenza, Injectable, [place] Canine Kidney, Preservative Free 05/14/2015 Influenza, Quadrivalent, [...] Visit [facility] [address] [place] [address] [place] [phone] Jarrod Castro MD [address] [facility] [address] [place] [phone] Health Maintenance Due Date Last Done Comments [...] Insurance [employer] CARE DUAL SNP ([id number]) [facility] CARE DUAL SNP ([id number]) Care Teams Switch Repairer Relationship Specialty Start Date End Date Name, MD Adama [address] [place] [phone] PCP - General Internal Medicine 02/19/22
--- OUTSIDE RECORDS SUMMARY | 2024-07-14 09:10 | XMS_ITS | Encounter Summary ---
Author Organization [employer] Address [address] [facility] [address] 7t [place] [address] Care Team Providers Care Receiving Worker Name Role Phone Name, Adama DAVEY Primary Care Provider [phone] Encounter Details Date Type Department Care Team (Late st Contact Info) Description 06/15/2024 Orders Only [facility] MEDICINE 230 [place], [place] [phone] Jaclyn Austin NP 230 [place], [place] [phone] Stage 3 chronic kidney disease, unspecified whether [...] documented as of this encounter Care Teams Receiving Worker Relationship Specialty Start Date End Date Name, MD Adama 230 [place] [address] PCP - General Family Medicine 12/31/19 documented as of this encounter
--- OUTSIDE RECORDS SUMMARY | 2024-07-14 09:10 | XMS_ITS | Data Portability ---
Author Organization [employer] [facility], [place] in - On license of [facility] Address [address] [place] [id number] Care Team Providers Care Medical Administrative Technician Name Role Phone [facility] PRIMARY [facility]ARE Referring Provider [phone] Assessment Encounter Date Assessment Date Assessment LastModified by Organization Details LastModified Time 07/11/2022 07/11/2022 I provided real -time medical direction via phone for this encounter, and was available for additional phone based assistance as needed. I have reviewed and agree with the Assessment and Plan as documented by the Interpreter Deaf. Patient/ caregiver given the opportunity to ask questions using laborer gold leaf line. Unsure of cause of pain/FTT ? deterioration of dementia- unable to eval further at home- expl to patient/ care rep via medical records specialist. No relief from APAP 1t 13:00( 3 hrs prior) Cannot use ketorolac due to increased Cr. 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 Report called to Liliam [email or web address] Not available 07/11/2022 16:00:55 Plan of Treatment Reminders Order Date Submit Date Provider Last Modified By Organization Details Last Modified Time Details Appointments None recorded. Lab culture, urine 2022 023 [place] [facility], [address], [place], [address], 3 08:23:33 BMP, serum or plasma 2022 023 [email or web address] 0 [facility], [address] [place] [address], [phone], 3 16:08:02 hemoglobin + hematocrit, blood 2022 023 [email or web address] 0 [facility], [address] [place] [address], [address], 3 16:08:02 urinalysis, dipstick 2022 023 [email or web address] 0 [facility], [address] [place] [address], [address], 3 16:08:02 glucose, fingerstick , blood 2022 023 [email or web address] 0 [facility], [address] [place] [address], [address], 3 16:08:02 rapid SARS CoV 2 Ag, QL IA, respiratory specimen 2022 023 [email or web address] 0 [facility], [address] [place] [address], [address], 3 16:08:02 Referral None recorded. Procedures catheteriza tion straight - procedure (PROC) 2022 023 [email or web address] 0 Not available 3 16:08:02 Surgeries None recorded. Imaging None recorded. Medication Orders None recorded. Patient TargetsNo targets recorded. Patient InstructionsNo instructions recorded. Reason for Referral None Reported. Results Created Date Observation Date Name Description Value Unit Range Abnormal Flag Note LastModifiedBy Organization Detail LastModifiedTime 07/11/1907/12/2022 URINE CULTU RE specimen description URINE Not Available [facility] [address] [place], [id number], 07/13/2022 08:23:30 07/11/1907/12/2022 URINE CULTU RE special requests NONE Not Available [facility] [address] [place], [address], 07/13/2022 08:23:30 07/11/1907/13/2022 URINE CULTU RE culture NO GROWTH Not Available [facility] [address] [place], [address], 07/13/2022 08:23:30 07/11/19 23 07/13/2022 URINE CULTU RE report status FINAL 2022 Not Available [facility] [address], [place], [address], 07/13/2022 08:23:30 07/11/19 23 07/11/2022 rapid SARS CoV 2 Ag, QL IA, respi rator y speci men rapid SARS CoV 2 Ag, QL IA, respiratory specimen negati ve Not Available [facility] [address] [place] [address], [address], 07/11/2022 16:03:10 07/11/19 23 07/11/2022 gluco se, finge rstic k, blood Blood Glucose: mg/dl 180 Not Available [facility] [address] [place] [address], [address], 07/11/2022 16:03:00 07/11/19 23 07/11/2022 urina lysis , dipst ick Leukocytes trace to 1+ Not Available [facility] [address] [place] [address], [address], 07/11/2022 16:02:53 07/11/19 23 07/11/2022 urina lysis , dipst ick Nitrite negati ve Not Available [facility] [address] [place] [address], [address], 07/11/2022 16:02:53 07/11/19 23 07/11/2022 urina lysis , dipst ick Protein neg Not Available [facility] [address], [address], 07/11/2022 16:02:53 07/11/19 23 07/11/2022 urina lysis , dipst ick pH 5 Not Available [facility] [address], [address], 07/11/2022 16:02:53 07/11/19 23 07/11/2022 urina lysis , dipst ick Blood neg Not Available [facility] [address], [address], 07/11/2022 16:02:53 07/11/19 23 07/11/2022 urina lysis , dipst ick Specific [place] 1.015 Not Available [facility] [address] [place] [address], [address], 07/11/2022 16:02:53 07/11/19 23 07/11/2022 urina lysis , dipst ick Ketone neg Not Available [facility] [address], [address], 07/11/2022 16:02:53 07/11/19 23 07/11/2022 urina lysis , dipst ick Glucose neg Not Available [facility] [address], [address], 07/11/2022 16:02:53 07/11/19 23 07/11/2022 urina lysis , dipst ick Appearance clear Not Available [facility] [address] [place] [address], [address], 07/11/2022 16:02:53 07/11/19 23 07/11/2022 urina lysis , dipst ick Color yellow Not Available [facility] [address], [address], 07/11/2022 16:02:53 07/11/19 23 07/11/2022 hemog lobin + hemat ocrit , blood Hemoglobin 10.5 Not Available [facility] [address] [place] [address], [address], 07/11/2022 16:02:42 07/11/19 23 07/11/2022 hemog lobin + hemat ocrit , blood Hematocrit 31 Not Available [facility] [address] [place] [address], [address], 07/11/2022 16:02:42 07/11/19 23 07/11/2022 BMP, serum or plasm a BUN 22 Not Available [facility] [address], [address], 07/11/2022 16:02:38 07/11/19 23 07/11/2022 BMP, serum or plasm a Ca I isabel 1.19 Not Available [facility] - [address], [address], 07/11/2022 16:02:38 07/11/19 23 07/11/2022 BMP, serum or plasm a CI- 100 Not Available [facility] [address], [address] [place] [address], 07/11/2022 16:02:38 07/11/19 23 07/11/2022 BMP, serum or plasm a CRE 1.8( up from 1.13 2) Not Available [facility] - [address], [address], 07/11/2022 16:02:38 07/11/19 23 07/11/2022 BMP, serum or plasm a GLU 143 Not Available [facility] [address], [address], 07/11/2022 16:02:38 07/11/19 23 07/11/2022 BMP, serum or plasm a K+ 4.5 Not Available [facility] [address], [address], 07/11/2022 16:02:38 07/11/19 23 07/11/2022 BMP, serum or plasm a Na+ 134 Not Available [facility] [address], [address], 07/11/2022 16:02:38 07/11/19 23 07/11/2022 BMP, serum or plasm a tCO2 22 Not Available [facility] [address], [address], 07/11/2022 16:02:38 Result Notes None recorded. Medical Equipment None Reported. Allergies No known drug allergies Medications Name Sig Start Date Stop Date Status Note LastModified by Organization Details LastModified Time medbox status USE DIRECTED active Not Available Not Available No t Available multivitamin tablet TAKE 1 TABLET BY MOUTH EVERY MORNING active Not Available Not Available No t Available metformin 500 mg tablet TAKE 1 TABLET BY MOUTH TWICE DAILY IN THE MORNING AND IN THE EVENING WITH FOOD active Not Available Not Available No t Available hydralazine 10 mg tablet TAKE 1 TABLET BY MOUTH THREE TIMES DAILY active Not Available Not Available Not Available atorvastatin 80 mg tablet TAKE 1 TABLET BY MOUTH AT BEDTIME active Not Available Not Available No t Available donepezil 5 mg tablet TAKE 1 TABLET BY MOUTH AT BEDTIME active Not Available Not Available No t Available citalopram 10 mg tablet TAKE 1 TABLET BY MOUTH EVERY MORNING active Not Available Not Available No t Available hydrocodone 5 mg-acetamino phen 325 mg tablet TAKE 1 TABLET BY MOUTH EVERY 8 HOURS NEEDED FOR SEVERE PAIN. TAKE FOR 3 DAYS. active Not Available Not Available Not Available donepezil 10 mg tablet TAKE 1 TABLET BY MOUTH AT BEDTIME active Not Available Not Available No t Available isosorbide mononitrate ER 30 mg tablet,exten ded release 24 hr TAKE 1 TABLET BY MOUTH EVERY MORNING active Not Available Not Available No t Available cyanocobalam in (vit B-12) 1,000 mcg tablet TAKE 1 TABLET BY MOUTH EVERY MORNING active Not Available Not Available No t Available aspirin 81 mg tablet,delay ed release TAKE 1 TABLET BY MOUTH AT BEDTIME active Not Available Not Available No t Available bisoprolol fumarate 5 mg tablet TAKE 1 TABLET BY MOUTH EVERY MORNING active Not Available Not Available No t Available cephalexin 500 mg capsule TAKE 1 CAPSULE BY MOUTH EVERY 6 HOURS FOR 7 DAYS active Not Available Not Available No t Available pantoprazole 40 mg tablet,delay ed release TAKE 1 TABLET BY MOUTH EVERY MORNING active Not Available Not Available No t Available Ear Drops (carbamide peroxide) 6.5 % PLACE 5 DROPS INTO THE AFFECTED EAR(S) TWICE DAILY active Not Available Not Available Not Available hydrochlorot hiazide 12.5 mg capsule TAKE 1 CAPSULE BY MOUTH EVERY MORNING active Not Available Not Available No t Available gabapentin 100 mg capsule TAKE 1 CAPSULE BY MOUTH THREE TIMES DAILY IN THE MORNING, EVENING, AND BEDTIME active Not Available Not Available Not Available fluticasone propionate 50 mcg/actuatio n nasal spray,suspen ant INHALE 1 TO 2 SPRAYS IN EACH NOSTRIL ONCE DAILY NEEDED active Not Available Not Available No t Available risperidone 1 mg tablet TAKE 1/2 TABLET BY MOUTH TWICE DAILY active Not Available Not Available No t Available Vitamin D3 25 mcg (1,000 unit) capsule TAKE 1 CAPSULE BY MOUTH EVERY MORNING active Not Available Not Available No t Available Alcohol Prep Pads USE FOUR TIMES DAILY DIRECTED active Not Available Not Available Not Available Glutose-15 40 % oral gel USE DIRECTED FOR HYPOGLYCEMI A active Not Available Not Available No t Available FreeStyle Lite Strips TEST BLOOD SUGAR THREE TIMES DAILY active Not Available Not Available Not Available Lantus Solostar U-100 Insulin 100 unit/mL (3 mL) subcutaneous pen INJECT 20 UNITS SUBCUTANEOU SLY ONCE DAILY active Not Available Not Available No t Available diclofenac 1 % topical gel APPLY 2 GRAMS TOPICALLY TO AFFECTED AREA(S) TWICE DAILY IN THE MORNING AND AT BEDTIME NEEDED active Not Available Not Available No t Available TRUEplus Lancets 33 gauge TEST BLOOD SUGAR THREE TIMES DAILY active Not Available Not Available Not Available Pentips Pen Needle 32 gauge x 5/32 USE DAILY WITH LANTUS active Not Available Not Available Not Available Baqsimi 3 mg/actuation nasal spray USE 1 SPRAY (3MG) IN ONE NOSTRIL FOR A PATIENT WITH SEVERE HYPOGLYCEMI A WHO IS NOT RESPONSIVE AND UNABLE SELF-TREAT WITH GLUCOSE. AFTERWARDS TURN ON SIDE. MAY REPEAT IN 15MINUTES IF PATIENT DOES NOT RESPOND. active Not Available Not Available No t Available Vitals Date Recorded Body temperature Heart rate Oxygen saturation Oxygen saturation in Arterial blood by Pulse oximetry Respiratory rate Body weight Body temperature Heart rate Respiratory rate Body weight Oxygen saturation Oxygen saturation in Arterial blood by Pulse oximetry Systolic blood pressure Diastolic blood pressure Systolic blood pressure Diastolic blood pressure Provider Name and Address Organization Details Last Updated DateTime 3 98.3 [degF] 68 /min 99 % 99 % 14 /min 63703.8 g 98.3 [degF] 68 /min 14 /min 05513.8 g 99 % 99 % 126 mm[Hg] 53 mm[Hg] 126 mm[Hg] 53 mm[Hg] Not Available [facility] - production 3 16:28:39 Social History None recorded. Functional Status None recorded. Mental Status None recorded. Family History Nothing Reported. Medical History No medical history recorded. Gynecological HistoryNo gynecological history recorded. Obstetrics History GPAL:G 0 P 0 0 0 0 Past Encounters Encounter ID Performer Location Encounter Start Date Encounter Closed Date Diagnosis/Indication Diagnosis SNOMED-CT Code Diagnosis ICD10 Code Diagnosis Note [id number] Anita Alamo MD [address] [address] 07/11/2022 14:46:51 07/13/2022 09:45:06 Failure to thrive 53698835 R62.51 diffuse pain ? etiology/ CKD/ sl worsening anemia- d/w caregiver- patient unable to comprehend Health Concerns Section Related Observation LastModified by Organization Detai ls LastModified Time None Recorded Concern Status LastModified by Organization Details LastModified Time None Recorded Advance Directives Directive None Recorded Payers Encounter Date Sequence Insurance Name Policy Number Policy Martin Covered Member ID Martin Member ID Guarantor Name 07/11/2022 1 [facility] - DOS PRIOR TO 2022 - DUAL ELIGIBLE (MEDICARE REPLACEMENT/ADV ANTAGE - HMO) Samina Barber [id number] Samina Barber Notes Date Note Type Note Provider Name and Address Organization Details Recorded Time 07/11/2022 text/html HPI: Triage call received from care provider Sangita who reports patient with poor appetite and appears uncomfortable. No cough or congestion no fever. No urine symptoms identified. Patient weak. Patient with dementia and poor communication. ................... ................... ................... ................... ................... ................... ................... ........ CRC Nursing Assessment: Comments: CRC RN did not require any additional information to process this visit. SEGMD: per care rep saw pcp 06/25/22- med for dementia d/c'd- ? name- crossed off med list w/ sharpie- not in [place] and care rep does not know/ 1 week later patient started c/o fatigue/ wanted to sleep all day/ whole body hurts- unable to localize/ moaning/not eating much food- will drink. Decreased u/o yesterday but ok to day- no odor noted. NO fever/ cough.............. ................... ................... ................... ................... ................... ................... ............. Interpreter Deaf Note From Robin Choi: Pt presents awake and alert to baseline, moaning as if she is in discomfort. Pt's JUNIOR PARALEGAL sts pt was seen at PCP on 06/25 and a dementia medication was d/c. JUNIOR PARALEGAL does not know the name of med. JUNIOR PARALEGAL reports approx one week later pt began moaning and c/o vague weakness and body aches. JUNIOR PARALEGAL sts pt denies any cp, sob, or f/n/vid. POC Covid negative. POC chem8 and CG4 unremarkable. Straight cath with 14 fr for urine culture and dip (+ CLAYTON). JUNIOR PARALEGAL sts she is uncomfortable keeping the pt at home. Pt transported to [facility] ED via [facility] for failure to thrive workup and possible placement. ................... ................... ................... ................... ................... ................... ................... ........ Disposition: Fulfilled Anita Alamo MD [address] [facility],[address], [place], [address], [place] - [employer] 07/11/2022 20:00:21 OBGyn Episode No OBEpisode recorded.
--- OUTSIDE RECORDS SUMMARY | 2024-07-14 09:10 | XMS_ITS | Encounter Summary ---
Author Organization [employer] [facility] Address [address] [place] [address] Care Team Providers Care First Aid Director Name Role Phone Name, Adama DAVEY Primary Care Provider Reason for Visit * Reason Comments Med Refill Encounter Details Date Type Department Care Team ([facility] st Contact Info) Description 07/07/2024 Refill [facility] MEDICINE [address] [place], [place] [phone] Name, MD Adama [address] [place], [place] [phone] Pain in both lower extremities Social History [...] documented as of this encounter Care Teams First Aid Director Relationship Specialty Start Date End Date Name, MD Adama [address] [place] [id number] PCP - General Family Medicine 12/31/19 documented as of this encounter
--- OUTSIDE RECORDS SUMMARY | 2024-07-14 09:10 | XMS_ITS | Encounter Summary ---
Author Organization [facility] [facility] Address [address] [facility] [address] [place] [address] Care Team Providers Care Garment Finisher Name Role Phone Name, Adama DAVEY Primary Care Provider Reason for Visit * Reason Comments Med Refill Encounter Details Date Type Department Care Team ([facility] st Contact Info) Description 06/05/[address] [facility] [address] [place], [place] [phone] Name, MD Adama [address] [place] [address] Type 2 diabetes mellitus with other specified complication, unspecified whether health information tech insulin use (CMS/HCC) (Primary Dx) Social History [...] mellitus with other specified complication, unspecified whether health information tech insulin use (CMS/HCC)- Primary documented in this encounter Care Teams Garment Finisher Relationship Specialty Start Date End Date Name, MD Adama [address] [place] [address] PCP - General Family Medicine 12/31/19 documented as of this encounter
--- OUTSIDE RECORDS SUMMARY | 2024-07-14 09:10 | XMS_ITS | Encounter Summary ---
Author Organization [employer] Address [address] [place] [address] Care Team Providers Care Cnc Machine Operator Name Role Phone Name, Adama DAVEY Primary Care Provider [phone] Encounter Details Date Type Department Care Team ([facility] st Contact Info) Description 07/13/2024 Telephone [facility] MEDICINE [address] [place] [address] Amanda Granados MD [address] [place] [address] Social History Tobacco Use Types Packs/Day Years [...] encounter Miscellaneous Notes * Telephone Encounter - Amanda Granados MD - 07/13/2024 7:04 PM EST TC from [facility] Lab RE: critical lab value. Blood glucose on CMP is 352. Chart reviewed. Patient seen by PCP today - POC testing shows BS of 411. Meds are being adjusted. documented in this encounter Plan of Treatment Not on file documented as of this encounter Visit Diagnoses Not on filedocumented in this encounter Additional Health Concerns Assessment Noted Time PHQ-9 Depression Total Score: 2 09/27/19 24 11:14 AM EDT documented as of this encounter Care Teams Cnc Machine Operator Relationship Specialty Start Date End Date Name, MD Adama [address] [place] [address] PCP - General Family Medicine 12/31/19 documented as of this encounter
--- OUTSIDE RECORDS SUMMARY | 2024-07-14 09:10 | XMS_ITS | Encounter Summary ---
Author Organization [facility] Address [address] [address] [place] [address] Care Team Providers Care Semiconductor Wafers Tester Name Role Phone Name, Adama DAVEY Primary Care Provider Reason for Visit * Reason Comments Med Refill Encounter Details Date Type Department Care Team ([facility] st Contact Info) Description 04/03/2023 Refill [facility] MEDICINE [address] [place], [place] [phone] Name, MD Adama [address] [place] [address] Pain in both lower extremities Social History [...] documented as of this encounter Care Teams Semiconductor Wafers Tester Relationship Specialty Start Date End Date Name, MD Adama [address] [place] [address] PCP - General Family Medicine 12/31/19 documented as of this encounter
--- OUTSIDE RECORDS SUMMARY | 2024-07-14 09:10 | XMS_ITS | Encounter Summary ---
Author Organization [employer] Address [address] [facility] [address] [place] [address] Care Team Providers Care Makeup Sales Advisor Name Role Phone Name, Adama DAVEY Primary Care Provider [phone] Reason for Visit * Reason Onset Date Comments Med Refill 06/22/2024 Encounter Details Date Type Department Care Team ([facility] st Contact Info) Description 06/22/2024 Telephone [facility] MEDICINE 230 [place], [place] [phone] Name, MD Adama 230 [place] [address] Med Refill Social History Tobacco Use Types [...] 07/03/2024 9:54 AM EST T/C to pt/ GRAB DRIVER via BLS [employer] Or Barge Mate #[id number] to advise of PCP recommendation. No answer x 2 attempts. V/M left to return call to Patrick team nurses. * Telephone Encounter - Adama [...] 500 MG tablet To be sent to: [facility] documented in this encounter Plan of Treatment Not on file documented as of this encounter Visit Diagnoses Not on filedocumented in this encounter Additional Health Concerns Assessment Noted Time PHQ-9 Depression Total Score: 2 09/27/19 24 11:14 AM EDT documented as of this encounter Care Teams Makeup Sales Advisor Relationship Specialty Start Date End Date Name, MD Adama [address] [place] [id number] PCP - General Family Medicine 12/31/19 documented as of this encounter
--- OUTSIDE RECORDS SUMMARY | 2024-07-14 09:10 | XMS_ITS | Encounter Summary ---
Author Organization [employer] Address [address] [facility] 7t [place] [address] Care Team Providers Care Hemstitching Machine Operator Name Role Phone Name, Adama DAVEY Primary Care Provider [phone] Reason for Visit * Reason Comments Med Refill Encounter Details Date Type Department Care Team ([facility] st Contact Info) Description 06/28/2024 Refill [facility] 230 [place], [place] [phone] Name, MD Adama [address] [place] [address] Dementia with behavioral disturbance (CMS/HCC); Depression, unspecified [...] documented as of this encounter Care Teams Hemstitching Machine Operator Relationship Specialty Start Date End Date Name, MD Adama [address] [place] [address] PCP - General Family Medicine 12/31/19 documented as of this encounter
--- OUTSIDE RECORDS SUMMARY | 2024-07-14 09:10 | XMS_ITS | Encounter Summary ---
Author Organization [employer] [facility] Address [address] [place], [place] [address]t [place] [address] Care Team Providers Care Tub Operator Name Role Phone Name, Adama DAVEY Primary Care Provider [phone] Reason for Visit * Reason Comments Med Refill Encounter Details Date Type Department Care Team ([facility] st Contact Info) Description 01/09/2023 Refill [facility] MEDICINE [address] [place] [address] Fany Mohan FNP [address] [place] [address] [place] [address] Type 2 diabetes mellitus without complication, with [...] documented as of this encounter Care Teams Tub Operator Relationship Specialty Start Date End Date Name, MD Adama [address] [place] [address] PCP - General Family Medicine 12/31/19 documented as of this encounter
--- OUTSIDE RECORDS SUMMARY | 2024-07-14 09:11 | XMS_ITS | Encounter Summary ---
Author Organization [employer] Address [address] [facility] [address] [place] [address] Care Team Providers Care Automation Developer Name Role Phone Name, Adama DAVEY Primary Care Provider Encounter Details Date Type Department Care Team [...] documented as of this encounter Care Teams Automation Developer Relationship Specialty Start Date End Date Name, MD Adama 230 [place] [address] PCP - General Family Medicine 12/31/19 documented as of this encounter
--- OUTSIDE RECORDS SUMMARY | 2024-07-14 09:11 | XMS_ITS | Clinical Summary ---
Author Organization [employer] Address 75 [facility] 7t [place] [address] Care Team Providers Care Supervisor Steel Division Name Role Phone Name, Adama DAVEY Primary Care Provider [phone] Allergies Active Allergy Reactions Criticality Noted Date [...] mellitus with other specified complication, unspecified whether skilled nursing insulin use ([facility]) USE FOUR TIMES DAILY DIRECTED 100 each [...] miscIndications: Type 2 diabetes mellitus with hyperglycemia (CMS/[facility]) USE DAILY WITH lantus 100 each 11 [...] tabletIndication s: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, unspecified vessel or lesion type (CMS/HCC) TAKE 1 TABLET BY MOUTH AT BEDTIME 90 tablet 1 024 Active isosorbide mononitrate ER (Imdur) 30 MG 24 hr tabletIndication s: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, unspecified vessel or lesion type ([facility]) TAKE 1 TABLET BY MOUTH EVERY MORNING 90 tablet 1 024 Active risperiDONE (RisperDAL) 1 MG tabletIndication s:Dementia with behavioral disturbance ([facility]) TAKE 1/2 TABLET BY MOUTH TWICE DAILY [...] complication, with long-term current use of insulin ([facility]) INJECT 30 UNITS SUBCUTANEOUSLY ONCE DAILY 15 mL 2 025 Active Lantus SoloStar 100 UNIT/ML penIndications:T ype 2 diabetes mellitus without complication, with long-term current use of insulin ([facility]) INJECT 20 UNITS SUBCUTANEOUSLY ONCE DAILY 15 mL 2 024 2024 Discontinued citalopram (CeleXA) 10 MG tabletIndication s:Depression, unspecified depression type TAKE 1 TABLET BY MOUTH EVERY MORNING 30 tablet 2 024 2024 Discontinued risperiDONE (RisperDAL) 1 MG tabletIndication s:Dementia with behavioral disturbance ([facility]) TAKE 1/2 TABLET BY MOUTH TWICE DAILY [...] EF of 45% [place] [facility] [place] calcification (no MR or MS) 05/02 EF of 45% [place] [facility] [place] mitral calcification (no MR or MS) Anemia 09/27/2022 Bradycardia 06/19/2022 Assessment & Plan (06/19/2022 10:05 PM EST): -possible drug interaction, especially bisprolol and denepezil -check BP and HR before taking bisoprolol. Hold bisoprolol if HR is < 60. -will contact neurologist if there is an alternative to donepezil -will contact flat bed operator for further evaluation -schedule Holter monitor -check lab -reviewed signs and symptoms to go to emergency department Other lack of coordination 05/16/2022 Urinary tract infection 05/16/2022 Atherosclerotic heart diseas e of [place] coronary artery without angina pectoris 05/01/2022 Other [...] 1:45 PM EST Office Visit [facility] [address] [place] [address] Adama Anderson MD Type 2 diabetes mellitus with other neurologic complication, with long-term current use of insulin ([facility]) (Primary Dx); Stage 3 chronic kidney disease, unspecified whether stage 3a or 3b CKD (CMS/HCC); Essential (primary) hypertension 07/13/2024 Telephone [facility] [address] [place] [address] Amanda Granados MD 07/13/2024 Travel 07/07/2024 Refill [facility] [address] [place] [address] Adama Anderson MD Pain in both lower extremities 06/28/2024 Refill [facility] [address] [place] [address] Adama Anderson MD Dementia with behavioral disturbance ([facility]); Depression, unspecified depression type 06/26/2024 Refill [facility] [address] [place] [address] Adama Anderson MD Type 2 diabetes mellitus with diabetic polyneuropathy, without long-term current use of insulin (CMS/HCC) 06/22/2024 Telephone [facility] [address] [place] [address] Adama Anderson MD Med Refill 06/15/2024 Orders Only [facility] [address] [place] [address] Jaclyn Austin NP Stage 3 chronic kidney disease, unspecified whether stage 3a or 3b CKD (CMS/HCC) (Primary Dx) 06/15/2024 Refill [facility] [address] [place] [address] Adama Anderson MD Type 2 diabetes mellitus with diabetic polyneuropathy, without long-term current use of insulin ([facility]) 06/12/2024 Refill [facility] [address] [place] [address] Adama Anderson MD Pain in both lower extremities 06/12/2024 Telephone [facility] [address] [place] [phone] Adama Anderson MD Durable Medical Equipment (Gloves, underpads, pull ups and wipes) 06/05/2024 Refill [facility] [address] [place] [address] Adama Anderson MD Type 2 diabetes mellitus with diabetic polyneuropathy, without long-term current use of insulin ([facility]); Pain in both lower extremities 06/04/2024 Refill [facility] [address] [place] [phone] Adama Anderson MD Type 2 diabetes mellitus with diabetic polyneuropathy, without long-term current use of insulin ([facility]) 06/02/2024 Refill [facility] [address] [place] [phone] Adama Anderson MD Atherosclerosis of coronary artery of [place] heart with angina pectoris, unspecified vessel or lesion type ([facility]) 05/12/2024 Refill [facility] [address] [place] [address] Adama Anderson MD Pain in both lower extremities 05/12/2024 Refill [facility] [address] [place] [phone] Kyung Shi MD 05/04/2024 Refill [facility] [address] [place] [address] Cheyenne Pereyra MD Atrophic gastritis without hemorrhage 04/13/2024 Refill [facility] [address] [place] [address] Adama Anderson MD Pain in both lower extremities 04/13/2024 Refill [facility] [address] [place] [address] Adama Anderson MD Pain in both lower [...] whether stage 3a or 3b CKD (CMS/HCC) POCT GLYCATED HEMOGLOBIN, TOTAL Routine 07/13/2024 1:52 PM EST Type 2 diabetes mellitus with other neurologic complication, with long-term current use of insulin (CMS/HCC) POCT GLUCOSE Routine 07/13/2024 1:51 PM EST Type 2 diabetes mellitus with other neurologic complication, with long-term current use of insulin (CMS/HCC) BI MAMMOGRAM SCREENING TOMOSYNTHESIS BILATERAL Routine 12/16/2023 3:05 PM EDT LIPID PANEL, STANDARD Routine 09/30/2023 9:32 AM EDT Type 2 diabetes mellitus with other neurologic complication, with long-term current use of insulin (CMS/HCC) Stage 3b chronic kidney disease (CMS/HCC) FECAL GLOBIN BY IMMUNOCHEMISTRY Routine 10/04/2022 8:14 AM EDT from Last 3 Months or Most Recently Relevant to Health Maintenance Results * (ABNORMAL) Comprehensive Metabolic Panel (07/13/2024 2:22 PM EST) Sodium 133(L) 135 - 145 mmol/L [facility] Potassium 3.7 3.3 - 5.1 mmol/L [facility] Chloride 103 96 - 108 mmol/L [facility] Carbon Dioxide 21(L) 22 - 29 mmol/L [facility] Anion Gap 13 12 - 20 [facility] Urea Nitrogen (BUN) 22(H) 9 - 16 mg/dL [facility] Creatinine, Serum 1.57(H) 0.5 - 1.4 mg/dL [facility] Estimated Glomerular Filt Rate 32 [facility] Comment:Chronic Kidney Disea se: Estimated GFR < 60 mL/min/1.92y8Piicwh Kidney Disease: Estimated GFR < 15 mL/min/1.73m2 Glucose 352(HH) 60 - 115 mg/dL [facility] Comment:Critical value for t est(s):GLUR Results called to and readback by: AMANDA BOYCE Person calling: FLEASAFCDate:07-13-24 Time:1708/1738/1824 Calcium 8.7 8.4 - 10.2 mg/dL [facility] Bilirubin, Total 0.6 0.0 - 1.0 mg/dL [facility] Aspartate Amino Transferase 25 5 - 31 U/L [facility] Alanine Aminotransferase 14 0 - 31 U/L [facility] Total Protein 7.6 6.5 - 8.0 g/dL [facility] Albumin Level 3.7 3.5 - 5.0 g/dL [facility] Alkaline Phosphatase 64 39 - 117 U/L [facility] Blood Venous blood specimen / Unknown 07/13/2024 2:22 PM EST 07/13/2024 4:00 PM EST us Adama Anderson MD LAB BLOOD ORDERABLES Final Resul t [facility] [address] [place] [phone] * (ABNORMAL) POCT HGB A1C (07/13/2024 1:52 PM EST) Hemoglobin A1C 9.5(A) 4.0 - 6.0 % QC Media Lot # [id number] Lot# Expiration Date Blood 07/13/2024 1:52 PM EST us Adama Anderson MD POINT OF CARE TEST ENTER/EDIT OR DERABLES Final Result * (ABNORMAL) POCT Glucose (07/13/2024 1:51 PM EST) [facility] Glucose Blood, POC 411(A) 60 - 200 mg/dL QC Media Lot # [id number] Lot# Expiration Date 53,025 Blood Capillary blood specimen / Unknown 07/13/2024 1:51 PM EST us Adama Name MD POINT OF CARE TEST ENTER/EDIT OR DERABLES Final Result * BI Mammogram Screening Tomosynthesis Bilateral (12/16/2023 3:05 PM EDT) Anatomical Region Laterality Modality Breast Bilateral Mammography 12/16/2023 3:05 PM EDT Narrative 01/13/2024 4:26 PM EDT ? [facility] ? [address] ?[place] [address] ? Mammography Report ? Signed ? Patient: Barber,Samina ?MR#: [id number] ? : 1945 ?Acct:[id number] ? Age/Sex: 78 / F ?ADM Date: 12/15/ ? Loc: HO.MAMMO ? Attending Dr: Adama Name MD ? Ordering Physician: Name,Adama MD ?Results: 1Negative ? Date of Service: 12/15/ ?Follow Up: 1 Year From Orig ?? inal Mammogram ? Procedure(s): MM tomosynthesis screening BI ?? Accession Number(s): [id number] ? cc: Name,Adama DAVEY ? EXAMINATION: ?? [...] 1622 ? DD/ 1505 ? TD/TT: ? Concrete Truck Driver: ? Procedure Note Arnav, Image - 01/13/2024 [facility] [address] [place] [address] Dr. Ricketts, [place]END[place] [address] Mammography Report Signed Patient: Marky Barber#: [id number] : 8Acct:[id number] Age/Sex: 78 / FADM Date: 12/16/23 Loc: EPI Attending DrEly Anderson MD Ordering Physician: Adama Andersonesults: 1Negative Date of Service: 12/16/23Follow Up: 1 Year From Orig ina Mammogram Procedure(s): MM tomosynthesis screening BI Accession Number(s): [id number] cc: Adama Anderson MD EXAMINATION: MM SCREENING [...] in OV> 01/13/24 1622 DD/ 1505 TD/TT: Concrete Truck Driver: Adama Anderson MD [facility] BI PROCEDURES Final Result * Lipid Panel, Standard (09/30/2023 9:32 AM EDT) Triglycerides 99 <150 mg/dL [facility] Comment:Desirable Triglyceri de: less than 150 mg/dLBorderline High Triglyceride 150-199 mg/dLHigh Triglyceride: 200-499 mg/dLVery High Triglyceride: greater than or equal to 5OO mg/dL Cholesterol 155 <200 mg/dL [facility] Comment:Desirable Cholestero l: less than 200 mg/dLBorderline High Cholesterol: 200-239 mg/dLHigh Cholesterol: greater than 239 mg/dL LDL Cholesterol Calculated 87 <100 mg/dL [facility] Comment:Desirable LDL: less than 100 mg/dLNear Optimal/Above Optimal LDL: 110- 129 mg/dLBorderline High LDL: 130-159 mg/dLHigh LDL: 160-189 mg/dLVery High LDL: greater than or equal to 190 mg/dL HDL Cholesterol 49 >40 mg/dL [facility] Comment:Desirable HDL: great er than 40 mg/dL Note: This HDL assay may give artificially low results in patients with liver disease. Blood Venous blood specimen / Unknown 09/30/2023 9:32 AM EDT 09/30/2023 11:43 AM EDT Adama Anderson MD LAB BLOOD ORDERABLES Final Resul t Performing Organization Address [facility] Co de Phone Number [facility] [address] [place] [phone] * Fecal Globin by Immunochemistry (10/04/2022 8:14 AM EDT) Fecal Globin By Immunochemistry SEE NOTE [employer] Comment: ??FECAL GLOBIN BY IMMUNOCHEMISTRY ?Micro Number: ?[id number] ??Test Status: ? Final ??Specimen Source: ?? Insure (tm) fobt test card ??Specimen Quality: ??Adequate ??Fecal Globin: ?Not Detected ??Comment: ? Test results may be invalid as no date of ? collection was provided. Specimens are stable ? for 14 days. 10/04/2022 8:14 AM EDT 10/12/2022 4:51 PM EDT Narrative [facility] - 10/12/2022 5:09 PM EDT FASTING: UNKNOWN Adama Anderson MD LAB BODY FLUIDS AND STOOLS ORDER SARIKA Final Result Performing Organization Address City/[facility] Co de Phone Number [facility] [address], [place] [address] [employer] [address] [place] [address] from Last 3 Months or Most Recently Relevant to Health Maintenance [place] [address] [place] [address] - [employer] Care Teams Supervisor Steel Division Relationship Specialty Start Date End Date Name, MD Adama [address] [place] [address] PCP - General Family Medicine 12/31/19
[2024-07-14 12:29] LABS: Creatinine Urine 113.08 mg/dL; Microalbum/Creatinine Ratio Ur 80.4 ug/mg cr (<30)
== END 2024-07-14 08:55 | disposition home or self-care (01) ==
LOC: HO.HHCL 08:54
PROVIDERS: Visit Provider Internal Medicine Geriatric Medicine
DX: E11.49 Type 2 diabetes mellitus with other diabetic neurological complication (principal); N18.30 Chronic kidney disease, stage 3 unspecified; Z79.4 Long term (current) use of insulin
CPT/HCPCS: 82043; 82570

== ENCOUNTER 2024-11-10 09:16 | Outpatient (REF) | payer OTHER, SELFPAY ==
--- OUTSIDE RECORDS SUMMARY | 2024-11-10 10:11 | XMS_ITS | Encounter Summary ---
Author Organization [email or web address] Address 75 [facility] 7t [place] [address] Care Team Providers Care Tank Insulator Rubber Name Role Phone Name, Adama DAVEY Primary Care Provider [phone] Reason for Visit * Reason Comments Med Refill Encounter Details Date Type Department Care Team ([facility] st Contact Info) Description 04/03/2023 Refill [facility] [address] [place], [place] [phone] Name, MD Adama [address] [place] [address] Pain in both lower extremities Social History [...] documented as of this encounter Care Teams Tank Insulator Rubber Relationship Specialty Start Date End Date Name, MD Adama [address] [place] [address] PCP - General Family Medicine 12/31/19 documented as of this encounter
[2024-11-10 12:14] LABS: Alanine Aminotransferase 13 U/L (0-31); Albumin Level 3.4 g/dL (3.5-5.0); Alkaline Phosphatase 57 U/L (39-117); Anion Gap 9 (12-20); Aspartate Amino Transferase 19 U/L (5-31); Bilirubin Total 0.5 mg/dL (0.0-1.0); Blood Urea Nitrogen 27 mg/dL (9-16); Calcium 8.7 mg/dL (8.4-10.2); Carbon Dioxide 26 mmol/L (22-29); Chloride 108 mmol/L (96-108); Cholesterol 139 mg/dL (<200); Estimated Glomerular Filt Rate 27; Glucose Random 116 mg/dL (60-115); HDL Cholesterol 43 mg/dL (>40); LDL Cholesterol Calculated 82 mg/dL (<100); Potassium 4.4 mmol/L (3.3-5.1); Sodium 139 mmol/L (135-145); Total Protein 6.8 g/dL (6.5-8.0); Triglycerides 72 mg/dL (<150)
== END 2024-11-10 09:17 | disposition home or self-care (01) ==
LOC: HO.HHCL 09:16
PROVIDERS: Nurse Practitioner Family; Visit Provider Internal Medicine Geriatric Medicine
DX: I12.9 Hypertensive chronic kidney disease with stage 1 through stage 4 chronic kidney disease, or unspecified chronic kidney disease (principal); N18.30 Chronic kidney disease, stage 3 unspecified; E11.49 Type 2 diabetes mellitus with other diabetic neurological complication; Z79.4 Long term (current) use of insulin
CPT/HCPCS: 36415; 80053; 80061

== ENCOUNTER 2025-03-01 08:34 | Outpatient (REF) | payer OTHER, SELFPAY ==
--- OUTSIDE RECORDS SUMMARY | 2025-03-01 09:53 | XMS_ITS | Encounter Summary ---
Author Organization [employer] Address [address] [place] [address] [address] [place] [address] Care Team Providers Care Socially Responsible Investment Adviser Name Role Phone NameAdama MD Primary Care Provider [phone] Reason for Visit * Reason Comments Med Refill Encounter Details Date Type Department Care Team ([facility] Contact Info) Description 12/31/2022 Refill [facility] [address] [place] [address] Fany Mohan, PROPOSAL DEVELOPMENT MANAGER Pain in both lower extremities Social History [...] as of this encounter Plan of Treatment Upcoming Encounters Date Type Department Care Team (Late Contact Info) Description 05/12/2025 10:30 AM EST Office Visit [facility] [address] [place] [address] NameAdama MD [address] [place] [address] [phone] documented as of this encounter Visit Diagnoses Diagnosis Pain in both lower extremities documented in this encounter Additional Health Concerns Assessment Noted Time PHQ-9 Depression Total Score: 1 06/07/20 22 9:32 AM EST documented as of this encounter Care Teams Socially Responsible Investment Adviser Relationship Specialty Start Date End Date Name, MD Adama [address] [place] [address] PCP - General Family Medicine 12/31/19 documented as of this encounter
--- OUTSIDE RECORDS SUMMARY | 2025-03-01 09:53 | XMS_ITS | Encounter Summary ---
Author Organization [employer] Address 75 [facility] 7t [place] [address] Care Team Providers Care Outside Event Sales Specialist Name Role Phone Name, Adama DAVEY Primary Care Provider [phone] Reason for Visit * Reason Comments Med Refill Encounter Details Date Type Department Care Team ([facility] st Contact Info) Description 07/23/[address] [facility] [address] [place], [place] [phone] Clarisse Hernandez MD [address] [place] [address] Primary hypertension Social History Tobacco Use Types [...] documented in this encounter Plan of Treatment Upcoming Encounters Date Type Department Care Team (Late st Contact Info) Description 05/12/2025 10:30 AM EST Office Visit [facility] [address] [place] [address] Name, MD Adama [address] [place] [address] documented as of this encounter Visit Diagnoses Diagnosis Primary hypertension Unspecified essential hypertension documented in this encounter Additional Health Concerns Assessment Noted Time PHQ-9 Depression Total Score: 1 06/07/20 22 9:32 AM EST documented as of this encounter Care Teams Outside Event Sales Specialist Relationship Specialty Start Date End Date Adama Anderson MD [address] [place] [address] PCP - General Family Medicine 12/31/19 documented as of this encounter
--- OUTSIDE RECORDS SUMMARY | 2025-03-01 09:53 | XMS_ITS | Encounter Summary ---
Author Organization [employer] Address 75 [facility] 7t [place] [address] Care Team Providers Care Flight Dynamicist Name Role Phone Name, Adama DAVEY Primary Care Provider [phone] Encounter Details Date Type Department Care Team ([facility] Contact Info) Description 06/20/2022 Orders Only [facility] [address] [place] [phone] Clarisse Hernandez MD [address] [place] [address] [phone] Primary hypertension (Primary Dx) Social History Tobacco [...] Description 05/12/2025 10:30 AM EST Office Visit [facility] [address] [place] [address] Name, MD Adama [address] [place] [address] documented as of this encounter Visit Diagnoses Diagnosis Primary hypertension- Primary Unspecified essential hypertension documented in this encounter Additional Health Concerns Assessment Noted Time PHQ-9 Depression Total Score: 1 06/07/20 22 9:32 AM EST documented as of this encounter Care Teams Flight Dynamicist Relationship Specialty Start Date End Date Name, MD Adama [address] [place] [address] PCP - General Family Medicine 12/31/19 documented as of this encounter
--- OUTSIDE RECORDS SUMMARY | 2025-03-01 09:53 | XMS_ITS | Encounter Summary ---
Author Organization [employer] Address 75 [facility] 7t [place] [address] Care Team Providers Care Traffic Workforce Representative Name Role Phone Name, Adama DAVEY Primary Care Provider [phone] Reason for Visit * Reason Onset Date Comments triage 07/06/2022 Encounter Details Date Type Department Care Team ([facility] st Contact Info) Description 07/06/2022 Telephone [facility] [address] [place] [address] Name, MD Adama [address] [place] [address] triage Social History Tobacco Use Types Packs/Day [...] 07/06/2022 3:33 PM EST Called pt. [facility] [phone]. Sangita cell builder states that pt. Is complaining that she [...] as she is always complaining according to cell builder. I made office visit for pt. To see PCP on 07/24/22 but I will send request for anti anxiety medication per cell builder request and told her there is no guarantee on PCP sending med until he assesses pt. In person on 07/24/22. Grain Unloader Machine understands. Office visit set up with PCP [...] accepted this outcome Please contact Sangita at [phone] documented in this encounter Plan of Treatment Upcoming Encounters Date Type Department Care Team (Late st Contact Info) Description 05/12/2025 10:30 AM EST Office Visit [facility] [address] [place] [address] Name, MD Adama [address] [place] [address] documented as of this encounter Visit Diagnoses Not on filedocumented in this encounter Additional Health Concerns Assessment Noted Time PHQ-9 Depression Total Score: 1 06/07/20 22 9:32 AM EST documented as of this encounter Care Teams Traffic Workforce Representative Relationship Specialty Start Date End Date Name, MD Adama [address] [place] [address] PCP - General Family Medicine 12/31/19 documented as of this encounter
--- OUTSIDE RECORDS SUMMARY | 2025-03-01 09:53 | XMS_ITS | Encounter Summary ---
Author Organization [employer] Address 75 [facility] 7t [place] [address] Care Team Providers Care Getter Welder Name Role Phone Name, Adama DAVEY Primary Care Provider [phone] Reason for Visit * Reason Comments Med Refill Encounter Details Date Type Department Care Team ([facility] st Contact Info) Description 04/03/2023 Refill [facility] [address] [place], [place] [phone] Name, MD Adama [address] [place] [address] Pain in both lower extremities Social History [...] Description 05/12/2025 10:30 AM EST Office Visit [facility] [address] [place] [address] Name, MD Adama [address] [place] [phone] documented as of this encounter Visit Diagnoses Diagnosis Pain in both lower extremities documented in this encounter Additional Health Concerns Assessment Noted Time PHQ-9 Depression Total Score: 1 06/07/20 22 9:32 AM EST documented as of this encounter Care Teams Getter Welder Relationship Specialty Start Date End Date Name, MD Adama [address] [place] [phone] PCP - General Family Medicine 12/31/19 documented as of this encounter
--- OUTSIDE RECORDS SUMMARY | 2025-03-01 09:53 | XMS_ITS | Encounter Summary ---
Author Organization [employer] Address [address] [facility] [address]t [place] [address] Care Team Providers Care Medical Coding Instructor Name Role Phone Name, Adama DAVEY Primary Care Provider [phone] Encounter Details Date Type Department Care Team (Late st Contact Info) Description 02/25/2025 Refill [facility] [address] [place], [place] [phone] Name, MD Adama [address] [place] [address] Pain in both lower extremities Social History [...] housing situation today? I have sydni michel 10/22/[address] you li ve. Do you have problems with any of the following? None of the above 10/22/2024 Food Insecurity Answer Date Recorded Within the past 12 months, y ou worried that your food would run out before you got money to buy more: Never True 10/22/2024 Within the past 12 months,th e food you bought just didn't last and you didn't have enough money to get more: Never True Transportation Answer Date Recorded In the past 12 months, has l ack of transportation kept you from medical appts, meetings, work or from getting things needed for daily living? No 10/22/2024 Utilities Answer Date Recorded In the past 12 months, has t he electric, gas, oil or water company threatened to shut off services in your home? No 10/22/2024 Depression Answer Date Recorded Patient Health Questionnaire-2 Score 2 09/27/2023 Internet Access Answer Date Recorded Internet Access Q1 No 10/22/2024 Internet Access Q2 Not on file 10/22/2024 Comments Unknown Sex and Gender Information Value [...] Description 05/12/2025 10:30 AM EST Office Visit [facility] [address] [place] [address] Name, MD Adama [address] [place] [phone] documented as of this encounter Visit Diagnoses Diagnosis Pain in both lower extremities documented in this encounter Additional Health Concerns Assessment Noted Time PHQ-9 Depression Total Score: 2 09/27/19 24 11:14 AM EDT documented as of this encounter Care Teams Medical Coding Instructor Relationship Specialty Start Date End Date NameAdama MD [address] [place] [address] PCP - General Family Medicine 12/31/19 documented as of this encounter
--- OUTSIDE RECORDS SUMMARY | 2025-03-01 09:53 | XMS_ITS | Encounter Summary ---
Author Organization [employer] Address [address] [place] [address] [address] [place] [address] Care Team Providers Care Card Clothier Name Role Phone Name, Adama DAVEY Primary Care Provider [phone] Reason for Visit * Reason Comments Med Refill Encounter Details Date Type Department Care Team (Late Contact Info) Description 01/09/2023 Refill [facility] [address] [place] [address] [phone] Fany Mohan FNP Type 2 diabetes mellitus without complication, with long-term current use of insulin ([facility]) Social History Tobacco [...] Description 05/12/2025 10:30 AM EST Office Visit [facility] [address] [place] [address] [phone] Name, MD Adama [address] [place] [address] [phone] documented as of this encounter Visit Diagnoses Diagnosis Type 2 diabetes mellitus without complication, with long-term current use of insulin ([facility]) documented in this encounter Additional Health Concerns Assessment Noted Time PHQ-9 Depression Total Score: 1 06/07/20 22 9:32 AM EST documented as of this encounter Care Teams Card Clothier Relationship Specialty Start Date End Date Name, MD Adama [address] [place] [address] PCP - General Family Medicine 12/31/19 documented as of this encounter
--- OUTSIDE RECORDS SUMMARY | 2025-03-01 09:54 | XMS_ITS | Encounter Summary ---
Author Organization [employer] Address [address] [facility] [address]t [place] [address] Care Team Providers Care General Road Foreman Name Role Phone Name, Adama DAVEY Primary Care Provider [phone] Reason for Visit * Reason Comments Med Refill Encounter Details Date Type Department Care Team ([facility] st Contact Info) Description 06/05/2022 Refill [facility] [address] [place], [place] [phone] Name, MD Adama [address] [place] [address] Type 2 diabetes mellitus with other specified complication, unspecified whether intermediate frame tender insulin use ([facility]) (Primary Dx) Social History Tobacco Use Types [...] AM EST documented as of this encounter Functional Status * Over the past 2 weeks, how often have you been bothered by any of the following problems? Question Answer Date of Assessment Author Patient Health Questionnaire-2 Score 0 05/11 9:32 AM Wilbur Whelan * If you checked off any problems on this questionnaire so far, Question Answer Date of Assessment Author How difficult have these problems made it for you to do your work, take care of things at home, or get along with other people? Not difficult at all 06/07/2022 9:32 AM Wilbur Whelan * Over the past 2 weeks, how often have you been bothered by any of the following problems? Question Answer Date of Assessment Author Little interest or pleasure in doing things Not at all 06/07/2022 9:32 AM Wilbur Whelan Feeling down, depressed, or hopeless Not at all 06/07/2022 9:32 AM Wilbur Whelan Trouble falling or staying a sleep, or sleeping too much Not at all 06/07/2022 9:32 AM Wilbur Whelan Feeling tired or having oniel le energy Not at all 06/07/2022 9:32 AM Wilbur Whelan Poor appetite or overeating Several days 06/07/2022 9: 32 AM Wilbur Whelan Feeling bad about yourself - or that you are a failure or have let yourself or your family down Not at all 06/07/2022 9:32 AM Janice Whelan Trouble concentrating on thi ngs, such as reading the newspaper or watching television Not at all 06/07/2022 9:32 AM Wilbur Whelan Moving or speaking so slowly that other people could have noticed? Or the opposite - being so fidgety or restless that you have been moving around a lot more than usual. Not at all 06/07/2022 9:32 AM Wily Whelan illeen Thoughts that you would be b tylor off or hurting yourself in some way Not at all 06/07/2022 9:32 AM Wilbur Whelan Patient Health Questionnaire -9 Score 1 06/07/2022 9:32 AM Wilbur Whelan documented as of this encounter Plan of Treatment Upcoming Encounters Date Type Department Care Team (Late st Contact Info) Description 05/12/2025 10:30 AM EST Office Visit [facility] [address] [place] [phone] Name, MD Adama [address] [place] [address] documented as of this encounter Visit Diagnoses Diagnosis Type 2 diabetes mellitus with other specified complication, unspecified whether intermediate insulin use ([facility] Primary documented in this encounter Care Teams General Road Foreman Relationship Specialty Start Date End Date Name, MD Adama [address] [place] [address] PCP - General Family Medicine 12/31/19 documented as of this encounter
--- OUTSIDE RECORDS SUMMARY | 2025-03-01 09:54 | XMS_ITS | Encounter Summary ---
Author Organization [employer] Address [address] [facility] [address] [place] [address] Care Team Providers Care Packing And Wrapping Supervisor Name Role Phone Name, Adama DAVEY Primary Care Provider [phone] Reason for Visit * Reason Comments Med Refill Encounter Details Date Type Department Care Team ([facility] st Contact Info) Description 06/26/2024 Refill [facility] [address] [place], [place] [phone] Name, MD Adama [address] [place] [address] Type 2 diabetes mellitus with diabetic polyneuropathy, without long-term current use of insulin ([facility]) Social History Tobacco Use Types [...] Description 05/12/2025 10:30 AM EST Office Visit [facility] [address] [place] [phone] Name, MD Adama [address] [place] [phone] documented as of this encounter Visit Diagnoses Diagnosis Type 2 diabetes mellitus with diabetic polyneuropathy, without long-term current use of insulin ([facility]) documented in this encounter Additional Health Concerns Assessment Noted Time PHQ-9 Depression Total Score: 2 09/27/19 24 11:14 AM EDT documented as of this encounter Care Teams Packing And Wrapping Supervisor Relationship Specialty Start Date End Date Name, MD Admaa [address] [place] [id number] PCP - General Family Medicine 12/31/19 documented as of this encounter
--- OUTSIDE RECORDS SUMMARY | 2025-03-01 09:54 | XMS_ITS | Encounter Summary ---
Author Organization [employer] Address [address] [facility] [address] [place] [address] Care Team Providers Care Fx Artist Name Role Phone Name, Adama DAVEY Primary Care Provider [phone] Reason for Visit * Reason Comments Med Refill Encounter Details Date Type Department Care Team ([facility] st Contact Info) Description 06/05/2024 Refill [facility] [address] [place], [place] [phone] Name, MD Adama [address] [place] [address] Type 2 diabetes mellitus with diabetic polyneuropathy, without long-term current use of insulin ([facility]); Pain in both lower extremities Social History [...] enough money to get more: Never True 04/ Transportation Answer Date Recorded In the past [...] Description 05/12/2025 10:30 AM EST Office Visit [facility] [address] [place] [phone] Name, MD Adama [address] [place] [address] documented as of this encounter Visit Diagnoses Diagnosis Type 2 diabetes mellitus with diabetic polyneuropathy, without long-term current use of insulin ([facility]) Pain in both lower extremities documented in this encounter Additional Health Concerns Assessment Noted Time PHQ-9 Depression Total Score: 2 09/27/19 24 11:14 AM EDT documented as of this encounter Care Teams Fx Artist Relationship Specialty Start Date End Date NameAdama MD [address] [place] [phone] PCP - General Family Medicine 12/31/19 documented as of this encounter
--- OUTSIDE RECORDS SUMMARY | 2025-03-01 09:54 | XMS_ITS | Clinical Summary ---
Author Organization [employer] Address [address] [facility] 7[address] [place] [address] Care Team Providers Care Pc Network Technician Name Role Phone Name, Adama DAVEY Primary Care Provider [phone] Allergies Active Allergy Reactions Criticality Noted Date [...] 1 each into the skin in the morning and 1 each at noon and 1 each in the evening. Test 1 time by intradermal route 3 times every day. Active Misc. Devices (Rollator Ultra-Light) misc With [...] mellitus with other specified complication, unspecified whether terminal gauger insulin use (CMS/HCC) USE FOUR TIMES DAILY DIRECTED 100 each 11 023 Active Pentips 32G X 4 MM miscIndications: Type 2 diabetes mellitus with hyperglycemia (CMS/HCC) USE DAILY WITH lantus 100 each 11 024 Active losartan (Cozaar) 25 MG tabletIndication s:Type 2 diabetes mellitus with other neurologic complication, with long-term current use of insulin ([facility]),Stage 3 chronic kidney disease, unspecified whether stage 3a or 3b CKD ([facility]),Essent ial (primary) hypertension Take 1 tablet (25 mg) by mouth Once per day. 30 tablet 11 025 2025 Active fluticasone (Flonase) 50 MCG/ACT nasal spray USE 1-2 SPRAYS IN EACH NOSTRIL ONCE DAILY NEEDED 48 g 1 025 Active Ferrous Sulfate (iron) 325 (65 Fe) MG tablet TAKE 1 TABLET BY MOUTH EVERY OTHER DAY IN THE MORNING 45 tablet 3 025 Active hydroCHLOROthiaz leslee (Microzide) 12.5 MG capsuleIndicatio ns:Primary hypertension TAKE 1 CAPSULE BY MOUTH EVERY OTHER DAY IN THE MORNING 15 capsule 5 025 Active cyanocobalamin (Vitamin B-12) 1000 MCG tablet TAKE 1 TABLET BY MOUTH EVERY MORNING 90 tablet 1 025 Active Lantus SoloStar 100 UNIT/ML penIndications:T ype 2 diabetes mellitus with other neurologic complication, with long-term current use of insulin ([facility]) INJECT 30 UNITS SUBCUTANEOUSLY ONCE DAILY 15 mL 2 025 Active melatonin 5 MG tablet TAKE 1 TABLET BY MOUTH AT BEDTIME 30 tablet 3 025 Active atorvastatin (Lipitor) 80 MG tabletIndication s: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, unspecified vessel or lesion type ([facility]) TAKE 1 TABLET BY MOUTH AT BEDTIME 90 tablet 1 025 Active isosorbide mononitrate ER (Imdur) 30 MG 24 hr tabletIndication s: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, unspecified vessel or lesion type ([facility]) TAKE 1 TABLET BY MOUTH EVERY MORNING 90 tablet 1 025 Active citalopram (CeleXA) 10 MG tabletIndication s:Depression, unspecified depression type TAKE 1 TABLET BY MOUTH EVERY MORNING 30 tablet 2 025 Active risperiDONE (RisperDAL) 1 MG tabletIndication s:Dementia with behavioral disturbance ([facility]) TAKE 1/2 TABLET BY MOUTH TWICE DAILY IN THE MORNING AND EVENING 30 tablet 2 025 Active pantoprazole (ProtoNix) 40 MG EC tabletIndication s:Atrophic gastritis without hemorrhage TAKE 1 TABLET BY MOUTH EVERY MORNING 90 tablet 025 Active Trulicity 0.75 MG/0.5ML solution auto-injectorInd ications:Type 2 diabetes mellitus with other neurologic complication, with long-term current use of insulin ([facility]),Stage 3 chronic kidney disease, unspecified whether stage 3a or 3b CKD ([facility]) INJECT ONE PEN (=0.75MG) SUBCUTANEOUSLY ONCE A WEEK DIRECTED 2 mL 1 025 Active Aspirin Low Dose 81 MG EC tablet TAKE 1 TABLET BY MOUTH AT BEDTIME 90 tablet 3 025 Active Multiple Vitamin (Multivitamin) tablet TAKE 1 TABLET BY MOUTH EVERY MORNING 90 tablet 3 025 Active D3-1000 25 MCG (1000 UT) capsule TAKE 1 CAPSULE BY MOUTH EVERY MORNING 90 capsule 025 Active glucose blood (FREESTYLE LITE) test stripIndications :Type 2 diabetes mellitus with other neurologic complication, with long-term current use of insulin ([facility]) TEST BLOOD SUGAR THREE TIMES DAILY 100 strip 11 025 Active TRUEplus Lancets 33G miscIndications: Type 2 diabetes mellitus with other neurologic complication, with long-term current use of insulin ([facility]) TEST BLOOD SUGAR THREE TIMES DAILY 100 each 025 Active empagliflozin (Jardiance) 10 MG Take 1 tablet (10 mg) by mouth Once per day. 30 tablet 025 2025 Active clotrimazole (Lotrimin) 1 % cream Apply topically 2 times daily. 30 g 2 025 Active gabapentin (Neurontin) 100 MG capsuleIndicatio ns:Pain in both lower extremities TAKE 1 CAPSULE BY MOUTH THREE TIMES DAILY IN THE MORNING, EVENING, AND BEDTIME 90 capsule 025 Active clotrimazole (Lotrimin) 1 % cream Apply topically 2 times daily. 30 g 2 024 2024 Discontinued(R eorder (will not trigger notification to Pharmacy)) Aspirin Low Dose 81 MG EC tablet TAKE 1 TABLET BY MOUTH AT BEDTIME 90 tablet 3 024 2024 Discontinued Multiple Vitamin (Multivitamin) tablet TAKE 1 TABLET BY MOUTH EVERY MORNING 90 tablet 3 024 2024 Discontinued D3-1000 25 MCG (1000 UT) capsule TAKE 1 CAPSULE BY MOUTH EVERY MORNING 90 capsule 3 024 2024 Discontinued FREESTYLE LITE test strip TEST BLOOD SUGAR THREE TIMES DAILY 100 strip 11 024 2024 Discontinued(R eorder (will not trigger notification to Pharmacy)) TRUEplus Lancets 33G misc TEST BLOOD SUGAR THREE TIMES DAILY 100 each 11 024 2024 Discontinued(R eorder (will not trigger notification to Pharmacy)) gabapentin (Neurontin) 100 MG capsuleIndicatio ns:Pain in both lower extremities TAKE 1 CAPSULE BY MOUTH THREE TIMES DAILY IN THE MORNING, EVENING, AND BEDTIME 90 capsule 024 2024 Discontinued Trulicity 0.75 MG/0.5ML solution auto-injectorInd ications:Type 2 diabetes mellitus with other neurologic complication, with long-term current use of insulin ([facility]),Stage 3 chronic kidney disease, unspecified whether stage 3a or 3b CKD ([facility]) INJECT ONE PEN (=0.75MG) SUBCUTANEOUSLY ONCE A WEEK DIRECTED 2 mL 1 025 2024 Discontinued gabapentin (Neurontin) 100 MG capsuleIndicatio ns:Pain in both lower extremities TAKE 1 CAPSULE BY MOUTH THREE TIMES DAILY IN THE MORNING, EVENING, AND BEDTIME 90 capsule 025 2024 Discontinued Active Problems Problem Noted Date Diagnosed Date Diabetic nephropathy with proteinuria 02/17/2025 Decreased vision in both eyes 06/19/2023 Age-related macular degeneration 06/19/2023 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 Hold bisoprolol if HR is < 60. -will contact neurologist if there is an alternative to donepezil -will contact skip tender for further evaluation -schedule Holter monitor -check lab -reviewed signs and symptoms to go to emergency department Other lack of coordination 05/16/2022 Urinary tract infection 05/16/2022 Atherosclerotic heart diseas e of [place] coronary artery without angina pectoris 05/01/2022 Other [...] 05/01/2022 Patient does not have healthcare proxy 2 Pain in unspecified knee 05/01/2022 Stage 3b [...] Encounters Date Type Department Care Team Description 02/25/2025 Refill [facility] [address] [place] [address] Adama Anderson MD Pain in both lower extremities 02/17/2025 10:30 AM EDT Office Visit [facility] [address] [place] [address] Adama Anderson MD Type 2 diabetes mellitus with other neurologic complication, with long-term current use of insulin ([facility]) (Primary Dx); Stage 3b chronic kidney disease ([facility]); Diabetic nephropathy with proteinuria ([facility]) 02/17/2025 Travel 02/17/2025 Refill [facility] [address] [place] [address] Adama Anderson MD 02/16/2025 Refill [facility] [address] [place] [address] Adama Anderson MD Type 2 diabetes mellitus with other neurologic complication, with long-term current use of insulin ([facility]) 02/15/2025 Telephone [facility] [address] [place] [address] Adama Anderson MD Chart Prep 02/12/2025 Refill [facility] [address] [place] [address] Adama Anderson MD Type 2 diabetes mellitus with other neurologic complication, with long-term current use of insulin ([facility]); Stage 3 chronic kidney disease, unspecified whether stage 3a or 3b CKD ([facility]) 01/25/2025 Telephone [facility] [address] [place] [phone] Adama Anderson MD Durable Medical Equipment 01/22/2025 Refill [facility] [address] [place] [address] Adama Anderson MD Atrophic gastritis without hemorrhage; Pain in both lower extremities 12/30/2024 Telephone [facility] [address] [place] [address] Adama Anderson MD Durable Medical Equipment 12/25/2024 Refill [facility] [address] [place] [address] Adama Anderson MD Pain in both lower extremities 12/18/2024 Refill [facility] [address] [place] [address] Adama Anderson MD Depression, unspecified depression type; Dementia with behavioral disturbance ([facility]) 12/16/2024 Refill [facility] [address] [place] [address] Name, MD Adama Type 2 diabetes mellitus with other neurologic complication, with long-term current use of insulin ([facility]); Stage 3 chronic kidney disease, unspecified whether stage 3a or 3b CKD ([facility]) 12/01/2024 Refill [facility] [address] [place] [address] Name, MD Adama Pain in both lower extremities from Last 3 Months Immunizations Immunization Administration Dates Next Due Influenza High-dose Quadriva [...] housing situation today? I have sydnileisa michel 10/22/[address] you [...] Sign Reading Time Taken Comments Blood Pressure 120/68 02/17/2025 10:35 AM EDT Pulse 85 02/17/2025 10:35 AM EDT Temperature 36.2 C (97.2 F) 02/17/2025 10:35 AM EDT Respiratory Rate 12 02/17/2025 10:35 AM EDT Oxygen Saturation 99% 02/17/2025 10:35 AM EDT Inhaled Oxygen Concentration - - Weight 83.9 kg (185 lb) 02/17/2025 10:35 AM EDT Height 149.9 cm (4' 11 ) 02/17/2025 10:35 AM EDT Body Mass Index 37.37 02/17/2025 10:35 AM EDT Plan of Treatment Upcoming Encounters Date Type Department Care Team (Late st Contact Info) Description 05/12/2025 10:30 AM EST Office Visit [facility] [address] [place] [address] Name, MD Adama [address] [place] [address] Health Maintenance Due Date Last Done Comments Eye Exam 08/23/1957 Hepatitis C Screening 08/23/1965 RSV Patients and Patients Aged 60 years or older (1 - 1-dose 75+ series) 08/23/2022 Depression Screening 09/26/2024 09/27/2023, 09/27/19 24 COVID-19 Vaccine ( season) 2025 03/09/2024, 11/13/2021, 04/10/2021, Additional history exists Influenza Vaccine (#1) 2025 , 04/04/2023, 02/25/2021, Additional history exists Diabetes: Hemoglobin A1C 05/19/2025 025, 10/22/2024, 07/13/2024, Additional history exists Alcohol/Substance Use Screening 10/22/2025 10/22/2024 SDOH Screening 10/22/2025 10/22/2024 Lipid Panel 11/10/2025 11/10/2024, 04/2 07/2023, 02/09/2022, Additional history exists Mammogram 12/15/2025 12/16/2023, 07/0 08/2022, 12/10/2022, Additional history exists Diabetes: Foot Exam 02/17/2026 02/17/2025, 02/17/2025, 02/17/2025, Additional history exists Tobacco Screening 02/17/2026 02/17/2025 DTaP/Tdap/Td Vaccines (5 - Td or Tdap) 01/13/2032 01/12/2022, 01/12/2022, 11/13/2021, Additional history exists Zoster Vaccines Completed 11/07/2018, 10/10, 08/28/2018, Additional history exists Pneumococcal Vaccine: 50+ Years Completed 04/12/2021, 03/12/2018, 05/14/2015, Additional history exists Colorectal Cancer Screening Discontinued FIT Discontinued 10/04/2022 FOBT Discontinued 10/04/2022 CT Colonography Discontinued Colonoscopy Discontinued FIT DNA/Cologuard [...] patient's age to complete this topic Meningococcal B Vaccine Aged Out No l onger eligible based on patient's age to complete [...] Diagnosis Comments POCT GLYCATED HEMOGLOBIN, TOTAL Routine 02/17/2025 10:36 AM EDT Type 2 diabetes mellitus with other neurologic complication, with long-term current use of insulin (CMS/HCC) POCT GLUCOSE Routine 02/17/2025 10:36 AM EDT Type 2 diabetes mellitus with other neurologic complication, with long-term current use of insulin (CMS/HCC) LIPID PANEL, STANDARD Routine 11/10/2024 9:18 AM EDT Type 2 diabetes mellitus with other neurologic complication, with long-term current use of insulin (CMS/HCC) Essential (primary) hypertension BI MAMMOGRAM SCREENING TOMOSYNTHESIS BILATERAL Routine 12/16/2023 3:05 PM EDT FECAL GLOBIN BY IMMUNOCHEMISTRY Routine 10/04/2022 8:14 AM EDT from Last 3 Months or Most Recently Relevant to Health Maintenance Results * (ABNORMAL) POCT Hgb A1c (02/17/2025 10:36 AM EDT) Hemoglobin A1C 7.6(A) 4.0 - 5.7 % QC Media Lot # [id number] Lot# Expiration Date 41,[id number] Blood 02/17/2025 10:3 6 AM EDT us Adama Anderson MD POINT OF CARE TEST ENTER/EDIT OR DERABLES Final Result * (ABNORMAL) POCT Glucose (02/17/2025 10:36 AM EDT) Glucose Blood, POC 215(A) 60 - 200 mg/dL QC Media Lot # [id number] Lot# Expiration Date 22,726 Blood Capillary blood specimen / Unknown 02/17/2025 10:36 AM EDT us Adama Anderson MD POINT OF CARE TEST ENTER/EDIT OR DERABLES Final Result * Lipid Panel, Standard (11/10/2024 9:18 AM EDT) Triglycerides 72 <150 mg/dL [facility] Comment:Desirable Triglyceri de: less than 150 mg/dLBorderline High Triglyceride 150-199 mg/dLHigh Triglyceride: 200-499 mg/dLVery High Triglyceride: greater than or equal to 5OO mg/dL Cholesterol 139 <200 mg/dL [facility] Comment:Desirable Cholestero l: less than 200 mg/dLBorderline High Cholesterol: 200-239 mg/dLHigh Cholesterol: greater than 239 mg/dL LDL Cholesterol Calculated 82 <100 mg/dL [facility] Comment:Desirable LDL: less than 100 mg/dLNear Optimal/Above Optimal LDL: 110- 129 mg/dLBorderline High LDL: 130-159 mg/dLHigh LDL: 160-189 mg/dLVery High LDL: greater than or equal to 190 mg/dL HDL Cholesterol 43 >40 mg/dL [facility] Comment:Desirable HDL: great er than 40 mg/dL Note: This HDL assay may give artificially low results in patients with liver disease. Blood Venous blood specimen / Unknown 11/10/2024 9:18 AM EDT 11/10/2024 11:40 AM EDT Adama Anderson MD LAB BLOOD ORDERABLES Final Resul t [facility] [address] [place] [phone] * BI Mammogram Screening Tomosynthesis Bilateral (12/16/2023 3:05 PM EDT) Anatomical Region Laterality Modality Breast Bilateral Mammography 12/16/2023 3:05 PM EDT Narrative 01/13/2024 4:26 PM EDT [address] [place] [address] Mammography Report Signed Patient: Samina Barber MR#: [id number] : 1945 Acct:[id number] Age/Sex: 78 / F ADM Date: 12/16/23 Loc: HO.MAMMO Attending Dr: Adama Anderson MD Ordering Physician: Adama Anderson MD Results: 1Negative Date of Service: 12/16/23 Follow Up: 1 Year From Orig ina Mammogram Procedure(s): MM tomosynthesis screening BI Accession Number(s): [id number] cc: Adama Anderson MD EXAMINATION: MM SCREENING [...] in OV> 01/13/24 1622 DD/ 1505 TD/TT: Silver Lap Machine Tender: Procedure Note Donotuseinterpreter, Image - 01/13/2024 [facility] [address] [place] [address] Mammography Report Signed Patient: Samina BarberMR#: [id number] : 8Acct:[id number] Age/Sex: 78 / FADM Date: 12/16/23 Loc: EPI Attending Dr: Adama Anderson MD Ordering Physician: Adama Anderson MDResults: 1Negative Date of Service: 12/16/23Follow Up: 1 Year From Orig inal Mammogram Procedure(s): MM tomosynthesis screening BI Accession Number(s): [id number] cc: Adama Anderson MD EXAMINATION: MM SCREENING [...] in OV> 01/13/24 1622 DD/ 1505 TD/TT: Silver Lap Machine Tender: Adama Anderson MD IMG BI PROCEDURES Final Result * Fecal Globin by Immunochemistry (10/04/2022 8:14 AM EDT) Fecal Globin By Immunochemistry SEE NOTE [employer] Comment: FECAL GLOBIN BY IMMUNOCHEMISTRY Micro Number: [id number] Test Status: Final Specimen Source: Insure (tm) fobt test card Specimen Quality: Adequate Fecal Globin: Not Detected Comment: Test results may be invalid as no date of collection was provided. Specimens are stable for 14 days. 10/04/2022 8:14 AM EDT 10/12/2022 4:51 PM EDT Narrative [facility] - 10/12/2022 5:09 PM EDT FASTING: UNKNOWN Adama Anderson MD LAB BODY FLUIDS AND STOOLS ORDER SARIKA Final Result [facility] [address], [place] [address] [employer] [facility] [address] [place] [address] from Last 3 Months or Most Recently Relevant to Health Maintenance Insurance [facility] [employer] (HMO D-SNP) Care Teams Pc Network Technician Relationship Specialty Start Date End Date Name, MD Adama [address] [place] [phone] PCP - General Family Medicine 12/31/19
--- OUTSIDE RECORDS SUMMARY | 2025-03-01 09:54 | XMS_ITS | Patient Health Record ---
Author Organization [facility] Address [address] [place] [address] Care Team Providers Care Legal Practice Manager Name Role Phone Byron Pulido Unavailable [phone] Reason For Referral No Information Plan Of Treatment No Information
--- OUTSIDE RECORDS SUMMARY | 2025-03-01 09:54 | XMS_ITS | Encounter Summary ---
Author Organization [employer] Address [address] [facility] 7[address] [place] [address] Care Team Providers Care Protection Officer Name Role Phone Name, Adama DAVEY Primary Care Provider [phone] Reason for Visit * Reason Comments Med Refill Encounter Details Date Type Department Care Team ([facility] st Contact Info) Description 06/04/[address] [facility] [address] [place], [place] [phone] Name, MD Adama [address] [place] [address] Type 2 diabetes mellitus with diabetic polyneuropathy, without long-term current use of insulin ([facility]) Social History Tobacco Use Types Packs/Day [...] [facility] [address] [place] [phone] NameAdama MD [address] [place] [address] documented as of this encounter Visit Diagnoses Diagnosis Type 2 diabetes mellitus with diabetic polyneuropathy, without long-term current use of insulin ([facility]) documented in this encounter Additional Health Concerns Assessment Noted Time PHQ-9 Depression Total Score: 2 09/27/19 24 11:14 AM EDT documented as of this encounter Care Teams Protection Officer Relationship Specialty Start Date End Date Adama Anderson MD [address] [place] [phone] PCP - General Family Medicine 12/31/19 documented as of this encounter
--- OUTSIDE RECORDS SUMMARY | 2025-03-01 09:54 | XMS_ITS | Encounter Summary ---
Author Organization [employer] Address [address] [facility] 7t [place] [address] Care Team Providers Care Aviation Safety Inspector Name Role Phone Name, Adama DAVEY Primary Care Provider [phone] Reason for Visit * Reason Onset Date Comments Med Refill 06/15/2024 Encounter Details Date Type Department Care Team (Late st Contact Info) Description 06/15/2024 Refill [facility] [address] [place], [place] [phone] Name, MD Adama [address] [place], [place] [phone] Type 2 diabetes mellitus with diabetic polyneuropathy, without long-term current use of insulin ([facility]) Social History Tobacco Use Types [...] 500 MG tablet To be sent to: [facility] - [place], [place] - [address] [employer] Pt needs for medboxes documented in this encounter Plan of Treatment Upcoming Encounters Date Type Department Care Team ([facility] st Contact Info) Description 05/12/2025 10:30 AM EST Office Visit [facility] [address] [place] [address] Name, MD Adama [address] [place] [address] documented as of this encounter Visit Diagnoses Diagnosis Type 2 diabetes mellitus with diabetic polyneuropathy, without long-term current use of insulin ([facility]) documented in this encounter Additional Health Concerns Assessment Noted Time PHQ-9 Depression Total Score: 2 09/27/19 24 11:14 AM EDT documented as of this encounter Care Teams Aviation Safety Inspector Relationship Specialty Start Date End Date Name, MD Adama [address] [place] [address] PCP - General Family Medicine 12/31/19 documented as of this encounter
--- OUTSIDE RECORDS SUMMARY | 2025-03-01 09:54 | XMS_ITS | Clinical Summary ---
Author Organization [facility] Facility Address [address] [place] [id number] Care Team Providers Care Sap Bpc Developer Name Role Phone Name, Adama DAVEY Primary Care Provider [phone] Allergies Active Allergy Reactions Criticality Noted Date [...] 30 mg by mouth 07/10/19 23 Active Multiple Vitamin (Multivitamin) tablet Take 1 tablet by mouth 07/10/19 23 Active pantoprazole (PROTONIX) 40 MG EC tablet Take 40 mg by mouth 09/15/19 23 Active FeroSul 325 (65 Fe) MG tablet TAKE 1 TABLET BY MOUTH EVERY OTHER DAY IN THE MORNING 10/16/19 23 Active Active Problems Problem Noted Date Diagnosed Date Chronic kidney disease, stage 4 (severe) 025 Renal osteodystrophy 05/11/2024 Stage 3b chronic kidney disease 09/10/2023 Type 2 diabetes mellitus wit h diabetic chronic kidney disease 09/10/2023 Age related macular degeneration 06/19/2023 Cardiomyopathy 05/27/2023 Overview (09/10/2023): 05/02 EF [place] 45% [place] [facility] [place] calcification (no MR or MS) Anemia 09/27/2022 02/04/2023 Bradycardia 06/19/2022 02/04/2023 Overview (02/04/2023): Last Assessment & Plan: -possible drug interaction, especially bisprolol and denepezil -check BP and HR before taking bisoprolol. Hold bisoprolol if HR is < 60. -will contact neurologist if there is an alternative to donepezil -will contact weatherseal technician for further evaluation -schedule Holter monitor -check lab -reviewed signs and symptoms to go to emergency department Essential (primary) hypertension 05/16/2022 Atherosclerotic heart diseas e of [place] coronary artery without angina pectoris 05/16/2022 01/03/2023 Other lack of coordination 05/16/202201/03 Type 2 diabetes mellitus without complication 01/03/2023 Unspecified dementia, unspec ified severity, without behavioral disturbance, psychotic disturbance, mood disturbance, and anxiety 05/16/2022 01/03/2023 Urinary tract infection 05/16/2022 01/04/20 Delay when starting to pass urine 05/01/2022 [...] Atrophic gastritis 06/10/1957 02/04/2023 Hyperlipidemia 06[birth year]10/1957 02/04/2023 Immunizations Immunization Administration Dates Next Due Influenza Split 02/27/2013,03/24/2012 Influenza Split High Dose Pr eservative Free IM 03/12/2018,03/04/2017,04/16/2016 Influenza, Injectable, [place] Canine Kidney, Preservative Free 05/14/2015 Influenza, Quadrivalent, [...] Sign Reading Time Taken Comments Blood Pressure 132/74 11/16/2024 3:27 PM EDT Pulse 105 05/11/2024 1:40 PM EST Temperature - - Respiratory Rate - - Oxygen Saturation 93% 05/11/2024 1:40 PM EST Inhaled Oxygen Concentration - - Weight 83.6 kg (184 lb 3.2 oz) 11/16/2024 3:27 P M EDT Height 149.9 cm (4' 11 ) 01/03/2023 3:09 PM EDT Body Mass Index 37.2 01/03/2023 3:09 PM EDT Plan of Treatment Upcoming Encounters Date Type Department Care Team (Late st Contact Info) Description 03/22/2025 2:15 PM EDT Office Visit [facility] [address] [place] [phone] Jarrod Castro MD [address] [facility] [address] [place] [address] Health Maintenance Due Date Last Done Comments Diabetes: Ophthalmology Exam 06/12/2022 Diabetes: Pedal Pulse Checked 06/12/2022 Diabetes: Sensory Foot Exam 06/12/2022 Diabetes: Visual Foot Exam 06/12/2022 Influenza Vaccine (#1) 2025 4, 02/25/2021, 03/13/2020, Additional history exists Diabetes: Hemoglobin A1C 05/19/2025 025, 10/22/2024, 07/13/2024, Additional history exists Pneumococcal Vaccine: 50+ Years Completed 04/12/2021, 03/12/2018, 05/14/2015, Additional history exists Hepatitis B Vaccine Aged Out No longe r eligible based on patient's age to complete this topic Insurance [facility] One [employer] Dual SNP ([id number]) [facility] One [employer] Dual SNP ([id number]) Care Teams Sap Bpc Developer Relationship Specialty Start Date End Date Name, MD Adama [address] [place] [id number] PCP - General Internal Medicine 02/19/22
[2025-03-01 11:52] LABS: Anion Gap 7 (12-20); Blood Urea Nitrogen 28 mg/dL (9-16); Calcium 8.8 mg/dL (8.4-10.2); Carbon Dioxide 25 mmol/L (22-29); Chloride 110 mmol/L (96-108); Estimated Glomerular Filt Rate 23; Potassium 4.6 mmol/L (3.3-5.1); Sodium 137 mmol/L (135-145)
== END 2025-03-01 08:35 | disposition home or self-care (01) ==
LOC: HO.HHCL 08:34
PROVIDERS: PCP Internal Medicine Geriatric Medicine; Visit Provider Internal Medicine Geriatric Medicine
DX: E11.22 Type 2 diabetes mellitus with diabetic chronic kidney disease (principal); E11.49 Type 2 diabetes mellitus with other diabetic neurological complication; I12.9 Hypertensive chronic kidney disease with stage 1 through stage 4 chronic kidney disease, or unspecified chronic kidney disease; N18.30 Chronic kidney disease, stage 3 unspecified; Z79.4 Long term (current) use of insulin
CPT/HCPCS: 36415; 80048

== ENCOUNTER 2025-03-18 08:25 | Outpatient (REF) | payer OTHER, SELFPAY ==
[2025-03-18 09:40] LABS: Anion Gap 11 (12-20); Blood Urea Nitrogen 30 mg/dL (9-16); Calcium 9.2 mg/dL (8.4-10.2); Carbon Dioxide 25 mmol/L (22-29); Chloride 108 mmol/L (96-108); Estimated Glomerular Filt Rate 25; Potassium 4.6 mmol/L (3.3-5.1); Sodium 139 mmol/L (135-145)
[2025-03-18 14:11] LABS: MANUAL DIFF FLAG NO
[2025-03-18 14:50] LABS: Hematocrit 34.8 % (37.0-47.0); Hemoglobin 11.1 g/dl (12.0-16.0); Imm Gran Abs Auto 0.04 X10*3/uL (0.00-0.03); Imm Gran Pct Auto 0.5 % (0.0-0.4); Lymphocytes Absolute Auto 2.8 X10*3/uL (1.2-4.9); Mean Corpuscular HGB Conc 31.9 g/dl (31.0-35.0); Mean Corpuscular Hemoglobin 27.7 pg (27.0-33.0); Mean Corpuscular Volume 86.8 fL (80.0-98.0); NRBC Abs Auto 0.000 X10*3/uL (0.0-0.012); NRBC Pct Auto 0.0 /100WBC (0.0-0.2); Platelet Count 205 X10*3/uL (160-400); Red Blood Count 4.01 X10*6/uL (4.20-5.50); White Blood Count 8.0 X10*3/uL (4.8-10.8)
[2025-03-18 14:59] LABS: Appearance Urine Clear; Glucose Urine UA >=1000 mg/dL (Negative); PH 5.5 (5.0-9.0); Specific Gravity - Urine 1.025 (1.005-1.025); UMIC TRIGGER UA YES
[2025-03-18 16:45] LABS: Microalbum/Creatinine Ratio Ur 157.7 ug/mg cr (<30); Protein/Creatinine Ratio, Ur 0.39 (<0.2); Total Protein Urine Random 26 mg/dL (<12)
[2025-03-18 16:48] LABS: Albumin Level 3.8 g/dL (3.5-5.0); Anion Gap 16 (12-20); Blood Urea Nitrogen 34 mg/dL (9-16); Calcium 9.0 mg/dL (8.4-10.2); Carbon Dioxide 22 mmol/L (22-29); Chloride 106 mmol/L (96-108); Estimated Glomerular Filt Rate 22; Magnesium 2.1 mg/dL (1.6-2.6); Potassium 4.5 mmol/L (3.3-5.1); Sodium 139 mmol/L (135-145)
[2025-03-18 17:01] LABS: Parathyroid Hormone Intact 149.5 pg/mL (8.7-77.1)
== END 2025-03-18 08:26 | disposition home or self-care (01) ==
LOC: HO.LAB 08:25
PROVIDERS: Internal Medicine Nephrology; Absent Provider Internal Medicine Geriatric Medicine; PCP Internal Medicine Geriatric Medicine; Visit Provider Internal Medicine Cardiovascular Disease
DX: E11.22 Type 2 diabetes mellitus with diabetic chronic kidney disease (principal); N18.32 Chronic kidney disease, stage 3b; Z95.1 Presence of aortocoronary bypass graft; I25.2 Old myocardial infarction; R06.02 Shortness of breath
CPT/HCPCS: 36415; 80048; 80051; 81001; 82040; 82043; 82306; 82310; 82565; 82570; 83735; 83880; 83970; 84100; 84156; 84520; 85025

== ENCOUNTER 2025-03-18 13:00 | Outpatient (REF) | payer OTHER, SELFPAY | END 2025-03-18 13:01 | disposition home or self-care (01) | LOC: HO.MAMMO 13:00 | PROVIDERS: PCP Internal Medicine Geriatric Medicine; Visit Provider Internal Medicine Geriatric Medicine | DX: Z12.31 Encounter for screening mammogram for malignant neoplasm of breast (principal) | CPT/HCPCS: 77063; 77067 ==

== ENCOUNTER → 2025-03-18 13:45 | Outpatient (BNV) | payer OTHER, SELFPAY | PROVIDERS: PCP Internal Medicine Geriatric Medicine; Visit Provider Radiology Body Imaging | DX: Z12.31 Encounter for screening mammogram for malignant neoplasm of breast (principal) | CPT/HCPCS: 77063; 77067 ==